=== PATIENT | male | born 1980 | race Caucasian/White ===

== ENCOUNTER 2023-02-22 16:18 | Inpatient (IN) | payer SELFPAY ==
[2023-02-22 16:20] VITALS: BP 166/110; PULSE 95; RESP 14; TEMP 36.2; O2SAT 99; BMI 21.4
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
[2023-02-22] MEDS: LORazepam 2 MG/ML Syringe 0.5 MG IV (16:42)
[2023-02-22 16:47] VITALS: BP 162/102; PULSE 75; RESP 16; O2SAT 100
[2023-02-22 17:29] LABS: Amphetamine Urine VISTA NEGATIVE (<1000 ng/mL); Barbiturate Urine VISTA NEGATIVE (< 200 ng/mL); Benzodiazepine Urine VISTA NEGATIVE (< 200 ng/mL); Cocaine Urine VISTA NEGATIVE (< 300 ng/mL); Ecstacy Urine VISTA NEGATIVE (< 500 ng/mL); Methadone Urine VISTA NEGATIVE (< 300 ng/mL); PCP Urine VISTA NEGATIVE (< 25 ng/mL); THC Urine VISTA NEGATIVE (< 50 ng/mL); Vista UDS pH Range 6
[2023-02-22 17:36] LABS: Absolute Lymphocyte Count 1.18 X10^3/uL (0.83-4.51); Absolute Neutrophil Count 1.1 X10^3/uL (2.0-7.7); Basophil# 0.05 X10^3/uL; Basophil% 1.9 % (0-1); Eosinophil# 0.03 X10^3/uL; Eosinophils% 1.1 % (0-5); Hemoglobin 14.4 g/dL (13.0-16.5); Lymphocyte # 1.18 X10^3/ul (0.83-4.51); Lymphocyte % 44.2 % (19-41); Mean Corp Hgb Conc 33.5 g/dL (32-36); Mean Corpuscular Hgb 29.9 pg (27.0-32.0); Mean Corpuscular Volume 89.4 fL (80-94); Mean Platelet Vol. 9.3 fl (6.2-12.0); Monocyte# 0.29 X10^3/uL; Monocyte% 10.9 % (0-10); NRBC Flagged by Analyzer 0 % (0-5); Neutrophil # 1.12 X10^3/uL (2.7-7.7); Neutrophil % 41.9 % (47-70); Platelet Count 130 K/mm3 (150-450); RBC Distribution Width CV 13.6 % (11.6-14.6); Red Blood Count 4.81 M/mm3 (4.6-6.2); White Blood Count 2.7 K/mm3 (4.4-11.0)
[2023-02-22 17:46] LABS: International Normalized Ratio 0.9; Prothrombin Time (Protime)PT. 12.4 SECONDS (11.7-14.9)
[2023-02-22 17:58] LABS: ALB/GLOB Ratio 1.2 RATIO (0.9-2.4); AST(SGOT) 33 U/L (15-37); Alanine Aminotransfer ALT/SGPT 33 U/L (16-61); Albumin, Serum 3.5 g/dL (3.2-5.0); Alkaline Phosphatase 101 U/L (45-117); Anion Gap 6 (5-15); BUN 7 mg/dL (7-18); Chloride 109 mmol/L (98-107); Creatinine, Serum 0.58 mg/dL (0.70-1.30); EST Glomerular Filtration Rate 162 mL/min (>60); Est Glom Filt Rate - Afr Amer 196 mL/min (>60); Estimated Creatinine Clearance 157.49 ml/min; Glucose 81 mg/dL (74-106); Protein, Total 6.5 g/dL (6.4-8.2); Sodium Level 143 mmol/L (136-145)
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
[2023-02-22 18:19] VITALS: BP 139/74; PULSE 89; RESP 15; O2SAT 98
[2023-02-22] MEDS: Potassium Chloride Oral Tablet 20 MEQ 40 MEQ PO (18:21)
[2023-02-22 19:46] VITALS: BP 139/74; PULSE 89; RESP 15; TEMP 36.6; O2SAT 98
[2023-02-22 20:00] VITALS: BMI 21.5
[2023-02-22 21:09] VITALS: BP 171/104; PULSE 85; RESP 20; TEMP 36.8; O2SAT 99
[2023-02-22] MEDS: Phenobarbital 32.4 MG Tablet 64.7999999999999972 MG PO (21:14)
[2023-02-22] MEDS: Gabapentin 300 MG Capsule PO (21:35)
[2023-02-22] MEDS: Ensure Plus High Protein 120 ML LIQUID PO (21:35)
[2023-02-22] MEDS: QUEtiapine 25 MG Tablet PO (22:24)
[2023-02-22] MEDS: 0.9% Saline Lock 10 ML Syringe IV (22:26)
[2023-02-23 00:30] VITALS: BP 154/81; PULSE 98; RESP 18; TEMP 37.1; O2SAT 98
[2023-02-23 02:14] VITALS: BP 161/96; PULSE 81; RESP 20; TEMP 36.8; O2SAT 98
[2023-02-23] MEDS: Phenobarbital 32.4 MG Tablet 64.7999999999999972 MG PO ×6 (02:16→23:08)
[2023-02-23] MEDS: Ibuprofen 200 MG Tablet PO (03:59)
[2023-02-23 06:41] VITALS: BP 144/110; PULSE 79; RESP 16; TEMP 36.6; O2SAT 98
[2023-02-23 07:47] LABS: Absolute Lymphocyte Count 1.79 X10^3/uL (0.83-4.51); Absolute Neutrophil Count 1.2 X10^3/uL (2.0-7.7); Basophil# 0.07 X10^3/uL; Eosinophils% 2.9 % (0-5); Hemoglobin 13.3 g/dL (13.0-16.5); Lymphocyte # 1.79 X10^3/ul (0.83-4.51); Lymphocyte % 51.3 % (19-41); Mean Corp Hgb Conc 33.3 g/dL (32-36); Mean Corpuscular Hgb 29.6 pg (27.0-32.0); Mean Corpuscular Volume 88.9 fL (80-94); Mean Platelet Vol. 10.5 fl (6.2-12.0); Monocyte# 0.32 X10^3/uL; Monocyte% 9.2 % (0-10); NRBC Flagged by Analyzer 0 % (0-5); Neutrophil % 34.3 % (47-70); Platelet Count 127 K/mm3 (150-450); RBC Distribution Width CV 13.5 % (11.6-14.6); White Blood Count 3.5 K/mm3 (4.4-11.0)
[2023-02-23 08:09] LABS: Prothrombin Time (Protime)PT. 13.6 SECONDS (11.7-14.9)
[2023-02-23 08:45] VITALS: BP 172/98; PULSE 91; RESP 16; TEMP 37.1; O2SAT 100
[2023-02-23] MEDS: Thiamine Hydrochloride 100 MG Tablet PO (08:56)
[2023-02-23] MEDS: Folic Acid 1 MG Tablet PO (08:56)
[2023-02-23 09:09] LABS: ALB/GLOB Ratio 1.1 RATIO (0.9-2.4); AST(SGOT) 32 U/L (15-37); Alanine Aminotransfer ALT/SGPT 29 U/L (16-61); Albumin, Serum 3.2 g/dL (3.2-5.0); Alkaline Phosphatase 99 U/L (45-117); Anion Gap 6 (5-15); BUN 8 mg/dL (7-18); BUN/Creat Ratio 12.5 RATIO (10-20); Bilirubin, Direct 0.43 mg/dL (0.00-0.30); Chloride 108 mmol/L (98-107); Creatinine, Serum 0.64 mg/dL (0.70-1.30); EST Glomerular Filtration Rate 145 mL/min (>60); Est Glom Filt Rate - Afr Amer 175 mL/min (>60); Estimated Creatinine Clearance 143.77 ml/min; Glucose 71 mg/dL (74-106); Magnesium 1.6 mg/dL (1.6-2.6); Phosphorus 3.7 mg/dL (2.5-4.9); Potassium 3.1 mmol/L (3.5-5.1); Protein, Total 6.2 g/dL (6.4-8.2); Sodium Level 143 mmol/L (136-145)
--- NOTE | 2023-02-23 09:16 | PCM.PN.HOSP ---
Subjective Subjective No issues overnight, little bit shaky and a little bit anxious CIWA score of 9 Objective Data Objective Data Vital Signs: Vital Signs Temp Pulse Resp BP Pulse Ox O2 Del Method 98.8 F 91 16 172/98 H 100 Room Air 02/23/23 08:45 02/23/23 08:45 02/23/23 08:45 02/23/23 08:45 02/23/23 08:45 02/23/23 08:45 Oxygen Delivery Method Room Air Weight: 150 lb 9.211 oz Body Mass Index (BMI) 21.5 Intake & Output: Intake and Output for Last 24 Hours 02/22/23 02/23/23 02/24/23 03:59 03:59 03:59 Intake Total 1999 1000 / 1000 Balance 1999 1000 / 1000 Lab / Micro Data 02/23/23 07:04 02/23/23 07:04 Labs: Laboratory Results - last 24 hr 02/22/23 17:00: Urine Opiates Screen NEGATIVE, Urine Methadone Screen NEGATIVE, Ur Barbiturates Screen NEGATIVE, Ur Phencyclidine Scrn NEGATIVE, Ur Amphetamines Screen NEGATIVE, MDMA (Ecstasy) Screen NEGATIVE, U Benzodiazepines Scrn NEGATIVE, Urine Cocaine Screen NEGATIVE, U Cannabinoids Screen NEGATIVE, Ur Drug Screen Comment 02/22/23 17:23: WBC 2.7 L, RBC 4.81, Hgb 14.4, Hct 43.0, MCV 89.4, MCH 29.9, MCHC 33.5, RDW Std Deviation 45.0 H, RDW Coeff of Rubens 13.6, Plt Count 130 L, MPV 9.3, Immature Gran % (Auto) 0.000, Neut % (Auto) 41.9 L, Lymph % (Auto) 44.2 H, Juncos % (Auto) 10.9 H, Eos % (Auto) 1.1, Baso % (Auto) 1.9 H, Absolute Neuts (auto) 1.1 L, Absolute Lymphs (auto) 1.18, Nucleated RBC % 0, PT 12.4, INR 0.9, Sodium 143, Potassium 3.0 L, Chloride 109 H, Carbon Dioxide 28.0, Anion Gap 6, BUN 7, Creatinine 0.58 L, Estim Creat Clear Calc 157.49, Est GFR (MDRD) Af Amer 196, Est GFR (MDRD) Non-Af 162, BUN/Creatinine Ratio 12.0, Glucose 81, Calcium 8.0 L, Total Bilirubin 1.00, AST 33, ALT 33, Alkaline Phosphatase 101, Ammonia 32.0, Total Protein 6.5, Albumin 3.5, Globulin 3.0, Albumin/Globulin Ratio 1.2, Ethyl Alcohol 243.0 02/23/23 07:04: WBC 3.5 L, RBC 4.50 L, Hgb 13.3, Hct 40.0, MCV 88.9, MCH 29.6, MCHC 33.3, RDW Std Deviation 44.0 H, RDW Coeff of Rubens 13.5, Plt Count 127 L, MPV 10.5, Immature Gran % (Auto) 0.300, Neut % (Auto) 34.3 L, Lymph % (Auto) 51.3 H, Juncos % (Auto) 9.2, Eos % (Auto) 2.9, Baso % (Auto) 2.0 H, Absolute Neuts (auto) 1.2 L, Absolute Lymphs (auto) 1.79, Nucleated RBC % 0, PT 13.6, INR 1.0, Sodium 143, Potassium 3.1 L, Chloride 108 H, Carbon Dioxide 29.0, Anion Gap 6, BUN 8, Creatinine 0.64 L, Estim Creat Clear Calc 143.77, Est GFR (MDRD) Af Amer 175, Est GFR (MDRD) Non-Af 145, BUN/Creatinine Ratio 12.5, Glucose 71 L, Calcium 8.0 L, Phosphorus 3.7, Magnesium 1.6, Total Bilirubin 1.90 H, Direct Bilirubin 0.43 H, AST 32, ALT 29, Alkaline Phosphatase 99, Total Protein 6.2 L, Albumin 3.2, Globulin 3.0, Albumin/Globulin Ratio 1.1, TSH 0.70 Physical Exam Narrative General: Alert, Oriented x3, Cooperative, No apparent distress HEENT: Atraumatic, PERRLA, EOMI, Normocephalic Oral: Moist Mucosa Neck: Supple, No JVD Lungs: Clear to auscultation, Normal air movement, No rhonchi, No wheeze, No rales Cardiovascular: Regular rate, Regular Rhythm, Normal S1, Normal S2, No murmurs Abdomen: Soft, Non Tender, Non-Distended, No Hepato-splenomegaly Extremities: No edema, Capillary Refill Less than 3 Seconds Skin: No rashes, No breakdown Musculoskeletal: No Tenderness to Palpation of Joints or Extremities Neurological: Cranial nerves II-XII grossly intact, Motor Exam 5/5 strength throughout, Sensory exam intact to light touch and pain Psych/Mental Status: Flat, anxious Assessment & Plan Assessment/Plan (1) Alcohol abuse: PLAN: Plan 1. Alcohol withdrawal/chronic thrombocytopenia ? Continue with the alcohol withdrawal protocol ? We will have him follow-up with 180 for discharge planning ? Thrombocytopenia and leukopenia likely related to liver disease from his chronic alcohol use we will continue to monitor DVT: Ambulation Charges/Coding Visit Charges Inpatient E&M: 61228 Subs Hosp L2
[2023-02-23] MEDS: Gabapentin 300 MG Capsule PO ×2 (10:33→17:54)
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
[2023-02-23 14:16] VITALS: BP 160/101; PULSE 73; RESP 16; TEMP 37.1; O2SAT 99
[2023-02-23] MEDS: hydrOXYzine PAM 25 MG Capsule 50 MG PO ×2 (14:25→21:07)
[2023-02-23 21:04] VITALS: BP 162/104; PULSE 80; RESP 18; TEMP 37.1; O2SAT 100
[2023-02-23] MEDS: 0.9% Saline Lock 10 ML Syringe IV (21:07)
[2023-02-24 02:40] VITALS: BP 154/110; PULSE 64; RESP 18; TEMP 36.7; O2SAT 98
[2023-02-24] MEDS: Phenobarbital 32.4 MG Tablet 64.7999999999999972 MG PO ×6 (02:41→21:55)
[2023-02-24] MEDS: hydrOXYzine PAM 25 MG Capsule 50 MG PO ×3 (02:48→20:48)
[2023-02-24 06:44] VITALS: BP 144/96; PULSE 73; RESP 16; TEMP 37; O2SAT 99
[2023-02-24] MEDS: Gabapentin 300 MG Capsule PO ×2 (06:48→18:14)
[2023-02-24] MEDS: Thiamine Hydrochloride 100 MG Tablet PO (08:41)
[2023-02-24] MEDS: Folic Acid 1 MG Tablet PO (08:41)
--- NOTE | 2023-02-24 09:38 | PCM.PN.HOSP ---
Subjective Subjective No issues overnight, WA score of 11 Objective Data Objective Data Vital Signs: Vital Signs Temp Pulse Resp BP Pulse Ox O2 Del Method 98.6 F 73 16 144/96 H 99 Room Air 02/24/23 06:44 02/24/23 06:44 02/24/23 06:44 02/24/23 06:44 02/24/23 06:44 02/24/23 06:44 Oxygen Delivery Method Room Air Weight: 149 lb 14.629 oz Body Mass Index (BMI) 21.5 Intake & Output: Intake and Output for Last 24 Hours 02/23/23 02/24/23 02/25/23 03:59 03:59 03:59 Intake Total 1999 / 1999 3000 / 3000 1000 / 1000 Balance 1999 / 1999 3000 / 3000 1000 / 1000 Lab / Micro Data 02/23/23 07:04 02/23/23 07:04 Physical Exam Narrative General: Alert, Oriented x3, Cooperative, No apparent distress HEENT: Atraumatic, PERRLA, EOMI, Normocephalic Oral: Moist Mucosa Neck: Supple, No JVD Lungs: Clear to auscultation, Normal air movement, No rhonchi, No wheeze, No rales Cardiovascular: Regular rate, Regular Rhythm, Normal S1, Normal S2, No murmurs Abdomen: Soft, Non Tender, Non-Distended, No Hepato-splenomegaly Extremities: No edema, Capillary Refill Less than 3 Seconds Skin: No rashes, No breakdown Musculoskeletal: No Tenderness to Palpation of Joints or Extremities Neurological: Cranial nerves II-XII grossly intact, Motor Exam 5/5 strength throughout, Sensory exam intact to light touch and pain Psych/Mental Status: Flat, anxious Assessment & Plan Assessment/Plan (1) Alcohol abuse: PLAN: Plan 1. Alcohol withdrawal/chronic thrombocytopenia ? Continue with the alcohol withdrawal protocol ? We will have him follow-up with 180 for discharge planning ? Thrombocytopenia and leukopenia likely related to liver disease from his chronic alcohol use we will continue to monitor DVT: Ambulation Charges/Coding Visit Charges Inpatient E&M: 71356 Subs Hosp L2
[2023-02-24 10:00] VITALS: BP 155/107; PULSE 80; RESP 16; TEMP 37.5; O2SAT 99
[2023-02-24] MEDS: Ibuprofen 400 MG Tablet PO ×2 (11:10→20:50)
--- NOTE | 2023-02-24 12:34 | CASEMGMT ---
Social Work SW met with pt and provided written resources for transportation, housing, [facility] program, [place] [facility] and PCP list. SW also called the Counseling Center and made an appointment for a diagnostic Assessment for Intake. Appointment on March 01 at 1030 with Tanvi White. Pt made aware and agreeable to appointment. Appointment information entered into the discharge information. Pt denies other needs at this time. NICO Martin
[2023-02-24 18:00] VITALS: BP 157/114; PULSE 84; RESP 16; TEMP 37.2; O2SAT 99
[2023-02-24 20:56] VITALS: BP 158/98; PULSE 88; RESP 16; TEMP 36.8; O2SAT 95
[2023-02-24] MEDS: QUEtiapine 25 MG Tablet PO (21:55)
[2023-02-25 02:14] VITALS: BP 156/98; PULSE 69; RESP 16; TEMP 36.6; O2SAT 100
[2023-02-25] MEDS: Phenobarbital 32.4 MG Tablet 64.7999999999999972 MG PO ×2 (02:18→08:20)
[2023-02-25] MEDS: Gabapentin 300 MG Capsule PO (02:19)
[2023-02-25] MEDS: Folic Acid 1 MG Tablet PO (08:21)
[2023-02-25] MEDS: Potassium Chloride Oral Tablet 20 MEQ PO (08:21)
[2023-02-25] MEDS: Thiamine Hydrochloride 100 MG Tablet PO (08:21)
--- NOTE | 2023-02-25 10:00 | PCM.DC.SUM ---
Providers Date of Admission: 02/22/23 Date of Discharge: 02/25/23 Primary Care Physician: Felicitas Primary Care Phys Reason For Visit: ALCOHOL DETOXIFICATION Diagnosis Discharge Diagnosis (1) Alcohol abuse: Status: Acute Code(s): F10.10 - Alcohol abuse, uncomplicated Medications at Discharge Home Medications gabapentin 300 mg capsule 300 mg PO TID 02/22/23 lorazepam 0.5 mg tablet (Ativan) 0.5 mg PO DAILY PRN anxiety 02/22/23 quetiapine 25 mg tablet (Seroquel) 25 mg PO QHS 02/22/23 amlodipine 10 mg tablet 10 mg PO DAILY #60 tabs 02/25/23 Hospital Course Summary of Care Provided Minutes Spent on Discharge: 35 Hospital Course: Patient is a 43-year-old gentleman with history of chronic alcohol dependence presented with acute alcohol withdrawal 1. Acute alcohol withdrawal -patient admitted to regular nursing floor managed with phenobarb taper in addition to adjuvant medications 2. Thrombocytopenia ? Related to patient chronic alcohol use, monitored with daily CBC with differential 3. Leukopenia ? Again related to patient alcohol use 4. Essential hypertension ? Prescription written for amlodipine on discharge Physical Exam Narrative GENERAL: cooperative HEENT: Atraumatic; normocephalic EYES; Anicteric, Normal Conjunctiva NECK; supple, normal thyroid, RESPIRATORY: Diminished to auscultation CARDIOVASCULAR: Regular S1 S2, GI: soft, normoactive bowel sounds, : No Renal angle tenderness; EXTREMITIES: No edema, no clubbing, MUSCULOSKELETAL: no muscle wasting NEURO: Awake; no lateralizing signs. SKIN: No Rash PSYCH; Flat affect Weight / BMI Weight Weight: 68 kg Body Mass Index (BMI) 21.5 ABG / Lab / Microbiology Data 02/23/23 07:04 02/23/23 07:04 D/C Instructions Discharge Diet: No restrictions Discharge Activity: Return to Normal Activity Call your doctor if you observe: Fever of 101 or Higher, Shortness of breath, Fainting spells and Chest pain Meaningful Use Info Meaningful Use Diagnoses (Choose all that apply): None applicable Discharge Plan Admission Admit Date/Time: 02/22/23 18:24 Attending Provider: Spencer Rose Primary Care Provider: Care Physician,No Primary Consulting Providers: Linda Mendiola; Óscar Terry Instructions Additional Instructions / Restrictions: go directly to 180 as directed by staff Discharge Orders/Prescriptions Prescriptions: New amlodipine 10 mg tablet 10 mg PO DAILY Qty: 60 0RF Continued quetiapine [Seroquel] 25 mg tablet 25 mg PO QHS lorazepam [Ativan] 0.5 mg tablet 0.5 mg PO DAILY PRN (Reason: anxiety) gabapentin 300 mg capsule 300 mg PO TID Referrals / Follow Up: Care Physician,No Primary [Primary Care Provider] - Within 2 Weeks Disposition Disposition (needs filled in before D/C Order can be placed): Home, Self Care Charges/Coding Visit Charges Inpatient E&M: 83693 Disch Hosp >30min
[2023-02-25 10:01] VITALS: BP 151/100; PULSE 86; RESP 18; TEMP 36.7; O2SAT 96
== END 2023-02-25 10:55 | disposition home or self-care (01) | DRG 897 ==
LOC: ED 18:00 → MS3 18:34
PROVIDERS: Admitting Provider Internal Medicine; Emergency Provider Emergency Medicine; Visit Provider Internal Medicine
DX: F10.239 Alcohol dependence with withdrawal, unspecified (principal); D69.6 Thrombocytopenia, unspecified; I10 Essential (primary) hypertension; E87.6 Hypokalemia; Y90.8 Blood alcohol level of 240 mg/100 ml or more
CPT/HCPCS: 36415; 80053; 80307; 80320; 82140; 82248; 83735; 84100; 84443; 85025; 85610; 97802; 99284; A4216; G0480

== ENCOUNTER 2023-03-27 19:38 | Observation (INO) | payer MEDICAID, SELFPAY ==
[2023-03-27 19:39] VITALS: BP 184/97; PULSE 106; RESP 16; TEMP 36.6; O2SAT 98; BMI 20.5
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
--- NOTE | 2023-03-27 20:10 | CT_ITS ---
STUDY: CT BRAIN WITHOUT CONTRAST REASON FOR EXAM: Male, 43 years old. Head injury RADIATION DOSAGE (If Supplied By Facility): CTDIvol = ( 44.99 ) mGy, DLP = ( 829.85 ) mGycm TECHNIQUE: Transaxial CT imaging of the brain was performed without administration of intravenous contrast material. Individualized dose optimization techniques were used for this CT. COMPARISON: No relevant priors. FINDINGS: Normal soft tissue structures. Normal calvarium. Normal size ventricles and extra-axial spaces for the patient''s age. Normal white matter tracts of the cerebral hemispheres. Normal basal ganglia and thalami. Normal brainstem. Normal cerebellum. There is no intracranial hemorrhage. There are no findings of an acute ischemic infarction. Normal visualized paranasal sinuses. CT/Brain/Head without Contrast IMPRESSION: Normal unenhanced CT scan of the brain. Electronically Signed: Jessy Barraza MD at 21:16 EST ,
--- NOTE | 2023-03-27 20:11 | CT_ITS ---
STUDY: CTA CHEST REASON FOR EXAM: Male, 43 years old. Pulmonary embolism RADIATION DOSAGE (If Supplied By Facility): CTDIvol = ( 7.68 ) mGy, DLP = ( 1114.36 ) mGycm TECHNIQUE: The examination was performed with the intravenous administration of IV 100mL Isovue-370. Post-processing of the angiographic images was performed, with multiplanar reformation and 3D reconstruction. Individualized dose optimization techniques were used for this CT. COMPARISON: None. FINDINGS: Normal enhancement of the main pulmonary artery and right and left pulmonary arteries. Normal enhancement of the bilateral peripheral pulmonary arteries. There is no demonstrated pulmonary embolism. Normal thoracic aorta and visualized great vessels. There is no demonstrated aortic dissection. Normal heart and pericardium. Normal mediastinum. Normal hilar regions. Normal visualized trachea and bronchi. The lungs are well expanded. Mild biapical subpleural scarring versus atelectasis. Otherwise normal pulmonary parenchyma. Mild biapical pleural thickening. Normal chest wall structures. Normal osseous structures. Upper abdomen reveals diffuse fatty liver. Remainder of the visualized upper abdominal viscera and structures are unremarkable. CT/CTA Chest W/WO Contrast IMPRESSION: Negative CTA chest examination, without a demonstrated pulmonary embolism or arterial dissection. No acute cardiac pulmonary disease. Electronically Signed: Jessy Barraza MD at 21:37 EST ,
[2023-03-27 20:16] LABS: Bacteria 0 SEEN /hpf (None Seen); Mucous, Urine 0 SEEN /hpf (<or=2+); Red Blood Cells-Urine 0 SEEN /hpf (0-5); Squamous Epithelial Cells - UA 0 SEEN /hpf (0-5); White Blood Cells 0 SEEN /hpf (0-5)
[2023-03-27 20:18] LABS: Color, Urine Yellow (Yellow); Glucose, Dipstick Normal (Normal); Ketone-Dipstick 50 mg/dl (Negative); Leukocyte Esterase-Dipstick Negative /ul (Negative); Nitrite-Dipstick Negative (Negative); Occult Blood-Urine 10 /ul (Negative); Protein-Dipstick 100 mg/dl (Negative); Specific Gravity, Urine 1.015 (1.002-1.030); Urine Bilirubin Dipstick Negative (Negative); Urine Clarity Clear (Clear); Urine Urobilinogen Normal (Normal); Urine pH 6.5 (5.0 - 8.0)
[2023-03-27 20:31] LABS: Absolute Lymphocyte Count 1.16 X10^3/uL (0.83-4.51); Absolute Neutrophil Count 1.2 X10^3/uL (2.0-7.7); Basophil# 0.03 X10^3/uL; Basophil% 1.1 % (0-1); Hematocrit 42.7 % (40-54); Hemoglobin 14.7 g/dL (13.0-16.5); Lymphocyte # 1.16 X10^3/ul (0.83-4.51); Lymphocyte % 44.4 % (19-41); Mean Corp Hgb Conc 34.4 g/dL (32-36); Mean Corpuscular Hgb 29.3 pg (27.0-32.0); Mean Corpuscular Volume 85.2 fL (80-94); Mean Platelet Vol. 8.8 fl (6.2-12.0); Monocyte# 0.22 X10^3/uL; Monocyte% 8.4 % (0-10); NRBC Flagged by Analyzer 0 % (0-5); Neutrophil # 1.19 X10^3/uL (2.7-7.7); Neutrophil % 45.7 % (47-70); POSITIVE COUNT YES; Platelet Count 85 K/mm3 (150-450); RBC Distribution Width CV 12.5 % (11.6-14.6); RBC Distribution Width SD 38.9 fl (35.1-43.9); Red Blood Count 5.01 M/mm3 (4.6-6.2); White Blood Count 2.6 K/mm3 (4.4-11.0)
[2023-03-27 20:32] LABS: Amphetamine Urine VISTA NEGATIVE (<1000 ng/mL); Barbiturate Urine VISTA NEGATIVE (< 200 ng/mL); Benzodiazepine Urine VISTA NEGATIVE (< 200 ng/mL); Cocaine Urine VISTA NEGATIVE (< 300 ng/mL); Ecstacy Urine VISTA NEGATIVE (< 500 ng/mL); Methadone Urine VISTA NEGATIVE (< 300 ng/mL); PCP Urine VISTA NEGATIVE (< 25 ng/mL); THC Urine VISTA NEGATIVE (< 50 ng/mL); Vista UDS pH Range 6
[2023-03-27 20:35] LABS: Differential Indicated SCAN CRITERIA MET
[2023-03-27 20:47] LABS: ALB/GLOB Ratio 1.2 RATIO (0.9-2.4); AST(SGOT) 185 U/L (15-37); Alanine Aminotransfer ALT/SGPT 133 U/L (16-61); Albumin, Serum 3.7 g/dL (3.2-5.0); Alkaline Phosphatase 202 U/L (45-117); Anion Gap 11 (5-15); BUN 10 mg/dL (7-18); BUN/Creat Ratio 12.8 RATIO (10-20); Calcium,Total 8.6 mg/dL (8.5-10.1); Chloride 103 mmol/L (98-107); Creatinine, Serum 0.78 mg/dL (0.70-1.30); EST Glomerular Filtration Rate 116 mL/min (>60); Est Glom Filt Rate - Afr Amer 140 mL/min (>60); Estimated Creatinine Clearance 112.03 ml/min; Globulin 3.2 g/dL (2.2-4.2); Glucose 187 mg/dL (74-106); Lipase 220 U/L (13-75); Protein, Total 6.9 g/dL (6.4-8.2); Sodium Level 139 mmol/L (136-145)
[2023-03-27 20:55] LABS: Differential Comment SCANNED
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
[2023-03-27] MEDS: Potassium Chloride Oral Tablet 20 MEQ 40 MEQ PO (22:21)
[2023-03-27 22:27] VITALS: BP 169/108; PULSE 100; RESP 22; TEMP 36.4; O2SAT 99
[2023-03-27] MEDS: Ketorolac 15 MG/ML Vial IV (23:09)
[2023-03-27 23:32] VITALS: BMI 20.5
[2023-03-27 23:37] VITALS: BP 158/109; PULSE 91; RESP 17; TEMP 36.7; O2SAT 99
[2023-03-27 23:49] LABS: International Normalized Ratio 0.8; Prothrombin Time (Protime)PT. 11.5 SECONDS (11.7-14.9)
[2023-03-27] MEDS: Potassium Chloride Oral Tablet 20 MEQ 60 MEQ PO (23:51)
[2023-03-27] MEDS: Phenobarbital 32.4 MG Tablet 32.3999999999999986 MG PO (23:51)
[2023-03-27] MEDS: hydrOXYzine PAM 25 MG Capsule 50 MG PO (23:51)
[2023-03-27] MEDS: 0.9% Saline Lock 10 ML Syringe IV (23:51)
[2023-03-27] MEDS: Lactated Ringers 1,000 ML 125 ML IV (23:51)
[2023-03-28] MEDS: traZODone 100 MG Tablet PO (02:12)
[2023-03-28] MEDS: Ibuprofen 600 MG Tablet PO ×3 (02:12→19:38)
[2023-03-28] MEDS: hydrOXYzine 50 MG/ML Vial 100 MG IM (02:40)
[2023-03-28 03:37] VITALS: BP 140/82; PULSE 108; RESP 16; TEMP 36.6; O2SAT 94
[2023-03-28] MEDS: Phenobarbital 32.4 MG Tablet 32.3999999999999986 MG PO ×6 (03:46→23:55)
[2023-03-28] MEDS: Gabapentin 300 MG Capsule PO ×3 (05:54→21:58)
[2023-03-28 06:02] LABS: Basophil# 0.01 X10^3/uL; Basophil% 0.4 % (0-1); Eosinophil# 0.03 X10^3/uL; Eosinophils% 1.2 % (0-5); Hematocrit 34.6 % (40-54); Lymphocyte % 45.6 % (19-41); Mean Corp Hgb Conc 34.7 g/dL (32-36); Mean Corpuscular Hgb 29.4 pg (27.0-32.0); Mean Corpuscular Volume 84.8 fL (80-94); Mean Platelet Vol. 9.2 fl (6.2-12.0); Monocyte# 0.26 X10^3/uL; Monocyte% 10.8 % (0-10); NRBC Flagged by Analyzer 0 % (0-5); Neutrophil # 1.01 X10^3/uL (2.7-7.7); POSITIVE COUNT YES; Platelet Count 64 K/mm3 (150-450); RBC Distribution Width CV 12.3 % (11.6-14.6); RBC Distribution Width SD 38.2 fl (35.1-43.9); Red Blood Count 4.08 M/mm3 (4.6-6.2); White Blood Count 2.4 K/mm3 (4.4-11.0)
[2023-03-28 06:53] LABS: ALB/GLOB Ratio 1.2 RATIO (0.9-2.4); AST(SGOT) 139 U/L (15-37); Alanine Aminotransfer ALT/SGPT 106 U/L (16-61); Albumin, Serum 3.1 g/dL (3.2-5.0); Alkaline Phosphatase 169 U/L (45-117); Anion Gap 5 (5-15); BUN 6 mg/dL (7-18); BUN/Creat Ratio 10.7 RATIO (10-20); Calcium,Total 8.2 mg/dL (8.5-10.1); Chloride 103 mmol/L (98-107); Creatinine, Serum 0.56 mg/dL (0.70-1.30); EST Glomerular Filtration Rate 168 mL/min (>60); Est Glom Filt Rate - Afr Amer 204 mL/min (>60); Estimated Creatinine Clearance 155.89 ml/min; Globulin 2.5 g/dL (2.2-4.2); Glucose 92 mg/dL (74-106); Lipase 199 U/L (13-75); Potassium 3.3 mmol/L (3.5-5.1); Protein, Total 5.6 g/dL (6.4-8.2); Sodium Level 137 mmol/L (136-145)
[2023-03-28 07:40] VITALS: BP 142/85; PULSE 72; RESP 16; TEMP 36.9; O2SAT 95
[2023-03-28] MEDS: Folic Acid 1 MG Tablet PO (07:43)
[2023-03-28] MEDS: Thiamine Hydrochloride 100 MG Tablet PO (07:43)
--- NOTE | 2023-03-28 09:53 | PCM.PN.HOSP ---
Reason for Visit Reason for Visit: Diagnoses Thrombocytopenia, unspecified (03/27/23) Decreased white blood cell count, unspecified (03/27/23) Hypokalemia (03/27/23) Alcohol abuse, uncomplicated (03/27/23) Alcohol use, unspecified with intoxication, unspecified (03/27/23) Noninfective gastroenteritis and colitis, unspecified (03/27/23) Bilious vomiting (03/27/23) Subjective Subjective Patient was seen and examined today, he appears calm, he has no visible tremor, he does not appear anxious. Objective Data Objective Data Vital Signs: Vital Signs Temp Pulse Resp BP Pulse Ox O2 Del Method 98.5 F 72 16 142/85 H 95 Room Air 03/28/23 07:40 03/28/23 07:40 03/28/23 07:40 03/28/23 07:40 03/28/23 07:40 03/28/23 07:53 Oxygen Delivery Method Room Air Weight: 64.8 kg Body Mass Index (BMI) 20.5 Intake & Output: Intake and Output for Last 24 Hours 03/26/23 03/27/23 03/28/23 23:59 23:59 23:59 Intake Total 1000 / 1000 Balance 1000 / 1000 Lab / Micro Data 03/28/23 05:09 03/28/23 05:09 Labs: Laboratory Results - last 24 hr 03/27/23 19:52: Urine Color Yellow, Urine Clarity Clear, Urine pH 6.5, Ur Specific [place] 1.015, Urine Protein 100 H, Urine Glucose (UA) Normal, Urine Ketones 50 H, Urine Occult Blood 10 H, Urine Nitrite Negative, Urine Bilirubin Negative, Urine Urobilinogen Normal, Ur Leukocyte Esterase Negative, Urine RBC 0 SEEN, Urine WBC 0 SEEN, Ur Squamous Epith Cells 0 SEEN, Urine Bacteria 0 SEEN, Urine Mucus 0 SEEN, Urine Opiates Screen NEGATIVE, Urine Methadone Screen NEGATIVE, Ur Barbiturates Screen NEGATIVE, Ur Phencyclidine Scrn NEGATIVE, Ur Amphetamines Screen NEGATIVE, MDMA (Ecstasy) Screen NEGATIVE, U Benzodiazepines Scrn NEGATIVE, Urine Cocaine Screen NEGATIVE, U Cannabinoids Screen NEGATIVE, Ur Drug Screen Comment 03/27/23 20:15: WBC 2.6 L, RBC 5.01, Hgb 14.7, Hct 42.7, MCV 85.2, MCH 29.3, MCHC 34.4, RDW Std Deviation 38.9, RDW Coeff of Rubens 12.5, Plt Count 85 L, MPV 8.8, Immature Gran % (Auto) 0.400, Neut % (Auto) 45.7 L, Lymph % (Auto) 44.4 H, Thayer % (Auto) 8.4, Eos % (Auto) 0.0, Baso % (Auto) 1.1 H, Absolute Neuts (auto) 1.2 L, Absolute Lymphs (auto) 1.16, Nucleated RBC % 0, Differential Comment SCANNED, PT 11.5 L, INR 0.8, Sodium 139, Potassium 3.0 L, Chloride 103, Carbon Dioxide 25.0, Anion Gap 11, BUN 10, Creatinine 0.78, Estim Creat Clear Calc 112.03, Est GFR (MDRD) Af Amer 140, Est GFR (MDRD) Non-Af 116, BUN/Creatinine Ratio 12.8, Glucose 187 H, Calcium 8.6, Total Bilirubin 0.50, AST 185 H, ALT 133 H, Alkaline Phosphatase 202 H, Total Protein 6.9, Albumin 3.7, Globulin 3.2, Albumin/Globulin Ratio 1.2, Lipase 220 H, Ethyl Alcohol 415.0 H* 03/28/23 05:09: WBC 2.4 L, RBC 4.08 L, Hgb 12.0 L, Hct 34.6 L, MCV 84.8, MCH 29.4, MCHC 34.7, RDW Std Deviation 38.2, RDW Coeff of Rubens 12.3, Plt Count 64 L, MPV 9.2, Immature Gran % (Auto) 0.000, Neut % (Auto) 42.0 L, Lymph % (Auto) 45.6 H, Thayer % (Auto) 10.8 H, Eos % (Auto) 1.2, Baso % (Auto) 0.4, Absolute Neuts (auto) 1.0 L, Absolute Lymphs (auto) 1.10, Nucleated RBC % 0, Sodium 137, Potassium 3.3 L, Chloride 103, Carbon Dioxide 29.0, Anion Gap 5, BUN 6 L, Creatinine 0.56 L, Estim Creat Clear Calc 155.89, Est GFR (MDRD) Af Amer 204, Est GFR (MDRD) Non-Af 168, BUN/Creatinine Ratio 10.7, Glucose 92, Calcium 8.2 L, Total Bilirubin 0.90, AST 139 H, ALT 106 H, Alkaline Phosphatase 169 H, Total Protein 5.6 L, Albumin 3.1 L, Globulin 2.5, Albumin/Globulin Ratio 1.2, Lipase 199 H 03/28/23 06:12: Ethyl Alcohol 173.0 Radiography Diagnostic Testing: Radiology Impression Brain CT 03/27/23 20:10 IMPRESSION: Normal unenhanced CT scan of the brain. Electronically Signed: Jessy Barraza MD at 21:16 EST , Chest CTA 03/27/23 20:11 IMPRESSION: Negative CTA chest examination, without a demonstrated pulmonary embolism or arterial dissection. No acute cardiac pulmonary disease. Electronically Signed: Jessy Barraza MD at 21:37 EST Reading Location ID and State: [employer] , Service support , Physical Exam Const alert, oriented x3, no apparent distress and average body habitus General Appearance: cooperative, well kempt and well developed Orientation / Consciousness: awake, oriented to person, oriented to place and oriented to time HEENT normocephalic, head/scalp atraumatic and moist oral mucous membranes Eyes PERRL, EOMs intact bilaterally and conjunctivae normal Neck supple, no JVD, thyroid normal and no carotid bruits General: trachea midline Resp normal respiratory effort, no retractions, no use of accessory muscles and clear to auscultation bilaterally Auscultation: Negative for rales, rhonchi or wheezes Cardio regular rate, regular rhythm, S1 normal heart sound, S2 normal heart sound, no murmurs, no rub and no gallops GI normal to inspection, nondistended, normoactive bowel sounds, soft to palpation, non-tender and non-distended Extremity no clubbing, cyanosis or edema Skin no rashes or lesions noted General Skin Exam: no breakdown Neuro oriented x3, CN's II-XII intact bilaterally, moves all extremities, no focal motor deficits and no sensory deficits noted Sensorium / Orientation: awake and alert Speech: speech normal Psych affect normal Assessment & Plan Assessment/Plan (1) Alcohol abuse: PLAN: Plan 1. Acute alcohol withdrawal-patient will remain on his present medications, he will be seen by addiction social problems specialist tomorrow for outpatient planning #2 chronic alcoholism-complicates care, medical course, recovery, and prognosis #3 alcoholic hepatitis-patient's liver enzymes will be monitored #4 elevated lipase-patient has no signs or symptoms of pancreatitis today, his abdomen is soft Total clinical time spent by myself addressing the patient's medical issues, reviewing all of his data, and collaborating with patient's care team: 25-minute Charges/Coding Visit Charges Inpatient E&M: 04268 Subs Hosp L1
[2023-03-28] MEDS: hydrOXYzine PAM 25 MG Capsule 50 MG PO ×3 (10:45→21:58)
[2023-03-28 14:22] VITALS: BP 147/98; PULSE 89; RESP 18; TEMP 36.9; O2SAT 98
[2023-03-28] MEDS: Nicotine Polacrilex 2 MG GUM PO (14:40)
[2023-03-28 20:20] VITALS: BP 161/113; PULSE 111; RESP 16; TEMP 36.4; O2SAT 99
--- NOTE | 2023-03-28 20:44 | NURSING ---
Patient got a shower and nicotine patch fell off. Patch replaced.
[2023-03-28] MEDS: QUEtiapine 25 MG Tablet PO (21:58)
[2023-03-29 02:00] VITALS: BP 168/107; PULSE 72; RESP 18; TEMP 36.6; O2SAT 97
[2023-03-29] MEDS: Phenobarbital 32.4 MG Tablet 32.3999999999999986 MG PO ×6 (03:53→22:57)
[2023-03-29] MEDS: hydrOXYzine PAM 25 MG Capsule 50 MG PO ×3 (03:54→15:42)
[2023-03-29] MEDS: Gabapentin 300 MG Capsule PO ×3 (06:27→22:11)
[2023-03-29] MEDS: Thiamine Hydrochloride 100 MG Tablet PO (07:35)
[2023-03-29] MEDS: Folic Acid 1 MG Tablet PO (07:35)
[2023-03-29 08:00] VITALS: BP 164/106; PULSE 68; RESP 18; TEMP 36.3; O2SAT 99
[2023-03-29 09:28] LABS: Anion Gap 5 (5-15); BUN 4 mg/dL (7-18); BUN/Creat Ratio 6.2 RATIO (10-20); Calcium,Total 9.2 mg/dL (8.5-10.1); Chloride 104 mmol/L (98-107); Creatinine, Serum 0.64 mg/dL (0.70-1.30); EST Glomerular Filtration Rate 145 mL/min (>60); Est Glom Filt Rate - Afr Amer 175 mL/min (>60); Estimated Creatinine Clearance 136.41 ml/min; Glucose 89 mg/dL (74-106); Magnesium 1.7 mg/dL (1.6-2.6); Potassium 3.5 mmol/L (3.5-5.1); Sodium Level 139 mmol/L (136-145)
--- NOTE | 2023-03-29 09:30 | ADDICTION ---
clinician reviewed documentation regarding client. client's primary language is Malawian. clinician will coordinate care for interperation services.
--- NOTE | 2023-03-29 09:44 | ADDICTION ---
clinician met with client to discuss substance use hx and relapse. client reported that he is feeling anxious due to recently moving from [place]; all of his possessions are in a storage unit. clinician briefly assisted client in processing emotions and provided brief mindfulness skills to increase internal focus. client reported a need for further tx upon release from detox. He doesn't know what area he would like to attend (possibly) IOP. clinician discussed local tx options. clinician will continue to collaborate with client for tx options.
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
[2023-03-29 14:00] VITALS: BP 175/117; PULSE 70; RESP 18; TEMP 36.9; O2SAT 98
[2023-03-29] MEDS: amLODIPine 5 MG Tablet PO (14:10)
--- NOTE | 2023-03-29 15:20 | PN.HOSP_ITS ---
Reason for Visit Reason for Visit: Diagnoses Thrombocytopenia, unspecified (03/27/23) Decreased white blood cell count, unspecified (03/27/23) Hypokalemia (03/27/23) Alcohol abuse, uncomplicated (03/27/23) Alcohol use, unspecified with intoxication, unspecified (03/27/23) Noninfective gastroenteritis and colitis, unspecified (03/27/23) Bilious vomiting (03/27/23) Subjective Subjective No acute events overnight. Patient seen at bedside this morning. Sitting up comfortably in bed, no acute distress. Patient appears fatigued and was making appropriate eye contact but did appear somewhat confused when answering my questions. He was able to answer most questions with short appropriate responses. He denied any acute pain or discomfort. He did have a noticeable bilateral arm tremor that he says has been going on intermittently for a while. He otherwise denies any other withdrawal symptoms. No other acute concerns this time. Objective Data Objective Data Vital Signs: Vital Signs Temp Pulse Resp BP Pulse Ox O2 Del Method 98.4 F 70 18 175/117 H 98 Room Air 03/29/23 14:00 03/29/23 14:00 03/29/23 14:00 03/29/23 14:00 03/29/23 14:00 03/29/23 14:00 Oxygen Delivery Method Room Air Weight: 64.8 kg Body Mass Index (BMI) 20.5 Intake & Output: Intake and Output for Last 24 Hours 03/27/23 03/28/23 03/29/23 23:59 23:59 23:59 Intake Total 1280 / 1280 1200 / 1200 Balance 1280 / 1280 1200 / 1200 Lab / Micro Data 03/28/23 05:09 03/29/23 08:17 Labs: Laboratory Results - last 24 hr 03/29/23 08:17: Sodium 139, Potassium 3.5, Chloride 104, Carbon Dioxide 30.0, A nion Gap 5, BUN 4 L, Creatinine 0.64 L, Estim Creat Clear Calc 136.41, Est GFR (MDRD) Af Amer 175, Est GFR (MDRD) Non-Af 145, BUN/Creatinine Ratio 6.2 L, Glucose 89, Calcium 9.2, Magnesium 1.7 Physical Exam Const alert and no apparent distress Constitutional Narrative: Middle-age male, thin appearing, appears older than stated age, fatigued, appears somewhat confused but answering questions with short appropriate responses, otherwise sitting up comfortably in bed, no acute distress. General Appearance: cooperative and comfortable HEENT normocephalic, head/scalp atraumatic, hearing grossly normal bilaterally and nasal mucous membranes and turbinates normal Eyes PERRL, EOMs intact bilaterally and conjunctivae normal Neck full ROM, no lymphadenopathy and supple Lymph Lymphatic: no lymphadenopathy noted Chest inspection of chest normal Resp normal respiratory effort, normal air movement, no use of accessory muscles and clear to auscultation bilaterally Cardio regular rate, regular rhythm, no murmurs and peripheral pulses 2+ throughout GI normal to inspection, nondistended, normoactive bowel sounds, soft to palpation, non-tender and non-distended Back/Spine normal ROM Extremity normal to inspection, full ROM and no pedal edema Skin no rashes or lesions noted Neuro no focal motor deficits and no sensory deficits noted Assessment & Plan Assessment/Plan (1) Alcohol abuse: (2) Leukopenia: QUALIFIERS: Leukopenia type: unspecified Qualified Code(s): D72.819 - Decreased white blood cell count, unspecified (3) Thrombocytopenia: (4) Elevated blood pressure reading: PLAN: Plan Patient is a 43-year-old male who presented to [facility] ED on 01/26/2024 for alcohol detoxification. 1. Chronic alcohol abuse with acute alcohol withdrawal Alcohol level 415 on admit. Was hospitalized at [facility] for same issue at the beginning of February. ? Case management following. Continue phenobarbital taper with as needed medications per alcohol withdrawal order set. Planning for either intensive outpatient therapy versus home with outpatient follow-up on discharge. 2. Suspected alcoholic hepatitis ? Liver enzymes elevated on admit, have remained stable. CTA chest showed diffuse fatty liver disease. No abdominal pain or tenderness noted. Outpatient follow-up recommended. 3. Elevated lipase ? Lipase 220 on admit, repeat lipase 199 on 03/28. No clinical evidence of pancreatitis since admit, abdomen soft and nontender, tolerating p.o. intake without issue. Monitor symptoms. 4. Mood disorder ? Continue home Seroquel at night. Will plan to restart Ativan 0.5 mg daily as needed on discharge. 5. Elevated blood pressure ? BP elevated to 160s to 170s systolic since admission. Has remained elevated despite good control of withdrawal symptoms. Suspect patient may have underlying hypertension. Started amlodipine 5 mg daily on 2/5, as well as IV hydralazine as needed. Monitor BP. 6. Mild pancytopenia ? WBC count 2-3 K, platelet count 60s to 90s, hemoglobin around 12. Suspect low platelet count secondary to alcohol hepatitis as noted above. Suspect mild leukopenia is chronic for the patient. Iron studies, B12 and folate ordered for workup of anemia. Trend daily CBC. DVT prophylaxis: Lovenox CODE STATUS: Full code, unverified Expected disposition: Home, 1 to 2 days Total clinical time spent by myself addressing the patient's medical issues, reviewing all the data, and collaborating with patient's care team: 25 minutes. Charges/Coding Visit Charges Inpatient E&M: 34952 Subs Hosp L1
[2023-03-29] MEDS: Ibuprofen 600 MG Tablet PO (15:42)
[2023-03-29 22:00] VITALS: BP 129/93; PULSE 105; RESP 16; TEMP 37.1; O2SAT 99
[2023-03-29] MEDS: QUEtiapine 25 MG Tablet PO (22:10)
[2023-03-30 03:45] VITALS: BP 119/94; PULSE 89; RESP 16; TEMP 36.6; O2SAT 96
[2023-03-30] MEDS: Phenobarbital 32.4 MG Tablet 32.3999999999999986 MG PO ×4 (03:46→19:09)
[2023-03-30] MEDS: Gabapentin 300 MG Capsule PO ×3 (06:42→22:25)
[2023-03-30] MEDS: Folic Acid 1 MG Tablet PO (08:40)
[2023-03-30] MEDS: Thiamine Hydrochloride 100 MG Tablet PO (08:40)
[2023-03-30 09:00] VITALS: BP 137/101; PULSE 93; RESP 18; TEMP 36.8; O2SAT 100
[2023-03-30 10:00] VITALS: BP 137/101; PULSE 93; RESP 18; TEMP 36.9; O2SAT 100
--- NOTE | 2023-03-30 10:45 | ADDICTION ---
clinician met with client to further discuss tx planning upon detox discharge. client was open and cooperative. 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 client reported a hx of mh and AoD services at [facility] in [place]. client signed daljit for this agency. clinician will coordiante care; client reported an upcoming apointment.
--- NOTE | 2023-03-30 10:51 | ADDICTION ---
clinician contacted [facility]/ [place] location. clinician confirmed patients next psych med management appointment; 04/09/23 at 10:30. During this appointment, he will meet with assigned prescriber and initially meet with individual counselor. He will be provided information regarding intensive case management to assist with housing and transportation.
[2023-03-30] MEDS: Nicotine Polacrilex 2 MG GUM PO ×2 (14:03→22:28)
[2023-03-30] MEDS: hydrOXYzine PAM 25 MG Capsule 50 MG PO (14:07)
--- NOTE | 2023-03-30 15:17 | PCM.PN.HOSP ---
Reason for Visit Reason for Visit: Diagnoses Thrombocytopenia, unspecified (03/27/23) Decreased white blood cell count, unspecified (03/27/23) Hypokalemia (03/27/23) Alcohol abuse, uncomplicated (03/27/23) Alcohol use, unspecified with intoxication, unspecified (03/27/23) Noninfective gastroenteritis and colitis, unspecified (03/27/23) Elevated blood-pressure reading, without diagnosis of hypertension (03/27/23) Bilious vomiting (03/27/23) Subjective Subjective No acute events overnight. Patient seen at bedside this morning. Patient appeared much more awake and alert this morning than yesterday. Was able to have a good 5-minute conversation this morning. Patient states that his withdrawal symptoms are much more controlled today. States that with restarting his home Seroquel, he was able to sleep better last night. Has much improved appetite today. Feels much more like himself in general. Is looking forward to hopeful discharge tomorrow and further outpatient therapy for his alcohol use disorder going forward. No other acute concerns at this time. Objective Data Objective Data Vital Signs: Vital Signs Temp Pulse Resp BP Pulse Ox O2 Del Method 98.4 F 93 18 137/101 H 100 Room Air 03/30/23 10:00 03/30/23 10:00 03/30/23 10:00 03/30/23 10:00 03/30/23 10:00 03/30/23 10:00 Oxygen Delivery Method Room Air Weight: 64.8 kg Body Mass Index (BMI) 20.5 Intake & Output: Intake and Output for Last 24 Hours 03/28/23 03/29/23 03/30/23 23:59 23:59 23:59 Intake Total 1280 / 1280 2700 / 2700 1200 / 1200 Balance 1280 / 1280 2700 / 2700 1200 / 1200 Lab / Micro Data 03/28/23 05:09 03/29/23 08:17 Physical Exam Const alert and no apparent distress Constitutional Narrative: Middle-age male, thin appearing, appears older than stated age, energy much improved today, sitting up comfortably in bed, conversing normally, no acute distress. General Appearance: cooperative and comfortable HEENT normocephalic, head/scalp atraumatic, hearing grossly normal bilaterally and nasal mucous membranes and turbinates normal Eyes PERRL, EOMs intact bilaterally and conjunctivae normal Neck full ROM, no lymphadenopathy and supple Lymph Lymphatic: no lymphadenopathy noted Chest inspection of chest normal Resp normal respiratory effort, normal air movement, no use of accessory muscles and clear to auscultation bilaterally Cardio regular rate, regular rhythm, no murmurs and peripheral pulses 2+ throughout GI normal to inspection, nondistended, normoactive bowel sounds, soft to palpation, non-tender and non-distended Back/Spine normal ROM Extremity normal to inspection, full ROM and no pedal edema Skin no rashes or lesions noted Neuro no focal motor deficits and no sensory deficits noted Speech: speech normal Psych affect normal Assessment & Plan Assessment/Plan (1) Alcohol abuse: (2) Leukopenia: QUALIFIERS: Leukopenia type: unspecified Qualified Code(s): D72.819 - Decreased white blood cell count, unspecified (3) Thrombocytopenia: (4) Elevated blood pressure reading: PLAN: Plan Patient is a 43-year-old male who presented to [facility] ED on 01/26/2024 for alcohol detoxification. 1. Chronic alcohol abuse with acute alcohol withdrawal Alcohol level 415 on admit. Was hospitalized at [facility] for same issue at the beginning of February. ? Case management following. Continue phenobarbital taper with as needed medications per alcohol withdrawal order set. Planning for intensive outpatient therapy on discharge. Likely discharge home tomorrow. 2. Suspected alcoholic hepatitis ? Liver enzymes elevated on admit, have remained stable. CTA chest showed diffuse fatty liver disease. No abdominal pain or tenderness noted. Outpatient follow-up recommended. 3. Elevated lipase ? Lipase 220 on admit, repeat lipase 199 on 03/28. No clinical evidence of pancreatitis since admit, abdomen soft and nontender, tolerating p.o. intake without issue. Monitor symptoms. 4. Mood disorder ? Continue home Seroquel at night. Will plan to restart Ativan 0.5 mg daily as needed on discharge. 5. Suspected essential hypertension ? BPs have been elevated to 160s and 170s systolic for first few days of admission despite fairly good control withdrawal symptoms. Initiated amlodipine 5 mg daily on 03/29. BP much improved. Will plan to discharge on amlodipine. 6. Mild pancytopenia, stable ? WBC count 2-3 K, platelet count 60s to 90s, hemoglobin around 12. Suspect low platelet count secondary to alcohol hepatitis as noted above. Suspect mild leukopenia is chronic for the patient. Labs stable, recommend repeat CBC 1 to 2 weeks after discharge. DVT prophylaxis: Lovenox CODE STATUS: Full code, unverified Expected disposition: Home, 1 to 2 days Total clinical time spent by myself addressing the patient's medical issues, reviewing all the data, and collaborating with patient's care team: 25 minutes. Charges/Coding Visit Charges Inpatient E&M: 01912 Subs Hosp L1
--- NOTE | 2023-03-30 16:00 | CASEMGMT ---
Social Work This mortgage loan underwriter met with patient to update that [facility] [employer] has indicated can help with Medicaid process, but first patient's [place] Medicaid needs to be canceled. Patient reports has canceled the Medicaid twice via the Medicaid ariella through [place]. Patient agrees to make a phone call when able to have access to a phone. Updated patient that physician has agreed to write 14 days worth of patient psychiatric medications and that this mortgage loan underwriter also checked with [facility] pharmacy, inpatient would have eligibility to be helped one time this year with the cost of medications, excluding the Ativan; can have help with Seroquel and gabapentin. Patient verbally expressed would be helpful to have financial assistance with the medications, and would look at other community options to see if there would be help for the Ativan. Patient confirms to have an appointment at the counseling center in the next two weeks. Patient pulled out resources provided by social service manager, when the social determinants of health screening was completed. Received an update from Kelly at [facility] [employer], who reports patient's Medicaid is now showing an active in [place], so Kelly will will update the patient and assist with an [place] Medicaid application. Plan: -patient is on the RAMP program, and discharge plan specific to recovery [facility] -Social work to follow for hospital prescription assistance for gabapentin and Seroquel. -XANDER Grant, COFFEE SAMPLER
[2023-03-30 16:04] VITALS: BP 128/91; PULSE 91; RESP 18; TEMP 36.8; O2SAT 100
[2023-03-30] MEDS: Ibuprofen 600 MG Tablet PO (19:09)
[2023-03-30 22:23] VITALS: BP 134/84; PULSE 94; RESP 16; TEMP 36.6; O2SAT 99
[2023-03-30] MEDS: QUEtiapine 25 MG Tablet PO (22:25)
[2023-03-31 02:23] VITALS: BP 148/98; PULSE 102; RESP 16; TEMP 36.6; O2SAT 99
[2023-03-31] MEDS: Phenobarbital 32.4 MG Tablet 32.3999999999999986 MG PO ×2 (02:24→06:54)
[2023-03-31] MEDS: Nicotine Polacrilex 2 MG GUM PO (02:24)
[2023-03-31] MEDS: hydrOXYzine PAM 25 MG Capsule 50 MG PO ×2 (02:25→09:52)
[2023-03-31] MEDS: Gabapentin 300 MG Capsule PO (06:54)
[2023-03-31] MEDS: Thiamine Hydrochloride 100 MG Tablet PO (09:17)
[2023-03-31] MEDS: Folic Acid 1 MG Tablet PO (09:17)
--- NOTE | 2023-03-31 09:18 | DCINST_ITS ---
Discharge Instructions Diet Discharge Diet: No restrictions Activity Discharge Activity: No Restrictions Weight Bearing Status: Full weight bearing Follow Up Care Test Results: Test results from this visit will be discussed in further detail at your follow- up appointment, if applicable. Discharge Plan Admission Admit Date/Time: 03/27/23 22:40 Primary Reason for Your Visit: alcohol detox Attending Provider: Ankit Quintana Primary Care Provider: Care Physician,No Primary Consulting Providers: Spencer Maldonado; Lencho Sanches Instructions Additional Instructions / Restrictions: Take medications at home as noted below. Follow-up with your psychiatrist on 04/09 as scheduled. Discharge Orders/Prescriptions Prescriptions: Continued lorazepam [Ativan] 0.5 mg tablet 0.5 mg PO DAILY PRN (Reason: anxiety) 14 Days Qty: 14 0RF gabapentin 300 mg capsule 300 mg PO TID 14 Days Qty: 42 0RF Changed quetiapine [Seroquel] 25 mg tablet 25 mg PO QHS 14 Days Qty: 14 0RF Referrals / Follow Up: Care Physician,No Primary [Primary Care Provider] - Disposition Disposition (needs filled in before D/C Order can be placed): Home, Self Care
--- NOTE | 2023-03-31 09:20 | DS.PCM_ITS ---
Providers Date of Admission: 03/27/23 Date of Discharge: 03/31/23 Primary Care Physician: No Primary Care Phys Reason For Visit: ALCOHOL INTOXICATION, HYPOKALEMIA, Diagnosis Discharge Diagnosis (1) Alcohol abuse: Status: Acute Code(s): F10.10 - Alcohol abuse, uncomplicated (2) Leukopenia: Status: Acute Code(s): D72.819 - Decreased white blood cell count, unspecified Qualifiers: Leukopenia type: unspecified Qualified Code(s): D72.819 - Decreased white blood cell count, unspecified (3) Thrombocytopenia: Status: Acute Code(s): D69.6 - Thrombocytopenia, unspecified (4) Elevated blood pressure reading: Status: Acute Code(s): R03.0 - Elevated blood-pressure reading, without diagnosis of hypertension Medications at Discharge Home Medications amlodipine 5 mg tablet 5 mg PO DAILY 30 days #30 tabs 03/31/23 gabapentin 300 mg capsule 300 mg PO TID 30 days #90 caps 03/31/23 lorazepam 0.5 mg tablet (Ativan) 0.5 mg PO DAILY PRN anxiety 30 days #30 tabs 03/31/23 quetiapine 25 mg tablet 25 mg PO QHS 30 days #30 tabs 03/31/23 Hospital Course Operations None Procedures EKG and - (CT brain, CTA chest) Summary of Care Provided Minutes Spent on Discharge: 25 Hospital Course: Patient is a 43-year-old male who presented to [place] ED on 01/26/2024 for alcohol detoxification. Hospital course as noted below. Discharged home in stable condition on 03/31. 1. Chronic alcohol abuse with acute alcohol withdrawal Alcohol level 415 on admit. Was hospitalized at [facility] for same issue at the beginning of February. ? Case management followed. Completed phenobarbital taper on 03/31, had good control of withdrawal symptoms on taper with as needed medications per alcohol withdrawal order set. Discharged home on 03/31 with plan for intensive outpatient therapy after discharge. 2. Suspected alcoholic hepatitis ? Liver enzymes elevated on admit, remained stable during hospitalization. CTA chest showed diffuse fatty liver disease. No abdominal pain or tenderness noted. Outpatient follow-up recommended. 3. Elevated lipase ? Lipase 220 on admit, repeat lipase 199 on 03/28. No clinical evidence of pancreatitis during hospitalization, abdomen soft and nontender, tolerated p.o. intake without issue. 4. Mood disorder ? Continue home Seroquel at night. Restarted home Ativan 0.5 mg daily as needed on discharge. 5. Suspected essential hypertension ? BPs were elevated to the 160s and 170s systolic despite fairly good control withdrawal symptoms. Initiated amlodipine 5 mg daily on 03/29 with good improvement. Amlodipine continued on discharge. 6. Mild pancytopenia, stable ? WBC count 2-3 K, platelet count 60s to 90s, hemoglobin around 12. Suspect low platelet count secondary to alcohol hepatitis as noted above. Suspect mild l eukopenia is chronic for the patient. Labs stable, recommend repeat CBC 1 to 2 weeks after discharge. Total clinical time spent by myself addressing the patient's discharge needs: 25 minutes. Physical Exam Const alert and no apparent distress Constitutional Narrative: Middle-age male, thin appearing, appears older than stated age, sitting up comfortably in bed, conversing normally, no acute distress. General Appearance: cooperative and comfortable HEENT normocephalic, head/scalp atraumatic, hearing grossly normal bilaterally and na ayesha mucous membranes and turbinates normal Eyes PERRL, EOMs intact bilaterally and conjunctivae normal Neck full ROM, no lymphadenopathy and supple Lymph Lymphatic: no lymphadenopathy noted Chest inspection of chest normal Resp normal respiratory effort, normal air movement, no use of accessory muscles and clear to auscultation bilaterally Cardio regular rate, regular rhythm, no murmurs and peripheral pulses 2+ throughout GI normal to inspection, nondistended, normoactive bowel sounds, soft to palpation, non-tender and non-distended Back/Spine normal ROM Extremity normal to inspection, full ROM and no pedal edema Skin no rashes or lesions noted Neuro no focal motor deficits and no sensory deficits noted Speech: speech normal Psych affect normal Weight / BMI Weight Weight: 64.8 kg Body Mass Index (BMI) 20.5 ABG / Lab / Microbiology Data 03/28/23 05:09 03/29/23 08:17 D/C Instructions Discharge Diet: No restrictions Weight Bearing Status: Full weight bearing Meaningful Use Info Meaningful Use Diagnoses (Choose all that apply): None applicable Discharge Plan Admission Admit Date/Time: 03/27/23 22:40 Primary Reason for Your Visit: alcohol detox Attending Provider: Ankit Quintana Primary Care Provider: Care Physician,No Primary Consulting Providers: Spencer Maldonado; Tereletsky,Lencho Instructions Additional Instructions / Restrictions: Take medications at home as noted below. Start taking amlodipine for high blood pressure as noted below. Follow-up with your psychiatrist on 04/09 as scheduled. Discharge Orders/Prescriptions Prescriptions: New quetiapine 25 mg Tablet 25 mg PO QHS 30 Days Qty: 30 0RF amlodipine 5 mg Tablet 5 mg PO DAILY 30 Days Qty: 30 0RF gabapentin 300 mg Capsule 300 mg PO TID 30 Days Qty: 90 0RF lorazepam [Ativan] 0.5 mg tablet 0.5 mg PO DAILY PRN (Reason: anxiety) 30 Days Qty: 30 0RF Discontinued quetiapine [Seroquel] 25 mg tablet 25 - 50 mg PO QHS lorazepam [Ativan] 0.5 mg tablet 0.5 mg PO DAILY PRN (Reason: anxiety) gabapentin 300 mg capsule 300 mg PO TID Referrals / Follow Up: Care Physician,No Primary [Primary Care Provider] - Disposition Disposition (needs filled in before D/C Order can be placed): Home, Self Care Charges/Coding Visit Charges Inpatient E&M: 32183 Disch Hosp
[2023-03-31 10:00] VITALS: BP 129/93; PULSE 51; RESP 18; TEMP 36.7; O2SAT 95
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
--- NOTE | 2023-03-31 11:57 | NURSING ---
pt aware that he needs to speak w/ CM about meds, 1 time dispense/free from [facility] prior to leaving, he is agreeable
--- NOTE | 2023-03-31 12:41 | CASEMGMT ---
Social Work SW met with pt to discuss discharge plan. Pt's mother will provide transportation from hospital and pt plans to go to his sister's home. Pt is aware of his followup appointments with [facility] and SW updated pt that physician did write prescriptions for needed psych meds until that appointment time. Pt does not have finances to pay for these meds. SW completed the prescription assistance form. [facility] will not be able to cover cost of Ativan. Pt made aware and states he will borrow money from his mom for the Ativan. Pt aware that meds can be picked up in the [facility] Retail pharmacy. Phone call to Kelly at [facility] who states she applied for Medicaid for pt on 03/30 and it should be effective soon and will be retroactive to 03/25. Pt does not have to do anything further. SW updated pt on this. No further concerns voiced by pt. NICO Martin
== END 2023-03-31 13:50 | disposition home or self-care (01) ==
LOC: ED 21:55 → MS3 22:52
PROVIDERS: Admitting Provider Internal Medicine; Emergency Provider Emergency Medicine; Visit Provider Hospitalist
DX: F10.129 Alcohol abuse with intoxication, unspecified (principal); D61.818 Other pancytopenia; F10.139 Alcohol abuse with withdrawal, unspecified; F39 Unspecified mood [affective] disorder; R56.9 Unspecified convulsions; K70.10 Alcoholic hepatitis without ascites; G47.33 Obstructive sleep apnea (adult) (pediatric); E87.6 Hypokalemia; F17.210 Nicotine dependence, cigarettes, uncomplicated; K76.0 Fatty (change of) liver, not elsewhere classified; R00.2 Palpitations; R03.0 Elevated blood-pressure reading, without diagnosis of hypertension; R06.02 Shortness of breath; Z86.711 Personal history of pulmonary embolism; Z79.899 Other long term (current) drug therapy; F17.290 Nicotine dependence, other tobacco product, uncomplicated; Y90.8 Blood alcohol level of 240 mg/100 ml or more
CPT/HCPCS: 36415; 70450; 71275; 80048; 80053; 80307; 80320; 81001; 83690; 83735; 85025; 85610; 96361; 96374; 99221; 99283; J7120; Q9967; A4216; G0378; G0480

== ENCOUNTER 2023-04-06 22:14 | Emergency (ER) | payer MEDICAID, SELFPAY ==
[2023-04-06 22:15] VITALS: BP 168/121; PULSE 93; RESP 16; TEMP 36.2; O2SAT 100; BMI 22.2
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
[2023-04-06] MEDS: LORazepam 1 MG Tablet PO (23:57)
[2023-04-06] MEDS: Gabapentin 300 MG Capsule PO (23:57)
[2023-04-07 00:03] VITALS: BP 168/121; PULSE 93; RESP 16; TEMP 36.2; O2SAT 100
== END 2023-04-07 00:04 | disposition home or self-care (01) ==
PROVIDERS: Emergency Provider Emergency Medicine; Visit Provider Emergency Medicine
DX: Z76.0 Encounter for issue of repeat prescription (principal); F17.210 Nicotine dependence, cigarettes, uncomplicated; I10 Essential (primary) hypertension; Z87.442 Personal history of urinary calculi; Z86.711 Personal history of pulmonary embolism
CPT/HCPCS: 99282

== ENCOUNTER 2023-04-10 10:33 | Inpatient (IN) | payer MEDICAID, SELFPAY ==
[2023-04-10 10:33] VITALS: BP 145/102; PULSE 91; RESP 18; TEMP 36.6; O2SAT 100
--- NOTE | 2023-04-10 11:06 | CT_ITS ---
STUDY: CT BRAIN WITHOUT CONTRAST REASON FOR EXAM: Male, 43 years old. Altered mental status RADIATION DOSAGE (If Supplied By Facility): CTDIvol = ( 44.99 ) mGy, DLP = ( 846.73 ) mGycm TECHNIQUE: Transaxial CT imaging of the brain was performed without administration of intravenous contrast material. Individualized dose optimization techniques were used for this CT. COMPARISON: Prior study dated: 03/27/23 FINDINGS: PARENCHYMA: There is no acute bleed or infarct. There are normal white matter tracts. VENTRICLES: There is no hydrocephalus. MASTOID AIR CELLS AND PARANASAL SINUSES: The visualized paranasal sinuses are clear. The mastoid air cells are clear. BONES: There is no skull fracture. SOFT TISSUES: The visualized soft tissues are within normal limits. CT/Brain/Head without Contrast IMPRESSION: No acute intracranial abnormality. Electronically Signed: Lennox Bartholomew MD at 12:33 EST ,
--- NOTE | 2023-04-10 11:06 | EKG12_ITS ---
Test Reason : Blood Pressure : / mmHG Vent. Rate : 087 BPM Atrial Rate : 087 BPM P-R Int : 164 ms QRS Dur : 108 ms QT Int : 366 ms P-R-T Axes : 044 -08 025 degrees QTc Int : 440 ms Normal sinus rhythm Normal ECG Confirmed by KAITLYN LANDA, MAYKEL ([id number]), assistant production editor YOVANI PERALTA ([id number]) on 04/12/2023 10:08:08 AM Referred By: Confirmed By:MAYKEL SAHNI MD
[2023-04-10 11:28] VITALS: TEMP 36.6
--- NOTE | 2023-04-10 11:30 | ED.RN ---
PT WILL NOT SIGN CO NTRACT N OR ANSWER CIWA QUESTIONS
[2023-04-10 11:38] LABS: Absolute Lymphocyte Count 1.54 X10^3/uL (0.83-4.51); Absolute Neutrophil Count 2.2 X10^3/uL (2.0-7.7); Basophil# 0.08 X10^3/uL; Basophil% 1.8 % (0-1); Eosinophil# 0.05 X10^3/uL; Eosinophils% 1.1 % (0-5); Hematocrit 37.1 % (40-54); Hemoglobin 12.3 g/dL (13.0-16.5); Lymphocyte # 1.54 X10^3/ul (0.83-4.51); Lymphocyte % 34.6 % (19-41); Mean Corp Hgb Conc 33.2 g/dL (32-36); Mean Corpuscular Hgb 29.7 pg (27.0-32.0); Mean Corpuscular Volume 89.6 fL (80-94); Mean Platelet Vol. 8.7 fl (6.2-12.0); Monocyte# 0.59 X10^3/uL; Monocyte% 13.3 % (0-10); NRBC Flagged by Analyzer 0 % (0-5); Neutrophil # 2.18 X10^3/uL (2.7-7.7); Platelet Count 253 K/mm3 (150-450); RBC Distribution Width SD 45.4 fl (35.1-43.9); Red Blood Count 4.14 M/mm3 (4.6-6.2); White Blood Count 4.5 K/mm3 (4.4-11.0)
[2023-04-10 12:09] LABS: ALB/GLOB Ratio 1.2 RATIO (0.9-2.4); AST(SGOT) 122 U/L (15-37); Alanine Aminotransfer ALT/SGPT 76 U/L (16-61); Albumin, Serum 3.3 g/dL (3.2-5.0); Alkaline Phosphatase 118 U/L (45-117); Anion Gap 3 (5-15); BUN 7 mg/dL (7-18); BUN/Creat Ratio 9.7 RATIO (10-20); Calcium,Total 7.7 mg/dL (8.5-10.1); Chloride 113 mmol/L (98-107); Creatinine, Serum 0.72 mg/dL (0.70-1.30); EST Glomerular Filtration Rate 126 mL/min (>60); Est Glom Filt Rate - Afr Amer 153 mL/min (>60); Globulin 2.8 g/dL (2.2-4.2); Glucose 93 mg/dL (74-106); Lipase 94 U/L (13-75); Potassium 3.1 mmol/L (3.5-5.1); Protein, Total 6.1 g/dL (6.4-8.2); Sodium Level 147 mmol/L (136-145); Troponin-I HS 7 pg/mL (3.0-78.0)
[2023-04-10 12:16] LABS: Amphetamine Urine VISTA NEGATIVE (<1000 ng/mL); Barbiturate Urine VISTA POSITIVE (< 200 ng/mL); Benzodiazepine Urine VISTA NEGATIVE (< 200 ng/mL); Cocaine Urine VISTA NEGATIVE (< 300 ng/mL); Ecstacy Urine VISTA NEGATIVE (< 500 ng/mL); Methadone Urine VISTA NEGATIVE (< 300 ng/mL); PCP Urine VISTA NEGATIVE (< 25 ng/mL); THC Urine VISTA NEGATIVE (< 50 ng/mL); Vista UDS pH Range 6
[2023-04-10 13:43] VITALS: BP 151/98; PULSE 79; RESP 16; TEMP 36.4; O2SAT 100
[2023-04-10 13:46] VITALS: BMI 21.9
--- NOTE | 2023-04-10 13:52 | NURSING ---
MED SURG [facility] ETOH DETOX
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
--- NOTE | 2023-04-10 14:54 | PCM.HP.STD ---
HPI - General General Date of Admission: 04/10/23 Date of Service: 04/10/23 Chief Complaint: Alcohol detoxification HPI Narrative KAYCE POWELL, is a 43 M who presents for alcohol detoxification. EMS brought him from outside a bar intoxicated. He he denies any trauma but was quite intoxicated. He had an associated empty bottle of Ativan. He has been admitted previously to [facility] with similar presentations and for detoxification. He was recently admitted from March 27 to March 31/2024 for intoxication and hypokalemia. He completed phenobarbital taper and had a good control of withdrawal symptoms at the time of discharge. His liver enzymes are elevated at the time of admission but remained stable during his hospitalization. CTA chest showed diffuse fatty liver disease. His lipase was 220 on prior admission. Today, Has no acute concerns, he was incarcerated for misbehavior at [facility] daily yesterday. Does not take any of the prescribed medications as he was able to collect them only today morning. He is motivated to quit this time. [facility] Medical History Alcohol abuse Alcohol abuse Anxiety Clavicle fracture Hypertension Kidney stone Leukopenia Pulmonary embolism Seizure Sleep apnea Smoker Thrombocytopenia Home Medications amlodipine 5 mg tablet 5 mg PO DAILY 30 days #30 tabs 03/31/23 [Rx Last Taken Unknown] gabapentin 300 mg capsule 300 mg PO TID 30 days #90 caps 03/31/23 [Rx Last Taken Unknown] lorazepam 0.5 mg tablet (Ativan) 0.5 mg PO DAILY PRN anxiety 30 days #30 tabs 03/31/23 [Rx Last Taken Unknown] quetiapine 25 mg tablet 25 mg PO QHS 30 days #30 tabs 03/31/23 [Rx Last Taken Unknown] gabapentin 300 mg capsule 300 mg PO TID 5 days #15 caps 04/06/23 [Rx Last Taken Unknown] lorazepam 0.5 mg tablet (Ativan) 0.5 mg PO TID PRN anxiety 5 days #15 tabs 04/06/23 [Rx Last Taken Unknown] Allergy/AdvReac Type Severity Reaction Status Date / Time No Known Allergies Allergy Verified 04/10/23 10:33 Social History household members: family Smoking Status: Current every day smoker tobacco type: cigarettes and e-cigarettes alcohol intake: current alcohol intake frequency: 3 or more drinks per day Alcohol type: wine Vital Signs Vital Signs Vital Signs: 04/10/23 10:33 04/10/23 11:28 04/10/23 13:43 Temperature 97.9 F 97.9 F 97.6 F L Temperature Source Temporal Temporal Pulse Rate 91 79 Respiratory Rate 18 16 Blood Pressure 145/102 H 151/98 H Blood Pressure Mean 116 115 Pulse Ox 100 100 Oxygen Delivery Method Room Air Weight Weight: 153 lb 3.54 oz Body Mass Index (BMI) 21.9 Physical Exam Const alert and oriented x3 General Appearance: cooperative HEENT normocephalic Eyes PERRL, EOMs intact bilaterally and conjunctivae normal Neck no lymphadenopathy, supple, no JVD and no carotid bruits Resp normal respiratory effort, no retractions, no use of accessory muscles and clear to auscultation bilaterally GI normal to inspection, nondistended, normoactive bowel sounds, soft to palpation, non-tender, non-distended and hepatosplenomegaly Extremity normal to inspection Neuro oriented x3 Results Medical Records Data Attestation: I reviewed the patient's medical records Lab / Micro Data Attestation: I reviewed the patient's lab results. Lab results narrative: Prior seen leukopenia and thrombocytopenia has improved. Ethyl alcohol 341.0, AST ALT both elevated, AST/ALT ratio is less than 2 is to 1 lipase 94 04/10/23 11:25 04/10/23 11:25 Labs: Laboratory Results - last 24 hr 04/10/23 11:25: WBC 4.5, RBC 4.14 L, Hgb 12.3 L, Hct 37.1 L, MCV 89.6, MCH 29.7, MCHC 33.2, RDW Std Deviation 45.4 H, RDW Coeff of Rubens 14.0, Plt Count 253, MPV 8.7, Immature Gran % (Auto) 0.200, Neut % (Auto) 49.0, Lymph % (Auto) 34.6, [place] % (Auto) 13.3 H, Eos % (Auto) 1.1, Baso % (Auto) 1.8 H, Absolute Neuts (auto) 2.2, Absolute Lymphs (auto) 1.54, Nucleated RBC % 0, Sodium 147 H, Potassium 3.1 L, Chloride 113 H, Carbon Dioxide 31.0, Anion Gap 3 L, BUN 7, Creatinine 0.72, Est GFR (MDRD) Af Amer 153, Est GFR (MDRD) Non-Af 126, BUN/Creatinine Ratio 9.7 L, Glucose 93, Calcium 7.7 L, Total Bilirubin 0.30, AST 122 H, ALT 76 H, Alkaline Phosphatase 118 H, Troponin I High Sens 7, Total Protein 6.1 L, Albumin 3.3, Globulin 2.8, Albumin/Globulin Ratio 1.2, Lipase 94 H, Ethyl Alcohol 341.0 H* 04/10/23 11:56: Urine Opiates Screen NEGATIVE, Urine Methadone Screen NEGATIVE, Ur Barbiturates Screen POSITIVE H, Ur Phencyclidine Scrn NEGATIVE, Ur Amphetamines Screen NEGATIVE, MDMA (Ecstasy) Screen NEGATIVE, U Benzodiazepines Scrn NEGATIVE, Urine Cocaine Screen NEGATIVE, U Cannabinoids Screen NEGATIVE, Ur Drug Screen Comment Imaging Radiology Impression Brain CT 04/10/23 11:06 IMPRESSION: No acute intracranial abnormality. Electronically Signed: Lennox Bartholomew MD at 12:33 EST , Assessment & Plan Assessment/Plan (1) Alcohol abuse: PLAN: Plan MR Powell, 43-year-old gentleman presents to the ED following alcohol intoxication. There are no features of withdrawal at this time but he is motivated to quit alcohol. This is a second hospitalization for detoxification in March at [facility]. His liver enzymes are mildly elevated but there are no features of acute liver failure. There is no underlying coagulopathy. 1. Alcohol abuse: Admitted for inpatient detoxification. Last drink was this morning (04/10/2023). -[facility] protocol initiated -Will try lorazepam taper at this time 2. Mood disorder -Continue home Seroquel at bedtime 3. Suspected essential hypertension -Continue amlodipine 5 mg as previously started at the time of discharge 4. Alcohol associated liver disease, alcohol hepatitis -Features of steatosis seen on prior abdominal imaging -Elevated liver enzymes, normal coagulation -Monitor coagulation and LFTs during the hospitalization 5. Mild pancytopenia -Significantly improved than last time -Could be due to alcohol associated bone marrow suppression versus developing cirrhosis and portal hypertension. -Will need close follow-up as an outpatient. 6 .DVT prophylaxis -Lovenox Charges/Coding Visit Charges Inpatient E&M: 67370 Init Hosp L2
[2023-04-10 15:34] VITALS: BP 159/104; PULSE 94; RESP 16; TEMP 36.4; O2SAT 100
[2023-04-10] MEDS: Gabapentin 300 MG Capsule PO ×2 (16:11→21:12)
[2023-04-10] MEDS: LORazepam 1 MG Tablet PO ×2 (16:11→21:12)
[2023-04-10] MEDS: hydrOXYzine PAM 25 MG Capsule 50 MG PO (16:11)
[2023-04-10 16:14] VITALS: BMI 21.9
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
[2023-04-10 20:34] VITALS: BP 119/65; PULSE 108; RESP 16; TEMP 37.5; O2SAT 97
[2023-04-10] MEDS: QUEtiapine 25 MG Tablet PO (21:12)
[2023-04-11 01:04] VITALS: BP 138/89; PULSE 83; RESP 16; TEMP 36.6; O2SAT 98
[2023-04-11 05:23] VITALS: BP 151/110; PULSE 85; RESP 16; TEMP 37.1; O2SAT 97
[2023-04-11] MEDS: LORazepam 1 MG Tablet PO ×5 (05:27→20:49)
[2023-04-11] MEDS: Gabapentin 300 MG Capsule PO ×3 (05:27→21:30)
[2023-04-11 06:20] LABS: Absolute Lymphocyte Count 1.79 X10^3/uL (0.83-4.51); Absolute Neutrophil Count 2.3 X10^3/uL (2.0-7.7); Basophil# 0.13 X10^3/uL; Basophil% 2.7 % (0-1); Eosinophils% 2.1 % (0-5); Hematocrit 37.3 % (40-54); Hemoglobin 12.5 g/dL (13.0-16.5); Lymphocyte # 1.79 X10^3/ul (0.83-4.51); Lymphocyte % 37.8 % (19-41); Mean Corp Hgb Conc 33.5 g/dL (32-36); Mean Corpuscular Volume 89.7 fL (80-94); Mean Platelet Vol. 9.1 fl (6.2-12.0); Monocyte# 0.46 X10^3/uL; Monocyte% 9.7 % (0-10); NRBC Flagged by Analyzer 0 % (0-5); Neutrophil # 2.25 X10^3/uL (2.7-7.7); Neutrophil % 47.5 % (47-70); Platelet Count 250 K/mm3 (150-450); RBC Distribution Width CV 13.5 % (11.6-14.6); RBC Distribution Width SD 44.4 fl (35.1-43.9); Red Blood Count 4.16 M/mm3 (4.6-6.2); White Blood Count 4.7 K/mm3 (4.4-11.0)
[2023-04-11 06:57] LABS: ALB/GLOB Ratio 1.1 RATIO (0.9-2.4); AST(SGOT) 49 U/L (15-37); Alanine Aminotransfer ALT/SGPT 57 U/L (16-61); Alkaline Phosphatase 116 U/L (45-117); Anion Gap 1 (5-15); BUN 8 mg/dL (7-18); BUN/Creat Ratio 12.2 RATIO (10-20); Calcium,Total 8.3 mg/dL (8.5-10.1); Chloride 111 mmol/L (98-107); Creatinine, Serum 0.66 mg/dL (0.70-1.30); EST Glomerular Filtration Rate 140 mL/min (>60); Est Glom Filt Rate - Afr Amer 170 mL/min (>60); Estimated Creatinine Clearance 141.87 ml/min; Globulin 2.8 g/dL (2.2-4.2); Glucose 82 mg/dL (74-106); Magnesium 1.7 mg/dL (1.6-2.6); Phosphorus 2.9 mg/dL (2.5-4.9); Potassium 3.3 mmol/L (3.5-5.1); Protein, Total 5.8 g/dL (6.4-8.2); Sodium Level 144 mmol/L (136-145)
[2023-04-11] MEDS: Folic Acid 1 MG Tablet PO (07:50)
[2023-04-11] MEDS: Thiamine Hydrochloride 100 MG Tablet PO (07:50)
[2023-04-11 07:54] VITALS: BP 172/103; PULSE 85; RESP 16; TEMP 36.7; O2SAT 99
[2023-04-11] MEDS: hydrOXYzine PAM 25 MG Capsule 50 MG PO ×2 (08:00→20:50)
--- NOTE | 2023-04-11 09:11 | PCM.PN.HOSP ---
Subjective Subjective Resting comfortably, CIWA score of 6 this morning Objective Data Objective Data Vital Signs: Vital Signs Temp Pulse Resp BP Pulse Ox O2 Del Method 98.0 F 85 16 172/103 H 99 Room Air 04/11/23 07:54 04/11/23 07:54 04/11/23 07:54 04/11/23 07:54 04/11/23 07:54 04/11/23 07:54 Oxygen Delivery Method Room Air Weight: 153 lb 3.54 oz Body Mass Index (BMI) 21.9 Intake & Output: Intake and Output for Last 24 Hours 04/10/23 04/11/23 04/12/23 03:59 03:59 03:59 Intake Total 500 / 500 100 / 100 Balance 500 / 500 100 / 100 Lab / Micro Data 04/11/23 05:38 04/11/23 05:38 Labs: Laboratory Results - last 24 hr 04/10/23 11:25: WBC 4.5, RBC 4.14 L, Hgb 12.3 L, Hct 37.1 L, MCV 89.6, MCH 29.7, MCHC 33.2, RDW Std Deviation 45.4 H, RDW Coeff of Rubens 14.0, Plt Count 253, MPV 8.7, Immature Gran % (Auto) 0.200, Neut % (Auto) 49.0, Lymph % (Auto) 34.6, [place] % (Auto) 13.3 H, Eos % (Auto) 1.1, Baso % (Auto) 1.8 H, Absolute Neuts (auto) 2.2, Absolute Lymphs (auto) 1.54, Nucleated RBC % 0, Sodium 147 H, Potassium 3.1 L, Chloride 113 H, Carbon Dioxide 31.0, Anion Gap 3 L, BUN 7, Creatinine 0.72, Est GFR (MDRD) Af Amer 153, Est GFR (MDRD) Non-Af 126, BUN/Creatinine Ratio 9.7 L, Glucose 93, Calcium 7.7 L, Total Bilirubin 0.30, AST 122 H, ALT 76 H, Alkaline Phosphatase 118 H, Troponin I High Sens 7, Total Protein 6.1 L, Albumin 3.3, Globulin 2.8, Albumin/Globulin Ratio 1.2, Lipase 94 H, Ethyl Alcohol 341.0 H* 04/10/23 11:56: Urine Opiates Screen NEGATIVE, Urine Methadone Screen NEGATIVE, Ur Barbiturates Screen POSITIVE H, Ur Phencyclidine Scrn NEGATIVE, Ur Amphetamines Screen NEGATIVE, MDMA (Ecstasy) Screen NEGATIVE, U Benzodiazepines Scrn NEGATIVE, Urine Cocaine Screen NEGATIVE, U Cannabinoids Screen NEGATIVE, Ur Drug Screen Comment 04/11/23 05:38: WBC 4.7, RBC 4.16 L, Hgb 12.5 L, Hct 37.3 L, MCV 89.7, MCH 30.0, MCHC 33.5, RDW Std Deviation 44.4 H, RDW Coeff of Rubens 13.5, Plt Count 250, MPV 9.1, Immature Gran % (Auto) 0.200, Neut % (Auto) 47.5, Lymph % (Auto) 37.8, [place] % (Auto) 9.7, Eos % (Auto) 2.1, Baso % (Auto) 2.7 H, Absolute Neuts (auto) 2.3, Absolute Lymphs (auto) 1.79, Nucleated RBC % 0, Sodium 144, Potassium 3.3 L, Chloride 111 H, Carbon Dioxide 32.0, Anion Gap 1 L, BUN 8, Creatinine 0.66 L, Estim Creat Clear Calc 141.87, Est GFR (MDRD) Af Amer 170, Est GFR (MDRD) Non-Af 140, BUN/Creatinine Ratio 12.2, Glucose 82, Calcium 8.3 L, Phosphorus 2.9, Magnesium 1.7, Total Bilirubin 0.60, AST 49 H, ALT 57, Alkaline Phosphatase 116, Total Protein 5.8 L, Albumin 3.0 L, Globulin 2.8, Albumin/Globulin Ratio 1.1, TSH 0.60 Radiography Diagnostic Testing: Radiology Impression Brain CT 04/10/23 11:06 IMPRESSION: No acute intracranial abnormality. Electronically Signed: Lennox Bartholomew MD at 12:33 EST , Physical Exam Narrative General: Alert, Oriented x3, Cooperative, No apparent distress HEENT: Atraumatic, PERRLA, EOMI, Normocephalic Oral: Moist Mucosa Neck: Supple, No JVD Lungs: Clear to auscultation, Normal air movement, No rhonchi, No wheeze, No rales Cardiovascular: Regular rate, Regular Rhythm, Normal S1, Normal S2, No murmurs Abdomen: Soft, Non Tender, Non-Distended, No Hepato-splenomegaly Extremities: No edema, Capillary Refill Less than 3 Seconds Skin: No rashes, No breakdown Musculoskeletal: No Tenderness to Palpation of Joints or Extremities Neurological: No focal neurological deficits, Motor Exam 5/5 strength throughout, Sensory exam intact to light touch and pain Psych/Mental Status: Flat Assessment & Plan Assessment/Plan (1) Alcohol abuse: PLAN: Plan 1. Alcohol withdrawal requesting detox/anxiety/depression/alcoholic hepatitis ? Continue with the alcohol withdrawal protocol ? Will have him follow-up with 182 establish outpatient management ? Continue with his home medications for his mood disorder ? LFTs have improved 2. Essential hypertension ? Continue with Norvasc ? Blood pressures appear stable ? We will monitor make adjustments as necessary DVT: Ambulation Charges/Coding Visit Charges Inpatient E&M: 53485 Subs Hosp L2
[2023-04-11 13:55] VITALS: BP 158/96; PULSE 90; RESP 16; TEMP 36.9; O2SAT 98
[2023-04-11 20:46] VITALS: BP 167/107; PULSE 78; RESP 16; TEMP 37.3; O2SAT 96
[2023-04-11] MEDS: QUEtiapine 25 MG Tablet PO (21:30)
[2023-04-12 02:42] VITALS: BP 136/98; PULSE 69; RESP 16; TEMP 36.6; O2SAT 99
[2023-04-12] MEDS: LORazepam 1 MG Tablet PO (05:09)
[2023-04-12] MEDS: Gabapentin 300 MG Capsule PO (05:09)
--- NOTE | 2023-04-12 10:31 | CASEMGMT ---
Social Work - SDOH Unable to see patient face to face for SDOH screening, as patient left hospital AMA earlier this morning. Patient was seen in February and earlier this month in March for SDOH screening. Patient has been given community resources each time, and has been working with [employer] for Medicaid approval. -ZEE Grant
--- NOTE | 2023-04-12 10:48 | PCM.PN.HOSP ---
Subjective Subjective Still wants to leave AMA, EFRAINSD score of 3 Objective Data Objective Data Vital Signs: Vital Signs Temp Pulse Resp BP Pulse Ox O2 Del Method 97.8 F 69 16 136/98 H 99 Room Air 04/12/23 02:42 04/12/23 02:42 04/12/23 02:42 04/12/23 02:42 04/12/23 02:42 04/12/23 02:42 Oxygen Delivery Method Room Air Weight: 153 lb 3.54 oz Body Mass Index (BMI) 21.9 Intake & Output: Intake and Output for Last 24 Hours 04/11/23 04/12/23 04/13/23 03:59 03:59 03:59 Intake Total 500 / 500 400 / 400 350 / 350 Balance 500 / 500 400 / 400 350 / 350 Lab / Micro Data 04/11/23 05:38 04/11/23 05:38 Physical Exam Narrative General: Alert, Oriented x3, Cooperative, No apparent distress HEENT: Atraumatic, PERRLA, EOMI, Normocephalic Oral: Moist Mucosa Neck: Supple, No JVD Lungs: Clear to auscultation, Normal air movement, No rhonchi, No wheeze, No rales Cardiovascular: Regular rate, Regular Rhythm, Normal S1, Normal S2, No murmurs Abdomen: Soft, Non Tender, Non-Distended, No Hepato-splenomegaly Extremities: No edema, Capillary Refill Less than 3 Seconds Skin: No rashes, No breakdown Musculoskeletal: No Tenderness to Palpation of Joints or Extremities Neurological: No focal neurological deficits, Motor Exam 5/5 strength throughout, Sensory exam intact to light touch and pain Psych/Mental Status: Flat Assessment & Plan Assessment/Plan (1) Alcohol abuse: PLAN: Plan 1. Alcohol withdrawal requesting detox/anxiety/depression/alcoholic hepatitis ? Continue with the alcohol withdrawal protocol ? Will have him follow-up with 180 to establish outpatient management ? Continue with his home medications for his mood disorder ? LFTs have improved 2. Essential hypertension ? Continue with Norvasc ? Blood pressures appear stable ? We will monitor make adjustments as necessary DVT: Ambulation Leaving AMA Charges/Coding Visit Charges Inpatient E&M: 09918 Subs Hosp L2
== END 2023-04-12 08:28 | disposition left against medical advice (07) | DRG 770 ==
LOC: ED 11:49 → MS3 16:34
PROVIDERS: Admitting Provider Internal Medicine; Emergency Provider Student in an Organized Health Care Education/Training Program; Visit Provider Family Medicine
DX: F10.239 Alcohol dependence with withdrawal, unspecified (principal); F17.210 Nicotine dependence, cigarettes, uncomplicated; K70.10 Alcoholic hepatitis without ascites; F39 Unspecified mood [affective] disorder; I10 Essential (primary) hypertension; F32.A Depression, unspecified; F41.9 Anxiety disorder, unspecified; Z86.711 Personal history of pulmonary embolism; Y90.8 Blood alcohol level of 240 mg/100 ml or more
CPT/HCPCS: 36415; 70450; 80048; 80053; 80307; 80320; 83690; 83735; 84100; 84443; 84484; 85025; 93005; 97802; 99283; A4216; G0480

== ENCOUNTER 2025-01-11 13:42 | Inpatient (IN) | payer MEDICAID, SELFPAY ==
[2025-01-11] VITALS (18 sets, daily range): BP systolic 95–151; BP diastolic 58–100; PULSE 14–115; RESP 10–40; TEMP 36.3–36.8; O2SAT 95–100; BMI 21.6; BMI 21.8
--- NOTE | 2025-01-11 14:10 | CT_ITS ---
PROCEDURE: CTA CHEST W/WO CONTRAST 01/11/2025 REASON FOR EXAM: SHORTNESS OF BREATH HISTORY OF PE TECHNIQUE: Procedure Code: [id number] Modality: CT Procedure: CTA CHEST W/WO CONTRAST Multiplanar Sagittal and Coronal images were obtained. CONTRAST: Isovue 370 VOLUME: 9 3 mL One or more dose reduction techniques were used (e.g., Automated exposure control, adjustment of the mA and/or kV according to patient size, use of iterative reconstruction technique). RADIATION DOSE SUMMARY: CTDlvol: 5.7 mGy DLP: 229.87 mGycm COMPARISON: CTA chest March 27, 2023. # of known CTs in the past 12 months: None. # of known Cardiac Nuclear Medicine Studies in the past 12 months: None. FINDINGS: Thoracic Aorta: No aneurysm. Heart: No cardiomegaly. No significant atherosclerotic calcifications of the coronary arteries. Right heart strain. Pulmonary Vessels: Extensive bilateral pulmonary artery emboli extending to the lobar and segmental arteries. Hardware: None. Lymph nodes: No lymphadenopathy. Lungs and Airways: Ground-glass densities in the right upper lobe may represent pneumonitis or pneumonia. Pleura: No pleural effusion or pneumothorax. Upper Abdomen: No acute findings. Bones: No acute bony abnormalities. CT/CTA Chest W/WO Contrast IMPRESSION: Ground-glass densities in the right upper lobe may represent pneumonitis or pne umonia. Extensive bilateral pulmonary embolism with right heart strain. This finding w as discussed with Dr. Ray Gómez on 01/11/2025 3:10 p.m.. Reading Location: [id number]
[2025-01-11 14:17] LABS: Hematocrit 42.9 % (40-54); Hemoglobin 13.9 g/dL (13.0-16.5); Immature Granulocytes Count 0.040 X10^3/uL (0.0-0.0); Mean Corp Hgb Conc 32.4 g/dL (32-36); Mean Corpuscular Volume 87.0 fL (80-94); Mean Platelet Vol. 9.2 fl (6.2-12.0); NRBC Flagged by Analyzer 0 % (0-5); Platelet Count 193 K/mm3 (150-450); RBC Distribution Width CV 12.4 % (11.6-14.6); RBC Distribution Width SD 39.7 fl (35.1-43.9); Red Blood Count 4.93 M/mm3 (4.6-6.2); White Blood Count 11.4 K/mm3 (4.4-11.0)
--- NOTE | 2025-01-11 14:36 | EDS_ITS ---
HPI History of Present Illness Chief Complaint: Shortness of Breath Narrative Narrative: 45-year-old male past medical history of anxiety presents with increasing shortness of breath and syncopal episodes which he calls danni out instead of blacking out. He states that yesterday he began not feeling well. This morning he woke up and attempted to go to work. He was carrying a jug of water and became very short of breath. He denies any fevers or chills. No cough. He may have been slightly nauseated. He states he attempted to walk here and had 2 syncopal episodes where he collapsed only for a few seconds. He states everything turns white when it happens instead of turning black. Additionally, he relates history that years ago he was treated for blood clots and was on medication for a short period of time but cannot remember which. He states he is very short of breath to the point where he is hyperventilating. [facility] Medical History Anxiety Seizure Smoker Alcohol abuse Sleep apnea Hypertension Thrombocytopenia Leukopenia Alcohol abuse Kidney stone Pulmonary embolism Clavicle fracture Home Medications ?Medication ?Instructions ?Recorded ?Last Taken ?Type amlodipine 5 mg tablet 5 mg PO DAILY 30 days #30 ta bs 03/31/23 Unknown Rx gabapentin 300 mg capsule 300 mg PO TID 30 days #90 ca ps 03/31/23 Unknown Rx lorazepam 0.5 mg tablet (Ativan) 0.5 mg PO DAILY PRN a nxiety 30 03/31/23 Unknown Rx days #30 tabs quetiapine 25 mg tablet 25 mg PO QHS 30 days #30 tab s 03/31/23 Unknown Rx gabapentin 300 mg capsule 300 mg PO TID 5 days #15 cap s 04/06/23 Unknown Rx lorazepam 0.5 mg tablet (Ativan) 0.5 mg PO TID PRN anx iety 5 days 04/06/23 Unknown Rx #15 tabs Allergy/AdvReac Type Severity Reaction Status Date / Time No Known Allergies Allergy Verified 01/11/25 13:45 Social History household members: family Smoking Status: Current every day smoker tobacco type: cigarettes and e- cigarettes alcohol intake: current alcohol intake frequency: 3 or more drinks per day Alcohol type: wine ROS ROS ED ROS Narrative Review of systems positive for shortness of breath. Positive syncopal episodes very brief, 2 while walking here. No fevers or chills, no cough. No exacerbating or alleviating factors. EXAM Physical Exam Narrative Exam Narrative: Afebrile. Vital signs noted. Nontoxic-appearing. Cardiovascular examination reveals a regular tachycardia as high as 120 bpm. Lungs are clear to auscultat ion bilaterally. Abdomen is soft and nontender with normoactive bowel sounds. Neurological examination is nonfocal, nonlateralizing. No appreciable pedal edema/pitting edema bilaterally. Const Vital Signs: 01/11/25 13:42 01/11/25 13:46 01/11/25 13:51 Temperature 97.4 F L Temperature Source Oral Pulse Rate 115 H Respiratory Rate 40 H 18 Respiratory Effort Short of Breath Respiratory Depth Normal Respiratory Pattern Tachypnea Blood Pressure 95/58 L Blood Pressure Mean 70 Pulse Ox 98 99 Oxygen Delivery Method Room Air Room Air MDM MDM MDM Narrative Medical decision making narrative: The differential diagnosis includes but not limited to ACS versus pulmonary embolism versus pneumonia versus pneumothorax versus anxiety attack. EKG was obtained and interpreted by myself independently as sinus tachycardia at 121 bpm without ectopy or acute ST changes. No STEMI. I reviewed his laboratory work and he has slight leukocytosis of 11.4, hemoglobin 13.9, hematocrit 42.9, platelet count 193. I was informed by the storage battery charger that his troponin is elevated at 220. CTA was obtained with results pending to help rule out pulmonary embolism. However, given his elevated troponin, he will be started on heparin which would cover any pulmonary embolism. I discussed the patient with Dr. Lang with cardiology, and we reviewed the CTA together. It does appear that he has a saddle embolus and bilateral pulmonary emboli. He does have what appears to be right heart strain as well. We also discussed the patient with Dr. Norris with vascular surgery who entered the room. Patient will be started on heparin, and admitted to the ICU. They requested a stat echo, limited, as well as BNP. I did receive a phone call from the radiologist as well regarding the saddle embolus with right heart strain. I did review the BNP which is normal at 119. I then discussed patient with Dr. Quintana with hospitalist medicine to admit the patient to the ICU. Critical care time 31 minutes. Disposition is admitted in guarded condition. History & Record Review Discussion w/independent historian: Patient Lab Data Attestation: I reviewed the patient's lab results. Labs: Laboratory Results - last 24 hr 01/11/25 14:03 WBC 11.4 H RBC 4.93 Hgb 13.9 Hct 42.9 MCV 87.0 MCH 28.2 MCHC 32.4 RDW Std Deviation 39.7 RDW Coeff of Rubens 12.4 Plt Count 193 MPV 9.2 Immature Gran % (Auto) 0.400 Neut % (Auto) 74.9 H Lymph % (Auto) 13.8 L [place] % (Auto) 9.0 Eos % (Auto) 1.4 Baso % (Auto) 0.5 Absolute Neuts (auto) 8.5 H Absolute Lymphs (auto) 1.58 Nucleated RBC % 0 PT 14.7 INR 1.1 APTT 32.1 Sodium 138 Potassium 3.8 Chloride 102 Carbon Dioxide 23.8 Anion Gap 12 BUN 14 Creatinine 1.05 Estim Creat Clear Calc 85.83 Est GFR (MDRD) Non-Af 89 BUN/Creatinine Ratio 13.7 Glucose 147 H Calcium 8.1 Total Bilirubin 0.16 Direct Bilirubin 0.09 AST 21 ALT 8 Alkaline Phosphatase 137 H Troponin T High Sens 220 H* NT pro BNP II 119 Total Protein 6.3 Albumin 3.8 Globulin 2.5 Radiography Diagnostic Testing: Clinical Impression(s) from Imaging Studies Chest CTA 01/11/25 14:10 IMPRESSION: Ground-glass densities in the right upper lobe may represent pneumonitis or pneumonia. Extensive bilateral pulmonary embolism with right heart strain. This finding was discussed with Dr. Ray Gómez on 01/11/2025 3:10 p.m.. Reading Location: [facility] Management Discussion w/another healthcare provider: Hospitalist (Dr. Ray Quintana), Radiological Defense Officer (Dr. Lang, Cardiology and Dr. Norris, Vascular Surgery) and Radiologist Critical Care Time Critical Care Time: Yes Critical care time (excluding procedures): 30-74 minutes (31), Including time spent:, Discussing w/Patient &/or Family/Radio Intelligence Operator, Discussing w/Consultants, Arranging Admission or Transfer and Performing Direct Patient Care at Bedside Discharge Plan Dx/Rx/DC Orders Clinical Impression: Acute saddle pulmonary embolus, Shortness of breath, Elevated troponin Disposition Disposition: Acute Care Hospital [facility]
[2025-01-11 14:39] LABS: Troponin T High Sensitivity 220 ng/L (<=22)
[2025-01-11 14:40] LABS: Anion Gap 12 (5-15); BUN 14 mg/dL (4-19); BUN/Creat Ratio 13.7 RATIO (10-20); Calcium,Total 8.1 mg/dL (7.6-11.0); Carbon Dioxide 23.8 mmol/L (21.0-32.0); Chloride 102 mmol/L (98-108); Estimated Creatinine Clearance 85.83 ml/min (50-250); Glucose 147 mg/dL (70-99); Potassium 3.8 mmol/L (3.3-5.1)
[2025-01-11] MEDS: Heparin Injection (Vial) 5,000 UNIT/ML VIAL 4000 UNIT IV (15:05)
[2025-01-11] MEDS: HEPARIN/D5w 25,000 UNITS 25,000 UNITS/250 ML IV.SOLN. 8.2 UNITS CONT INF (15:05)
--- NOTE | 2025-01-11 15:05 | HP.PCM.HOS_ITS ---
HPI - General General Date of Admission: 01/11/25 Date of Service: 01/11/25 Chief Complaint: Shortness of breath and syncopal episodes HPI Narrative KAYCE CHILDRESS, is a 45 M who presented to [facility] ED on 01/11/2025 with worsening shortness of breath and syncopal episodes. Medical history significant for DVT/PE, anxiety and alcohol abuse. Per patient, DVT/PE was about 3 years ago and he was on anticoagulation for about 3 to 6 months but was then taken off. He does not remember if it was said to be a provoked or unprovoked clot. Does not think he had any further workup for this clot. Has history of alcohol abuse but has now been sober for 2 years. However, he uses kratom on a daily basis and typically takes several doses daily. He was previously on 0.5 mg of Ativan daily as needed but this had not been filled since early 2023; was recently filled for 10 days at the end of November. Patient lives at home with his daughter, states he has had his normal level activity over the past month or so. However, over the past 2 days he has had worsening shortness of breath and syncopal episodes at home. Denies any fevers or chills or cough. States he tried to walk her today but had another syncopal episode. On arrival to the ED he was in sinus tachycardia to the 110s and mildly hypotensive to the 90s over 50s, was satting in the mid to high 90s on room air at rest. CTA chest showed an extensive bilateral pulmonary embolism with right heart strain. Bedside echo showed EF 60%, severely dilated RV, moderately severe global RV systolic dysfunction. Dr. Norris and Dr. Lang (Cardiology) saw the patient in the ED and plan is for admission to the ICU and thrombectomy this afternoon. He was started on a heparin drip in the ED and hospitalist was contacted for admission. I saw the patient at bedside in the ED. He was anxious appearing but was otherwise sitting back in bed and answering questions appropriately. Notes that his last dose of kratom was this morning, and he will have withdrawal symptoms if he does not use kratom multiple times daily. Does report some pain in the right lower extremity especially behind the knee. No other acute concerns currently. Will be admitted for further management. [facility] Medical History Anxiety Seizure Smoker Alcohol abuse Sleep apnea Hypertension Thrombocytopenia Leukopenia Alcohol abuse Kidney stone Pulmonary embolism Clavicle fracture Home Medications ?Medication ?Instructions ?Recorded ?Last Taken ?Type amlodipine 5 mg tablet 5 mg PO DAILY 30 days #30 ta bs 03/31/23 Unknown Rx gabapentin 300 mg capsule 300 mg PO TID 30 days #90 ca ps 03/31/23 Unknown Rx lorazepam 0.5 mg tablet (Ativan) 0.5 mg PO DAILY PRN a nxiety 30 03/31/23 Unknown Rx days #30 tabs quetiapine 25 mg tablet 25 mg PO QHS 30 days #30 tab s 03/31/23 Unknown Rx gabapentin 300 mg capsule 300 mg PO TID 5 days #15 cap s 04/06/23 Unknown Rx lorazepam 0.5 mg tablet (Ativan) 0.5 mg PO TID PRN anx iety 5 days 04/06/23 Unknown Rx #15 tabs Allergy/AdvReac Type Severity Reaction Status Date / Time No Known Allergies Allergy Verified 01/11/25 13:45 Social History household members: family Smoking Status: Current every day smoker tobacco type: cigarettes and e- cigarettes alcohol intake: current alcohol intake frequency: 3 or more drinks per day Alcohol type: wine ROS Constitutional Constitutional: Denies chills, fatigue, fever(s) or weakness Eyes Eyes: Denies change in vision Cardiovascular Cardiovascular: Reports dyspnea on exertion; Denies chest pain, edema, lightheadedness, orthopnea or palpitations Respiratory/Chest Respiratory/Chest: Reports shortness of breath at rest; Denies cough, productive cough or wheezing Gastrointestinal Gastrointestinal: Denies abdominal pain Musculoskeletal Musculoskeletal: Denies arthralgias or myalgias Neurologic Neurologic: Denies dizziness, focal weakness, headache(s), numbness or tingling Psychiatric Psychiatric: Reports anxiety Vital Signs Vital Signs Vital Signs: 01/11/25 13:42 01/11/25 13:46 01/11/25 13:51 Temperature 97.4 F L Temperature Source Oral Pulse Rate 115 H Respiratory Rate 40 H 18 Respiratory Effort Short of Breath Respiratory Depth Normal Respiratory Pattern Tachypnea Blood Pressure 95/58 L Blood Pressure Mean 70 Pulse Ox 98 99 Oxygen Delivery Method Room Air Room Air Weight Weight: 68.3 kg Body Mass Index (BMI) 21.6 Physical Exam Const alert and oriented x3 Constitutional Narrative: Middle-age male, anxious appearing, otherwise sitting back in bed and answering questions appropriately. General Appearance: cooperative HEENT normocephalic, head/scalp atraumatic, hearing grossly normal bilaterally, nasal mucous membranes and turbinates normal and moist oral mucous membranes Eyes PERRL, EOMs intact bilaterally and conjunctivae normal Neck full ROM Chest inspection of chest normal Resp normal respiratory effort and no use of accessory muscles Resp Narrative: Mild tachypnea noted on room air at rest. Mildly diminished breath sounds in mid lung zones bilaterally, otherwise good air movement throughout with no wheezing noted. Cardio no murmurs and peripheral pulses 2+ throughout Cardio Narrative: Tachycardic, regular rhythm. GI normal to inspection, nondistended, normoactive bowel sounds, soft to palpation, non-tender and non-distended Back/Spine normal ROM Extremity Extremity Narrative: Mild tenderness to palpation in the right lower extremity behind the knee and in the thigh. No significant lower extremity swelling or erythema noted. Skin no rashes or lesions noted Psych mental status grossly normal Mood & Affect: anxious Results Lab / Micro Data 01/11/25 14:03 01/11/25 14:03 Labs: Laboratory Results - last 24 hr 01/11/25 14:03: WBC 11.4 H, RBC 4.93, Hgb 13.9, Hct 42.9, MCV 87.0, MCH 28.2, MCHC 32.4, RDW Std Deviation 39.7, RDW Coeff of Rubens 12.4, Plt Count 193, MPV 9.2, Immature Gran % (Auto) 0.400, Neut % (Auto) 74.9 H, Lymph % (Auto) 13.8 L, [place] % (Auto) 9.0, Eos % (Auto) 1.4, Baso % (Auto) 0.5, Absolute Neuts (auto) 8.5 H, Absolute Lymphs (auto) 1.58, Nucleated RBC % 0, Sodium 138, Potassium 3.8, Chloride 102, Carbon Dioxide 23.8, Anion Gap 12, BUN 14, Creatinine 1.05, Estim Creat Clear Calc 85.83, Est GFR (MDRD) Non-Af 89, BUN/Creatinine Ratio 13.7, Glucose 147 H, Calcium 8.1, Troponin T High Sens 220 H* Assessment & Plan Assessment/Plan (1) Acute cor pulmonale due to saddle embolus of pulmonary artery: PLAN: Plan Patient is a 45-year-old male who presented to [facility] ED on 01/11/2025 with worsening shortness of breath and syncopal episodes. 1. Saddle PE with right heart strain and hypotension, prior history of DVT/PE ? Admit under inpatient status to ICU. Vascular surgery and cardiology consulted. CTA chest showed an extensive bilateral pulmonary embolism with right heart strain. Bedside echo in ED showed EF 60%, severely dilated RV, moderately severe global RV systolic dysfunction. Troponin trend 220 > 382. Sinus tachycardia to the 110s and mild hypotension to the 90s over 50s in the ED, however was satting in the mid to high 90s on room air at rest. Per surgery and cardiology, planning for thrombectomy this afternoon. Continue maintenance IV fluids initiated in the ED. Continue heparin drip. Bilateral lower extremity duplex ultrasound ordered. No clear provoking factors. Will need outpatient hematology follow-up with hypercoagulability workup. 2. Anxiety ? History of generalized anxiety disorder. Very anxious on admit due to need for thrombectomy procedure as well as likely mild withdrawal from kratom as below. Give 1 dose of IV Ativan 0.5 mg in ED and will order Ativan 0.5 mg daily as needed during hospitalization. Per [facility] report, was previously on Ativan 0.5 mg daily as needed but it has not been filled regularly since early 2023. Recently filled gabapentin 300 mg 3 times daily and had been on gabapentin in the past, will continue home gabapentin here. Will need close outpatient follow-up as well. 3. Kratom abuse ? Patient reports using kratom on a daily basis and uses multiple times per day. Will have withdrawal symptoms that he does not use. Last use was on the morning of admission. Will order Subutex taper at reduced dosing and other as needed medications per opiate withdrawal order set and monitor symptoms. 4. History of alcohol abuse ? Last hospitalized here in March 2023 for alcohol use. Patient notes that he has been sober from alcohol since that time. Recommended continued cessation. 5. Mild creatinine elevation ? Creatinine 1.05 on admit, baseline around 0.7. Presumed prerenal etiology due to PE above. Started on IV maintenance fluids as above, monitor daily BMP and urine output. 6. Hypertension ? Will hold home amlodipine for now, restart as able. DVT prophylaxis: Not indicated, on heparin drip CODE STATUS: Full code, verified Expected disposition: Home, TBD Total clinical time spent by myself addressing the patient's medical issues, reviewing all the data, and collaborating with patient's care team: 79 minutes. Charges/Coding Visit Charges Inpatient E&M: 56028 Init Hosp L3
[2025-01-11 15:14] LABS: Prothrombin Time (Protime)PT. 14.7 SECONDS (11.7-14.9)
[2025-01-11 15:15] LABS: Partial Thromboplast Time 32.1 Seconds (24.1-36.2)
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
[2025-01-11 15:33] LABS: AST(SGOT) 21 U/L (<=37); Alanine Aminotransfer ALT/SGPT 8 U/L (<=46); Albumin, Serum 3.8 g/dL (3.5-5.0); Alkaline Phosphatase 137 U/L (40-129); Bilirubin, Direct 0.09 mg/dL (0.00-0.30); Globulin 2.5 g/dL (2.2-4.2); Pro- Brain NATRIURETIC PEPTIDE 119 pg/mL (<=450)
[2025-01-11] MEDS: 0.9% Normal Saline (1000mL) 1,000 ML 150 ML IV ×2 (15:46→23:28)
--- NOTE | 2025-01-11 15:55 | EX.PCM.CON.S ---
Assessment & Plan Assessment/Plan (1) Acute cor pulmonale due to saddle embolus of pulmonary artery: PLAN: -acute PE with RV strain -elevated trop, tachycardic/tachypneic -thrombecctomy HPI Consult Data Date of Consult: 01/11/25 HPI Narrative HPI Narrative: KAYCE CHILDRESS, is a 45 M who presents with a few days of feeling fatigued/unwell. Today he was unable to go to work due to shortness of breath and decided to seek care; while walking to hospital he nearly passed out/fell to ground twice. CTA revealed saddle PE with RV strain. Trop elevated, tachycardic/tachypneic. Had prior PE 6 years ago, did not complete full course of anticoagulation. [facility] Medical History Anxiety Seizure Smoker Alcohol abuse Sleep apnea Hypertension Thrombocytopenia Leukopenia Alcohol abuse Kidney stone Pulmonary embolism Clavicle fracture Home Medications ?Medication ?Instructions ?Recorded ?Last Taken ?Type amlodipine 5 mg tablet 5 mg PO DAILY 30 days #30 tabs 03/31/23 Unknown Rx gabapentin 300 mg capsule 300 mg PO TID 30 days #90 caps 03/31/23 Unknown Rx lorazepam 0.5 mg tablet (Ativan) 0.5 mg PO DAILY PRN anxiety 30 03/31/23 Unknown Rx days #30 tabs quetiapine 25 mg tablet 25 mg PO QHS 30 days #30 tabs 03/31/23 Unknown Rx gabapentin 300 mg capsule 300 mg PO TID 5 days #15 caps 04/06/23 Unknown Rx lorazepam 0.5 mg tablet (Ativan) 0.5 mg PO TID PRN anxiety 5 days 04/06/23 Unknown Rx #15 tabs Allergy/AdvReac Type Severity Reaction Status Date / Time No Known Allergies Allergy Verified 01/11/25 13:45 Social History household members: family Smoking Status: Current every day smoker tobacco type: cigarettes and e-cigarettes alcohol intake: current alcohol intake frequency: 3 or more drinks per day Alcohol type: wine ROS Constitutional Constitutional: Reports weakness; Denies chills, fever(s), frequent falls or lethargy Eyes Eyes: Denies blind spots, change in vision or loss of vision ENT HEENT: Denies bleeding gums, hoarseness or sore throat Cardiovascular Cardiovascular: Reports dyspnea at rest, dyspnea on exertion and leg edema; Denies abdominal pain, bluish discoloration of hand/feet, chest pain with activity, claudication, cold extremities, cyanosis, erythema on extremities, irregular heart rhythm, leg ulcers, numbness in extremities or weakness in extremities Respiratory/Chest Respiratory/Chest: Reports shortness of breath at rest and shortness of breath with exertion; Denies cough, excessive phlegm production or wheezing Gastrointestinal Gastrointestinal: Denies anorexia, change in stool character, constipation, diarrhea, melena or rectal bleeding Genitourinary Genitourinary: Denies dysuria or hematuria Musculoskeletal Musculoskeletal: Denies abnormal gait Integumentary Integumentary: Denies erythema, non-healing lesions or wounds Neurologic Neurologic: Denies abnormal speech, focal weakness, headache(s), loss of vision, numbness, paresthesias or sensory deficit Hematologic/Lymphatic Hematologic/Lymphatic: Denies easy bleeding, easy bruising or lymphadenopathy Physical Exam Const alert, oriented x3 and healthy appearing Constitutional Narrative: mild distress General Appearance: cooperative; Negative for combative or lethargic Orientation / Consciousness: awake Exam Limitations: no limitations HEENT Head and Scalp: normocephalic and atraumatic Eyes EOMs intact bilaterally General Eye: normal appearance of both eyes Neck full ROM General: trachea midline Resp normal respiratory effort and no use of accessory muscles Effort and Inspection: tachypneic and labored; Negative for stridor or audible wheezes Cardio regular rate and regular rhythm Peripheral Pulses: brachial pulses present and radial pulses present Back/Spine Cervical Spine: cervical ROM normal Extremity full ROM, normal capillary refill and no clubbing, cyanosis or edema Skin no rashes or lesions noted and no wounds Neuro oriented x3, CN's II-XII intact bilaterally, no focal motor deficits and no sensory deficits noted Psych thought process normal, cooperative, affect normal, speech normal and activity/motor behavior normal Lab / Micro Data 01/11/25 14:03 01/11/25 14:03 Labs: Laboratory Results - last 24 hr 01/11/25 14:03: WBC 11.4 H, RBC 4.93, Hgb 13.9, Hct 42.9, MCV 87.0, MCH 28.2, MCHC 32.4, RDW Std Deviation 39.7, RDW Coeff of Rubens 12.4, Plt Count 193, MPV 9.2, Immature Gran % (Auto) 0.400, Neut % (Auto) 74.9 H, Lymph % (Auto) 13.8 L, [place] % (Auto) 9.0, Eos % (Auto) 1.4, Baso % (Auto) 0.5, Absolute Neuts (auto) 8.5 H, Absolute Lymphs (auto) 1.58, Nucleated RBC % 0, PT 14.7, INR 1.1, APTT 32.1, Sodium 138, Potassium 3.8, Chloride 102, Carbon Dioxide 23.8, Anion Gap 12, BUN 14, Creatinine 1.05, Estim Creat Clear Calc 85.83, Est GFR (MDRD) Non-Af 89, BUN/Creatinine Ratio 13.7, Glucose 147 H, Calcium 8.1, Total Bilirubin 0.16, Direct Bilirubin 0.09, AST 21, ALT 8, Alkaline Phosphatase 137 H, Troponin T High Sens 220 H*, NT pro BNP II 119, Total Protein 6.3, Albumin 3.8, Globulin 2.5 Imaging Radiology Impression Chest CTA 01/11/25 14:10 IMPRESSION: Ground-glass densities in the right upper lobe may represent pneumonitis or pneumonia. Extensive bilateral pulmonary embolism with right heart strain. This finding was discussed with Dr. Ray Gómez on 01/11/2025 3:10 p.m.. Reading Location: [facility] Charges/Coding Visit Charges Inpatient E&M: 68733 Init Hosp L3
[2025-01-11 16:35] LABS: Troponin T High Sens 2 HR 382 ng/L (<=22)
[2025-01-11 16:59] LABS: SITE Not entered; VBG BASE EXCESS -1 mmol/L (-1.0-3.5); VBG PO2 21 mmHg (25-40); VBG SO2 34 % (50-70); VBG TCO2 26 mmol/L (23-33)
[2025-01-11 17:59] LABS: ACT Activated Clotting Time 271 sec (74-137)
[2025-01-11 17:59] LABS: ACT Activated Clotting Time 230 sec (74-137)
--- NOTE | 2025-01-11 18:17 | PCM.OPRPT ---
Operative Report (Standard) Operative Information Date of Procedure: 01/11/25 Pre-Operative Diagnosis: Submassive pulmonary embolism with acute cor pulmonale Post-Operative Diagnosis: Same Surgery/Procedure Performed: Bilateral selective pulmonary angiogram Bilateral pulmonary thrombectomy, percutaneous mechanical Ultrasound-guided percutaneous access with closure device greater than 12 [place] tax advisor: No Type of Anesthesia: Local and Sedation,Conscious Procedure Start Time: 16:30 Procedure Stop Time: 17:50 Select all DRAINS/GRAFTS/IMPLANTS that apply: None Estimated Blood Loss: 100 Specimen collected: No Description of surgery: Call physician: Dr. Precious Rodriguez HPI: Patient is a 45-year-old male with history of prior pulmonary embolism who presented with abrupt onset over the last several days of increasing fatigue and shortness of breath with exertion. He presented to the hospital after 2 syncopal episodes and was found to have submassive pulmonary embolism with right ventricular strain and acute cor pulmonale. He also had significant tachycardia and transient hypotension so given his presenting symptoms and hemodynamics he was felt to be appropriate for immediate thrombectomy. He was taken emergently from the operating room to the [facility] for percutaneous mechanical pulmonary thrombectomy. Two physicians performed the procedure given the complexity and the patient's physiologic status. Description of procedure: Upon obtaining informed consent and verification correct patient procedure site the patient was taken to the [facility] where he was positioned prepped and draped in usual sterile fashion. Timeouts performed consultation ministered Versed and fentanyl. Skin overlying the right common femoral vein was anesthetized 1% lidocaine the vessel accessed under ultrasound guidance with a micropuncture needle wire. This then exchanged for micropuncture sheath which hand-injection ilio caval venogram was performed revealing satisfactory positioning with no extravasation or dissection and no evidence of iliac or vena cava thrombus. Through the micropuncture sheath a J-wire was advanced the micropuncture sheath exchanged for a short 8 [place] sheath. A single Pro-glide suture mediated closure of ice was then deployed in preclose technique and the 8 [place] sheath readvanced. Through the 8 [place] sheath a [place] catheter was advanced traversing the vena cava into the right atrium and right ventricle ultimately into the right distal pulmonary artery. From this position pulmonary artery sampling was obtained as were pulmonary waveform and pressures. The [place] balloon was then deflated and exchanged for a pigtail catheter and a Jovita wire which are navigated into the distal right pulmonary artery. The pigtail catheter was then exchanged for a MPA catheter and navigated into the subsegmental branches of the inferior lobe. The wire was exchanged for an Amplatz wire and the catheter withdrawn. The short 8 [place] sheath and exchanged for the Inari 24 [place] sheath. Through this the T24 aspiration catheter was advanced into the distal right pulmonary artery. From this position multiple aspirations were performed with significant thrombus return. Further aspirations were performed as the catheter was withdrawn into the main pulmonary artery. Right pulmonary selective angiography was then performed which revealed only minimal clot burden and some the subsegmental branches of the inferior lobe with no other significant proximal thrombus visualized. The catheter and wire were then navigated into the left pulmonary artery and selective pulmonary angiogram performed via the catheter. This revealed that some of the main left pulmonary artery thrombus had been aspirated with the right sided aspirations but there was still significant thrombus in segmental and subsegmental branches. The T20 curve was then advanced through the T24 and positioned in the lobar branch. Multiple aspirations were performed with significant thrombus burden withdrawn. Once no further thrombus was obtained completion selective angiography was performed revealed no residual thrombus and into the branch of the left pulmonary vasculature. The catheter was then withdrawn and the sheath withdrawn into the distal external iliac vein and hand-injection iliac venogram performed to confirm no vessel injury given significant discomfort for the patient during the entirety of the procedure. This revealed the vessel to be intact with no evidence of extravasation. The sheath was then withdrawn and the suture of the Pro-glide secured with satisfactory stasis observed. The patient maintained hemodynamic stability during this time and there is no bleeding from the tract so the wire was then withdrawn and manual pressure held for 5 minutes until complete hemostasis was observed. Dry sterile dressing were then applied and the patient was taken to the intensive care unit for hemodynamic and vascular monitoring and continuation of his anticoagulation therapy. Surgical Findings: See above Complications Complications: No
--- NOTE | 2025-01-11 18:23 | VDLE_ITS ---
Reason For Study Reason For Study: Pulmonary embolism RIGHT LEFT GSV is normal. GSV is normal. CFV not visualized due to bandage. CFV is compressible, spontaneous, phasic, competent, FV prox is compressible with normal venous flow. and demonstrates normal augmentation. Acute deep vein thrombosis is noted in the right FV FV is compressible, spontaneous, phasic, competent mid-distal, PopV, T/P Trunk, PTV, PeroV and SoleusV. and demonstrates normal augmentation. It is dilated and NONCOMPRESSIBLE. POP V is compressible, spontaneous, phasic, competent Thrombus at FV mid is very mobile. and demonstrates normal augmentation. Procedure T/P Trunk is compressible. This is a venous duplex using B-mode, color flow and PTV is compressible. spectral Doppler. LT PerV is compressible. Exam performed portable in ICU/CCU. A preliminary report was called and/or faxed to Dr. Norris and ICU. VL/Venous Duplex US - David Extrem Interpretation Summary Acute deep vein thrombosis noted in the right femoral vein, popliteal vein, tib ioperoneal trunk vein, posterior tibial vein, peroneal vein, soleus vein. Deep veins of the left lower extremity are patent and compressible segmentally. There is no evidence of left lower extremity deep vein thrombosis. The bilateral great saphenous veins appear montes nt and compressible segmentally. Ordering Physician: Ankit Quintana Referring Physician: Mayte Rodriguez Performed By: Liegha Garcia RVT
[2025-01-11 19:03] LABS: Hematocrit 35.9 % (40-54); Hemoglobin 11.8 g/dL (13.0-16.5); Mean Corp Hgb Conc 32.9 g/dL (32-36); Mean Corpuscular Volume 85.1 fL (80-94); Mean Platelet Vol. 9.6 fl (6.2-12.0); Platelet Count 173 K/mm3 (150-450); RBC Distribution Width CV 12.4 % (11.6-14.6); RBC Distribution Width SD 38.4 fl (35.1-43.9); Red Blood Count 4.22 M/mm3 (4.6-6.2); White Blood Count 9.4 K/mm3 (4.4-11.0)
--- OUTSIDE RECORDS SUMMARY | 2025-01-11 19:11 | XMS RPT_ITS | CCD ---
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 #### L 100.0100, L501.2300, L501.5200, L500.2500, L500.4050, L501.9520 #### [facility] [address] [place], [address] Creatinine [Mass/Vol] 0.66 mg/dL Low 0.70-1.30 [facility] Comment on above: Result Comment: The validity of the calculated GFR GFRAA in patients over 70 years has not been determined. Clinical correlation is essential. Performed By: #### L 100.0100, L501.2300, L501.5200, L500.2500, L500.4050, L501.9520 #### [facility] [address] [place], [address] ECRCL 141.87 ml/min Normal [facility] Comment on above: Performed By: #### L 100.0100, L501.2300, L501.5200, L500.2500, L500.4050, L501.9520 #### [facility] [address] [place], [address] EST GFR - AA 170 mL/min Normal >60 [facility] Comment on above: Result Comment: Afri can Tun[place]ian GFR Calc Performed By: #### L 100.0100, L501.2300, L501.5200, L500.2500, L500.4050, L501.9520 #### [facility] [address] [place], [address] GAP 1 Low 5-15 [facility] Comment on above: Performed By: #### L 100.0100, L501.2300, L501.5200, L500.2500, L500.4050, L501.9520 #### [facility] [address] [place], [address] GFR/1.73 sq M.predicted among non-blacks MDRD (S/P/Bld) [Vol rate/Area] 140 mL/min/{1.73_m2} Normal >60 [facility] Comment on above: Result Comment: Non- GFR Calc Performed By: #### L 100.0100, L501.2300, L501.5200, L500.2500, L500.4050, L501.9520 #### [facility] [address] [place], [address] Glucose [Mass/Vol] 82 mg/dL Normal 74-106 [facility] Comment on above: Performed By: #### L 100.0100, L501.2300, L501.5200, L500.2500, L500.4050, L501.9520 #### [facility] [address] [place], [address] Potassium [Moles/Vol] 3.3 mmol/L Low 3.5-5.1 [facility] Comment on above: Performed By: #### L 100.0100, L501.2300, L501.5200, L500.2500, L500.4050, L501.9520 #### [facility] [address] [place], [address] Sodium [Moles/Vol] 144 mmol/L Normal 136-145 [facility] Comment on above: Performed By: #### L 100.0100, L501.2300, L501.5200, L500.2500, L500.4050, L501.9520 #### [facility] [address] [place], [address] Urea nitrogen [Mass/Vol] 8 mg/dL Normal 7-18 [facility] Comment on above: Performed By: #### L 100.0100, L501.2300, L501.5200, L500.2500, L500.4050, L501.9520 #### [facility] [address] [place], [address] Basophil percentageOrdered B y: Linda Mendiola on 04-11-2023 Basophil percentage 2.9 mg/dL 2.5-4.9 [facility] Basophils/100 WBC (Bld) 2.7 % 0-1 [facility] Bilirubin [Mass/Vol] 0.60 mg/dL 0.20-1.00 [facility] Comment on above: For patients on eltr ombopag therapy, use of Dimension Prosperity TBIL is not recommended. Chloride [Moles/Vol] 111 mmol/L 98-107 [facility] Eosinophils/100 WBC (Bld) 2.1 % 0-5 [facility] Glucose [Mass/Vol] 82 mg/dL 74-106 [facility] Hemoglobin (Bld) [Mass/Vol] 12.5 g/dL 13.0-16.5 [facility] Monocytes/100 WBC (Bld) 9.7 % 0-10 [facility] Neutrophils (Bld) [#/Vol] 2.3 10*3/uL 2.0-7.7 [facility] Neutrophils/100 WBC (Bld) 47.5 % 47-70 [facility] Potassium [Moles/Vol] 3.3 mmol/L 3.5-5.1 [facility] Protein [Mass/Vol] 5.8 g/dL 6.4-8.2 [facility] Sodium [Moles/Vol] 144 mmol/L 136-145 [facility] WBC (Bld) [#/Vol] 4.7 10*3/uL 4.4-11.0 [facility] CBC W/Diff, Automatedon 03-25 Absolute Lymph 1.79 X10 3/uL Normal 0.83-4.51 [facility] Comment on above: Performed By: #### L 100.0100, L501.2300, L501.5200, L500.2500, L500.4050, L501.9520 #### [facility] [address] [place], [address] Absolute Neut 2.3 X10 3/uL Normal 2.0-7.7 [facility] Comment on above: Performed By: #### L 100.0100, L501.2300, L501.5200, L500.2500, L500.4050, L501.9520 #### [facility] [address] [place], [address] Basophils/100 WBC (Bld) 2.7 % High 0-1 [facility] Comment on above: Performed By: #### L 100.0100, L501.2300, L501.5200, L500.2500, L500.4050, L501.9520 #### [facility] [address] [place], [address] Eosinophils/100 WBC (Bld) 2.1 % Normal 0-5 [facility] Comment on above: Performed By: #### L 100.0100, L501.2300, L501.5200, L500.2500, L500.4050, L501.9520 #### [facility] [address] [place], [address] Erythrocyte distribution width (RBC) [Ratio] 13.5 % Normal 11.6-14.6 [facility] Comment on above: Performed By: #### L 100.0100, L501.2300, L501.5200, L500.2500, L500.4050, L501.9520 #### [facility] [address] [place], [address] Hematocrit (Bld) [Volume fraction] 37.3 % Low 40-54 [facility] Comment on above: Performed By: #### L 100.0100, L501.2300, L501.5200, L500.2500, L500.4050, L501.9520 #### [facility] [address] [place], [address] Hemoglobin (Bld) [Mass/Vol] 12.5 g/dL Low 13.0-16.5 [facility] Comment on above: Performed By: #### L 100.0100, L501.2300, L501.5200, L500.2500, L500.4050, L501.9520 #### [facility] [address] [place], [address] IG% 0.200 Normal 0.0-0.9 [facility] Comment on above: Result Comment: IG% - Immature Granulocytes (promyelocytes, myelocytes and metamyelocytes) > 1% indicates that a LEFT SHIFT is Present. Performed By: #### L 100.0100, L501.2300, L501.5200, L500.2500, L500.4050, L501.9520 #### [facility] [address] [place], [address] Lymphocytes/100 WBC (Bld) 37.8 % Normal 19-41 [facility] Comment on above: Performed By: #### L 100.0100, L501.2300, L501.5200, L500.2500, L500.4050, L501.9520 #### [facility] [address] [place], [address] MCH (RBC) [Entitic mass] 30.0 pg Normal 27.0-32.0 [facility] Comment on above: Performed By: #### L 100.0100, L501.2300, L501.5200, L500.2500, L500.4050, L501.9520 #### [facility] [address] [place], [address] MCHC (RBC) [Mass/Vol] 33.5 g/dL Normal 32-36 [facility] Comment on above: Performed By: #### L 100.0100, L501.2300, L501.5200, L500.2500, L500.4050, L501.9520 #### [facility] [address] [place], [address] MCV (RBC) [Entitic vol] 89.7 fL Normal 80-94 [facility] Comment on above: Performed By: #### L 100.0100, L501.2300, L501.5200, L500.2500, L500.4050, L501.9520 #### [facility] [address] [place], [address] Monocytes/100 WBC (Bld) 9.7 % Normal 0-10 [facility] Comment on above: Performed By: #### L 100.0100, L501.2300, L501.5200, L500.2500, L500.4050, L501.9520 #### [facility] [address] [place], [address] Neutrophils/100 WBC (Bld) 47.5 % Normal 47-70 [facility] Comment on above: Performed By: #### L 100.0100, L501.2300, L501.5200, L500.2500, L500.4050, L501.9520 #### [facility] [address] [place], [address] Nucleated RBC (Bld) [#/Vol] 0 10*3/uL Normal 0-5 [facility] Comment on above: Performed By: #### L 100.0100, L501.2300, L501.5200, L500.2500, L500.4050, L501.9520 #### [facility] [address] [place], [address] Platelet mean volume (Bld) [Entitic vol] 9.1 fL Normal 6.2-12.0 [facility] Comment on above: Performed By: #### L 100.0100, L501.2300, L501.5200, L500.2500, L500.4050, L501.9520 #### [facility] [address] [place], [address] Platelets (Bld) [#/Vol] 250 10*3/uL Normal 150-450 [facility] Comment on above: Performed By: #### L 100.0100, L501.2300, L501.5200, L500.2500, L500.4050, L501.9520 #### [facility] [address] [place], [address] RBC (Bld) [#/Vol] 4.16 10*6/uL Low 4.6-6.2 [facility] Comment on above: Performed By: #### L 100.0100, L501.2300, L501.5200, L500.2500, L500.4050, L501.9520 #### [facility] [address] [place], [address] RDW SD 44.4 fl High 35.1-43.9 [facility] Comment on above: Performed By: #### L 100.0100, L501.2300, L501.5200, L500.2500, L500.4050, L501.9520 #### [facility] [address] [place], [address] WBC (Bld) [#/Vol] 4.7 10*3/uL Normal 4.4-11.0 [facility] Comment on above: Performed By: #### L 100.0100, L501.2300, L501.5200, L500.2500, L500.4050, L501.9520 #### [facility] [address] [place], [address] Comprehensive Metabolic Prof ilon 04-11-2023 Albumin [Mass/Vol] 3.0 g/dL Low 3.2-5.0 [facility] Comment on above: Performed By: #### L 100.0100, L501.2300, L501.5200, L500.2500, L500.4050, L501.9520 #### [facility] [address] [place], [address] Albumin/Globulin [Mass ratio] 1.1 {ratio} Normal 0.9-2.4 [facility] Comment on above: Performed By: #### L 100.0100, L501.2300, L501.5200, L500.2500, L500.4050, L501.9520 #### [facility] [address] [place], [address] ALK P 116 U/L Normal 45-117 [facility] Comment on above: Performed By: #### L 100.0100, L501.2300, L501.5200, L500.2500, L500.4050, L501.9520 #### [facility] [address] [place], [address] ALT [Catalytic activity/Vol] 57 U/L Normal 16-61 [facility] Comment on above: Performed By: #### L 100.0100, L501.2300, L501.5200, L500.2500, L500.4050, L501.9520 #### [facility] [address] [place], [address] AST [Catalytic activity/Vol] 49 U/L High 15-37 [facility] Comment on above: Performed By: #### L 100.0100, L501.2300, L501.5200, L500.2500, L500.4050, L501.9520 #### [facility] [address] [place], [address] Bilirubin [Mass/Vol] 0.60 mg/dL Normal 0.20-1.00 [facility] Comment on above: Result Comment: For patients on eltrombopag therapy, use of Dimension Prosperity TBIL is not recommended. Performed By: #### L 100.0100, L501.2300, L501.5200, L500.2500, L500.4050, L501.9520 #### [facility] [address] [place], [address] Globulin (S) [Mass/Vol] 2.8 g/dL Normal 2.2-4.2 [facility] Comment on above: Performed By: #### L 100.0100, L501.2300, L501.5200, L500.2500, L500.4050, L501.9520 #### [facility] [address] [place], [address] T PROT 5.8 g/dL Low 6.4-8.2 [facility] Comment on above: Performed By: #### L 100.0100, L501.2300, L501.5200, L500.2500, L500.4050, L501.9520 #### [facility] [address] [place], [address] Determination of erythrocyte mean corpuscular volume (MCV)Ordered By: Linda Mendiola on 04-11-2023 MCV (RBC) [Entitic vol] 89.7 fL 80-94 [facility] Erythrocyte distribution wid th ratioOrdered By: Linda Mendiola on 04-11-2023 Erythrocyte distribution width (RBC) [Ratio] 13.5 % 11.6-14.6 [facility] Erythrocyte distribution wid th standard deviationOrdered By: Linda Mendiola on 04-11-2023 Erythrocyte distribution width (RBC) [Entitic vol] 44.4 fL 35.1-43.9 [facility] Hematocrit Auto (Bld) [Volum e fraction]Ordered By: Linda Mendiola on 04-11-2023 Hematocrit (Bld) [Volume fraction] 37.3 % 40-54 [facility] Immature granulocytes/100 WB C Auto (Bld)Ordered By: Linda Mendiola on 04-11-2023 Immature granulocytes/100 WBC (Bld) 0.200 % 0.0-0.9 [facility] Comment on above: IG% - Immature Granu locytes (promyelocytes, myelocytes and metamyelocytes) > 1% indicates that a LEFT SHIFT is Present. Laboratory - Chemistry and C hemistry - challengeOrdered By: Linda Mendiola on 04-11-2023 Albumin/Globulin [Mass ratio] 1.1 {ratio} 0.9-2.4 [facility] ALP [Catalytic activity/Vol] 116 U/L 45-117 [facility] ALT [Catalytic activity/Vol] 57 U/L 16-61 [facility] CO2 [Moles/Vol] 32.0 mmol/L 21.0-32.0 [facility] Globulin (S) [Mass/Vol] 2.8 g/dL 2.2-4.2 [facility] Magnesium [Mass/Vol] 1.7 mg/dL 1.6-2.6 [facility] Urea nitrogen/Creatinine [Mass ratio] 12.2 mg/mg 10-20 [facility] - Hematology and Cell countsOrdered By: Linda Mendiola on 04-11-2023 MCH (RBC) [Entitic mass] 30.0 pg 27.0-32.0 [facility] MCHC (RBC) [Mass/Vol] 33.5 g/dL 32-36 [facility] Nucleated RBC/100 WBC (Bld) [Ratio] 0 % 0-5 [facility] Platelet mean volume (Bld) [Entitic vol] 9.1 fL 6.2-12.0 [facility] Platelets (Bld) [#/Vol] 250 10*3/uL 150-450 [facility] Magnesiumon 04-11-2023 Magnesium [Mass/Vol] 1.7 mg/dL Normal 1.6-2.6 [facility] Comment on above: Performed By: #### L 100.0100, L501.2300, L501.5200, L500.2500, L500.4050, L501.9520 #### [facility] [address] [place], [place], [address] No Panel InformationOrdered By: Linda Mendiola on 04-11-2023 Estimated Creatinine Clearance Calc 141.87 ml/min [facility] Estimated GFR (MDRD) Amer 170 mL/min >60 [facility] Comment on above: GFR Calc Estimated GFR (MDRD) Non-Af Amer 140 mL/min >60 [facility] Comment on above: Non- GFR Calc Phosphoruson 04-11-2023 Phosphate [Mass/Vol] 2.9 mg/dL Normal 2.5-4.9 [facility] Comment on above: Performed By: #### L 100.0100, L501.2300, L501.5200, L500.2500, L500.4050, L501.9520 #### [facility] [address] [place], [address] RBC Auto (Bld) [#/Vol]Ordere d By: Linda Mendiola on 04-11-2023 RBC (Bld) [#/Vol] 4.16 10*6/uL 4.6-6.2 [facility] Serum or plasma calcium [place] urement (mass/volume)Ordered By: Linad Mendiola on 04-11-2023 Calcium [Mass/Vol] 8.3 mg/dL 8.5-10.1 [facility] Serum or plasma creatinine m easurement (mass/volume)Ordered By: Linda Mendiola on 04-11-2023 Creatinine [Mass/Vol] 0.66 mg/dL 0.70-1.30 [facility] Comment on above: The validity of the calculated GFR & GFRAA in patients over 70 years has not been determined. Clinical correlation is essential. Serum or plasma thyroid stim ulating hormone (TSH) measurement (units/volume)Ordered By: Linda Mendiola on 04-11-2023 TSH Qn 0.60 uIU/mL 0.358-3.74 [facility] Serum or plasma urea nitroge n measurement (mass/volume)Ordered By: Linda Mendiola on 04-11-2023 Urea nitrogen [Mass/Vol] 8 mg/dL 7-18 [facility] Thin prep Papanicolaou smear with manual screeningOrdered By: Linda Mendiola on 04-11-2023 Thin prep Papanicolaou smear with manual screening 3.0 g/dL 3.2-5.0 [facility] Thin prep Papanicolaou smear with manual screening 49 U/L 15-37 [facility] Thin prep Papanicolaou smear with manual screening 1 5-15 [facility] Thyroid Stim Hormone (TSH)on 04-11-2023 TSH 0.60 uIU/mL Normal 0.358-3.74 [facility] Comment on above: Performed By: #### L 505.5000, L501.9100, L500.4050 #### [facility] [address] [place], [address] 12 Lead EKGon 04-10-2023 12 Lead EKG [facility] [address] [place] [address] 12 Lead EKG 04/10/23 1126 MR#: [id number] Acct: [id number] Name: VIVIAN POWELL Rep #: [id number] : 1980 43 From: Acosta Shah MD Attending Dr: Dr. Óscar Terry MD Status : DIS IN Ordering Dr: Alberto Knowles DO Date: 04/10/23 Location: MS3 Sex: M C Admitted: 04/10/23 Test Reason : Blood Pressure : / mmHG Vent. Rate : 087 BPM Atrial Rate : 087 BPM P-R Int : 164 ms QRS Dur : 108 ms QT Int : 366 ms P-R-T Axes : 044 -08 025 degrees QTc Int : 440 ms Normal sinus rhythm Normal ECG Confirmed by KAITLYN LANDA, ACOSTA ([id number]), digital editor YOVANI PERALTA ([id number]) on 04/12/2023 10:08:08 AM Referred By: Confirmed By:ACOSTA SHAH MD 04/12/23 1008 Date Acosta Shah MD CC: Dr. Alberto Knowles DO; Dr. Óscar Terry MD; No Primary Care Physician Signed Normal [facility] Alcohol, Blood (Medical)-Ser umon 04-10-2023 SERUM ETOH 341.0 mg/dL Invalid Interpretation Code [facility] Comment on above: Result Comment: Crit ical Result(s) Called at: 12:11:57 04/10/2023 by: Donaldo Lux.Jaret Katz RN (ER). Results read back by same. The serum:whole blood ethanol ratio is approximately 1.14 and varies slightly with hematocrit. Medical Alcohol reference interval and critical value in non-tolerant individuals; 50 - 100 Impairment 100 Intoxication 100 - 250 Severe Poisoning 250 - 400 Deep/possible fatal coma Performed By: #### L 505.5000, L501.9100, L500.4050 #### [facility] [address] [facility] [place], [place], [address] Brain/Head without Contrasto n 04-10-2023 Brain/Head without Contrast [facility] [address] [place] [address] Brain/Head without Contrast MR#: [id number] Acct: [id number] Name: VIVIAN POWELL Rep #: [id number] : 1980 M 43 From: Lennox Bartholomew MD PCP: Care Physician,No Primary Status: REG ER Study: Brain/Head without Contrast Date of Exam: 03/25 09/14 Exam# [id number] Ordering Dr: Alberto Knowles DO [id number] STUDY: CT BRAIN WITHOUT CONTRAST REASON FOR EXAM: Male, 43 years old. Altered mental status RADIATION DOSAGE (If Supplied By Facility): CTDIvol = ( 44.99 ) mGy, DLP = ( 846.73 ) mGycm TECHNIQUE: Transaxial CT imaging of the brain was performed without administration of intravenous contrast material. Individualized dose optimization techniques were used for this CT. COMPARISON: Prior study dated: 03/27/23 FINDINGS: PARENCHYMA: There is no acute bleed or infarct. There are normal white matter tracts. VENTRICLES: There is no hydrocephalus. MASTOID AIR CELLS AND PARANASAL SINUSES: The visualized paranasal sinuses are clear. The mastoid air cells are clear. BONES: There is no skull fracture. SOFT TISSUES: The visualized soft tissues are within normal limits. CT/Brain/Head without Contrast IMPRESSION: No acute intracranial abnormality. Electronically Signed: Lennox Bartholomew MD at 12:33 EST , CC: Dr. Alberto Knowles DO; No Primary Care Physician Surgical Services Assistant: Signed Normal [facility] CBC W/Diff, Automatedon 03-25 Absolute Lymph 1.54 X10 3/uL Normal 0.83-4.51 [facility] Comment on above: Performed By: #### L 505.5000, L501.9100, L500.4050 #### [facility] [address] [place], [address] Absolute Neut 2.2 X10 3/uL Normal 2.0-7.7 [facility] Comment on above: Performed By: #### L 505.5000, L501.9100, L500.4050 #### [facility] [address] [place], [address] Basophils/100 WBC (Bld) 1.8 % High 0-1 [facility] Comment on above: Performed By: #### L 505.5000, L501.9100, L500.4050 #### [facility] [address] [place], [address] Eosinophils/100 WBC (Bld) 1.1 % Normal 0-5 [facility] Comment on above: Performed By: #### L 505.5000, L501.9100, L500.4050 #### [facility] [address] [place], [address] Erythrocyte distribution width (RBC) [Ratio] 14.0 % Normal 11.6-14.6 [facility] Comment on above: Performed By: #### L 505.5000, L501.9100, L500.4050 #### [facility] [address] [place], [address] Hematocrit (Bld) [Volume fraction] 37.1 % Low 40-54 [facility] Comment on above: Performed By: #### L 505.5000, L501.9100, L500.4050 #### [facility] [address] [place], [address] Hemoglobin (Bld) [Mass/Vol] 12.3 g/dL Low 13.0-16.5 [facility] Comment on above: Performed By: #### L 505.5000, L501.9100, L500.4050 #### [facility] [address] [place], [address] IG% 0.200 Normal 0.0-0.9 [facility] Comment on above: Result Comment: IG% - Immature Granulocytes (promyelocytes, myelocytes and metamyelocytes) > 1% indicates that a LEFT SHIFT is Present. Performed By: #### L 505.5000, L501.9100, L500.4050 #### [facility] [address] [place], [address] Lymphocytes/100 WBC (Bld) 34.6 % Normal 19-41 [facility] Comment on above: Performed By: #### L 505.5000, L501.9100, L500.4050 #### [facility] [address] [place], [address] MCH (RBC) [Entitic mass] 29.7 pg Normal 27.0-32.0 [facility] Comment on above: Performed By: #### L 505.5000, L501.9100, L500.4050 #### [facility] [address] [place], [address] MCHC (RBC) [Mass/Vol] 33.2 g/dL Normal 32-36 [facility] Comment on above: Performed By: #### L 505.5000, L501.9100, L500.4050 #### [facility] [address] [place], [address] MCV (RBC) [Entitic vol] 89.6 fL Normal 80-94 [facility] Comment on above: Performed By: #### L 505.5000, L501.9100, L500.4050 #### [facility] [address] [place], [address] Monocytes/100 WBC (Bld) 13.3 % High 0-10 [facility] Comment on above: Performed By: #### L 505.5000, L501.9100, L500.4050 #### [facility] [address] [place], [address] Neutrophils/100 WBC (Bld) 49.0 % Normal 47-70 [facility] Comment on above: Performed By: #### L 505.5000, L501.9100, L500.4050 #### [facility] [address] [place], [address] Nucleated RBC (Bld) [#/Vol] 0 10*3/uL Normal 0-5 [facility] Comment on above: Performed By: #### L 505.5000, L501.9100, L500.4050 #### [facility] [address] [place], [address] Platelet mean volume (Bld) [Entitic vol] 8.7 fL Normal 6.2-12.0 [facility] Comment on above: Performed By: #### L 505.5000, L501.9100, L500.4050 #### [facility] [address] [place], [address] Platelets (Bld) [#/Vol] 253 10*3/uL Normal 150-450 [facility] Comment on above: Performed By: #### L 505.5000, L501.9100, L500.4050 #### [facility] [address] [place], [address] RBC (Bld) [#/Vol] 4.14 10*6/uL Low 4.6-6.2 [facility] Comment on above: Performed By: #### L 505.5000, L501.9100, L500.4050 #### [facility] [address] [place], [address] RDW SD 45.4 fl High 35.1-43.9 [facility] Comment on above: Performed By: #### L 505.5000, L501.9100, L500.4050 #### [facility] [address] [place], [address] WBC (Bld) [#/Vol] 4.5 10*3/uL Normal 4.4-11.0 [facility] Comment on above: Performed By: #### L 505.5000, L501.9100, L500.4050 #### [facility] [address] [place], [address] Comprehensive Metabolic Prof ilon 04-10-2023 Albumin [Mass/Vol] 3.3 g/dL Normal 3.2-5.0 [facility] Comment on above: Order Comment: 'TROP ' Serial specimen #1, #2 or #3: 1 Performed By: #### L 505.5000, L501.9100, L500.4050 #### [facility] [address] [place], [address] Albumin/Globulin [Mass ratio] 1.2 {ratio} Normal 0.9-2.4 [facility] Comment on above: Order Comment: 'TROP ' Serial specimen #1, #2 or #3: 1 Performed By: #### L 505.5000, L501.9100, L500.4050 #### [facility] [address] [place], [address] ALK P 118 U/L High 45-117 [facility] Comment on above: Order Comment: 'TROP ' Serial specimen #1, #2 or #3: 1 Performed By: #### L 505.5000, L501.9100, L500.4050 #### [facility] [address] [place], [address] ALT [Catalytic activity/Vol] 76 U/L High 16-61 [facility] Comment on above: Order Comment: 'TROP ' Serial specimen #1, #2 or #3: 1 Performed By: #### L 505.5000, L501.9100, L500.4050 #### [facility] [address] [place], [address] AST [Catalytic activity/Vol] 122 U/L High 15-37 [facility] Comment on above: Order Comment: 'TROP ' Serial specimen #1, #2 or #3: 1 Performed By: #### L 505.5000, L501.9100, L500.4050 #### [facility] [address] [place], [address] Bilirubin [Mass/Vol] 0.30 mg/dL Normal 0.20-1.00 [facility] Comment on above: Order Comment: 'TROP ' Serial specimen #1, #2 or #3: 1 Result Comment: For patients on eltrombopag therapy, use of Dimension Prosperity TBIL is not recommended. Performed By: #### L 505.5000, L501.9100, L500.4050 #### [facility] [address] [place], [address] BUN/CRE 9.7 RATIO Low 10-20 [facility] Comment on above: Order Comment: 'TROP ' Serial specimen #1, #2 or #3: 1 Performed By: #### L 505.5000, L501.9100, L500.4050 #### [facility] [address] [place], [address] CA,Total 7.7 mg/dL Low 8.5-10.1 [facility] Comment on above: Order Comment: 'TROP ' Serial specimen #1, #2 or #3: 1 Performed By: #### L 505.5000, L501.9100, L500.4050 #### [facility] [address] [place], [address] Chloride [Moles/Vol] 113 mmol/L High 98-107 [facility] Comment on above: Order Comment: 'TROP ' Serial specimen #1, #2 or #3: 1 Performed By: #### L 505.5000, L501.9100, L500.4050 #### [facility] [address] [place], [address] CO2 [Moles/Vol] 31.0 mmol/L Normal 21.0-32.0 [facility] Comment on above: Order Comment: 'TROP ' Serial specimen #1, #2 or #3: 1 Performed By: #### L 505.5000, L501.9100, L500.4050 #### [facility] [address] [place], [address] Creatinine [Mass/Vol] 0.72 mg/dL Normal 0.70-1.30 [facility] Comment on above: Order Comment: 'TROP ' Serial specimen #1, #2 or #3: 1 Result Comment: The validity of the calculated GFR GFRAA in patients over 70 years has not been determined. Clinical correlation is essential. Performed By: #### L 505.5000, L501.9100, L500.4050 #### [facility] [address] [place], [address] EST GFR - AA 153 mL/min Normal >60 [facility] Comment on above: Order Comment: 'TROP ' Serial specimen #1, #2 or #3: 1 Result Comment: Afri can [place]ian GFR Calc Performed By: #### L 505.5000, L501.9100, L500.4050 #### [facility] [address] [place], [address] GAP 3 Low 5-15 [facility] Comment on above: Order Comment: 'TROP ' Serial specimen #1, #2 or #3: 1 Performed By: #### L 505.5000, L501.9100, L500.4050 #### [facility] [address] [place], [address] GFR/1.73 sq M.predicted among non-blacks MDRD (S/P/Bld) [Vol rate/Area] 126 mL/min/{1.73_m2} Normal >60 [facility] Comment on above: Order Comment: 'TROP ' Serial specimen #1, #2 or #3: 1 Result Comment: Non- GFR Calc Performed By: #### L 505.5000, L501.9100, L500.4050 #### [facility] [address] [place], [address] Globulin (S) [Mass/Vol] 2.8 g/dL Normal 2.2-4.2 [facility] Comment on above: Order Comment: 'TROP ' Serial specimen #1, #2 or #3: 1 Performed By: #### L 505.5000, L501.9100, L500.4050 #### [facility] [address] [place], [address] Glucose [Mass/Vol] 93 mg/dL Normal 74-106 [facility] Comment on above: Order Comment: 'TROP ' Serial specimen #1, #2 or #3: 1 Performed By: #### L 505.5000, L501.9100, L500.4050 #### [facility] [address] [place], [address] Potassium [Moles/Vol] 3.1 mmol/L Low 3.5-5.1 [facility] Comment on above: Order Comment: 'TROP ' Serial specimen #1, #2 or #3: 1 Performed By: #### L 505.5000, L501.9100, L500.4050 #### [facility] [address] [place], [address] Sodium [Moles/Vol] 147 mmol/L High 136-145 [facility] Comment on above: Order Comment: 'TROP ' Serial specimen #1, #2 or #3: 1 Performed By: #### L 505.5000, L501.9100, L500.4050 #### [facility] [address] [place], [address] T PROT 6.1 g/dL Low 6.4-8.2 [facility] Comment on above: Order Comment: 'TROP ' Serial specimen #1, #2 or #3: 1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 calcium [place] urement (mass/volume)Ordered By: Ankit Quintana on 03-29-2023 Calcium [Mass/Vol] 9.2 mg/dL 8.5-10.1 [facility] Serum or plasma creatinine m easurement (mass/volume)Ordered By: Ankit Quintana on 03-29-2023 Creatinine [Mass/Vol] 0.64 mg/dL 0.70-1.30 [facility] Comment on above: The validity of the calculated GFR & GFRAA in patients over 70 years has not been determined. Clinical correlation is essential. Serum or plasma urea nitroge n measurement (mass/volume)Ordered By: Ankit Quintana on 03-29-2023 Urea nitrogen [Mass/Vol] 4 mg/dL 7-18 [facility] Thin prep Papanicolaou smear with manual screeningOrdered By: Ankit Quintana on 03-29-2023 Thin prep Papanicolaou smear with manual screening 5 5-15 [facility] Absolute lymphocyte countOrd ered By: Spencer Jones on 03-28-2023 Lymphocytes Auto (Unsp spec) [#/Vol] 1.10 10*3/uL 0.83-4.51 [facility] Alcohol, Blood (Medical)-Ser umon 03-28-2023 SERUM ETOH 173.0 mg/dL Normal [facility] Comment on above: Result Comment: The serum:whole blood ethanol ratio is approximately 1.14 and varies slightly with hematocrit. Medical Alcohol reference interval and critical value in non-tolerant individuals; 50 - 100 Impairment 100 Intoxication 100 - 250 Severe Poisoning 250 - 400 Deep/possible fatal coma Performed By: #### L 505.5000, L501.9100, L500.4050 #### [facility] [address] [facility] [place], [place], [id number] Automated lymphocyte count a s percentage of total leukocytesOrdered By: Spencer Jones on 03-28-2023 Lymphocytes/100 WBC Auto (Unsp spec) 45.6 % 19-41 [facility] Basophil percentageOrdered B y: Spencer Jones on 03-28-2023 Basophils/100 WBC (Bld) 0.4 % 0-1 [facility] Bilirubin [Mass/Vol] 0.90 mg/dL 0.20-1.00 [facility] Comment on above: For patients on eltr ombopag therapy, use of Dimension Prosperity TBIL is not recommended. Eosinophils/100 WBC (Bld) 1.2 % 0-5 [facility] Hemoglobin (Bld) [Mass/Vol] 12.0 g/dL 13.0-16.5 [facility] Monocytes/100 WBC (Bld) 10.8 % 0-10 [facility] Neutrophils (Bld) [#/Vol] 1.0 10*3/uL 2.0-7.7 [facility] Neutrophils/100 WBC (Bld) 42.0 % 47-70 [facility] Protein [Mass/Vol] 5.6 g/dL 6.4-8.2 [facility] WBC (Bld) [#/Vol] 2.4 10*3/uL 4.4-11.0 [facility] CBC W/Diff, Automatedon 02-0 4-2023 Absolute Lymph 1.10 X10 3/uL Normal 0.83-4.51 [facility] Comment on above: Performed By: #### L 505.5000, L501.9100, L500.4050 #### [facility] [address] [place], [address] Absolute Neut 1.0 X10 3/uL Low 2.0-7.7 [facility] Comment on above: Performed By: #### L 505.5000, L501.9100, L500.4050 #### [facility] [address] [place], [address] Basophils/100 WBC (Bld) 0.4 % Normal 0-1 [facility] Comment on above: Performed By: #### L 505.5000, L501.9100, L500.4050 #### [facility] [address] [place], [address] Eosinophils/100 WBC (Bld) 1.2 % Normal 0-5 [facility] Comment on above: Performed By: #### L 505.5000, L501.9100, L500.4050 #### [facility] [address] [place], [address] Erythrocyte distribution width (RBC) [Ratio] 12.3 % Normal 11.6-14.6 [facility] Comment on above: Performed By: #### L 505.5000, L501.9100, L500.4050 #### [facility] [address] [place], [address] Hematocrit (Bld) [Volume fraction] 34.6 % Low 40-54 [facility] Comment on above: Performed By: #### L 505.5000, L501.9100, L500.4050 #### [facility] [address] [place], [address] Hemoglobin (Bld) [Mass/Vol] 12.0 g/dL Low 13.0-16.5 [facility] Comment on above: Performed By: #### L 505.5000, L501.9100, L500.4050 #### [facility] [address] [place], [address] IG% 0.000 Normal 0.0-0.9 [facility] Comment on above: Result Comment: IG% - Immature Granulocytes (promyelocytes, myelocytes and metamyelocytes) > 1% indicates that a LEFT SHIFT is Present. Performed By: #### L 505.5000, L501.9100, L500.4050 #### [facility] [address] [place], [address] Lymphocytes/100 WBC (Bld) 45.6 % High 19-41 [facility] Comment on above: Performed By: #### L 505.5000, L501.9100, L500.4050 #### [facility] [address] [place], [address] MCH (RBC) [Entitic mass] 29.4 pg Normal 27.0-32.0 [facility] Comment on above: Performed By: #### L 505.5000, L501.9100, L500.4050 #### [facility] [address] [place], [address] MCHC (RBC) [Mass/Vol] 34.7 g/dL Normal 32-36 [facility] Comment on above: Performed By: #### L 505.5000, L501.9100, L500.4050 #### [facility] [address] [place], [address] MCV (RBC) [Entitic vol] 84.8 fL Normal 80-94 [facility] Comment on above: Performed By: #### L 505.5000, L501.9100, L500.4050 #### [facility] [address] [place], [address] Monocytes/100 WBC (Bld) 10.8 % High 0-10 [facility] Comment on above: Performed By: #### L 505.5000, L501.9100, L500.4050 #### [facility] [address] [place], [address] Neutrophils/100 WBC (Bld) 42.0 % Low 47-70 [facility] Comment on above: Performed By: #### L 505.5000, L501.9100, L500.4050 #### [facility] [address] [place], [address] Nucleated RBC (Bld) [#/Vol] 0 10*3/uL Normal 0-5 [facility] Comment on above: Performed By: #### L 505.5000, L501.9100, L500.4050 #### [facility] [address] [place], [address] Platelet mean volume (Bld) [Entitic vol] 9.2 fL Normal 6.2-12.0 [facility] Comment on above: Performed By: #### L 505.5000, L501.9100, L500.4050 #### [facility] [address] [place], [address] Platelets (Bld) [#/Vol] 64 10*3/uL Low 150-450 [facility] Comment on above: Performed By: #### L 505.5000, L501.9100, L500.4050 #### [facility] [address] [place], [address] RBC (Bld) [#/Vol] 4.08 10*6/uL Low 4.6-6.2 [facility] Comment on above: Performed By: #### L 505.5000, L501.9100, L500.4050 #### [facility] [address] [place], [address] RDW SD 38.2 fl Normal 35.1-43.9 [facility] Comment on above: Performed By: #### L 505.5000, L501.9100, L500.4050 #### [facility] [address] [place], [address] WBC (Bld) [#/Vol] 2.4 10*3/uL Low 4.4-11.0 [facility] Comment on above: Performed By: #### L 505.5000, L501.9100, L500.4050 #### [facility] [address] [place], [address] Comprehensive Metabolic Prof ilon 03-28-2023 Albumin [Mass/Vol] 3.1 g/dL Low 3.2-5.0 [facility] Comment on above: Performed By: #### L 505.5000, L501.9100, L500.4050 #### [facility] [address] [place], [address] Albumin/Globulin [Mass ratio] 1.2 {ratio} Normal 0.9-2.4 [facility] Comment on above: Performed By: #### L 505.5000, L501.9100, L500.4050 #### [facility] [address] [place], [address] ALK P 169 U/L High 45-117 [facility] Comment on above: Performed By: #### L 505.5000, L501.9100, L500.4050 #### [facility] [address] [place], [address] ALT [Catalytic activity/Vol] 106 U/L High 16-61 [facility] Comment on above: Performed By: #### L 505.5000, L501.9100, L500.4050 #### [facility] [address] [place], [address] AST [Catalytic activity/Vol] 139 U/L High 15-37 [facility] Comment on above: Performed By: #### L 505.5000, L501.9100, L500.4050 #### [facility] [address] [place], [address] Bilirubin [Mass/Vol] 0.90 mg/dL Normal 0.20-1.00 [facility] Comment on above: Result Comment: For patients on eltrombopag therapy, use of Dimension Prosperity TBIL is not recommended. Performed By: #### L 505.5000, L501.9100, L500.4050 #### [facility] [address] [place], [address] BUN/CRE 10.7 RATIO Normal 10-20 [facility] Comment on above: Performed By: #### L 505.5000, L501.9100, L500.4050 #### [facility] [address] [place], [address] CA,Total 8.2 mg/dL Low 8.5-10.1 [facility] Comment on above: Performed By: #### L 505.5000, L501.9100, L500.4050 #### [facility] [address] [place], [address] Chloride [Moles/Vol] 103 mmol/L Normal 98-107 [facility] Comment on above: Performed By: #### L 505.5000, L501.9100, L500.4050 #### [facility] [address] [place], [address] CO2 [Moles/Vol] 29.0 mmol/L Normal 21.0-32.0 [facility] Comment on above: Performed By: #### L 505.5000, L501.9100, L500.4050 #### [facility] [address] [place], [address] Creatinine [Mass/Vol] 0.56 mg/dL Low 0.70-1.30 [facility] Comment on above: Result Comment: The validity of the calculated GFR GFRAA in patients over 70 years has not been determined. Clinical correlation is essential. Performed By: #### L 505.5000, L501.9100, L500.4050 #### [facility] [address] [place], [address] ECRCL 155.89 ml/min Normal [facility] Comment on above: Performed By: #### L 505.5000, L501.9100, L500.4050 #### [facility] [address] [place], [address] EST GFR - AA 204 mL/min Normal >60 [facility] Comment on above: Result Comment: Afri can Tunisian GFR Calc Performed By: #### L 505.5000, L501.9100, L500.4050 #### [facility] [address] [place], [address] GAP 5 Normal 5-15 [facility] Comment on above: Performed By: #### L 505.5000, L501.9100, L500.4050 #### [facility] [address] [place], [address] GFR/1.73 sq M.predicted among non-blacks MDRD (S/P/Bld) [Vol rate/Area] 168 mL/min/{1.73_m2} Normal >60 [facility] Comment on above: Result Comment: Non- GFR Calc Performed By: #### L 505.5000, L501.9100, L500.4050 #### [facility] [address] [place], [address] Globulin (S) [Mass/Vol] 2.5 g/dL Normal 2.2-4.2 [facility] Comment on above: Performed By: #### L 505.5000, L501.9100, L500.4050 #### [facility] [address] [place], [address] Glucose [Mass/Vol] 92 mg/dL Normal 74-106 [facility] Comment on above: Performed By: #### L 505.5000, L501.9100, L500.4050 #### [facility] [address] [place], [address] Potassium [Moles/Vol] 3.3 mmol/L Low 3.5-5.1 [facility] Comment on above: Performed By: #### L 505.5000, L501.9100, L500.4050 #### [facility] [address] [place], [address] Sodium [Moles/Vol] 137 mmol/L Normal 136-145 [facility] Comment on above: Performed By: #### L 505.5000, L501.9100, L500.4050 #### [facility] [address] [place], [address] T PROT 5.6 g/dL Low 6.4-8.2 [facility] Comment on above: Performed By: #### L 505.5000, L501.9100, L500.4050 #### [facility] [address] [place], [address] Urea nitrogen [Mass/Vol] 6 mg/dL Low 7-18 [facility] Comment on above: Performed By: #### L 505.5000, L501.9101, L500.4050 #### [facility] [address] [place], [address] Determination of erythrocyte mean corpuscular volume (MCV)Ordered By: Spencer Jones on 03-28-2023 MCV (RBC) [Entitic vol] 84.8 fL 80-94 [facility] Erythrocyte distribution wid th ratioOrdered By: Spencer Jones on 03-28-2023 Erythrocyte distribution width (RBC) [Ratio] 12.3 % 11.6-14.6 [facility] Erythrocyte distribution wid th standard deviationOrdered By: Spencer Jones on 03-28-2023 Erythrocyte distribution width (RBC) [Entitic vol] 38.2 fL 35.1-43.9 [facility] Hematocrit Auto (Bld) [Volum e fraction]Ordered By: Spencer Jones on 03-28-2023 Hematocrit (Bld) [Volume fraction] 34.6 % 40-54 [facility] Immature granulocytes/100 WB C Auto (Bld)Ordered By: Spencer Jones on 03-28-2023 Immature granulocytes/100 WBC (Bld) 0.000 % 0.0-0.9 [facility] Comment on above: IG% - Immature Granu locytes (promyelocytes, myelocytes and metamyelocytes) > 1% indicates that a LEFT SHIFT is Present. Laboratory - Chemistry and C hemistry - challengeOrdered By: Spencer Jones on 03-28-2023 Albumin/Globulin [Mass ratio] 1.2 {ratio} 0.9-2.4 [facility] ALP [Catalytic activity/Vol] 169 U/L 45-117 [facility] ALT [Catalytic activity/Vol] 106 U/L 16-61 [facility] Globulin (S) [Mass/Vol] 2.5 g/dL 2.2-4.2 [facility] Lipase [Catalytic activity/Vol] 199 U/L 13-75 [facility] Comment on above: Please note:LIPASE r evised reference range effective 22. New Lipase methodology. Expected to produce lower values than the previous assay method. NEW Reference Range: 13 - 75 U/L Laboratory - Hematology and Cell countsOrdered By: Spencer Jones on 03-28-2023 MCH (RBC) [Entitic mass] 29.4 pg 27.0-32.0 [facility] MCHC (RBC) [Mass/Vol] 34.7 g/dL 32-36 [facility] Nucleated RBC/100 WBC (Bld) [Ratio] 0 % 0-5 [facility] Platelets (Bld) [#/Vol] 64 10*3/uL 150-450 [facility] Lipaseon 03-28-2023 Lipase [Catalytic activity/Vol] 199 U/L High 13-75 [facility] Comment on above: Result Comment: Selwyn hodgson note: LIPASE revised reference range effective 22. New Lipase methodology. Expected to produce lower values than the previous assay method. NEW Reference Range: 13 - 75 U/L Performed By: #### L 505.5000, L501.9100, L500.4050 #### [facility] [address] [place], [address] No Panel InformationOrdered By: Spencer Jones on 03-28-2023 Ethyl Alcohol Level 173.0 mg/dL [facility] Comment on above: The serum:whole bloo d ethanol ratio is approximately 1.14and varies slightly with hematocrit. Medical Alcohol reference interval and critical value innon-tolerant individuals; 50 - 100 Impairment 100 Intoxication 100 - 250 Severe Poisoning 250 - 400 Deep/possible fatal coma Platelet mean volume Jacob-Ec ker (Bld) [Entitic vol]Ordered By: Spencer Jones on 03-28-2023 Platelet mean volume (Bld) [Entitic vol] 9.2 fL 6.2-12.0 [facility] Prothrombin Time w/INRon INR Coag (PPP) [Relative time] 0.8 {INR} Normal [facility] Comment on above: Performed By: #### L 501.5200, L500.2500 #### [facility] [address] [place], [place], [id number] PT Coag (PPP) [Time] 11.5 s Low 11.7-14.9 [facility] Comment on above: Performed By: #### L 501.5200, L500.2500 #### [facility] [address] [place], [address] RBC Auto (Bld) [#/Vol]Ordere d By: Spencer Jones on 03-28-2023 RBC (Bld) [#/Vol] 4.08 10*6/uL 4.6-6.2 [facility] Thin prep Papanicolaou smear with manual screeningOrdered By: Spencer Jones on 03-28-2023 Thin prep Papanicolaou smear with manual screening 3.1 g/dL 3.2-5.0 [facility] Thin prep Papanicolaou smear with manual screening 139 U/L 15-37 [facility] Absolute lymphocyte countOrd ered By: Jimenez Irving on 03-27-2023 Lymphocytes Auto (Unsp spec) [#/Vol] 1.16 10*3/uL 0.83-4.51 [facility] Alcohol, Blood (Medical)-Ser umon 03-27-2023 SERUM ETOH 415.0 mg/dL Invalid Interpretation Code [facility] Comment on above: Result Comment: Crit ical Result(s) Called at: 21:05:31 03/27/2023 by: NATHAN FORTUNE to Gisel Earl. Results read back by same. The serum:whole blood ethanol ratio is approximately 1.14 and varies slightly with hematocrit. Medical Alcohol reference interval and critical value in non-tolerant individuals; 50 - 100 Impairment 100 Intoxication 100 - 250 Severe Poisoning 250 - 400 Deep/possible fatal coma Performed By: #### L 505.5000, L501.9100, L500.4050 #### [facility] [address] [place], [address] Automated lymphocyte count a s percentage of total leukocytesOrdered By: Jimenez Irving on 03-27-2023 Lymphocytes/100 WBC Auto (Unsp spec) 44.4 % 19-41 [facility] Basophil percentageOrdered B y: Jimenez Irving on 03-27-2023 Basophils/100 WBC (Bld) 1.1 % 0-1 [facility] Bilirubin [Mass/Vol] 0.50 mg/dL 0.20-1.00 [facility] Comment on above: For patients on eltr ombopag therapy, use of Dimension Prosperity TBIL is not recommended. Chloride [Moles/Vol] 103 mmol/L 98-107 [facility] Eosinophils/100 WBC (Bld) 0.0 % 0-5 [facility] Glucose [Mass/Vol] 187 mg/dL 74-106 [facility] Comment on above: Fasting Glucose resu lt greater than or equal to 126 mg/dL suggests DIABETES MELLITUS per A.D.A. criteria. Hemoglobin (Bld) [Mass/Vol] 14.7 g/dL 13.0-16.5 [facility] Monocytes/100 WBC (Bld) 8.4 % 0-10 [facility] Neutrophils (Bld) [#/Vol] 1.2 10*3/uL 2.0-7.7 [facility] Neutrophils/100 WBC (Bld) 45.7 % 47-70 [facility] Potassium [Moles/Vol] 3.0 mmol/L 3.5-5.1 [facility] Protein [Mass/Vol] 6.9 g/dL 6.4-8.2 [facility] Sodium [Moles/Vol] 139 mmol/L 136-145 [facility] WBC (Bld) [#/Vol] 2.6 10*3/uL 4.4-11.0 [facility] Basophil percentage 0 SEEN /hpf 0-5 [facility] Bilirubin Test strip Ql (U)O rdered By: Jimenez Irving on 03-27-2023 Bilirubin Ql (U) Negative Negative [facility] Blood manual differential co mment interpretation (narrative result)Ordered By: Jimenez Irving on 03-27-2023 Manual differential comment Damion (Bld) [Interp] SCANNED [facility] Comment on above: THROMBOCYTOPENIA NOT ED Brain/Head without Contrasto n 03-27-2023 Brain/Head without Contrast [facility] Imaging Services [address] [place] [address] Brain/Head without Contrast MR#: [id number] Acct: [id number] Name: VIVIAN POWELL Rep #: [id number] : 1980 M 43 From: Jessy Barraza MD PCP: Care Physician,No Primary Status: REG ER Study: Brain/Head without Contrast Date of Exam: 05/15 Exam# [id number] Ordering Dr: Jimenez Irving DO [id number] STUDY: CT BRAIN WITHOUT CONTRAST REASON FOR EXAM: Male, 43 years old. Head injury RADIATION DOSAGE (If Supplied By Facility): CTDIvol = ( 44.99 ) mGy, DLP = ( 829.85 ) mGycm TECHNIQUE: Transaxial CT imaging of the brain was performed without administration of intravenous contrast material. Individualized dose optimization techniques were used for this CT. COMPARISON: No relevant priors. FINDINGS: Normal soft tissue structures. Normal calvarium. Normal size ventricles and extra-axial spaces for the patient''s age. Normal white matter tracts of the cerebral hemispheres. Normal basal ganglia and thalami. Normal brainstem. Normal cerebellum. There is no intracranial hemorrhage. There are no findings of an acute ischemic infarction. Normal visualized paranasal sinuses. CT/Brain/Head without Contrast IMPRESSION: Normal unenhanced CT scan of the brain. Electronically Signed: Jessy Barraza MD at 21:16 EST , CC: Dr. Jimenez Irving DO; No Primary Care Physician Surgical Services Assistant: Signed Normal [facility] CBC W/Diff, Automatedon SMEAR COMMENT SCANNED Normal [facility] Comment on above: Result Comment: THRO MBOCYTOPENIA NOTED Performed By: #### L 505.5000, L501.9100, L500.4050 #### [facility] [address] [place], [address] CTA Chest W/WO Contraston CTA Chest W/WO Contrast [facility] Imaging Services [address] [place] [address] CTA Chest W/WO Contrast MR#: [id number] Acct: [id number] Name: VIVIAN POWELL Rep #: [id number] : 1980 M 43 From: Jessy Barraza MD PCP: Care Physician,No Primary Status: REG ER Study: CTA Chest W/WO Contrast Date of Exam: 03/27/23 Exam# [id number] Ordering Dr: Jimenez Irving DO [id number] STUDY: CTA CHEST REASON FOR EXAM: Male, 43 years old. Pulmonary embolism RADIATION DOSAGE (If Supplied By Facility): CTDIvol = ( 7.68 ) mGy, DLP = ( 1114.36 ) mGycm TECHNIQUE: The examination was performed with the intravenous administration of IV 100mL Isovue-370. Post-processing of the angiographic images was performed, with multiplanar reformation and 3D reconstruction. Individualized dose optimization techniques were used for this CT. COMPARISON: None. FINDINGS: Normal enhancement of the main pulmonary artery and right and left pulmonary arteries. Normal enhancement of the bilateral peripheral pulmonary arteries. There is no demonstrated pulmonary embolism. Normal thoracic aorta and visualized great vessels. There is no demonstrated aortic dissection. Normal heart and pericardium. Normal mediastinum. Normal hilar regions. Normal visualized trachea and bronchi. The lungs are well expanded. Mild biapical subpleural scarring versus atelectasis. Otherwise normal pulmonary parenchyma. Mild biapical pleural thickening. Normal chest wall structures. Normal osseous structures. Upper abdomen reveals diffuse fatty liver. Remainder of the visualized upper abdominal viscera and structures are unremarkable. CT/CTA Chest W/WO Contrast IMPRESSION: Negative CTA chest examination, without a demonstrated pulmonary embolism or arterial dissection. No acute cardiac pulmonary disease. Electronically Signed: Jessy Barraza MD at 21:37 EST , CC: Dr. Jimenez Irving, DO; No Primary Care Physician Surgical Services Assistant: Signed Normal [facility] Comprehensive Metabolic Prof ilon 03-27-2023 Albumin [Mass/Vol] 3.7 g/dL Normal 3.2-5.0 [facility] Comment on above: Performed By: #### L 505.5000, L501.9100, L500.4050 #### [facility] [address] [place], [address] Albumin/Globulin [Mass ratio] 1.2 {ratio} Normal 0.9-2.4 [facility] Comment on above: Performed By: #### L 505.5000, L501.9100, L500.4050 #### [facility] [address] [place], [address] ALK P 202 U/L High 45-117 [facility] Comment on above: Performed By: #### L 505.5000, L501.9100, L500.4050 #### [facility] [address] [place], [address] ALT [Catalytic activity/Vol] 133 U/L High 16-61 [facility] Comment on above: Performed By: #### L 505.5000, L501.9100, L500.4050 #### [facility] [address] [place], [address] AST [Catalytic activity/Vol] 185 U/L High 15-37 [facility] Comment on above: Performed By: #### L 505.5000, L501.9100, L500.4050 #### [facility] [address] [place], [address] Bilirubin [Mass/Vol] 0.50 mg/dL Normal 0.20-1.00 [facility] Comment on above: Result Comment: For patients on eltrombopag therapy, use of Dimension Prosperity TBIL is not recommended. Performed By: #### L 505.5000, L501.9100, L500.4050 #### [facility] [address] [place], [address] BUN/CRE 12.8 RATIO Normal 10-20 [facility] Comment on above: Performed By: #### L 505.5000, L501.9100, L500.4050 #### [facility] [address] [place], [address] CA,Total 8.6 mg/dL Normal 8.5-10.1 [facility] Comment on above: Performed By: #### L 505.5000, L501.9100, L500.4050 #### [facility] [address] [place], [address] Chloride [Moles/Vol] 103 mmol/L Normal 98-107 [facility] Comment on above: Performed By: #### L 505.5000, L501.9100, L500.4050 #### [facility] [address] [place], [address] CO2 [Moles/Vol] 25.0 mmol/L Normal 21.0-32.0 [facility] Comment on above: Performed By: #### L 505.5000, L501.9100, L500.4050 #### [facility] [address] [place], [address] Creatinine [Mass/Vol] 0.78 mg/dL Normal 0.70-1.30 [facility] Comment on above: Result Comment: The validity of the calculated GFR GFRAA in patients over 70 years has not been determined. Clinical correlation is essential. Performed By: #### L 505.5000, L501.9100, L500.4050 #### [facility] [address] [place], [address] ECRCL 112.03 ml/min Normal [facility] Comment on above: Performed By: #### L 505.5000, L501.9100, L500.4050 #### [facility] [address] [place], [address] EST GFR - AA 140 mL/min Normal >60 [facility] Comment on above: Result Comment: Afri can Tunisian GFR Calc Performed By: #### L 505.5000, L501.9100, L500.4050 #### [facility] [address] [place], [address] GAP 11 Normal 5-15 [facility] Comment on above: Performed By: #### L 505.5000, L501.9100, L500.4050 #### [facility] [address] [place], [address] GFR/1.73 sq M.predicted among non-blacks MDRD (S/P/Bld) [Vol rate/Area] 116 mL/min/{1.73_m2} Normal >60 [facility] Comment on above: Result Comment: Non- GFR Calc Performed By: #### L 505.5000, L501.9100, L500.4050 #### [facility] [address] [place], [address] Globulin (S) [Mass/Vol] 3.2 g/dL Normal 2.2-4.2 [facility] Comment on above: Performed By: #### L 505.5000, L501.9100, L500.4050 #### [facility] [address] [place], [address] Glucose [Mass/Vol] 187 mg/dL High 74-106 [facility] Comment on above: Result Comment: Fast ing Glucose result greater than or equal to 126 mg/dL suggests DIABETES MELLITUS per A.D.A. criteria. Performed By: #### L 505.5000, L501.9100, L500.4050 #### [facility] [address] [place], [address] Potassium [Moles/Vol] 3.0 mmol/L Low 3.5-5.1 [facility] Comment on above: Performed By: #### L 505.5000, L501.9100, L500.4050 #### [facility] [address] [place], [address] Sodium [Moles/Vol] 139 mmol/L Normal 136-145 [facility] Comment on above: Performed By: #### L 505.5000, L501.9100, L500.4050 #### [facility] [address] [place], [address] T PROT 6.9 g/dL Normal 6.4-8.2 [facility] Comment on above: Performed By: #### L 505.5000, L501.9100, L500.4050 #### [facility] [address] [place], [address] Urea nitrogen [Mass/Vol] 10 mg/dL Normal 7-18 [facility] Comment on above: Performed By: #### L 505.5000, L501.9100, L500.4050 #### [facility] [address] [place], [address] Determination of erythrocyte mean corpuscular volume (MCV)Ordered By: Jimenez Irving on 03-27-2023 MCV (RBC) [Entitic vol] 85.2 fL 80-94 [facility] Emergency Department Summary on 03-27-2023 Emergency Department Summary [facility] Medical Records Department [address] [place] [address] Emergency Department Summary 03/27/23 MR#: [id number] Acct: [id number] Name: VIVIAN POWELL Rep #: [id number] : 1980 43 From: Jimenez Irving DO PCP: Care Physician,No Primary Status:ADM IN Location: [place] [id number] HPI History of Present Illness Chief Complaint: Substance Abuse Informant: patient Onset/Context/Timing Onset: Today Context: Gradual Onset Timing: Continuous Quality: Shaky Location: Generalized Worsened by: Nothing Relieved by: Nothing Associated Symptoms Associated Symptoms: Positive for vomiting*, diarrhea*, seizure, tremor and palpatations; Negative for fever*, rash*, trauma, suicidal ideation or homicidal ideation Narrative Narrative: Patient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 [History Last Taken Unknown] Allergy/AdvReac Type Severity Reaction Status Date / Time No Known Allergies Allergy Verified 02/22/23 16:20 Social History (Updated 02/22/23 @ 16:50 by Stephy Albert) household members: family Smoking Status: Never smoker ROS Review of Systems ROS Unobtainable: Denies due to encephalopathy, due to endotracheal tube, due to mental condition, due to mental status or other Constitutional Constitutional: Reports malaise; Denies anorexia, change in weight, chills, fatigue, fever(s), night sweats, weakness or other Eyes Eyes: Denies blurry vision, change in eye color, change in vision, discharge from eye(s), double vision, erythema, eye pain, loss of vision or other ENT HEENT: Denies abnormal hearing, dysphagia, ear pain, epistaxis, headache(s), hearing loss, nasal congestion, nasal discharge, post nasal drip, sinus pressure, sore throat or other Cardiovascular Cardiovascular: Denies chest pain, claudication, dyspnea on exertion, edema, lightheadedness, orthopnea, palpitations, paroxysmal nocturnal dyspnea, rapid heart rate, syncope or other Respiratory/Chest Respiratory/Chest: Denies cough, dyspnea, excessive phlegm production, hemoptysis, productive cough, shortness of breath at rest, shortness of breath with exertion, wheezing or other Gastrointestinal Gastrointestinal: Denies abdominal pain, coffee ground emesis, constipation, diarrhea, dyspepsia, hematemesis, hematochezia, loose stools, melena, nausea, vomiting or other Genitourinary Genitourinary: Denies burning urination, difficulty urinating, dysuria, hematuria, nocturia, urinary frequency, urinary hesitancy, urinary incontinence, urinary urgency or other Musculoskeletal Musculoskeletal: Reports joint pain Psychiatric Psychiatric: Reports anxiety Vital Signs Vital Signs Vital Signs: 02/22/23 16:20 02/22/23 16:47 Temperature 97.2 F L Temperature Source Temporal Pulse Rate 95 75 Respiratory Rate 14 16 Blood Pressure 166/110 H 162/102 H Blood Pressure Mean 128 122 Blood Pressure Source Monitor Blood Pressure Position Sitting Blood Pressure Location Right Arm Pulse Ox 99 100 Oxygen Delivery Method Room Air Room Air Weight Weight: 149 lb 7.574 oz Body Mass Index (BMI) 21.4 Physical Exam Const alert and oriented x3 General Appearance: cooperative HEENT normocephalic Eyes PERRL Resp normal respiratory effort Cardio regular rate Extremity normal to inspection Neuro oriented x3, CN's II-XII intact bilaterally and moves all extremities Psych Mood Affect: anxious Results Medical Records Data Attestation: I reviewed the patient's medical records Lab / Micro Data Attestation: I reviewed the patient's lab results. 02/22/23 17:23 02/22/23 17:23 Labs: Laboratory Results - last 24 hr 02/22/23 17:00: Urine Opiates Screen NEGATIVE, Urine Methadone Screen NEGATIVE, Ur Barbiturates Screen NEGATIVE, Ur Phen (more content not included)... Normal [facility] Hematocrit Auto (Bld) [Volum e fraction]Ordered By: Gisel Boyce on 02-22-2023 Hematocrit (Bld) [Volume fraction] 43.0 % 40-54 [facility] INR in Blood by Coagulation assayOrdered By: Gisel Boyce on 02-22-2023 INR Coag (Bld) [Relative time] 0.9 {INR} [facility] - Chemistry and C hemistry - challengeOrdered By: Gisel Boyce on 02-22-2023 ALP [Catalytic activity/Vol] 101 U/L 45-117 [facility] ALT [Catalytic activity/Vol] 33 U/L 16-61 [facility] CO2 [Moles/Vol] 28.0 mmol/L 21.0-32.0 [facility] Globulin (S) [Mass/Vol] 3.0 g/dL 2.2-4.2 [facility] Urea nitrogen/Creatinine [Mass ratio] 12.0 mg/mg 10-20 [facility] - CoagulationOrde red By: Gisel Boyce on 02-22-2023 PT Coag (PPP) [Time] 12.4 s 11.7-14.9 [facility] - Drug toxicology Ordered By: Gisel Boyce on 02-22-2023 Amphetamines Ql (U) Negative <1000 ng/mL [facility] Benzodiazepines Ql (U) Negative < 200 ng/mL [facility] Cannabinoids Screen Ql (U) Negative < 50 ng/mL [facility] Cocaine Ql (U) Negative < 300 ng/mL [facility] Opiates Ql (U) Negative < 300 ng/mL [facility] - Hematology and Cell countsOrdered By: Gisel Boyce on 02-22-2023 Erythrocyte distribution width (RBC) [Entitic vol] 45.0 fL 35.1-43.9 [facility] Erythrocyte distribution width (RBC) [Ratio] 13.6 % 11.6-14.6 [facility] Immature granulocytes/100 WBC (Bld) 0.000 % 0.0-0.9 [facility] Comment on above: IG% - Immature Granu locytes (promyelocytes, myelocytes and metamyelocytes) > 1% indicates that a LEFT SHIFT is Present. MCH (RBC) [Entitic mass] 29.9 pg 27.0-32.0 [facility] Nucleated RBC/100 WBC (Bld) [Ratio] 0 % 0-5 [facility] MCHC Auto (RBC) [Mass/Vol]Or dered By: Gisel Boyce on 02-22-2023 MCHC (RBC) [Mass/Vol] 33.5 g/dL 32-36 [facility] No Panel InformationOrdered By: Gisel Boyce on 02-22-2023 Estimated Creatinine Clearance Calc 157.49 ml/min [facility] Estimated GFR (MDRD) Amer 196 mL/min >60 [facility] Comment on above: GFR Calc Estimated GFR (MDRD) Non-Af Amer 162 mL/min >60 [facility] Comment on above: Non- GFR Calc Ethyl Alcohol Level 243.0 mg/dL [facility] Comment on above: The serum:whole bloo d ethanol ratio is approximately 1.14and varies slightly with hematocrit. Medical Alcohol reference interval and critical value innon-tolerant individuals; 50 - 100 Impairment 100 Intoxication 100 - 250 Severe Poisoning 250 - 400 Deep/possible fatal coma MDMA (Ecstasy) Screen Negative < 500 ng/mL [facility] Urine Barbiturates Screen Negative < 200 ng/mL [facility] Urine Drug Screen Comment [facility] Comment on above: CONFIRMATORY TESTING FOR ALL POSITIVE URINE DRUG SCREENRESULTS WILL ONLY BE SENT OUT UPON PHYSICIAN ORDER. VISTA Urine Drug Screen methods provide only preliminaryanalytical test results. A more specific alternate chemicalmethod must be used in order to obtain a confirmedanalytical result. Gas chromatography/mass spectrometery(GC/MS) is the preferred confirmatory method. Clinicalconsideration and professional judgement should be appliedto any drug of abuse test result, particularly whenpreliminary positive results are used. URINE TCA TESTING MUST BE ORDERED SEPARATELY. USE TESTMNEMONIC: [facility] Urine Methadone Screen Negative < 300 ng/mL [facility] Platelets bldOrdered By: Crista Boyce on 02-22-2023 Platelets (Bld) [#/Vol] 130 10*3/uL 150-450 [facility] Prothrombin Time w/INRon INR Normal [facility] Comment on above: Result Comment: CANC ELLED BY ORDERS, DUE TO BEING DUPLICATE. Performed By: #### L 505.5000, L501.9100, L500.4050 #### [facility] [address] [place], [address] PROTIME Normal 11.7-14.9 [facility] Comment on above: Result Comment: CANC ELLED BY DR.SINGH BURDICK, DUE TO BEING DUPLICATE. Performed By: #### L 505.5000, L501.9100, L500.4050 #### [facility] [address] [place], [address] INR Coag (PPP) [Relative time] 0.9 {INR} Normal [facility] Comment on above: Performed By: #### L 501.5200, L500.2500 #### [facility] [address] [place], [place], [id number] PT Coag (PPP) [Time] 12.4 s Normal 11.7-14.9 [facility] Comment on above: Performed By: #### L 501.5200, L500.2500 #### [facility] [address] [place], [place], [address] Serum or plasma albumin carolina urement (mass/volume)Ordered By: Gisel Boyce on 02-22-2023 Albumin [Mass/Vol] 3.5 g/dL 3.2-5.0 [facility] Serum or plasma albumin/glob ulin mass ratioOrdered By: Gisel Boyce on 02-22-2023 Albumin/Globulin [Mass ratio] 1.2 {ratio} 0.9-2.4 [facility] Serum or plasma calcium carolina urement (mass/volume)Ordered By: Gisel Boyce on 02-22-2023 Calcium [Mass/Vol] 8.0 mg/dL 8.5-10.1 [facility] Serum or plasma creatinine m easurement (mass/volume)Ordered By: Gisel Boyce on 02-22-2023 Creatinine [Mass/Vol] 0.58 mg/dL 0.70-1.30 [facility] Comment on above: The validity of the calculated GFR & GFRAA in patients over 70 years has not been determined. Clinical correlation is essential. Serum or plasma urea nitroge n measurement (mass/volume)Ordered By: Gisel Boyce on 02-22-2023 Urea nitrogen [Mass/Vol] 7 mg/dL 7-18 [facility] Thin prep Papanicolaou smear with manual screeningOrdered By: Gisel Boyce on 02-22-2023 Thin prep Papanicolaou smear with manual screening 33 U/L 15-37 [facility] Thin prep Papanicolaou smear with manual screening 6 5-15 [facility] Urine Drug Screen (VISTA)on 02-22-2023 AMPHETAMINES Negative Normal <1000 ng/mL [facility] Comment on above: Performed By: #### L 505.5000, L501.9100, L500.4050 #### [facility] [address] [place], [address] BARBITIURATES Negative Normal < 200 ng/mL [facility] Comment on above: Performed By: #### L 505.5000, L501.9100, L500.4050 #### [facility] [address] [place], [address] BENZODIAZIPINE Negative Normal < 200 ng/mL [facility] Comment on above: Performed By: #### L 505.5000, L501.9100, L500.4050 #### [facility] [address] [place], [address] COCAINE Negative Normal < 300 ng/mL [facility] Comment on above: Performed By: #### L 505.5000, L501.9100, L500.4050 #### [facility] [address] [place], [address] ECSTACY Negative Normal < 500 ng/mL [facility] Comment on above: Performed By: #### L 505.5000, L501.9100, [id number] #### [facility] [address] [place], [address] METHADONE Negative Normal < 300 ng/mL [facility] Comment on above: Performed By: #### L 505.5000, L501.9100, [id number] #### [facility] [address] [place], [address] OPIATES Negative Normal < 300 ng/mL [facility] Comment on above: Performed By: #### L 505.5000, L501.9100, [id number] #### [facility] [address] [place], [address] PCP Negative Normal < 25 ng/mL [facility] Comment on above: Performed By: #### L 505.5000, L501.9100, [id number] #### [facility] [address] [place], [address] THC Negative Normal < 50 ng/mL [facility] Comment on above: Performed By: #### L 505.5000, L501.9100, [id number] #### [facility] [address] [place], [address] VISTA UDS PH 6 Normal [facility] Comment on above: Performed By: #### L 505.5000, L501.9100, [id number] #### [facility] [address] [place], [address] Urine phencyclidine (PCP) de tectionOrdered By: Gisel Boyce on 02-22-2023 Phencyclidine Ql (U) Negative < 25 ng/mL [facility] Vital Signs Date Time Vital Sign Value Performing Clinician Faci lity 11-06-2024 19:28-0400 Body mass index (BMI) [Ratio] 22.1 kg/m2 Kj Cervantes GAMBRELER HELPER.REPORT CLERK Work Phone: [facility] 11-06-2024 19:28-0400 Body temperature 98.2 [degF] Kj Cervantes GAMBRELER HELPER.REPORT CLERK Work Phone: [facility] 11-06-2024 19:28-0400 Body weight 69.85 kg Kj Cervantes GAMBRELER HELPER.REPORT CLERK Work Phone: [facility] 11-06-2024 19:28-0400 Diastolic blood pressure 84 mm[Hg] Kj Cervantes GAMBRELER HELPER.REPORT CLERK Work Phone: [facility] 11-06-2024 19:28-0400 Heart rate 94 /min Kj Cervantes GAMBRELER HELPER.REPORT CLERK Work Phone: [facility] 11-06-2024 19:28-0400 Respiratory rate 16 /min Kj Cervantes GAMBRELER HELPER.REPORT CLERK Work Phone: [facility] 11-06-2024 19:28-0400 SaO2% (BldA) [Mass fraction] 99 % Kj Cervantes GAMBRELER HELPER.REPORT CLERK Work Phone: [facility] 11-06-2024 19:28-0400 Systolic blood pressure 148 mm[Hg] Kjjeanette Cervantes GAMBRELER HELPER.REPORT CLERK Work Phone: [facility] 08-16-2024 17:46-0400 Body mass index (BMI) [Ratio] 22.17 kg/m2 Idalia Gutierrez GAMBRELER HELPER.REPORT CLERK Work Phone: [facility] 08-16-2024 17:46-0400 Body temperature 98.6 [degF] Idalia Gutierrez GAMBRELER HELPER.REPORT CLERK Work Phone: [facility] 08-16-2024 17:46-0400 Body weight 70.1 kg Idalia Gutierrez GAMBRELER HELPER.REPORT CLERK Work Phone: [facility] 08-16-2024 17:46-0400 Diastolic blood pressure 90 mm[Hg] Idalia Gutierrez GAMBRELER HELPER.REPORT CLERK Work Phone: [facility] 08-16-2024 17:46-0400 Heart rate 94 /min Idalia Gutierrez GAMBRELER HELPER.REPORT CLERK Work Phone: [facility] 08-16-2024 17:46-0400 Respiratory rate 18 /min Idalia Gutierrez GAMBRELER HELPER.REPORT CLERK Work Phone: [facility] 08-16-2024 17:46-0400 SaO2% (BldA) [Mass fraction] 97 % Idalia Gutierrez GAMBRELER HELPER.REPORT CLERK Work Phone: [facility] 08-16-2024 17:46-0400 Systolic blood pressure 162 mm[Hg] Idalia Gutierrez GAMBRELER HELPER.REPORT CLERK Work Phone: [facility] 04-12-2023 02:42-0500 Body temperature 97.8 [degF] Dr. Gisel Boyce Work Phone: [facility] 04-12-2023 02:42-0500 Diastolic blood pressure 98 mm[Hg] Dr. Gisel Boyce Work Phone: [facility] 04-12-2023 02:42-0500 Heart rate 69 /min Dr. Gisel Boyce Work Phone: 3(583)918-217534 [address] 04-12-2023 02:42-0500 Respiratory rate 16 /min Dr. Gisel Boyce Work Phone: 5(149)949-795634 [address] 04-12-2023 02:42-0500 SaO2% (BldA) [Mass fraction] 99 % Dr. Gisel Boyce Work Phone: 8(502)691-134134 [address] 04-12-2023 02:42-0500 Systolic blood pressure 136 mm[Hg] Dr. Gisel Boyce Work Phone: 2(736)725-478834 [address] 04-11-2023 13:02-0500 Body height 177.[address] Gisel Boyce Work Phone: 4(911)795-001348 [place] [address] 04-11-2023 13:02-0500 Body weight 69.[address] Gisel Boyce Work Phone: 3(379)762-833934 [address] 04-10-2023 16:14-0500 Body mass index (BMI) [Ratio] 21.9 kg/m2 Dr. Gisel Boyce Work Phone: 7(624)219-064734 [address] 04-07-2023 00:03-0500 Body temperature 97.2 [degF] Dr. Gisel Boyce Work Phone: 4(402)005-142916 [place] [address] 04-07-2023 00:03-0500 Diastolic blood pressure 121 mm[Hg] Dr. Gisel Boyce Work Phone: 4(678)554-637516 [place] [address] 04-07-2023 00:03-0500 Heart rate 93 /min Dr. Gisel Boyce Work Phone: 0(418)922-161116 [place] [address] 04-07-2023 00:03-0500 Respiratory rate 16 /min Dr. Gisel Boyce Work Phone: [facility] 04-07-2023 00:03-0500 SaO2% (BldA) [Mass fraction] 100 % Dr. Gisel Boyce Work Phone: 9(439)273-642816 [place] [address] 04-07-2023 00:03-0500 Systolic blood pressure 168 mm[Hg] Dr. Gisel Boyce Work Phone: 7(536)419-963248 [place] [address] 04-06-2023 22:15-0500 Body height 177.[address] Gisel Boyce Work Phone: 5(814)042-239248 [place] [address] 04-06-2023 22:15-0500 Body mass index (BMI) [Ratio] 22.2 kg/m2 Dr. Gisel Boyce Work Phone: 6(620)593-567448 [place] [address] 04-06-2023 22:15-0500 Body weight 70.[address] Gisel Boyce Work Phone: 6(577)522-215748 [place] [address] 03-31-2023 10:00-0500 Body temperature 98 [degF] Dr. Gisel Boyce Work Phone: 2(888)636-821648 [place] [address] 03-31-2023 10:00-0500 Diastolic blood pressure 93 mm[Hg] Dr. Gisel Boyce Work Phone: 7(780)838-040248 [place] [address] 03-31-2023 10:00-0500 Heart rate 51 /min Dr. Gisel Boyce Work Phone: 8(357)668-268048 [place] [address] 03-31-2023 10:00-0500 Respiratory rate 18 /min Dr. Gisel Boyce Work Phone: 1(096)577-141448 [place] [address] 03-31-2023 10:00-0500 SaO2% (BldA) [Mass fraction] 95 % Dr. Gisel Boyce Work Phone: 9(922)659-459748 [place] [address] 03-31-2023 10:00-0500 Systolic blood pressure 129 mm[Hg] Dr. Gisel Boyce Work Phone: 3(129)843-359716 [place] [address] 03-27-2023 23:32-0500 Body height 177.[address] Gisel Boyce Work Phone: 6(047)474-988034 [address] 03-27-2023 23:32-0500 Body mass index (BMI) [Ratio] 20.5 kg/m2 Dr. Gisel Boyce Work Phone: 5(771)984-763116 [place] [address] 03-27-2023 23:32-0500 Body weight 64.[address] Gisel Boyce Work Phone: 0(972)629-117148 [place] [address] 03-27-2023 22:27-0500 Body temperature 97.6 [degF] Dr. Gisel Boyce Work Phone: 9(536)738-805934 [address] 03-27-2023 22:27-0500 Diastolic blood pressure 108 mm[Hg] Dr. Gisel Boyce Work Phone: 6(001)817-540648 [place] [address] 03-27-2023 22:27-0500 Heart rate 100 /min Dr. Gisel Boyce Work Phone: 1(715)635-302448 [place] [address] 03-27-2023 22:27-0500 Respiratory rate 22 /min Dr. Gisel Boyce Work Phone: 6(647)932-638148 [place] [address] 03-27-2023 22:27-0500 SaO2% (BldA) [Mass fraction] 99 % Dr. Gisel Boyce Work Phone: 2(781)585-823816 [place] [address] 03-27-2023 22:27-0500 Systolic blood pressure 169 mm[Hg] Dr. Gisel Boyce Work Phone: 6(801)035-866116 [place] [address] 03-27-2023 19:39-0500 Body height 177.[address] Gisel Boyce Work Phone: 6(729)530-929016 [place] [address] 03-27-2023 19:39-0500 Body mass index (BMI) [Ratio] 20.5 kg/m2 Dr. Gisel Boyce Work Phone: 8(625)810-171216 [place] [address] 03-27-2023 19:39-0500 Body weight 64.[address] Gisel Boyce Work Phone: 1(391)255-335416 [place] [address] 02-25-2023 10:01-0500 Body temperature 98.1 [degF] Dr. Gisel Boyce Work Phone: [facility] 02-25-2023 10:01-0500 Diastolic blood pressure 100 mm[Hg] Dr. Gisel Boyce Work Phone: [facility] 02-25-2023 10:01-0500 Heart rate 86 /min Dr. Gisel Boyce Work Phone: [facility] 02-25-2023 10:01-0500 Respiratory rate 18 /min Dr. Gisel Boyce Work Phone: [facility] 02-25-2023 10:01-0500 SaO2% (BldA) [Mass fraction] 96 % Dr. Gisel Boyce Work Phone: 0(590)187-367116 [place] [address] 02-25-2023 10:01-0500 Systolic blood pressure 151 mm[Hg] Dr. Gisel Boyce Work Phone: 3(822)487-620916 [place] [address] 02-25-2023 02:14-0500 Body temperature 97.8 [degF] Dr. Gisel Boyce Work Phone: 3(148)175-080916 [place] [address] 02-25-2023 02:14-0500 Diastolic blood pressure 98 mm[Hg] Dr. Gisel Boyce Work Phone: [facility] 02-25-2023 02:14-0500 Heart rate 69 /min Dr. Gisel Boyce Work Phone: [facility] 02-25-2023 02:14-0500 Respiratory rate 16 /min Dr. Gisel Boyce Work Phone: [facility] 02-25-2023 02:14-0500 SaO2% (BldA) [Mass fraction] 100 % Dr. Gisel Boyce Work Phone: [facility] 02-25-2023 02:14-0500 Systolic blood pressure 156 mm[Hg] Dr. Gisel Boyce Work Phone: [facility] 02-23-2023 10:50-0500 Body height 177.[address] Gisel Boyce Work Phone: [facility] 02-23-2023 10:50-0500 Body weight [address] Gisel Boyce Work Phone: [facility] 02-22-2023 20:00-0500 Body mass index (BMI) [Ratio] 21.5 kg/m2 Dr. Gisel Boyce Work Phone: [facility] 02-22-2023 19:46-0500 Body temperature 97.8 [degF] [facility] 02-22-2023 19:46-0500 Diastolic blood pressure 74 mm[Hg] [facility] 02-22-2023 19:46-0500 Heart rate 89 /min [facility] 02-22-2023 19:46-0500 Respiratory rate 15 /min [facility] 02-22-2023 19:46-0500 SaO2% (BldA) [Mass fraction] 98 % [facility] 02-22-2023 19:46-0500 Systolic blood pressure 139 mm[Hg] [facility] 02-22-2023 16:20-0500 Body height 177.8 cm [facility] 02-22-2023 16:20-0500 Body mass index (BMI) [Ratio] 21.4 kg/m2 [facility] 02-22-2023 16:20-0500 Body weight 67.8 kg [facility] Encounters Encounter Date Encounter Type Care Provider Facility Start: 11-06-2024 End: 11-06-2024 Office outpatient visit 25 minutes Kj Cervantes APRN.CNP Work Phone: [facility] [place] Comment on above: Medication refill (P rimary Dx) Start: 11-06-2024 End: 11-06-2024 ambulatory KJ CERVANTES Facility:[facility] Start: 08-16-2024 End: 08-16-2024 Patient encounter procedure Idalia Gutierrez APRN.REPORT CLERK Work Phone: [place] [facility] Comment on above: Mood disorder (Prima ry Dx); Sleeping difficulty Start: 08-16-2024 End: 08-16-2024 ambulatory IDALIA GUTIERREZ Facility:[facility] Start: 06-01-2023 End: 08-31-2023 ambulatory [facility] Comment on above: Alcohol dependence, uncomplicated (HCC) (Primary Dx); Hyperammonemia (HCC) Start: 04-11-2023 Non-patient / Non-visit Dr. Kevin Boyce Work Phone: [facility] Work Phone: Start: 04-10-2023 End: 04-12-2023 Evaluation and management of inpatient Achintya Mendiola Facility:[facility] Start: 04-10-2023 ambulatory Achintya Mendiola Facility :[facility] Start: 04-10-2023 Non-patient / Non-visit Dr. Kevin Boyce Work Phone: [facility] Work Phone: Start: 04-10-2023 End: 04-12-2023 Evaluation and management of inpatient Dr. Gisel Boyce Work Phone: [facility] 3 Work Phone: Start: 04-07-2023 End: 04-07-2023 Emergency department patient visit No Primary Care Physician Facility:[facility] Start: 04-06-2023 End: 04-07-2023 Emergency department patient visit Dr. Gisel Boyce Work Phone: [facility] Work Phone: Start: 03-31-2023 Non-patient / Non-visit Dr. Kevin Boyce Work Phone: [facility] Work Phone: Start: 03-30-2023 Non-patient / Non-visit Dr. Kevin Boyce Work Phone: [facility] Work Phone: Start: 03-29-2023 Non-patient / Non-visit Dr. Kevin Boyce Work Phone: [facility] Work Phone: Start: 03-28-2023 Non-patient / Non-visit Dr. Kevin Boyce Work Phone: [facility] Work Phone: Start: 03-28-2023 End: 03-31-2023 ambulatory No Primary Care Physician Facility:[facility] Start: 03-27-2023 End: 03-31-2023 Evaluation and management of inpatient [facility]isel [facility] Work [facility]: Start: 02-25-2023 Non-patient / Non-visit Dr. Kevin Boyce Work Phone: [facility] Work Phone: Start: 02-24-2023 Non-patient / Non-visit Dr. Kevin Boyce Work Phone: [facility] Work Phone: Start: 02-23-2023 Non-patient / Non-visit Dr. Kevin Boyce Work Phone: [facility] Work Phone: Start: 02-22-2023 ambulatory No Primary Car e Physician Facility:[facility] Start: 02-22-2023 End: 02-25-2023 Evaluation and management of inpatient Achintya Mendiola Facility:[facility] Start: 02-22-2023 End: 02-25-2023 [facility] Work Phone: Procedures Date Procedure Procedure Detail Performing Clinician Start: 04-10-2023 CT of head without contrast Dr. Gisel Boyce Work Phone: Start: 03-27-2023 CT angiography of ch est with contrast Dr. Gisel Boyce Work Phone: Start: 03-27-2023 CT of head without contrast Dr. Gisel Boyce Work Phone: Plan of Treatment Date Care Activity Detail Author Start: 2040 RSV Immunization age d 60 or older (1 - 1-dose 60+ series) RSV Immunization aged 60 or older (1 - 1-dose 60+ series) [facility] Start: 01-04-2030 Zoster Vaccines (1 of 2) Zoste r Vaccines (1 of 2) [facility] Start: 11-14-2024 End: 11-14-2024 Patient encounter procedure 11/14/2024 4:00 PM EDT Office Visit Family Medicine [address] [place] [id number] Catina Fournier, GAMBRELER HELPER.REPORT CLERK [address] [facility] [place] [id number] New Patient/Establish care [facility] Comment on above: New Patient/Establis care Start: 10-24-2024 End: 10-24-2024 Patient encounter procedure 10/24/2024 2:00 PM EDT Office Visit [facility] [place] [address] [place], [place] [id number] Jeanette Mosley, GAMBRELER HELPER.REPORT CLERK [address] [place], [place] [address] est care [facility] [place] Comment on above: est care Start: 10-23-2024 Influenza vaccination [facility] Start: 10-24-2023 Covid-19 Vaccine ( season) Covid-19 Vaccine ( season) [facility] Start: 10-24-2023 Influenza vaccination Influenza Vacc ine (#1) [facility] Start: 04-12-2023 Patient discharge [facility] Start: 04-10-2023 Following clinical p athway protocol [facility] Start: 04-10-2023 Assessment of risk o f venous thromboembolism [facility] Start: 04-10-2023 Insertion of cathete r into peripheral vein [facility] Start: 04-10-2023 Providing care accor ding to standard [facility] Start: 04-10-2023 [facility] Start: 04-10-2023 Admission procedure [facility] Start: 04-10-2023 Hospital admission, emergency, from emergency room, [facility] Start: 04-10-2023 Consultation [facility] Start: 04-10-2023 Patient referral to dietitian [facility] Start: 04-06-2023 [facility] Start: 03-31-2023 Patient discharge [facility] Start: 03-29-2023 Referral to service [facility] Start: 03-27-2023 Application of intermittent pneumatic compression device [facility] Start: 03-27-2023 Following clinical p athway protocol [facility] Start: 03-27-2023 Assessment of risk o f venous thromboembolism [facility] Start: 03-27-2023 Notification of physician [facility] Start: 03-27-2023 Vital signs measurements [facility] Start: 03-27-2023 [facility] Start: 03-27-2023 Admission procedure [facility] Start: 03-27-2023 Hospital admission, emergency, from emergency room, [facility] Start: 03-27-2023 Consultation [facility] Start: 02-25-2023 Patient discharge [facility] Start: 02-23-2023 Blood chemistry [facility] Start: 02-23-2023 Prothrombin time [facility] Start: 02-23-2023 Thyroid stimulating hormone measurement [facility] Start: 02-23-2023 [facility] Start: 02-22-2023 Following clinical p athway protocol [facility] Start: 02-22-2023 End: 02-22-2023 [facility] Start: 02-22-2023 Assessment of risk o f venous thromboembolism [facility] Start: 02-22-2023 Insertion of cathete r into peripheral vein [facility] Start: 02-22-2023 Providing care accor ding to standard [facility] Start: 02-22-2023 Verification routine [facility] Start: 02-22-2023 Admission procedure [facility] Start: 02-22-2023 Hospital admission, emergency, from emergency room, [facility] Start: 02-22-2023 Consultation [facility] Start: 02-22-2023 Patient referral to dietitian [facility] Start: 10-23-2022 COVID-19 Vaccine ( season) COVID-19 Vaccine ( season) [facility] Start: 01-04-2015 Lipid panel Lipid Screening [facility] Start: 01-04-2007 HPV Vaccine (1 - 3-d ose SCDM series) HPV Vaccine (1 - 3-dose SCDM series) [facility] Start: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 worked up for underlying liver cirrhosis 1. Alcohol use disorder: Longstanding alcohol use, drinks about 1/5 of vodka daily. His urine alcohol levels are very high. 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 Thrombocytopenia, leukopenia: There is a possibility of portal hypertension with or without underlying cirrhosis. He says he might have had an episode of acute liver failure by admitted in [place]. -- Daily monitoring of LFTs, CBC -- Follow-up with GI clinic after discharge -- GI consult if there are any concerns regarding bleeding in the future -- No further evaluation of ammonia level is required 3. Hypertension: Likely related to the his withdrawal symptoms, continue to monitor for now, would not start any antihypertensives at this time Charges/Coding Visit Charges Inpatient E&M: 61340 Init Hosp L1 02/22/23 5207 <Electronically signed by Linda Mendiola MD> Cosigner Signature (if applicable): CC: Dr. Linda Mendiola MD; No Primary Care Physician~ Signed [facility] Work Phone: Hospital Discharge instructions Additional Instructions Follow-up with your consultants as soon as possible.[facility] Work Phone: Chief Complaint and Reason for Visit Chief Complaint ALCOHOL DETOXIFICATI ON Reason for Visit Alcohol abuse Desire for detoxification Hypokalemia Leukopenia Thrombocytopenia Chief Complaint ALCOHOL DETOXIFICATI ON ALCOHOL DETOXIFICATION ALCOHOL DETOXIFICATION Reason for Visit Alcohol abuse Desire for detoxification Hypokalemia Leukopenia Thrombocytopenia Chief Complaint ALCOHOL DETOXIFICATI ON ALCOHOL DETOXIFICATION ALCOHOL DETOXIFICATION ALCOHOL DETOXIFICATION ALCOHOL INTOXICATION, HYPOKALEMIA, Reason for Visit Alcohol abuse Leukopenia Thrombocytopenia Desire for detoxification Hypokalemia Acute alcoholic pancreatitis Alcohol abuse Leukopenia Thrombocytopenia Chief Complaint ALCOHOL DETOXIFICATI ON ALCOHOL DETOXIFICATION ALCOHOL DETOXIFICATION ALCOHOL DETOXIFICATION ALCOHOL INTOXICATION, HYPOKALEMIA, ALCOHOL INTOXICATION, HYPOKALEMIA, ALCOHOL INTOXICATION, HYPOKALEMIA, ALCOHOL INTOXICATION, HYPOKALEMIA, Reason for Visit Alcohol abuse Leukopenia Thrombocytopenia Desire for detoxification Hypokalemia Acute alcoholic pancreatitis Alcohol abuse Alcohol intoxication Diarrhea due to alcohol intake Elevated blood pressure reading Hypokalemia Leukopenia Nausea & vomiting Thrombocytopenia Chief Complaint ALCOHOL DETOXIFICATI ON ALCOHOL DETOXIFICATION ALCOHOL DETOXIFICATION ALCOHOL DETOXIFICATION ALCOHOL INTOXICATION, HYPOKALEMIA, ALCOHOL INTOXICATION, HYPOKALEMIA, ALCOHOL INTOXICATION, HYPOKALEMIA, ALCOHOL INTOXICATION, HYPOKALEMIA, ALCOHOL INTOXICATION, HYPOKALEMIA, med refill Reason for Visit Alcohol abuse Leukopenia Thrombocytopenia Desire for detoxification Hypokalemia Acute alcoholic pancreatitis Alcohol abuse Alcohol intoxication Diarrhea due to alcohol intake Elevated blood pressure reading Hypokalemia Leukopenia Nausea & vomiting Thrombocytopenia Chief Complaint ALCOHOL DETOXIFICATI ON ALCOHOL DETOXIFICATION ALCOHOL DETOXIFICATION ALCOHOL DETOXIFICATION ALCOHOL INTOXICATION, HYPOKALEMIA, ALCOHOL INTOXICATION, HYPOKALEMIA, ALCOHOL INTOXICATION, HYPOKALEMIA, ALCOHOL INTOXICATION, HYPOKALEMIA, ALCOHOL INTOXICATION, HYPOKALEMIA, med refill ALCOHOL DETOXIFICATION ETOH DETOX ALCOHOL DETOXIFICATION Reason for Visit Alcohol abuse Desire for detoxification Hypokalemia Alcohol abuse Elevated blood pressure reading Alcohol intoxication Diarrhea due to alcohol intake Hypokalemia Nausea & vomiting Alcohol abuse Advance Directives No Advanced Directives Records Found Advance Directive Response Recorded Date/ Time Living Will No February 22 4:53pm Power of Core Inserter No February 22 4:53pm Advance Directive Response Recorded Date/ Time Living Will No February 22 8:03pm Power of Core Inserter No February 22 8:03pm Advance Directive Response Recorded Date/ Time Living Will No March 27 8:41pm Power of Core Inserter No March 27, 2023 8:41pm Advance Directive Response Recorded Date/ Time Living Will No March 27 11:33pm Power of Core Inserter No March 27, 2023 11:33pm Advance Directive Response Recorded Date/ Time Living Will No April 06 10:28pm Power of Core Inserter No April 06, 2023 10:28pm Advance Directive Response Recorded Date/ Time Living Will No April 10 4:14pm Power of Core Inserter No April 10, 2023 4:14pm Summary Purpose Family History No Family History Records FoundNo Family History Records FoundNo Family History Records Found Additional Source Comments Care Teams (unrecognized sec tion and content) Team Status: Active Member Role Status Dates Anselmo Loaiza MD Family Provider Active No Primary Care Physician Primary Care Provider Active Team Status: Active Member Role Status Dates Dr. Gisel Boyce MD Emergency Provider Active No Primary Care Physician Primary Care Provider Active Dr. Linda Mendiola MD Admit Provider, Attending Prov ider Active Team Status: Active Member Role Status Dates Dr. Gisel Boyce MD Emergency Provider Active No Primary Care Physician Primary Care Provider Active Dr. Linda Mendiola MD Admit Provider, Other Provider Active Dr. Óscar Terry MD Attending Provider, Other Provider Active Team Status: Inactive Member Role Status Dates Dr. Gisel Boyce MD Emergency Provider Active No Primary Care Physician Primary Care Provider Active Dr. Linda Mendiola MD Admit Provider, Other Provider Active Dr. Spencer Rose MD Attending Provider Active Dr. Óscar Terry MD Other Provider Active Team Status: Active Member Role Status Dates Dr. Gisel Boyce MD Emergency Provider Active No Primary Care Physician Primary Care Provider Active Dr. Linda Mendiola MD Admit Provider, Other Provider Active Dr. Spencer Rose MD Attending Provider, Other Provid er Active Dr. Óscar Terry MD Other Provider Active Team Status: Active Member Role Status Dates No Primary Care Physician Primary Care Provider Active Dr. Jimenez Irving DO Emergency Provider Active Dr. Spencer Maldonado DO Admit Provider, Attending Pr ovider Active Team Status: Active Member Role Status Dates No Primary Care Physician Primary Care Provider Active Dr. Jimenez Irving DO Emergency Provider Active Dr. Spencer de Robert , DO Admit Provider, Other Provid er Active Dr. Lencho Sanches , DO Attending Provider, Other Pro vider Active Team Status: Active Member Role Status Dates No Primary Care Physician Primary Care Provider Active Dr. Jimenez Irving , DO Emergency Provider Active Dr. Spencer Maldonado , DO Admit Provider, Other Provid er Active Dr. Ankit Quintana , DO Attending Provider, Other Provider Active Dr. Lencho Sanches , DO Other Provider Active Team Status: Inactive Member Role Status Dates No Primary Care Physician Primary Care Provider Active Dr. Jimenez Irving , DO Emergency Provider Active Dr. Spencer Maldonado , DO Admit Provider, Other Provid er Active Dr. Ankit Quintana , DO Attending Provider Active Dr. Lencho Sanches , DO Other Provider Active Team Status: Inactive Member Role Status Dates No Primary Care Physician Primary Care Provider Active Dr. Jimenez Irving , DO Emergency Provider Active Dr. Spencer Maldonado , DO Admit Provider, Other Provid er Active Dr. Lencho Sanches , DO Other Provider Active Dr. Ankit Quintana , DO Attending Provider Active Team Status: Inactive Member Role Status Dates No Primary Care Physician Primary Care Provider Active Dr. Jose L Sanchez MD Emergency Provider Active Team Status: Active Member Role Status Dates No Primary Care Physician Primary Care Provider Active Dr. Alberto Knowles , DO Emergency Provider Active Dr. Linda Mendiola MD Admit Provider, Attending Provider, Other Provider Active Team Status: Active Member Role Status Dates No Primary Care Physician Primary Care Provider Active Dr. Alberto Knowles , Emergency Provider Active Dr. Linda Mendiola MD Admit Provider, Other Provider Active Dr. Óscar Terry MD Attending Provider, Other Provider Active Team Status: Inactive Member Role Status Dates No Primary Care Physician Primary Care Provider Active Dr. Alberto Knowles , Emergency Provider Active Dr. Linda Mendiola MD Admit Provider, Other Provider Active Dr. Óscar Terry MD Attending Provider Active Goals (unrecognized section and content) Goals may be documented in a n alternate section (unrecognized sect ion and content) No Status Records FoundNo Status Records FoundNo Status Records Found INFORMATION SOURCE (unrecogn ized section and content) DATE CREATED AUTHOR 06/06/2023 [facility] DATE CREATED AUTHOR AUTHOR'S ORGANIZ ATION 07/01/2023 [facility] DATE CREATED AUTHOR AUTHOR'S ORGANIZ ATION 11/07/2024 [facility] Source Comments (unrecognize d section and content) In the event this informatio n is protected by the Federal Confidentiality of Alcohol and Drug Abuse Patient Records regulations: The Federal rules restrict any use of the information to criminally investigate or prosecute any alcohol or drug abuse patient.[facility] the event this information is protected by the Federal Confidentiality of Alcohol and Drug Abuse Patient Records regulations: The Federal rules restrict any use of the information to criminally investigate or prosecute any alcohol or drug abuse patient.[facility] Reason for Visit (unrecogniz ed section and content) Reason Comments Medication Request Needs medication ref ill Reason Comments Rx Refills Needs refill on sero quil FOR RECORDS PERTAINING TO PATIENTS WHO ARE OR HAVE BEEN ENROLLED IN A CHEMICAL DEPENDENCY/SUBSTANCEABUSE PROGRAM, SOME INFORMATION MAY BE OMITTED. This clinical summary was aggregated from multiple sources. Caution should be exercised in using it in the provision of clinical care. This summary normalizes information from multiple sources, and as a consequence, information in this document may materially change the coding, format and clinical context of patient data. In addition, data may be omitted in some cases. CLINICAL DECISIONS SHOULD BE BASED ON THE PRIMARY CLINICAL RECORDS. [id number] [facility]. provides no warranty or guarantee of the accuracy or completeness of information in this document.
--- OUTSIDE RECORDS SUMMARY | 2025-01-11 19:21 | XMS RPT_ITS | CCD ---
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 L501.9100, L500.4050 #### [facility] [address] [place], [address] CA,Total 8.2 mg/dL Low 8.5-10.1 [facility] Comment on above: Performed By: #### L 505.5000, L501.9100, L500.4050 #### [facility] [address] [place], [address] Chloride [Moles/Vol] 103 mmol/L Normal 98-107 [facility] Comment on above: Performed By: #### L 505.5000, L501.9100, L500.4050 #### [facility] [address] [place], [address] CO2 [Moles/Vol] 29.0 mmol/L Normal 21.0-32.0 [facility] Comment on above: Performed By: #### L 505.5000, L501.9100, L500.4050 #### [facility] [address] [place], [address] Creatinine [Mass/Vol] 0.56 mg/dL Low 0.70-1.30 [facility] Comment on above: Result Comment: The validity of the calculated GFR GFRAA in patients over 70 years has not been determined. Clinical correlation is essential. Performed By: #### L 505.5000, L501.9100, L500.4050 #### [facility] [address] [place], [address] ECRCL 155.89 ml/min Normal [facility] Comment on above: Performed By: #### L 505.5000, L501.9100, L500.4050 #### [facility] [address] [place], [address] EST GFR - AA 204 mL/min Normal >60 [facility] Comment on above: Result Comment: Afri can Malagasy GFR Calc Performed By: #### L 505.5000, L501.9100, L500.4050 #### [facility] [address] [place], [address] GAP 5 Normal 5-15 [facility] Comment on above: Performed By: #### L 505.5000, L501.9100, L500.4050 #### [facility] [address] [place], [address] GFR/1.73 sq M.predicted among non-blacks MDRD (S/P/Bld) [Vol rate/Area] 168 mL/min/{1.73_m2} Normal >60 [facility] Comment on above: Result Comment: Non- GFR Calc Performed By: #### L 505.5000, L501.9100, L500.4050 #### [facility] [address] [place], [address] Globulin (S) [Mass/Vol] 2.5 g/dL Normal 2.2-4.2 [facility] Comment on above: Performed By: #### L 505.5000, L501.9100, L500.4050 #### [facility] [address] [place], [address] Glucose [Mass/Vol] 92 mg/dL Normal 74-106 [facility] Comment on above: Performed By: #### L 505.5000, L501.9100, L500.4050 #### [facility] [address] [place], [address] Potassium [Moles/Vol] 3.3 mmol/L Low 3.5-5.1 [facility] Comment on above: Performed By: #### L 505.5000, L501.9100, L500.4050 #### [facility] [address] [place], [address] Sodium [Moles/Vol] 137 mmol/L Normal 136-145 [facility] Comment on above: Performed By: #### L 505.5000, L501.9100, L500.4050 #### [facility] [address] [place], [address] T PROT 5.6 g/dL Low 6.4-8.2 [facility] Comment on above: Performed By: #### L 505.5000, L501.9100, L500.4050 #### [facility] [address] [place], [address] Urea nitrogen [Mass/Vol] 6 mg/dL Low 7-18 [facility] Comment on above: Performed By: #### L 505.5000, L501.9124, L500.4050 #### [facility] [address] [place], [address] Determination of erythrocyte mean corpuscular volume (MCV)Ordered By: Spencer Jones on 03-28-2023 MCV (RBC) [Entitic vol] 84.8 fL 80-94 [facility] Erythrocyte distribution wid th ratioOrdered By: Spencer Jones on 03-28-2023 Erythrocyte distribution width (RBC) [Ratio] 12.3 % 11.6-14.6 [facility] Erythrocyte distribution wid th standard deviationOrdered By: Spencer Jones on 03-28-2023 Erythrocyte distribution width (RBC) [Entitic vol] 38.2 fL 35.1-43.9 [facility] Hematocrit Auto (Bld) [Volum e fraction]Ordered By: Spencer Jones on 03-28-2023 Hematocrit (Bld) [Volume fraction] 34.6 % 40-54 [facility] Immature granulocytes/100 WB C Auto (Bld)Ordered By: Spencer Jones on 03-28-2023 Immature granulocytes/100 WBC (Bld) 0.000 % 0.0-0.9 [facility] Comment on above: IG% - Immature Granu locytes (promyelocytes, myelocytes and metamyelocytes) > 1% indicates that a LEFT SHIFT is Present. Laboratory - Chemistry and C hemistry - challengeOrdered By: Spencer Jones on 03-28-2023 Albumin/Globulin [Mass ratio] 1.2 {ratio} 0.9-2.4 [facility] ALP [Catalytic activity/Vol] 169 U/L 45-117 [facility] ALT [Catalytic activity/Vol] 106 U/L 16-61 [facility] Globulin (S) [Mass/Vol] 2.5 g/dL 2.2-4.2 [facility] Lipase [Catalytic activity/Vol] 199 U/L 13-75 [facility] Comment on above: Please note:LIPASE r evised reference range effective 22. New Lipase methodology. Expected to produce lower values than the previous assay method. NEW Reference Range: 13 - 75 U/L Laboratory - Hematology and Cell countsOrdered By: Spencer Jones on 03-28-2023 MCH (RBC) [Entitic mass] 29.4 pg 27.0-32.0 [facility] MCHC (RBC) [Mass/Vol] 34.7 g/dL 32-36 [facility] Nucleated RBC/100 WBC (Bld) [Ratio] 0 % 0-5 [facility] Platelets (Bld) [#/Vol] 64 10*3/uL 150-450 [facility] Lipaseon 03-28-2023 Lipase [Catalytic activity/Vol] 199 U/L High 13-75 [facility] Comment on above: Result Comment: Selwyn hodgson note: LIPASE revised reference range effective 22. New Lipase methodology. Expected to produce lower values than the previous assay method. NEW Reference Range: 13 - 75 U/L Performed By: #### L 505.5000, L501.9100, L500.4050 #### [facility] [address] [place], [address] No Panel InformationOrdered By: Spencer Jones on 03-28-2023 Ethyl Alcohol Level 173.0 mg/dL [facility] Comment on above: The serum:whole bloo d [...] volume (Bld) [Entitic vol] 9.2 fL 6.2-12.0 [facility] Prothrombin Time w/INRon INR Coag (PPP) [Relative time] 0.8 {INR} Normal [facility] Comment on above: Performed By: #### L 501.5200, L500.2500 #### [facility] [address] [place], [place], [address] PT Coag (PPP) [Time] 11.5 s Low 11.7-14.9 [facility] Comment on above: Performed By: #### L 501.5200, L500.2500 #### [facility] [address] [place], [address] RBC Auto (Bld) [#/Vol]Ordere d By: Spencer Jones on 03-28-2023 RBC (Bld) [#/Vol] 4.08 10*6/uL 4.6-6.2 [facility] Thin prep Papanicolaou smear with manual screeningOrdered By: Spencer Jones on 03-28-2023 Thin prep Papanicolaou smear with manual screening 3.1 g/dL 3.2-5.0 [facility] Thin prep Papanicolaou smear with manual screening 139 U/L 15-37 [facility] Absolute lymphocyte countOrd ered By: Jimenez Irving on 03-27-2023 Lymphocytes Auto (Unsp spec) [#/Vol] 1.16 10*3/uL 0.83-4.51 [facility] Alcohol, Blood (Medical)-Ser umon 03-27-2023 SERUM ETOH 415.0 mg/dL Invalid Interpretation Code [facility] Comment on above: Result Comment: Crit [...] By: #### L 505.5000, L501.9100, L500.4050 #### [facility] [address] [place], [address] Automated lymphocyte count a s percentage of total leukocytesOrdered By: Jimenez Irving on 03-27-2023 Lymphocytes/100 WBC Auto (Unsp spec) 44.4 % 19-41 [facility] Basophil percentageOrdered B y: Jimenez Irving on 03-27-2023 Basophils/100 WBC (Bld) 1.1 % 0-1 [facility] Bilirubin [Mass/Vol] 0.50 mg/dL 0.20-1.00 [facility] Comment on above: For patients on eltr ombopag therapy, use of Dimension Pinson TBIL is not recommended. Chloride [Moles/Vol] 103 mmol/L 98-107 [facility] Eosinophils/100 WBC (Bld) 0.0 % 0-5 [facility] Glucose [Mass/Vol] 187 mg/dL 74-106 [facility] Comment on above: Fasting Glucose resu lt greater than or equal to 126 mg/dL suggests DIABETES MELLITUS per A.D.A. criteria. Hemoglobin (Bld) [Mass/Vol] 14.7 g/dL 13.0-16.5 [facility] Monocytes/100 WBC (Bld) 8.4 % 0-10 [facility] Neutrophils (Bld) [#/Vol] 1.2 10*3/uL 2.0-7.7 [facility] Neutrophils/100 WBC (Bld) 45.7 % 47-70 [facility] Potassium [Moles/Vol] 3.0 mmol/L 3.5-5.1 [facility] Protein [Mass/Vol] 6.9 g/dL 6.4-8.2 [facility] Sodium [Moles/Vol] 139 mmol/L 136-145 [facility] WBC (Bld) [#/Vol] 2.6 10*3/uL 4.4-11.0 [facility] Basophil percentage 0 SEEN /hpf 0-5 [facility] Bilirubin Test strip Ql (U)O rdered By: Jimenez Irving on 03-27-2023 Bilirubin Ql (U) Negative Negative [facility] Blood manual differential co mment interpretation (narrative result)Ordered By: Jimenez Irving on 03-27-2023 Manual differential comment Damion (Bld) [Interp] SCANNED [facility] Comment on above: THROMBOCYTOPENIA NOT ED Brain/Head without Contrasto n 03-27-2023 Brain/Head without Contrast [facility] Services [address] [place] [address] Brain/Head without Contrast MR#: [id number] Acct: [id number] Name: VIVIAN POWELL Rep #: [id number] : 1980 M 43 From: Jessy Barraza MD PCP: Care Physician,No Primary Status: REG ER Study: Brain/Head without Contrast Date of Exam: 05/15 Exam# [id number] Ordering Dr: Jimenez Irving DO [id number] STUDY: CT BRAIN WITHOUT CONTRAST REASON FOR [...] Jimenez Irving DO; No Primary Care Physician Alterations Tailor: Signed Normal [facility] CBC W/Diff, Automatedon SMEAR COMMENT SCANNED Normal [facility] Comment on above: Result Comment: THRO MBOCYTOPENIA NOTED Performed By: #### L 505.5000, L501.9100, L500.4050 #### [facility] [address] [place], [address] CTA Chest W/WO Contraston CTA Chest W/WO Contrast [facility] Services [address] [place] [address] CTA Chest W/WO Contrast MR#: [id number] Acct: [id number] Name: VIVIAN POWELL Rep #: [id number] : 1980 M 43 From: Jessy Barraza MD PCP: Care Physician,No Primary Status: REG ER Study: CTA Chest W/WO Contrast Date of Exam: 03/27/23 Exam# [id number] Ordering Dr: Jimenez Irving DO [id number] STUDY: CTA CHEST REASON FOR EXAM: Male, [...] Jimenez Irving, DO; No Primary Care Physician Alterations Tailor: Signed Normal [facility] Comprehensive Metabolic Prof ilon 03-27-2023 Albumin [Mass/Vol] 3.7 g/dL Normal 3.2-5.0 [facility] Comment on above: Performed By: #### L 505.5000, L501.9100, L500.4050 #### [facility] [address] [place], [address] Albumin/Globulin [Mass ratio] 1.2 {ratio} Normal 0.9-2.4 [facility] Comment on above: Performed By: #### L 505.5000, L501.9100, L500.4050 #### [facility] [address] [place], [address] ALK P 202 U/L High 45-117 [facility] Comment on above: Performed By: #### L 505.5000, L501.9100, L500.4050 #### [facility] [address] [place], [address] ALT [Catalytic activity/Vol] 133 U/L High 16-61 [facility] Comment on above: Performed By: #### L 505.5000, L501.9100, L500.4050 #### [facility] [address] [place], [address] AST [Catalytic activity/Vol] 185 U/L High 15-37 [facility] Comment on above: Performed By: #### L 505.5000, L501.9100, L500.4050 #### [facility] [address] [place], [address] Bilirubin [Mass/Vol] 0.50 mg/dL Normal 0.20-1.00 [facility] Comment on above: Result Comment: For patients on eltrombopag therapy, use of Dimension Pinson TBIL is not recommended. Performed By: #### L 505.5000, L501.9100, L500.4050 #### [facility] [address] [place], [address] BUN/CRE 12.8 RATIO Normal 10-20 [facility] Comment on above: Performed By: #### L 505.5000, L501.9100, L500.4050 #### [facility] [address] [place], [address] CA,Total 8.6 mg/dL Normal 8.5-10.1 [facility] Comment on above: Performed By: #### L 505.5000, L501.9100, L500.4050 #### [facility] [address] [place], [address] Chloride [Moles/Vol] 103 mmol/L Normal 98-107 [facility] Comment on above: Performed By: #### L 505.5000, L501.9100, L500.4050 #### [facility] [address] [place], [address] CO2 [Moles/Vol] 25.0 mmol/L Normal 21.0-32.0 [facility] Comment on above: Performed By: #### L 505.5000, L501.9100, L500.4050 #### [facility] [address] [place], [address] Creatinine [Mass/Vol] 0.78 mg/dL Normal 0.70-1.30 [facility] Comment on above: Result Comment: The validity of the calculated GFR GFRAA in patients over 70 years has not been determined. Clinical correlation is essential. Performed By: #### L 505.5000, L501.9100, L500.4050 #### [facility] [address] [place], [address] ECRCL 112.03 ml/min Normal [facility] Comment on above: Performed By: #### L 505.5000, L501.9100, L500.4050 #### [facility] [address] [place], [address] EST GFR - AA 140 mL/min Normal >60 [facility] Comment on above: Result Comment: Afri can Malagasy GFR Calc Performed By: #### L 505.5000, L501.9100, L500.4050 #### [facility] [address] [place], [address] GAP 11 Normal 5-15 [facility] Comment on above: Performed By: #### L 505.5000, L501.9100, L500.4050 #### [facility] [address] [place], [address] GFR/1.73 sq M.predicted among non-blacks MDRD (S/P/Bld) [Vol rate/Area] 116 mL/min/{1.73_m2} Normal >60 [facility] Comment on above: Result Comment: Non- GFR Calc Performed By: #### L 505.5000, L501.9100, L500.4050 #### [facility] [address] [place], [address] Globulin (S) [Mass/Vol] 3.2 g/dL Normal 2.2-4.2 [facility] Comment on above: Performed By: #### L 505.5000, L501.9100, L500.4050 #### [facility] [address] [place], [address] Glucose [Mass/Vol] 187 mg/dL High 74-106 [facility] Comment on above: Result Comment: Fast ing Glucose result greater than or equal to 126 mg/dL suggests DIABETES MELLITUS per A.D.A. criteria. Performed By: #### L 505.5000, L501.9100, L500.4050 #### [facility] [address] [place], [address] Potassium [Moles/Vol] 3.0 mmol/L Low 3.5-5.1 [facility] Comment on above: Performed By: #### L 505.5000, L501.9100, L500.4050 #### [facility] [address] [place], [address] Sodium [Moles/Vol] 139 mmol/L Normal 136-145 [facility] Comment on above: Performed By: #### L 505.5000, L501.9100, L500.4050 #### [facility] [address] [place], [address] T PROT 6.9 g/dL Normal 6.4-8.2 [facility] Comment on above: Performed By: #### L 505.5000, L501.9100, L500.4050 #### [facility] [address] [place], [address] Urea nitrogen [Mass/Vol] 10 mg/dL Normal 7-18 [facility] Comment on above: Performed By: #### L 505.5000, L501.9100, L500.4050 #### [facility] [address] [place], [address] Determination of erythrocyte mean corpuscular volume (MCV)Ordered By: Jimenez Irving on 03-27-2023 MCV (RBC) [Entitic vol] 85.2 fL 80-94 [facility] Emergency Department Summary on 03-27-2023 Emergency Department Summary [facility] Medical Records Department [address] [place] [address] Emergency Department Summary 03/27/23 MR#: [id number] Acct: [id number] Name: VIVIAN POWELL Rep #: [id number] : 1980 43 From: Jimenez Irving DO PCP: Care Physician,No Primary Status:ADM IN Location: [place] [id number] HPI History of Present Illness Chief Complaint: [...] for pancreatitis (more content not included)... Normal [facility] Erythrocyte distribution wid th ratioOrdered By: Jimenez Irving on 03-27-2023 Erythrocyte distribution width (RBC) [Ratio] 12.5 % 11.6-14.6 [facility] Erythrocyte distribution wid th standard deviationOrdered By: Jimenez Irving on 03-27-2023 Erythrocyte distribution width (RBC) [Entitic vol] 38.9 fL 35.1-43.9 [facility] H AND P Exam - Hospitaliston 03-27-2023 H&P Exam - Hospitalist [facility] Medical Records Department [address] [place] [address] H P Exam - Hospitalist 03/27/232154 MR#: [id number] Acct: [id number] Name: VIVIAN POWELL Rep #: [id number] : 1980 43 From: Spencer Maldonado DO PCP: Care Physician,No Primary Status:ADM [place] [facility] [id number] HPI - General General Date of Admission: [...] p with EtOH detox who presents to [facility] ER once again complaining of wanting [...] expected [facility] be less than [address] [facility] Alcohol abuse Clavicle fracture [...] Resp normal (more content not included)... Normal [facility] Hematocrit Auto (Bld) [Volum e fraction]Ordered By: Jimenez Irving on 03-27-2023 Hematocrit (Bld) [Volume fraction] 42.7 % 40-54 [facility] Immature granulocytes/100 WB C Auto (Bld)Ordered By: Jimenez Irving on 03-27-2023 Immature granulocytes/100 WBC (Bld) 0.400 % 0.0-0.9 [facility] Comment on above: IG% - Immature Granu locytes (promyelocytes, myelocytes and metamyelocytes) > 1% indicates that a LEFT SHIFT is Present. Ketones Test strip Ql (U)Ord ered By: Jimenez Irving on 03-27-2023 Ketones Ql (U) 50 mg/dl Negative [facility] - Chemistry and C hemistry - challengeOrdered By: Jimenez Irving on 03-27-2023 Albumin/Globulin [Mass ratio] 1.2 {ratio} 0.9-2.4 [facility] ALP [Catalytic activity/Vol] 202 U/L 45-117 [facility] ALT [Catalytic activity/Vol] 133 U/L 16-61 [facility] CO2 [Moles/Vol] 25.0 mmol/L 21.0-32.0 [facility] Globulin (S) [Mass/Vol] 3.2 g/dL 2.2-4.2 [facility] Lipase [Catalytic activity/Vol] 220 U/L 13-75 [facility] Comment on above: Please note:LIPASE r evised reference range effective 22. New Lipase methodology. Expected to produce lower values than the previous assay method. NEW Reference Range: 13 - 75 U/L Urea nitrogen/Creatinine [Mass ratio] 12.8 mg/mg 10-20 [facility] - CoagulationOrde red By: Spencer Jones on 03-27-2023 PT Coag (PPP) [Time] 11.5 s 11.7-14.9 [facility] - Drug toxicology Ordered By: Jimenez Irving on 03-27-2023 Amphetamines Ql (U) Negative <1000 ng/mL [facility] Benzodiazepines Ql (U) Negative < 200 ng/mL [facility] Cannabinoids Screen Ql (U) Negative < 50 ng/mL [facility] Cocaine Ql (U) Negative < 300 ng/mL [facility] Opiates Ql (U) Negative < 300 ng/mL [facility] - Hematology and Cell countsOrdered By: Jimenez Irving on 03-27-2023 MCH (RBC) [Entitic mass] 29.3 pg 27.0-32.0 [facility] MCHC (RBC) [Mass/Vol] 34.4 g/dL 32-36 [facility] Nucleated RBC/100 WBC (Bld) [Ratio] 0 % 0-5 [facility] Platelets (Bld) [#/Vol] 85 10*3/uL 150-450 [facility] Lipaseon 03-27-2023 Lipase [Catalytic activity/Vol] 220 U/L High 13-75 [facility] Comment on above: Result Comment: Selwyn hodgson note: LIPASE revised reference range effective 22. New Lipase methodology. Expected to produce lower values than the previous assay method. NEW Reference Range: 13 - 75 U/L Performed By: #### L 505.5000, L501.9100, L500.4050 #### [facility] [address] [place] [address], [id number] Mucus LM Ql (Urine sed)Order ed By: Jimenez Irving on 03-27-2023 Mucus Ql (Urine sed) 0 SEEN /hpf [facility] Nitrite Test strip Ql (U)Ord ered By: Jimenez Irving on 03-27-2023 Nitrite Ql (U) Negative Negative [facility] No Panel InformationOrdered By: Jimenez Irving on 03-27-2023 Estimated Creatinine Clearance Calc 112.03 ml/min [facility] Estimated GFR (MDRD) Amer 140 mL/min >60 [facility] Comment on above: GFR Calc Estimated GFR (MDRD) Non-Af Amer 116 mL/min >60 [facility] Comment on above: Non- GFR Calc Ethyl Alcohol Level 415.0 mg/dL [facility] Comment on above: Critical Result(s) C alled [...] MDMA (Ecstasy) Screen Negative < 500 ng/mL [facility] Urine Barbiturates Screen Negative < 200 ng/mL [facility] Urine Drug Screen Comment [facility] Comment on above: CONFIRMATORY TESTING FOR [...] Methadone Screen Negative < 300 ng/mL [facility] Urine RBC 0 SEEN /hpf 0-5 [facility] Platelet mean volume Jacob-Ec ker (Bld) [Entitic vol]Ordered By: Jimenez Irving on 03-27-2023 Platelet mean volume (Bld) [Entitic vol] 8.8 fL 6.2-12.0 [facility] Platelet poor plasma interna tional normalized ratio (INR)Ordered By: Spencer Jones on 03-27-2023 INR Coag (PPP) [Relative time] 0.8 {INR} [facility] Protein Test strip Ql (U)Ord ered By: Jimenez Irving on 03-27-2023 Protein Ql (U) 100 mg/dl Negative [facility] RBC Auto (Bld) [#/Vol]Ordere d By: Jimenez Irving on 03-27-2023 RBC (Bld) [#/Vol] 5.01 10*6/uL 4.6-6.2 [facility] Serum or plasma calcium [place] urement (mass/volume)Ordered By: Jimenez Irving on 03-27-2023 Calcium [Mass/Vol] 8.6 mg/dL 8.5-10.1 [facility] Serum or plasma creatinine m easurement (mass/volume)Ordered By: Jimenez Irving on 03-27-2023 Creatinine [Mass/Vol] 0.78 mg/dL 0.70-1.30 [facility] Comment on above: The validity of the calculated GFR & GFRAA in patients over 70 years has not been determined. Clinical correlation is essential. Serum or plasma urea nitroge n measurement (mass/volume)Ordered By: Jimenez Irving on 03-27-2023 Urea nitrogen [Mass/Vol] 10 mg/dL 7-18 [facility] Squamous epithelial cells de tection in urine sediment by light microscopyOrdered By: Jimenez Irving on 03-27-2023 Epithelial cells.squamous LM Ql (Urine sed) 0 SEEN /hpf 0-5 [facility] Thin prep Papanicolaou smear with manual screeningOrdered By: Jimenez Irving on 03-27-2023 Thin prep Papanicolaou smear with manual screening 3.7 g/dL 3.2-5.0 [facility] Thin prep Papanicolaou smear with manual screening 185 U/L 15-37 [facility] Thin prep Papanicolaou smear with manual screening 11 5-15 [facility] Urinalysis, Completeon 03-27 BACTERIA 0 SEEN Normal None Seen [facility] Comment on above: Order Comment: CLEAN CATCH Performed By: #### L 505.5000, L501.9100, L500.4050 #### [facility] [address] [place], [address] EPI,SQUAMOUS 0 SEEN Normal 0-5 [facility] Comment on above: Order Comment: CLEAN CATCH Performed By: #### L 505.5000, L501.9100, L500.4050 #### [facility] [address] [place], [address] Mucus Ql (Urine sed) 0 SEEN Normal [facility] Comment on above: Order Comment: CLEAN CATCH Performed By: #### L 505.5000, L501.9100, [id number] #### [facility] [address] [place], [address] RBC 0 SEEN Normal 0-5 [facility] Comment on above: Order Comment: CLEAN CATCH Performed By: #### L 505.5000, L501.9100, [id number] #### [facility] [address] [place], [address] WBC 0 SEEN Normal 0-5 [facility] Comment on above: Order Comment: CLEAN CATCH Performed By: #### L 505.5000, L501.9100, [id number] #### [facility] [address] [place], [address] Urine Drug Screen (VISTA)on 03-27-2023 AMPHETAMINES Negative Normal <1000 ng/mL [facility] Comment on above: Performed By: #### L 505.5000, L501.9100, L500.4050 #### [facility] [address] [place], [address] BARBITIURATES Negative Normal < 200 ng/mL [facility] Comment on above: Performed By: #### L 505.5000, L501.9100, L500.4050 #### [facility] [address] [place], [address] BENZODIAZIPINE Negative Normal < 200 ng/mL [facility] Comment on above: Performed By: #### L 505.5000, L501.9100, [id number] #### [facility] [address] [place], [address] COCAINE Negative Normal < 300 ng/mL [facility] Comment on above: Performed By: #### L 505.5000, L501.9100, [id number] #### [facility] [address] [place], [address] ECSTACY Negative Normal < 500 ng/mL [facility] Comment on above: Performed By: #### L 505.5000, L501.9100, [id number] #### [facility] [address] [place], [address] METHADONE Negative Normal < 300 ng/mL [facility] Comment on above: Performed By: #### L 505.5000, L501.9100, [id number] #### [facility] [address] [place], [address] OPIATES Negative Normal < 300 ng/mL [facility] Comment on above: Performed By: #### L 505.5000, L501.9100, [id number] #### [facility] [address] [place], [address] PCP Negative Normal < 25 ng/mL [facility] Comment on above: Performed By: #### L 505.5000, L501.9100, [id number] #### [facility] [address] [place], [address] THC Negative Normal < 50 ng/mL [facility] Comment on above: Performed By: #### L 505.5000, L501.9100, [id number] #### [facility] [address] [place], [address] VISTA UDS PH 6 Normal [facility] Comment on above: Performed By: #### L 505.5000, L501.9100, [id number] #### [facility] [address] [place], [address] Urine blood detectionOrdered By: Jimenez Irving on 03-27-2023 RBC Ql (U) 10 /ul Negative [facility] Urine clarityOrdered By: Ani Irving on 03-27-2023 Clarity (U) Clear Clear [facility] Urine color determinationOrd ered By: Jimenez Irving on 03-27-2023 Color (U) Yellow Yellow [facility] Urine glucose detectionOrder ed By: Jimenez Irving on 03-27-2023 Glucose Ql (U) Normal mg/dl Normal [facility] Urine leukocyte esterase det ection by dipstickOrdered By: Jimenez Irving on 03-27-2023 Leukocyte esterase Test strip Ql (U) Negative Negative [facility] Urine pHOrdered By: Jimenez delaney on 03-27-2023 pH (U) 6.5 [pH] 5.0 - 8.0 [facility] Urine phencyclidine (PCP) de tectionOrdered By: Jimenez Irving on 03-27-2023 Phencyclidine Ql (U) Negative < 25 ng/mL [facility] Urine sediment bacteria coun t by microscopy (number/high power field)Ordered By: Jimenez Irving on 03-27-2023 Bacteria LM.HPF (Urine sed) [#/Area] 0 /[HPF] None Seen [facility] Urine specific gravity measu rementOrdered By: Jimenez Irving on 03-27-2023 Specific gravity (U) [Rel density] 1.015 1.002-1.030 [facility] Urine urobilinogen measureme ntOrdered By: Jimenez Irving on 03-27-2023 Urobilinogen Ql (U) Normal mg/dl Normal [facility] Absolute lymphocyte countOrd ered By: Linda Mendiola on 02-23-2023 Lymphocytes Auto (Unsp spec) [#/Vol] 1.79 10*3/uL 0.83-4.51 [facility] Basophil percentageOrdered B y: Linda Mendiola on 02-23-2023 Basophil percentage 3.7 mg/dL 2.5-4.9 [facility] Basophils/100 WBC (Bld) 2.0 % 0-1 [facility] Bilirubin [Mass/Vol] 1.90 mg/dL 0.20-1.00 [facility] Comment on above: For patients on eltr ombopag therapy, use of Dimension Pinson TBIL is not recommended. Chloride [Moles/Vol] 108 mmol/L 98-107 [facility] Eosinophils/100 WBC (Bld) 2.9 % 0-5 [facility] Glucose [Mass/Vol] 71 mg/dL 74-106 [facility] Neutrophils (Bld) [#/Vol] 1.2 10*3/uL 2.0-7.7 [facility] Neutrophils/100 WBC (Bld) 34.3 % 47-70 [facility] Potassium [Moles/Vol] 3.1 mmol/L 3.5-5.1 [facility] Protein [Mass/Vol] 6.2 g/dL 6.4-8.2 [facility] Sodium [Moles/Vol] 143 mmol/L 136-145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 recovering from a clavicular fracture. His last drink was about 10 hours ago, drinks about 1/5 of vodka daily. 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 He previously was living in [place], has good social support there but now moved back to [place] family reasons. Occasionally uses marijuana, no smoking, [...] toxins except Ethyl alcohol which was 243.0. [facility] Medical History (Updated 02/22/23 @ 18:00 by [...] Ur Phen (more content not included)... Normal [facility] Hematocrit Auto (Bld) [Volum e fraction]Ordered By: Gisel Boyce on 02-22-2023 Hematocrit (Bld) [Volume fraction] 43.0 % 40-54 [facility] INR in Blood by Coagulation assayOrdered By: Gisel Boyce on 02-22-2023 INR Coag (Bld) [Relative time] 0.9 {INR} [facility] - Chemistry and C hemistry - challengeOrdered By: Gisel Boyce on 02-22-2023 ALP [Catalytic activity/Vol] 101 U/L 45-117 [facility] ALT [Catalytic activity/Vol] 33 U/L 16-61 [facility] CO2 [Moles/Vol] 28.0 mmol/L 21.0-32.0 [facility] Globulin (S) [Mass/Vol] 3.0 g/dL 2.2-4.2 [facility] Urea nitrogen/Creatinine [Mass ratio] 12.0 mg/mg 10-20 [facility] - CoagulationOrde red By: Gisel Boyce on 02-22-2023 PT Coag (PPP) [Time] 12.4 s 11.7-14.9 [facility] - Drug toxicology Ordered By: Gisel Boyce on 02-22-2023 Amphetamines Ql (U) Negative <1000 ng/mL [facility] Benzodiazepines Ql (U) Negative < 200 ng/mL [facility] Cannabinoids Screen Ql (U) Negative < 50 ng/mL [facility] Cocaine Ql (U) Negative < 300 ng/mL [facility] Opiates Ql (U) Negative < 300 ng/mL [facility] - Hematology and Cell countsOrdered By: Gisel Boyce on 02-22-2023 Erythrocyte distribution width (RBC) [Entitic vol] 45.0 fL 35.1-43.9 [facility] Erythrocyte distribution width (RBC) [Ratio] 13.6 % 11.6-14.6 [facility] Immature granulocytes/100 WBC (Bld) 0.000 % 0.0-0.9 [facility] Comment on above: IG% - Immature Granu locytes (promyelocytes, myelocytes and metamyelocytes) > 1% indicates that a LEFT SHIFT is Present. MCH (RBC) [Entitic mass] 29.9 pg 27.0-32.0 [facility] Nucleated RBC/100 WBC (Bld) [Ratio] 0 % 0-5 [facility] MCHC Auto (RBC) [Mass/Vol]Or dered By: Gisel Boyce on 02-22-2023 MCHC (RBC) [Mass/Vol] 33.5 g/dL 32-36 [facility] No Panel InformationOrdered By: Gisel Boyce on 02-22-2023 Estimated Creatinine Clearance Calc 157.49 ml/min [facility] Estimated GFR (MDRD) Amer 196 mL/min >60 [facility] Comment on above: GFR Calc Estimated GFR (MDRD) Non-Af Amer 162 mL/min >60 [facility] Comment on above: Non- GFR Calc Ethyl Alcohol Level 243.0 mg/dL [facility] Comment on above: The serum:whole bloo d ethanol ratio is approximately 1.14and varies slightly with hematocrit. Medical Alcohol reference interval and critical value innon-tolerant individuals; 50 - 100 Impairment 100 Intoxication 100 - 250 Severe Poisoning 250 - 400 Deep/possible fatal coma MDMA (Ecstasy) Screen Negative < 500 ng/mL [facility] Urine Barbiturates Screen Negative < 200 ng/mL [facility] Urine Drug Screen Comment [facility] Comment on above: CONFIRMATORY TESTING FOR [...] Methadone Screen Negative < 300 ng/mL [facility] Platelets bldOrdered By: Crista Boyce on 02-22-2023 Platelets (Bld) [#/Vol] 130 10*3/uL 150-450 [facility] Prothrombin Time w/INRon INR Normal [facility] Comment on above: Result Comment: CANC ELLED BY ORDERS, DUE TO BEING DUPLICATE. Performed By: #### L 505.5000, L501.9100, L500.4050 #### [facility] [address] [place], [address] PROTIME Normal 11.7-14.9 [facility] Comment on above: Result Comment: CANC ELLED BY DR.SINGH BURDICK, DUE TO BEING DUPLICATE. Performed By: #### L 505.5000, L501.9100, L500.4050 #### [facility] [address] [place], [address] INR Coag (PPP) [Relative time] 0.9 {INR} Normal [facility] Comment on above: Performed By: #### L 501.5200, L500.2500 #### [facility] [address] [place], [place], [address] PT Coag (PPP) [Time] 12.4 s Normal 11.7-14.9 [facility] Comment on above: Performed By: #### L 501.5200, L500.2500 #### [facility] [address] [place], [place], [address] Serum or plasma albumin [place] urement (mass/volume)Ordered By: Gisel Boyce on 02-22-2023 Albumin [Mass/Vol] 3.5 g/dL 3.2-5.0 [facility] Serum or plasma albumin/glob ulin mass ratioOrdered By: Gisel Boyce on 02-22-2023 Albumin/Globulin [Mass ratio] 1.2 {ratio} 0.9-2.4 [facility] Serum or plasma calcium carolina urement (mass/volume)Ordered By: Gisel Boyce on 02-22-2023 Calcium [Mass/Vol] 8.0 mg/dL 8.5-10.1 [facility] Serum or plasma creatinine m easurement (mass/volume)Ordered By: Gisel Boyce on 02-22-2023 Creatinine [Mass/Vol] 0.58 mg/dL 0.70-1.30 [facility] Comment on above: The validity of the calculated GFR & GFRAA in patients over 70 years has not been determined. Clinical correlation is essential. Serum or plasma urea nitroge n measurement (mass/volume)Ordered By: Gisel Boyce on 02-22-2023 Urea nitrogen [Mass/Vol] 7 mg/dL 7-18 [facility] Thin prep Papanicolaou smear with manual screeningOrdered By: Gisel Boyce on 02-22-2023 Thin prep Papanicolaou smear with manual screening 33 U/L 15-37 [facility] Thin prep Papanicolaou smear with manual screening 6 5-15 [facility] Urine Drug Screen (VISTA)on 02-22-2023 AMPHETAMINES Negative Normal <1000 ng/mL [facility] Comment on above: Performed By: #### L 505.5000, L501.9100, L500.4050 #### [facility] [address] [place], [address] BARBITIURATES Negative Normal < 200 ng/mL [facility] Comment on above: Performed By: #### L 505.5000, L501.9100, L500.4050 #### [facility] [address] [place], [address] BENZODIAZIPINE Negative Normal < 200 ng/mL [facility] Comment on above: Performed By: #### L 505.5000, L501.9100, L500.4050 #### [facility] [address] [place], [address] COCAINE Negative Normal < 300 ng/mL [facility] Comment on above: Performed By: #### L 505.5000, L501.9100, L500.4050 #### [facility] [address] [place], [address] ECSTACY Negative Normal < 500 ng/mL [facility] Comment on above: Performed By: #### L 505.5000, L501.9100, L500.4050 #### [facility] [address] [place], [address] METHADONE Negative Normal < 300 ng/mL [facility] Comment on above: Performed By: #### L 505.5000, L501.9100, L500.4050 #### [facility] [address] [place], [address] OPIATES Negative Normal < 300 ng/mL [facility] Comment on above: Performed By: #### L 505.5000, L501.9100, L500.4050 #### [facility] [address] [place], [address] PCP Negative Normal < 25 ng/mL [facility] Comment on above: Performed By: #### L 505.5000, L501.9100, L500.4050 #### [facility] [address] [place], [address] THC Negative Normal < 50 ng/mL [facility] Comment on above: Performed By: #### L 505.5000, L501.9100, L500.4050 #### [facility] [address] [place], [address] VISTA UDS PH 6 Normal [facility] Comment on above: Performed By: #### L 505.5000, L501.9100, L500.4050 #### [facility] [address] [place], [address] Urine phencyclidine (PCP) de tectionOrdered By: Gisel Boyce on 02-22-2023 Phencyclidine Ql (U) Negative < 25 ng/mL [facility] Vital Signs Date Time Vital Sign Value Performing Clinician Faci lity 11-06-2024 19:28-0400 Body mass index (BMI) [Ratio] 22.1 kg/m2 Kj Cervantes [employer] CONTROLS OPERATOR.QA SOFTWARE TESTER Work Phone: [facility] 11-06-2024 19:28-0400 Body temperature 98.2 [degF] Kj Cervantes [employer] CONTROLS OPERATOR.QA SOFTWARE TESTER Work Phone: [facility] 11-06-2024 19:28-0400 Body weight 69.85 kg Kj Cervanets [employer] CONTROLS OPERATOR.QA SOFTWARE TESTER Work Phone: [facility] 11-06-2024 19:28-0400 Diastolic blood pressure 84 mm[Hg] Kj Cervantes [employer] CONTROLS OPERATOR.QA SOFTWARE TESTER Work Phone: [facility] 11-06-2024 19:28-0400 Heart rate 94 /min Kj Cervantes [employer] CONTROLS OPERATOR.QA SOFTWARE TESTER Work Phone: [facility] 11-06-2024 19:28-0400 Respiratory rate 16 /min Kj Cervantes [employer] CONTROLS OPERATOR.QA SOFTWARE TESTER Work Phone: [facility] 11-06-2024 19:28-0400 SaO2% (BldA) [Mass fraction] 99 % Kj Cervantes [employer] CONTROLS OPERATOR.QA SOFTWARE TESTER Work Phone: [facility] 11-06-2024 19:28-0400 Systolic blood pressure 148 mm[Hg] Kjjeanette Cervantes [employer] CONTROLS OPERATOR.QA SOFTWARE TESTER Work Phone: [facility] 08-16-2024 17:46-0400 Body mass index (BMI) [Ratio] 22.17 kg/m2 Idalia Gutierrez [employer] CONTROLS OPERATOR.QA SOFTWARE TESTER Work Phone: [facility] 08-16-2024 17:46-0400 Body temperature 98.6 [degF] Idalia Gutierrez [employer] CONTROLS OPERATOR.QA SOFTWARE TESTER Work Phone: [facility] 08-16-2024 17:46-0400 Body weight 70.1 kg Idalia Gutierrez [employer] CONTROLS OPERATOR.QA SOFTWARE TESTER Work Phone: [facility] 08-16-2024 17:46-0400 Diastolic blood pressure 90 mm[Hg] Idalia Gutierrez [employer] CONTROLS OPERATOR.QA SOFTWARE TESTER Work Phone: [facility] 08-16-2024 17:46-0400 Heart rate 94 /min Idalia Gutierrez [employer] CONTROLS OPERATOR.QA SOFTWARE TESTER Work Phone: [facility] [facility] 08-16-2024 17:46-0400 Respiratory rate 18 /min Idalia Gutierrez MOLDED GOODS CONTROLS OPERATOR.QA SOFTWARE TESTER Work Phone: [facility] 08-16-2024 17:46-0400 SaO2% (BldA) [Mass fraction] 97 % Idalia Gutierrez MOLDED GOODS CONTROLS OPERATOR.QA SOFTWARE TESTER Work Phone: [facility] 08-16-2024 17:46-0400 Systolic blood pressure 162 mm[Hg] Idalia Gutierrez MOLDED GOODS CONTROLS OPERATOR.QA SOFTWARE TESTER Work Phone: [facility] 04-12-2023 02:42-0500 Body temperature 97.8 [degF] Dr. Gisel Boyce Work Phone: [facility] 04-12-2023 02:42-0500 Diastolic blood pressure 98 mm[Hg] Dr. Gisel Boyce Work Phone: [facility] 04-12-2023 02:42-0500 Heart rate 69 /min Dr. Gisel Boyce Work Phone: 4(415)279-460192 [address] 04-12-2023 02:42-0500 Respiratory rate 16 /min Dr. Gisel Boyce Work Phone: 7(553)128-049092 [address] 04-12-2023 02:42-0500 SaO2% (BldA) [Mass fraction] 99 % Dr. Gisel Boyce Work Phone: 3(544)495-139992 [address] 04-12-2023 02:42-0500 Systolic blood pressure 136 mm[Hg] Dr. Gisel Boyce Work Phone: 1(888)888-213592 [address] 04-11-2023 13:02-0500 Body height 177.[address] Gisel Boyce Work Phone: 2(836)044-416034 [place] [address] 04-11-2023 13:02-0500 Body weight 69.[address] Gisel Boyce Work Phone: 0(487)572-542692 [address] 04-10-2023 16:14-0500 Body mass index (BMI) [Ratio] 21.9 kg/m2 Dr. Gisel Boyce Work Phone: 2(600)339-275192 [address] 04-07-2023 00:03-0500 Body temperature 97.2 [degF] Dr. Gisel Boyce Work Phone: 6(656)469-707266 [place] [address] 04-07-2023 00:03-0500 Diastolic blood pressure 121 mm[Hg] Dr. Gisel Boyce Work Phone: 8(441)308-124766 [place] [address] 04-07-2023 00:03-0500 Heart rate 93 /min Dr. Gisel Boyce Work Phone: 9(481)800-070766 [place] [address] 04-07-2023 00:03-0500 Respiratory rate 16 /min Dr. Gisel Boyce Work Phone: [facility] 04-07-2023 00:03-0500 SaO2% (BldA) [Mass fraction] 100 % Dr. Gisel Boyce Work Phone: 8(244)011-768466 [place] [address] 04-07-2023 00:03-0500 Systolic blood pressure 168 mm[Hg] Dr. Gisel Boyce Work Phone: 9(150)218-379234 [place] [address] 04-06-2023 22:15-0500 Body height 177.[address] Gisel Boyce Work Phone: 6(065)526-792934 [place] [address] 04-06-2023 22:15-0500 Body mass index (BMI) [Ratio] 22.2 kg/m2 Dr. Gisel Boyce Work Phone: 3(488)939-689134 [place] [address] 04-06-2023 22:15-0500 Body weight 70.[address] Gisel Boyce Work Phone: 4(828)778-323334 [place] [address] 03-31-2023 10:00-0500 Body temperature 98 [degF] Dr. Gisel Boyce Work Phone: 5(051)895-214034 [place] [address] 03-31-2023 10:00-0500 Diastolic blood pressure 93 mm[Hg] Dr. Gisel Boyce Work Phone: 5(422)238-304534 [place] [address] 03-31-2023 10:00-0500 Heart rate 51 /min Dr. Gisel Boyce Work Phone: 5(371)372-256634 [place] [address] 03-31-2023 10:00-0500 Respiratory rate 18 /min Dr. Gisel Boyce Work Phone: 5(869)895-339634 [place] [address] 03-31-2023 10:00-0500 SaO2% (BldA) [Mass fraction] 95 % Dr. Gisel Boyce Work Phone: 0(484)691-334034 [place] [address] 03-31-2023 10:00-0500 Systolic blood pressure 129 mm[Hg] Dr. Gisel Boyce Work Phone: 8(126)167-576366 [place] [address] 03-27-2023 23:32-0500 Body height 177.[address] Gisel Boyce Work Phone: 0(210)745-302192 [address] 03-27-2023 23:32-0500 Body mass index (BMI) [Ratio] 20.5 kg/m2 Dr. Gisel Boyce Work Phone: 9(799)451-649066 [place] [address] 03-27-2023 23:32-0500 Body weight 64.[address] Gisel Boyce Work Phone: 6(786)152-469834 [place] [address] 03-27-2023 22:27-0500 Body temperature 97.6 [degF] Dr. Gisel Boyce Work Phone: 4(209)183-620692 [address] 03-27-2023 22:27-0500 Diastolic blood pressure 108 mm[Hg] Dr. Gisel Boyce Work Phone: 1(139)783-119534 [place] [address] 03-27-2023 22:27-0500 Heart rate 100 /min Dr. Gisel Boyce Work Phone: 4(714)446-675134 [place] [address] 03-27-2023 22:27-0500 Respiratory rate 22 /min Dr. Gisel Boyce Work Phone: 7(354)050-303534 [place] [address] 03-27-2023 22:27-0500 SaO2% (BldA) [Mass fraction] 99 % Dr. Gisel Boyce Work Phone: 6(334)066-309366 [place] [address] 03-27-2023 22:27-0500 Systolic blood pressure 169 mm[Hg] Dr. Gisel Boyce Work Phone: 1(850)082-556866 [place] [address] 03-27-2023 19:39-0500 Body height 177.[address] Gisel Boyce Work Phone: 1(414)449-837266 [place] [address] 03-27-2023 19:39-0500 Body mass index (BMI) [Ratio] 20.5 kg/m2 Dr. Gisel Boyce Work Phone: 2(473)164-176966 [place] [address] 03-27-2023 19:39-0500 Body weight 64.[address] Gisel Boyce Work Phone: 3(931)345-872866 [place] [address] 02-25-2023 10:01-0500 Body temperature 98.1 [degF] Dr. Gisel Boyce Work Phone: [facility] 02-25-2023 10:01-0500 Diastolic blood pressure 100 mm[Hg] Dr. Gisel Boyce Work Phone: [facility] 02-25-2023 10:01-0500 Heart rate 86 /min Dr. Gisel Boyce Work Phone: [facility] 02-25-2023 10:01-0500 Respiratory rate 18 /min Dr. Gisel Boyce Work Phone: [facility] 02-25-2023 10:01-0500 SaO2% (BldA) [Mass fraction] 96 % Dr. Gisel Boyce Work Phone: 2(611)211-554566 [place] [address] 02-25-2023 10:01-0500 Systolic blood pressure 151 mm[Hg] Dr. Gisel Boyce Work Phone: 5(407)465-013566 [place] [address] 02-25-2023 02:14-0500 Body temperature 97.8 [degF] Dr. Gisel Boyce Work Phone: 6(990)150-641166 [place] [address] 02-25-2023 02:14-0500 Diastolic blood pressure 98 mm[Hg] Dr. Gisel Boyce Work Phone: [facility] 02-25-2023 02:14-0500 Heart rate 69 /min Dr. Gisel Boyce Work Phone: [facility] 02-25-2023 02:14-0500 Respiratory rate 16 /min Dr. Gisel Boyce Work Phone: [facility] 02-25-2023 02:14-0500 SaO2% (BldA) [Mass fraction] 100 % Dr. Gisel Boyce Work Phone: [facility] 02-25-2023 02:14-0500 Systolic blood pressure 156 mm[Hg] Dr. Gisel Boyce Work Phone: [facility] 02-23-2023 10:50-0500 Body height 177.[address] Gisel Boyce Work Phone: [facility] 02-23-2023 10:50-0500 Body weight [address] Gisel Boyce Work Phone: [facility] 02-22-2023 20:00-0500 Body mass index (BMI) [Ratio] 21.5 kg/m2 Dr. Gisel Boyce Work Phone: [facility] 02-22-2023 19:46-0500 Body temperature 97.8 [degF] [facility] 02-22-2023 19:46-0500 Diastolic blood pressure 74 mm[Hg] [facility] 02-22-2023 19:46-0500 Heart rate 89 /min [facility] 02-22-2023 19:46-0500 Respiratory rate 15 /min [facility] 02-22-2023 19:46-0500 SaO2% (BldA) [Mass fraction] 98 % [facility] 02-22-2023 19:46-0500 Systolic blood pressure 139 mm[Hg] [facility] 02-22-2023 16:20-0500 Body height 177.8 cm [facility] 02-22-2023 16:20-0500 Body mass index (BMI) [Ratio] 21.4 kg/m2 [facility] 02-22-2023 16:20-0500 Body weight 67.8 kg [facility] Encounters Encounter Date Encounter Type Care Provider Facility Start: 11-06-2024 End: 11-06-2024 Office outpatient visit 25 minutes Kj Cervantes APRN.CNP Work Phone: [facility] [place] Comment on above: Medication refill (P rimary Dx) Start: 11-06-2024 End: 11-06-2024 ambulatory KJ CERVANTES Facility:[facility] Start: 08-16-2024 End: 08-16-2024 Patient encounter procedure Idalia Gutierrez APRN.QA SOFTWARE TESTER Work Phone: [facility] Comment on above: Mood disorder (Prima ry Dx); Sleeping difficulty Start: 08-16-2024 End: 08-16-2024 ambulatory IDALIA GUTIERREZ Facility:[facility] Start: 06-01-2023 End: 08-31-2023 ambulatory [facility] Comment on above: Alcohol dependence, uncomplicated (HCC) (Primary Dx); Hyperammonemia (HCC) Start: 04-11-2023 Non-patient / Non-visit Dr. Kevin Boyce Work Phone: [facility] Work Phone: Start: 04-10-2023 End: 04-12-2023 Evaluation and management of inpatient Achintya Mendiola Facility:[facility] Start: 04-10-2023 ambulatory Achintya Mendiola Facility :[facility] Start: 04-10-2023 Non-patient / Non-visit Dr. Kevin Boyce Work Phone: [facility] Work Phone: Start: 04-10-2023 End: 04-12-2023 Evaluation and management of inpatient Dr. Gisel Boyce Work Phone: [facility] Work Phone: Start: 04-07-2023 End: 04-07-2023 Emergency department patient visit No Primary Care Physician Facility:[facility] Start: 04-06-2023 End: 04-07-2023 Emergency department patient visit Dr. Gisel Boyce Work Phone: [facility] Work Phone: Start: 03-31-2023 Non-patient / Non-visit Dr. Kevin Boyce Work Phone: [facility] Work Phone: Start: 03-30-2023 Non-patient / Non-visit Dr. Kevin Boyce Work Phone: [facility] Work Phone: Start: 03-29-2023 Non-patient / Non-visit Dr. Kevin Boyce Work Phone: [facility] Work Phone: Start: 03-28-2023 Non-patient / Non-visit Dr. Kevin Boyce Work Phone: [facility] Work Phone: Start: 03-28-2023 End: 03-31-2023 ambulatory No Primary Care Physician Facility:[facility] Start: 03-27-2023 End: 03-31-2023 Evaluation and management of inpatient [facility]isel [facility]: Start: 02-25-2023 Non-patient / Non-visit Dr. Kevin Boyce Work Phone: [facility] Work Phone: Start: 02-24-2023 Non-patient / Non-visit Dr. Kevin Boyce Work Phone: [facility] Work Phone: Start: 02-23-2023 Non-patient / Non-visit Dr. Kevin Boyce Work Phone: [facility] Work Phone: Start: 02-22-2023 ambulatory No Primary Car e Physician Facility:[facility] Start: 02-22-2023 End: 02-25-2023 Evaluation and management of inpatient Achintya Mendiola Facility:[facility] Start: 02-22-2023 End: 02-25-2023 [facility] Work Phone: Procedures Date [...] or older (1 - 1-dose 60+ series) [facility] Start: 01-04-2030 Zoster Vaccines (1 of 2) Zoste r Vaccines (1 of 2) [facility] Start: 11-14-2024 End: 11-14-2024 Patient encounter procedure 11/14/2024 4:00 PM EDT Office Visit Family Medicine [address] [place] [id number] Catina Fournier, MOLDED GOODS CONTROLS OPERATOR.QA SOFTWARE TESTER [address] [facility] [place] [id number] New Patient/Establish care [facility] Comment on above: New Patient/Establis care Start: 10-24-2024 End: 10-24-2024 Patient encounter procedure 10/24/2024 2:00 PM EDT Office Visit [facility] [place] [address], [place] [address] Jeanette Mosley, MOLDED GOODS CONTROLS OPERATOR.QA SOFTWARE TESTER [address] [place], [place] [address] est care [facility] [place] Comment on above: est care Start: 10-23-2024 Influenza vaccination [facility] Start: 10-24-2023 Covid-19 Vaccine ( season) Covid-19 Vaccine ( season) [facility] Start: 10-24-2023 Influenza vaccination Influenza Vacc ine (#1) [facility] Start: 04-12-2023 Patient discharge [facility] Start: 04-10-2023 Following clinical p athway protocol [facility] Start: 04-10-2023 Assessment of risk o f venous thromboembolism [facility] Start: 04-10-2023 Insertion of cathete r into peripheral vein [facility] Start: 04-10-2023 Providing care accor ding to standard [facility] Start: 04-10-2023 [facility] Start: 04-10-2023 Admission procedure [facility] Start: 04-10-2023 Hospital admission, emergency, from emergency room, [facility] Start: 04-10-2023 Consultation [facility] Start: 04-10-2023 Patient referral to dietitian [facility] Start: 04-06-2023 [facility] Start: 03-31-2023 Patient discharge [facility] Start: 03-29-2023 Referral to service [facility] Start: 03-27-2023 Application of intermittent pneumatic compression device [facility] Start: 03-27-2023 Following clinical p athway protocol [facility] Start: 03-27-2023 Assessment of risk o f venous thromboembolism [facility] Start: 03-27-2023 Notification of physician [facility] Start: 03-27-2023 Vital signs measurements [facility] Start: 03-27-2023 [facility] Start: 03-27-2023 Admission procedure [facility] Start: 03-27-2023 Hospital admission, emergency, from emergency room, [facility] Start: 03-27-2023 Consultation [facility] Start: 02-25-2023 Patient discharge [facility] Start: 02-23-2023 Blood chemistry [facility] Start: 02-23-2023 Prothrombin time [facility] Start: 02-23-2023 Thyroid stimulating hormone measurement [facility] Start: 02-23-2023 [facility] Start: 02-22-2023 Following clinical p athway protocol [facility] Start: 02-22-2023 End: 02-22-2023 [facility] Start: 02-22-2023 Assessment of risk o f venous thromboembolism [facility] Start: 02-22-2023 Insertion of cathete r into peripheral vein [facility] Start: 02-22-2023 Providing care accor ding to standard [facility] Start: 02-22-[address] [facility] Start: 02-22-2023 Admission procedure [facility] Start: 02-22-2023 Hospital admission, emergency, from emergency room, [facility] Start: 02-22-2023 Consultation [facility] Start: 02-22-2023 Patient referral to dietitian [facility] Start: 10-23-2022 COVID-19 Vaccine ( season) COVID-19 Vaccine ( season) [facility] Start: 01-04-2015 Lipid panel Lipid Screening [facility] Start: 01-04-2007 HPV Vaccine (1 - 3-d ose SCDM series) HPV Vaccine (1 - 3-dose SCDM series) [facility] Start: 01-04-1999 DTaP/Tdap/Td Vaccine s (1 - Tdap) DTaP/Tdap/Td Vaccines (1 - Tdap) [facility] Start: 01-04-1999 Hepatitis B Vaccine (1 of 3 - 19+ 3-dose series) Hepatitis B Vaccine (1 of 3 - 19+ 3-dose series) [facility] Start: 01-04-1999 Hepatitis B Vaccines (1 of 3 - 19+ 3-dose series) Hepatitis B Vaccines (1 of 3 - 19+ 3-dose series) [facility] Start: 01-04-1999 Urine microalbumin profile DTa P,Tdap,Td Vaccine (1 - Tdap) [facility] Start: 01-04-1998 Anxiety Screening Anxiety Screening [facility] Start: 01-04-1998 Depression Screening Depression Scre ing [facility] Start: 01-04-1998 Hepatitis C screening Hepatitis C Sc reening [facility] Start: 01-04-1998 HIV screening HIV Screening [facility] Start: 1992 Depression Screening Depression Scre ing [facility] Start: 01-04-1981 MMR Vaccines (1 of 1 - Standard series) MMR Vaccines (1 of 1 - Standard series) [facility] Start: 1980 HIV screening HIV Screening [facility] Start: 1980 Lipid panel Lipid Panel [facility] Alanine aminotransfe rase [Enzymatic activity/volume] in Serum or Plasma [facility] Albumin [Mass/volume ] in Serum or Plasma [facility] Alkaline phosphatase [Enzymatic activity/volume] in Serum or Plasma [facility] Anion gap measurement [facility] Aspartate aminotrans ferase [Enzymatic activity/volume] in Serum or Plasma [facility] Bilirubin, total measurement [facility] Bilirubin.direct [Mass/volume] in Serum or Plasma [facility] BUN/Creatinine ratio [facility] Calcium [Mass/volume ] in Serum or Plasma [facility] Carbon dioxide, tota l [Moles/volume] in Serum or Plasma [facility] Chloride [Moles/volu me] in Serum or Plasma [facility] Creatinine [Moles/vo lume] in Serum or Plasma [facility] Glucose [Mass/volume ] in Serum or Plasma [facility] Hematocrit [Volume Fraction] of Blood [facility] Hemoglobin [Mass/vol ume] in Blood [facility] INR in Blood by Coagulation assay [facility] Leukocytes [#/volume ] in Blood [facility] Magnesium [Mass/volu me] in Serum or Plasma [facility] Mean corpuscular hemoglobin concentration determination [facility] Mean corpuscular hemoglobin determination [facility] Measurement of renal function [facility] Neutrophil count [facility] Neutrophil percent differential count [facility] OUTSIDE PROCEDURE SCAN OUTSIDE P ROCEDURE SCAN Procedures Ordered: 06/01/2023 [facility] Comment on above: Ordered: 06/01/2023 Patient Education Med Refill [facility] Work Phone: Patient referral [facility] Work Phone: Platelets [#/volume] in Blood [facility] Potassium [Moles/vol ume] in Serum or Plasma [facility] Red blood cell count [facility] Red cell distributio n width determination [facility] Sodium [Moles/volume ] in Serum or Plasma [facility] Total protein measurement [facility] Urea nitrogen [Mass/volume] in Serum or Plasma [facility] Payers Date Payer Category Payer Medicaid [id number] 2023 Unknown [id number] 2023 Self-pay Medicaid MEDICAID [id number] Unknown [id number] 2.16.8 [id number] Unknown [id number] 2.16.8 [id number] Unknown [id number] 2.16.8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
--- OUTSIDE RECORDS SUMMARY | 2025-01-11 19:21 | XMS RPT_ITS | CCD ---
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 therapy, use of Dimension [place] TBIL is not recommended. Performed By: #### L 505.5000, L501.9100, L500.4050 #### [facility] [address] [place], [address] BUN/CRE 10.7 RATIO Normal 10-20 [facility] Comment on above: Performed By: #### L 505.5000, L501.9100, L500.4050 #### [facility] [address] [place], [address] CA,Total 8.2 mg/dL Low 8.5-10.1 [facility] Comment on above: Performed By: #### L 505.5000, L501.9100, L500.4050 #### [facility] [address] [place], [address] Chloride [Moles/Vol] 103 mmol/L Normal 98-107 [facility] Comment on above: Performed By: #### L 505.5000, L501.9100, L500.4050 #### [facility] [address] [place], [address] CO2 [Moles/Vol] 29.0 mmol/L Normal 21.0-32.0 [facility] Comment on above: Performed By: #### L 505.5000, L501.9100, L500.4050 #### [facility] [address] [place], [address] Creatinine [Mass/Vol] 0.56 mg/dL Low 0.70-1.[address] [facility] Comment on above: Result Comment: The validity of the calculated GFR GFRAA in patients over 70 years has not been determined. Clinical correlation is essential. Performed By: #### L 505.5000, L501.9100, L500.4050 #### [facility] [address] [place], [address] ECRCL 155.89 ml/min Normal [facility] Comment on above: Performed By: #### L 505.5000, L501.9100, L500.4050 #### [facility] [address] [place], [address] EST GFR - AA 204 mL/min Normal >60 [facility] Comment on above: Result Comment: Afri can Cambodian GFR Calc Performed By: #### L 505.5000, L501.9100, L500.4050 #### [facility] [address] [place], [address] GAP 5 Normal 5-15 [facility] Comment on above: Performed By: #### L 505.5000, L501.9100, L500.4050 #### [facility] [address] [place], [address] GFR/1.73 sq M.predicted among non-blacks MDRD (S/P/Bld) [Vol rate/Area] 168 mL/min/{1.73_m2} Normal >60 [facility] Comment on above: Result Comment: Non- GFR Calc Performed By: #### L 505.5000, L501.9100, L500.4050 #### [facility] [address] [place], [address] Globulin (S) [Mass/Vol] 2.5 g/dL Normal 2.2-4.2 [facility] Comment on above: Performed By: #### L 505.5000, L501.9100, L500.4050 #### [facility] [address] [place], [address] Glucose [Mass/Vol] 92 mg/dL Normal 74-106 [facility] Comment on above: Performed By: #### L 505.5000, L501.9100, L500.4050 #### [facility] [address] [place], [address] Potassium [Moles/Vol] 3.3 mmol/L Low 3.5-5.[address] [facility] Comment on above: Performed By: #### L 505.5000, L501.9100, L500.4050 #### [facility] [address] [place], [address] Sodium [Moles/Vol] 137 mmol/L Normal 136-145 [facility] Comment on above: Performed By: #### L 505.5000, L501.9100, L500.4050 #### [facility] [address] [place], [address] T PROT 5.6 g/dL Low 6.4-8.2 [facility] Comment on above: Performed By: #### L 505.5000, L501.9100, L500.4050 #### [facility] [address] [place], [address] Urea nitrogen [Mass/Vol] 6 mg/dL Low 7-18 [facility] Comment on above: Performed By: #### L 505.5000, L501.9161, L500.4050 #### [facility] [address] [place], [address] Determination of erythrocyte mean corpuscular volume (MCV)Ordered By: Spencer Jones on 03-28-2023 MCV (RBC) [Entitic vol] 84.8 fL 80-94 [facility] Erythrocyte distribution wid th ratioOrdered By: Spencer Jones on 03-28-2023 Erythrocyte distribution width (RBC) [Ratio] 12.3 % 11.6-14.6 [facility] Erythrocyte distribution wid th standard deviationOrdered By: Spencer Jones on 03-28-2023 Erythrocyte distribution width (RBC) [Entitic vol] 38.2 fL 35.1-43.9 [facility] Hematocrit Auto (Bld) [Volum e fraction]Ordered By: Spencer Jones on 03-28-2023 Hematocrit (Bld) [Volume fraction] 34.6 % 40-54 [facility] Immature granulocytes/100 WB C Auto (Bld)Ordered By: Spencer Jones on 03-28-2023 Immature granulocytes/100 WBC (Bld) 0.000 % 0.0-0.9 [facility] Comment on above: IG% - Immature Granu locytes (promyelocytes, myelocytes and metamyelocytes) > 1% indicates that a LEFT SHIFT is Present. Laboratory - Chemistry and C hemistry - challengeOrdered By: Spencer Jones on 03-28-2023 Albumin/Globulin [Mass ratio] 1.2 {ratio} 0.9-2.4 [facility] ALP [Catalytic activity/Vol] 169 U/L 45-117 [facility] ALT [Catalytic activity/Vol] 106 U/L 16-61 [facility] Globulin (S) [Mass/Vol] 2.5 g/dL 2.2-4.2 [facility] Lipase [Catalytic activity/Vol] 199 U/L 13-75 [facility] Comment on above: Please note:LIPASE r evised reference range effective 22. New Lipase methodology. Expected to produce lower values than the previous assay method. NEW Reference Range: 13 - 75 U/L Laboratory - Hematology and Cell countsOrdered By: Spencer Jones on 03-28-2023 MCH (RBC) [Entitic mass] 29.4 pg 27.0-32.0 [facility] MCHC (RBC) [Mass/Vol] 34.7 g/dL 32-[address] [facility] Nucleated RBC/100 WBC (Bld) [Ratio] 0 % 0-5 [facility] Platelets (Bld) [#/Vol] 64 10*3/uL 150-450 [facility] Lipaseon 03-28-2023 Lipase [Catalytic activity/Vol] 199 U/L High 13-75 [facility] Comment on above: Result Comment: Selwyn hodgson note: LIPASE revised reference range effective 22. New Lipase methodology. Expected to produce lower values than the previous assay method. NEW Reference Range: 13 - 75 U/L Performed By: #### L 505.5000, L501.9100, L500.4050 #### [facility] [address] [place], [address] No Panel InformationOrdered By: Spencer Jones on 03-28-2023 Ethyl Alcohol Level 173.0 mg/dL [facility] Comment on above: The serum:whole bloo [...] volume (Bld) [Entitic vol] 9.2 fL 6.2-12.0 [facility] Prothrombin Time w/INRon INR Coag (PPP) [Relative time] 0.8 {INR} Normal [facility] Comment on above: Performed By: #### L 501.5200, L500.2500 #### [facility] [address] [place], [place], [id number] PT Coag (PPP) [Time] 11.5 s Low 11.7-14.9 [facility] Comment on above: Performed By: #### L 501.5200, L500.2500 #### [facility] [address] [place], [address] RBC Auto (Bld) [#/Vol]Ordere d By: Spencer Jones on 03-28-2023 RBC (Bld) [#/Vol] 4.08 10*6/uL 4.6-6.2 [facility] Thin prep Papanicolaou smear with manual screeningOrdered By: Spencer Jones on 03-28-2023 Thin prep Papanicolaou smear with manual screening 3.1 g/dL 3.2-5.0 [facility] Thin prep Papanicolaou smear with manual screening 139 U/L 15-37 [facility] Absolute lymphocyte countOrd ered By: Jimenez Irving on 03-27-2023 Lymphocytes Auto (Unsp spec) [#/Vol] 1.16 10*3/uL 0.83-4.51 [facility] Alcohol, Blood (Medical)-Ser umon 03-27-2023 SERUM ETOH 415.0 mg/dL Invalid Interpretation Code [facility] Comment on above: Result Comment: [...] By: #### L 505.5000, L501.9100, L500.4050 #### [facility] [address] [place], [address] Automated lymphocyte count a s percentage of total leukocytesOrdered By: Jimenez Irving on 03-27-2023 Lymphocytes/100 WBC Auto (Unsp spec) 44.4 % 19-41 [facility] Basophil percentageOrdered B y: Jimenez Irving on 03-27-2023 Basophils/100 WBC (Bld) 1.1 % 0-1 [facility] Bilirubin [Mass/Vol] 0.50 mg/dL 0.20-1.00 [facility] Comment on above: For patients on eltr ombopag therapy, use of Dimension [place] TBIL is not recommended. Chloride [Moles/Vol] 103 mmol/L 98-107 [facility] Eosinophils/100 WBC (Bld) 0.0 % 0-5 [facility] Glucose [Mass/Vol] 187 mg/dL 74-106 [facility] Comment on above: Fasting Glucose resu lt greater than or equal to 126 mg/dL suggests DIABETES MELLITUS per A.D.A. criteria. Hemoglobin (Bld) [Mass/Vol] 14.7 g/dL 13.0-16.5 [facility] Monocytes/100 WBC (Bld) 8.4 % 0-10 [facility] Neutrophils (Bld) [#/Vol] 1.2 10*3/uL 2.0-7.7 [facility] Neutrophils/100 WBC (Bld) 45.7 % 47-70 [facility] Potassium [Moles/Vol] 3.0 mmol/L 3.5-5.[address] [facility] Protein [Mass/Vol] 6.9 g/dL 6.4-8.2 [facility] Sodium [Moles/Vol] 139 mmol/L 136-145 [facility] WBC (Bld) [#/Vol] 2.6 10*3/uL 4.4-11.0 [facility] Basophil percentage 0 SEEN /hpf 0-5 [facility] Bilirubin Test strip Ql (U)O rdered By: Jimenez Irving on 03-27-2023 Bilirubin Ql (U) Negative Negative [facility] Blood manual differential co mment interpretation (narrative result)Ordered By: Jimenez Irving on 03-27-2023 Manual differential comment Damion (Bld) [Interp] SCANNED [facility] Comment on above: THROMBOCYTOPENIA NOT ED Brain/Head without Contrasto n 03-27-2023 Brain/Head without Contrast [facility] [address] [place] [address] Brain/Head without Contrast MR#: [id number] Acct: [id number] Name: VIVIAN POWELL Rep #: [id number] : 1980 M 43 From: Jessy Barraza MD PCP: Care Physician,No Primary Status: REG ER Study: Brain/Head without Contrast Date of Exam: 05/15 Exam# [id number] Ordering Dr: Jimenez Irving DO [id number] STUDY: CT BRAIN WITHOUT CONTRAST REASON FOR [...] Jimenez Irving DO; No Primary Care Physician Partition Assembler: Signed Normal [facility] CBC W/Diff, Automatedon SMEAR COMMENT SCANNED Normal [facility] Comment on above: Result Comment: THRO MBOCYTOPENIA NOTED Performed By: #### L 505.5000, L501.9100, L500.4050 #### [facility] [address] [place], [address] CTA Chest W/WO Contraston CTA Chest W/WO Contrast [facility] Imaging Services [address] [place] [address] CTA Chest W/WO Contrast MR#: [id number] Acct: [id number] Name: VIVIAN POWELL Rep #: [id number] : 1980 M 43 From: Jessy Barraza MD PCP: Care Physician,No Primary Status: REG ER Study: CTA Chest W/WO Contrast Date of Exam: 03/27/23 Exam# [id number] Ordering Dr: Jimenez Irving DO [id number] STUDY: CTA CHEST REASON FOR EXAM: Male, [...] Jimenez Irving, DO; No Primary Care Physician Partition Assembler: Signed Normal [facility] Comprehensive Metabolic Prof ilon 03-27-2023 Albumin [Mass/Vol] 3.7 g/dL Normal 3.2-5.0 [facility] Comment on above: Performed By: #### L 505.5000, L501.9100, L500.4050 #### [facility] [address] [place], [address] Albumin/Globulin [Mass ratio] 1.2 {ratio} Normal 0.9-2.4 [facility] Comment on above: Performed By: #### L 505.5000, L501.9100, L500.4050 #### [facility] [address] [place], [address] ALK P 202 U/L High 45-117 [facility] Comment on above: Performed By: #### L 505.5000, L501.9100, L500.4050 #### [facility] [address] [place], [address] ALT [Catalytic activity/Vol] 133 U/L High 16-61 [facility] Comment on above: Performed By: #### L 505.5000, L501.9100, L500.4050 #### [facility] [address] [place], [address] AST [Catalytic activity/Vol] 185 U/L High 15-37 [facility] Comment on above: Performed By: #### L 505.5000, L501.9100, L500.4050 #### [facility] [address] [place], [address] Bilirubin [Mass/Vol] 0.50 mg/dL Normal 0.20-1.00 [facility] Comment on above: Result Comment: For patients on eltrombopag therapy, use of Dimension [place] TBIL is not recommended. Performed By: #### L 505.5000, L501.9100, L500.4050 #### [facility] [address] [place], [address] BUN/CRE 12.8 RATIO Normal 10-20 [facility] Comment on above: Performed By: #### L 505.5000, L501.9100, L500.4050 #### [facility] [address] [place], [address] CA,Total 8.6 mg/dL Normal 8.5-10.1 [facility] Comment on above: Performed By: #### L 505.5000, L501.9100, L500.4050 #### [facility] [address] [place], [address] Chloride [Moles/Vol] 103 mmol/L Normal 98-107 [facility] Comment on above: Performed By: #### L 505.5000, L501.9100, L500.4050 #### [facility] [address] [place], [address] CO2 [Moles/Vol] 25.0 mmol/L Normal 21.0-32.0 [facility] Comment on above: Performed By: #### L 505.5000, L501.9100, L500.4050 #### [facility] [address] [place], [address] Creatinine [Mass/Vol] 0.78 mg/dL Normal 0.70-1.[address] [facility] Comment on above: Result Comment: The validity of the calculated GFR GFRAA in patients over 70 years has not been determined. Clinical correlation is essential. Performed By: #### L 505.5000, L501.9100, L500.4050 #### [facility] [address] [place], [address] ECRCL 112.03 ml/min Normal [facility] Comment on above: Performed By: #### L 505.5000, L501.9100, L500.4050 #### [facility] [address] [place], [address] EST GFR - AA 140 mL/min Normal >60 [facility] Comment on above: Result Comment: Afri can Cambodian GFR Calc Performed By: #### L 505.5000, L501.9100, L500.4050 #### [facility] [address] [place], [address] GAP 11 Normal 5-15 [facility] Comment on above: Performed By: #### L 505.5000, L501.9100, L500.4050 #### [facility] [address] [place], [address] GFR/1.73 sq M.predicted among non-blacks MDRD (S/P/Bld) [Vol rate/Area] 116 mL/min/{1.73_m2} Normal >60 [facility] Comment on above: Result Comment: Non- GFR Calc Performed By: #### L 505.5000, L501.9100, L500.4050 #### [facility] [address] [place], [address] Globulin (S) [Mass/Vol] 3.2 g/dL Normal 2.2-4.2 [facility] Comment on above: Performed By: #### L 505.5000, L501.9100, L500.4050 #### [facility] [address] [place], [address] Glucose [Mass/Vol] 187 mg/dL High 74-106 [facility] Comment on above: Result Comment: Fast ing Glucose result greater than or equal to 126 mg/dL suggests DIABETES MELLITUS per A.D.A. criteria. Performed By: #### L 505.5000, L501.9100, L500.4050 #### [facility] [address] [place], [address] Potassium [Moles/Vol] 3.0 mmol/L Low 3.5-5.[address] [facility] Comment on above: Performed By: #### L 505.5000, L501.9100, L500.4050 #### [facility] [address] [place], [address] Sodium [Moles/Vol] 139 mmol/L Normal 136-145 [facility] Comment on above: Performed By: #### L 505.5000, L501.9100, L500.4050 #### [facility] [address] [place], [address] T PROT 6.9 g/dL Normal 6.4-8.2 [facility] Comment on above: Performed By: #### L 505.5000, L501.9100, L500.4050 #### [facility] [address] [place], [address] Urea nitrogen [Mass/Vol] 10 mg/dL Normal 7-18 [facility] Comment on above: Performed By: #### L 505.5000, L501.9100, L500.4050 #### [facility] [address] [place], [address] Determination of erythrocyte mean corpuscular volume (MCV)Ordered By: Jimenez Irving on 03-27-2023 MCV (RBC) [Entitic vol] 85.2 fL 80-94 [facility] Emergency Department Summary on 03-27-2023 Emergency Department Summary [facility] Medical Records Department [address] [place] [address] Emergency Department Summary 03/27/23 MR#: [id number] Acct: [id number] Name: VIVIAN POWELL Rep #: [id number] : 1980 43 From: Jimenez Irving DO PCP: Care Physician,No Primary Status:ADM IN Location: [place] [id number] HPI History of Present Illness Chief Complaint: [...] for pancreatitis (more content not included)... Normal [facility] Erythrocyte distribution wid th ratioOrdered By: Jimenez Irving on 03-27-2023 Erythrocyte distribution width (RBC) [Ratio] 12.5 % 11.6-14.6 [facility] Erythrocyte distribution wid th standard deviationOrdered By: Jimenez Irving on 03-27-2023 Erythrocyte distribution width (RBC) [Entitic vol] 38.9 fL 35.1-43.9 [facility] H AND P Exam - Hospitaliston 03-27-2023 H&P Exam - Hospitalist [facility] Medical Records Department [address] [place] [address] H P Exam - Hospitalist 03/27/232154 MR#: [id number] Acct: [id number] Name: VIVIAN POWELL Rep #: [id number] : 1980 43 From: Spencer Maldonado DO PCP: Care Physician,No Primary Status:ADM IN Location: [facility] [id number] HPI - General General Date of Admission: [...] 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 [facility] Alcohol abuse Clavicle fracture [...] Resp normal (more content not included)... Normal [facility] Hematocrit Auto (Bld) [Volum e fraction]Ordered By: Jimenez Irving on 03-27-2023 Hematocrit (Bld) [Volume fraction] 42.7 % 40-54 [facility] Immature granulocytes/100 WB C Auto (Bld)Ordered By: Jimenez Irving on 03-27-2023 Immature granulocytes/100 WBC (Bld) 0.400 % 0.0-0.9 [facility] Comment on above: IG% - Immature Granu locytes (promyelocytes, myelocytes and metamyelocytes) > 1% indicates that a LEFT SHIFT is Present. Ketones Test strip Ql (U)Ord ered By: Jimenez Irving on 03-27-2023 Ketones Ql (U) 50 mg/dl Negative [facility] - Chemistry and C hemistry - challengeOrdered By: Jimenez Irving on 03-27-2023 Albumin/Globulin [Mass ratio] 1.2 {ratio} 0.9-2.4 [facility] ALP [Catalytic activity/Vol] 202 U/L 45-117 [facility] ALT [Catalytic activity/Vol] 133 U/L 16-61 [facility] CO2 [Moles/Vol] 25.0 mmol/L 21.0-32.0 [facility] Globulin (S) [Mass/Vol] 3.2 g/dL 2.2-4.2 [facility] Lipase [Catalytic activity/Vol] 220 U/L 13-75 [facility] Comment on above: Please note:LIPASE r evised reference range effective 22. New Lipase methodology. Expected to produce lower values than the previous assay method. NEW Reference Range: 13 - 75 U/L Urea nitrogen/Creatinine [Mass ratio] 12.8 mg/mg 10-20 [facility] - CoagulationOrde red By: Spencer Jones on 03-27-2023 PT Coag (PPP) [Time] 11.5 s 11.7-14.9 [facility] - Drug toxicology Ordered By: Jimenez Irving on 03-27-2023 Amphetamines Ql (U) Negative <1000 ng/mL [facility] Benzodiazepines Ql (U) Negative < 200 ng/mL [facility] Cannabinoids Screen Ql (U) Negative < 50 ng/mL [facility] Cocaine Ql (U) Negative < 300 ng/mL [facility] Opiates Ql (U) Negative < 300 ng/mL [facility] - Hematology and Cell countsOrdered By: Jimenez Irving on 03-27-2023 MCH (RBC) [Entitic mass] 29.3 pg 27.0-32.0 [facility] MCHC (RBC) [Mass/Vol] 34.4 g/dL 32-[address] [facility] Nucleated RBC/100 WBC (Bld) [Ratio] 0 % 0-5 [facility] Platelets (Bld) [#/Vol] 85 10*3/uL 150-450 [facility] Lipaseon 03-27-2023 Lipase [Catalytic activity/Vol] 220 U/L High 13-75 [facility] Comment on above: Result Comment: Selwyn hodgson note: LIPASE revised reference range effective 22. New Lipase methodology. Expected to produce lower values than the previous assay method. NEW Reference Range: 13 - 75 U/L Performed By: #### L 505.5000, L501.9100, L500.4050 #### [facility] [address] [place] [address], [id number] Mucus LM Ql (Urine sed)Order ed By: Jimenez Irving on 03-27-2023 Mucus Ql (Urine sed) 0 SEEN /hpf [facility] Nitrite Test strip Ql (U)Ord ered By: Jimenez Irving on 03-27-2023 Nitrite Ql (U) Negative Negative [facility] No Panel InformationOrdered By: Jimenez Irving on 03-27-2023 Estimated Creatinine Clearance Calc 112.03 ml/min [facility] Estimated GFR (MDRD) Amer 140 mL/min >60 [facility] Comment on above: GFR Calc Estimated GFR (MDRD) Non-Af Amer 116 mL/min >60 [facility] Comment on above: Non- GFR Calc Ethyl Alcohol Level 415.0 mg/dL [facility] Comment on above: Critical Result(s) C [...] MDMA (Ecstasy) Screen Negative < 500 ng/mL [facility] Urine Barbiturates Screen Negative < 200 ng/mL [facility] Urine Drug Screen Comment [facility] Comment on above: CONFIRMATORY TESTING [...] Methadone Screen Negative < 300 ng/mL [facility] Urine RBC 0 SEEN /hpf 0-5 [facility] Platelet mean volume Jacob-Ec ker (Bld) [Entitic vol]Ordered By: Jimenez Irving on 03-27-2023 Platelet mean volume (Bld) [Entitic vol] 8.8 fL 6.2-12.0 [facility] Platelet poor plasma interna tional normalized ratio (INR)Ordered By: Spencer Jones on 03-27-2023 INR Coag (PPP) [Relative time] 0.8 {INR} [facility] Protein Test strip Ql (U)Ord ered By: Jimenez Irving on 03-27-2023 Protein Ql (U) 100 mg/dl Negative [facility] RBC Auto (Bld) [#/Vol]Ordere d By: Jimenez Irving on 03-27-2023 RBC (Bld) [#/Vol] 5.01 10*6/uL 4.6-6.2 [facility] Serum or plasma calcium [place] urement (mass/volume)Ordered By: Jimenez Irving on 03-27-2023 Calcium [Mass/Vol] 8.6 mg/dL 8.5-10.1 [facility] Serum or plasma creatinine m easurement (mass/volume)Ordered By: Jimenez Irving on 03-27-2023 Creatinine [Mass/Vol] 0.78 mg/dL 0.70-1.[address] [facility] Comment on above: The validity of the calculated GFR & GFRAA in patients over 70 years has not been determined. Clinical correlation is essential. Serum or plasma urea nitroge n measurement (mass/volume)Ordered By: Jimenez Irving on 03-27-2023 Urea nitrogen [Mass/Vol] 10 mg/dL 7-18 [facility] Squamous epithelial cells de tection in urine sediment by light microscopyOrdered By: Jimenez Irving on 03-27-2023 Epithelial cells.squamous LM Ql (Urine sed) 0 SEEN /hpf 0-5 [facility] Thin prep Papanicolaou smear with manual screeningOrdered By: Jimenez Irving on 03-27-2023 Thin prep Papanicolaou smear with manual screening 3.7 g/dL 3.2-5.0 [facility] Thin prep Papanicolaou smear with manual screening 185 U/L 15-37 [facility] Thin prep Papanicolaou smear with manual screening 11 5-15 [facility] Urinalysis, Completeon 03-27 BACTERIA 0 SEEN Normal None Seen [facility] Comment on above: Order Comment: CLEAN CATCH Performed By: #### L 505.5000, L501.9100, L500.4050 #### [facility] [address] [place], [address] EPI,SQUAMOUS 0 SEEN Normal 0-5 [facility] Comment on above: Order Comment: CLEAN CATCH Performed By: #### L 505.5000, L501.9100, L500.4050 #### [facility] [address] [place], [address] Mucus Ql (Urine sed) 0 SEEN Normal [facility] Comment on above: Order Comment: CLEAN CATCH Performed By: #### L 505.5000, L501.9100, L500.4050 #### [facility] [address] [place], [address] RBC 0 SEEN Normal 0-5 [facility] Comment on above: Order Comment: CLEAN CATCH Performed By: #### L 505.5000, L501.9100, L500.4050 #### [facility] [address] [place], [address] WBC 0 SEEN Normal 0-5 [facility] Comment on above: Order Comment: CLEAN CATCH Performed By: #### L 505.5000, L501.9100, L500.4050 #### [facility] [address] [place], [address] Urine Drug Screen (VISTA)on 03-27-2023 AMPHETAMINES Negative Normal <1000 ng/mL [facility] Comment on above: Performed By: #### L 505.5000, L501.9100, L500.4050 #### [facility] [address] [place], [address] BARBITIURATES Negative Normal < 200 ng/mL [facility] Comment on above: Performed By: #### L 505.5000, L501.9100, L500.4050 #### [facility] [address] [place], [address] BENZODIAZIPINE Negative Normal < 200 ng/mL [facility] Comment on above: Performed By: #### L 505.5000, L501.9100, L500.4050 #### [facility] [address] [place], [address] COCAINE Negative Normal < 300 ng/mL [facility] Comment on above: Performed By: #### L 505.5000, L501.9100, L500.4050 #### [facility] [address] [place], [address] ECSTACY Negative Normal < 500 ng/mL [facility] Comment on above: Performed By: #### L 505.5000, L501.9100, L500.4050 #### [facility] [address] [place], [address] METHADONE Negative Normal < 300 ng/mL [facility] Comment on above: Performed By: #### L 505.5000, L501.9100, L500.4050 #### [facility] [address] [place], [address] OPIATES Negative Normal < 300 ng/mL [facility] Comment on above: Performed By: #### L 505.5000, L501.9100, L500.4050 #### [facility] [address] [place], [address] PCP Negative Normal < 25 ng/mL [facility] Comment on above: Performed By: #### L 505.5000, L501.9100, L500.4050 #### [facility] [address] [place], [address] THC Negative Normal < 50 ng/mL [facility] Comment on above: Performed By: #### L 505.5000, L501.9100, L500.4050 #### [facility] [address] [place], [address] VISTA UDS PH 6 Normal [facility] Comment on above: Performed By: #### L 505.5000, L501.9100, L500.4050 #### [facility] [address] [place], [address] Urine blood detectionOrdered By: Jimenez Irving on 03-27-2023 RBC Ql (U) 10 /ul Negative [facility] Urine clarityOrdered By: Ani Irving on 03-27-2023 Clarity (U) Clear Clear [facility] Urine color determinationOrd ered By: Jimenez Irving on 03-27-2023 Color (U) Yellow Yellow [facility] Urine glucose detectionOrder ed By: Jimenez Irving on 03-27-2023 Glucose Ql (U) Normal mg/dl Normal [facility] Urine leukocyte esterase det ection by dipstickOrdered By: Jimenez rIving on 03-27-2023 Leukocyte esterase Test strip Ql (U) Negative Negative [facility] Urine pHOrdered By: Jimenez delaney on 03-27-2023 pH (U) 6.5 [pH] 5.0 - 8.0 [facility] Urine phencyclidine (PCP) de tectionOrdered By: Jimenez Irving on 03-27-2023 Phencyclidine Ql (U) Negative < 25 ng/mL [facility] Urine sediment bacteria coun t by microscopy (number/high power field)Ordered By: Jimenez Irving on 03-27-2023 Bacteria LM.HPF (Urine sed) [#/Area] 0 /[HPF] None Seen [facility] Urine specific gravity measu rementOrdered By: Jimenez Irving on 03-27-2023 Specific gravity (U) [Rel density] 1.015 1.002-1.030 [facility] Urine urobilinogen measureme ntOrdered By: Jimenez Irving on 03-27-2023 Urobilinogen Ql (U) Normal mg/dl Normal [facility] Absolute lymphocyte countOrd ered By: Linda Mendiola on 02-23-2023 Lymphocytes Auto (Unsp spec) [#/Vol] 1.79 10*3/uL 0.83-4.51 [facility] Basophil percentageOrdered B y: Linda Mendiola on 02-23-2023 Basophil percentage 3.7 mg/dL 2.5-4.9 [facility] Basophils/100 WBC (Bld) 2.0 % 0-1 [facility] Bilirubin [Mass/Vol] 1.90 mg/dL 0.20-1.00 [facility] Comment on above: For patients on eltr ombopag therapy, use of Dimension [place] TBIL is not recommended. Chloride [Moles/Vol] 108 mmol/L 98-107 [facility] Eosinophils/100 WBC (Bld) 2.9 % 0-5 [facility] Glucose [Mass/Vol] 71 mg/dL 74-106 [facility] Neutrophils (Bld) [#/Vol] 1.2 10*3/uL 2.0-7.7 [facility] Neutrophils/100 WBC (Bld) 34.3 % 47-70 [facility] Potassium [Moles/Vol] 3.1 mmol/L 3.5-5.[address] [facility] Protein [Mass/Vol] 6.2 g/dL 6.4-8.2 [facility] Sodium [Moles/Vol] 143 mmol/L 136-145 [facility] WBC (Bld) [#/Vol] 3.5 10*3/uL 4.4-11.0 [facility] Bilirubin, Directon 02-23-19 24 Bilirubin.direct [Mass/Vol] 0.43 mg/dL High 0.00-0.30 [facility] Comment on above: Performed By: #### L 501.5200, L500.2500 #### [facility] [address] [place] [address], [address] Blood erythrocytes count (nu mber/volume)Ordered By: Linda Mendiola on 02-23-2023 RBC (Bld) [#/Vol] 4.50 10*6/uL 4.6-6.2 [facility] Blood hemoglobin measurement (mass/volume)Ordered By: Linda Mendiola on 02-23-2023 Hemoglobin (Bld) [Mass/Vol] 13.3 g/dL 13.0-16.5 [facility] Blood lymphocytes/100 leukoc ytesOrdered By: Linda Mendiola on 02-23-2023 Lymphocytes/100 WBC (Bld) 51.3 % 19-41 [facility] Blood monocytes/100 leukocyt esOrdered By: Linda Mendiola on 02-23-2023 Monocytes/100 WBC (Bld) 9.2 % 0-10 [facility] Blood platelet mean volumeOr dered By: Linda Mendiola on 02-23-2023 Platelet mean volume (Bld) [Entitic vol] 10.5 fL 6.2-12.0 [facility] CBC W/Diff, Automatedon Absolute Lymph 1.79 X10 3/uL Normal 0.83-4.51 [facility] Comment on above: Performed By: #### L 505.5000, L501.9100, L500.4050 #### [facility] [address] [place], [address] Absolute Neut 1.2 X10 3/uL Low 2.0-7.7 [facility] Comment on above: Performed By: #### L 505.5000, L501.9100, L500.4050 #### [facility] [address] [place], [address] Basophils/100 WBC (Bld) 2.0 % High 0-1 [facility] Comment on above: Performed By: #### L 505.5000, L501.9100, L500.4050 #### [facility] [address] [place], [address] Eosinophils/100 WBC (Bld) 2.9 % Normal 0-5 [facility] Comment on above: Performed By: #### L 505.5000, L501.9100, L500.4050 #### [facility] [address] [place], [address] Erythrocyte distribution width (RBC) [Ratio] 13.5 % Normal 11.6-14.6 [facility] Comment on above: Performed By: #### L 505.5000, L501.9100, L500.4050 #### [facility] [address] [place], [address] Hematocrit (Bld) [Volume fraction] 40.0 % Normal 40-54 [facility] Comment on above: Performed By: #### L 505.5000, L501.9100, L500.4050 #### [facility] [address] [place], [address] Hemoglobin (Bld) [Mass/Vol] 13.3 g/dL Normal 13.0-16.5 [facility] Comment on above: Performed By: #### L 505.5000, L501.9100, L500.4050 #### [facility] [address] [place], [address] IG% 0.300 Normal 0.0-0.9 [facility] Comment on above: Result Comment: IG% - Immature Granulocytes (promyelocytes, myelocytes and metamyelocytes) > 1% indicates that a LEFT SHIFT is Present. Performed By: #### L 505.5000, L501.9100, L500.4050 #### [facility] [address] [place], [address] Lymphocytes/100 WBC (Bld) 51.3 % High 19-41 [facility] Comment on above: Performed By: #### L 505.5000, L501.9100, L500.4050 #### [facility] [address] [place], [address] MCH (RBC) [Entitic mass] 29.6 pg Normal 27.0-32.0 [facility] Comment on above: Performed By: #### L 505.5000, L501.9100, L500.4050 #### [facility] [address] [place], [address] MCHC (RBC) [Mass/Vol] 33.3 g/dL Normal 32-[address] [facility] Comment on above: Performed By: #### L 505.5000, L501.9100, L500.4050 #### [facility] [address] [place], [address] MCV (RBC) [Entitic vol] 88.9 fL Normal 80-94 [facility] Comment on above: Performed By: #### L 505.5000, L501.9100, L500.4050 #### [facility] [address] [place], [address] Monocytes/100 WBC (Bld) 9.2 % Normal 0-10 [facility] Comment on above: Performed By: #### L 505.5000, L501.9100, L500.4050 #### [facility] [address] [place], [address] Neutrophils/100 WBC (Bld) 34.3 % Low 47-70 [facility] Comment on above: Performed By: #### L 505.5000, L501.9100, L500.4050 #### [facility] [address] [place], [address] Nucleated RBC (Bld) [#/Vol] 0 10*3/uL Normal 0-5 [facility] Comment on above: Performed By: #### L 505.5000, L501.9100, L500.4050 #### [facility] [address] [place], [address] Platelet mean volume (Bld) [Entitic vol] 10.5 fL Normal 6.2-12.0 [facility] Comment on above: Performed By: #### L 505.5000, L501.9100, L500.4050 #### [facility] [address] [place], [address] Platelets (Bld) [#/Vol] 127 10*3/uL Low 150-450 [facility] Comment on above: Performed By: #### L 505.5000, L501.9100, L500.4050 #### [facility] [address] [place], [address] RBC (Bld) [#/Vol] 4.50 10*6/uL Low 4.6-6.2 [facility] Comment on above: Performed By: #### L 505.5000, L501.9100, L500.4050 #### [facility] [address] [place], [address] RDW SD 44.0 fl High 35.1-43.9 [facility] Comment on above: Performed By: #### L 505.5000, L501.9100, L500.4050 #### [facility] [address] [place], [address] WBC (Bld) [#/Vol] 3.5 10*3/uL Low 4.4-11.0 [facility] Comment on above: Performed By: #### L 505.5000, L501.9100, L500.4050 #### [facility] [address] [place], [address] Comprehensive Metabolic Prof [facility] 02-23-2023 Albumin [Mass/Vol] 3.2 g/dL Normal 3.2-5.0 [facility] Comment on above: Performed By: #### L 505.5000, L501.9100, L500.4050 #### [facility] [address] [place], [address] Albumin/Globulin [Mass ratio] 1.1 {ratio} Normal 0.9-2.4 [facility] Comment on above: Performed By: #### L 505.5000, L501.9100, L500.4050 #### [facility] [address] [place], [address] ALK P 99 U/L Normal 45-117 [facility] Comment on above: Performed By: #### L 505.5000, L501.9100, L500.4050 #### [facility] [address] [place], [address] ALT [Catalytic activity/Vol] 29 U/L Normal 16-61 [facility] Comment on above: Performed By: #### L 505.5000, L501.9100, L500.4050 #### [facility] [address] [place], [address] AST [Catalytic activity/Vol] 32 U/L Normal 15-37 [facility] Comment on above: Performed By: #### L 505.5000, L501.9100, L500.4050 #### [facility] [address] [place], [address] Bilirubin [Mass/Vol] 1.90 mg/dL High 0.20-1.00 [facility] Comment on above: Result Comment: For patients on eltrombopag therapy, use of Dimension [place] TBIL is not recommended. Performed By: #### L 505.5000, L501.9100, L500.4050 #### [facility] [address] [place], [address] BUN/CRE 12.5 RATIO Normal 10-20 [facility] Comment on above: Performed By: #### L 505.5000, L501.9100, L500.4050 #### [facility] [address] [place], [address] CA,Total 8.0 mg/dL Low 8.5-10.1 [facility] Comment on above: Performed By: #### L 505.5000, L501.9100, L500.4050 #### [facility] [address] [place], [address] Chloride [Moles/Vol] 108 mmol/L High 98-107 [facility] Comment on above: Performed By: #### L 505.5000, L501.9100, L500.4050 #### [facility] [address] [place], [address] CO2 [Moles/Vol] 29.0 mmol/L Normal 21.0-32.0 [facility] Comment on above: Performed By: #### L 505.5000, L501.9100, L500.4050 #### [facility] [address] [place], [address] Creatinine [Mass/Vol] 0.64 mg/dL Low 0.70-1.[address] [facility] Comment on above: Result Comment: The validity of the calculated GFR GFRAA in patients over 70 years has not been determined. Clinical correlation is essential. Performed By: #### L 505.5000, L501.9100, L500.4050 #### [facility] [address] [place], [address] ECRCL 143.77 ml/min Normal [facility] Comment on above: Performed By: #### L 505.5000, L501.9100, L500.4050 #### [facility] [address] [place], [address] EST GFR - AA 175 mL/min Normal >60 [facility] Comment on above: Result Comment: Afri can Camb[place]ian GFR Calc Performed By: #### L 505.5000, L501.9100, L500.4050 #### [facility] [address] [place], [address] GAP 6 Normal 5-15 [facility] Comment on above: Performed By: #### L 505.5000, L501.9100, L500.4050 #### [facility] [address] [place], [address] GFR/1.73 sq M.predicted among non-blacks MDRD (S/P/Bld) [Vol rate/Area] 145 mL/min/{1.73_m2} Normal >60 [facility] Comment on above: Result Comment: Non- GFR Calc Performed By: #### L 505.5000, L501.9100, L500.4050 #### [facility] [address] [place], [address] Globulin (S) [Mass/Vol] 3.0 g/dL Normal 2.2-4.2 [facility] Comment on above: Performed By: #### L 505.5000, L501.9100, L500.4050 #### [facility] [address] [place], [address] Glucose [Mass/Vol] 71 mg/dL Low 74-106 [facility] Comment on above: Performed By: #### L 505.5000, L501.9100, L500.4050 #### [facility] [address] [place], [address] Potassium [Moles/Vol] 3.1 mmol/L Low 3.5-5.[address] [facility] Comment on above: Performed By: #### L 505.5000, L501.9100, L500.4050 #### [facility] [address] [place], [address] Sodium [Moles/Vol] 143 mmol/L Normal 136-145 [facility] Comment on above: Performed By: #### L 505.5000, L501.9100, L500.4050 #### [facility] [address] [place], [address] T PROT 6.2 g/dL Low 6.4-8.2 [facility] Comment on above: Performed By: #### L 505.5000, L501.9100, L500.4050 #### [facility] [address] [place], [address] Urea nitrogen [Mass/Vol] 8 mg/dL Normal 7-18 [facility] Comment on above: Performed By: #### L 505.5000, L501.9100, L500.4050 #### [facility] [address] [place], [address] Determination of erythrocyte mean corpuscular volume (MCV)Ordered By: Linda Mendiola on 02-23-2023 MCV (RBC) [Entitic vol] 88.9 fL 80-94 [facility] Direct bilirubinOrdered By: Linda Mendiola on 02-23-2023 Bilirubin.direct [Mass/Vol] 0.43 mg/dL 0.00-0.30 [facility] Hematocrit Auto (Bld) [Volum e fraction]Ordered By: Linda Mendiola on 02-23-2023 Hematocrit (Bld) [Volume fraction] 40.0 % 40-54 [facility] INR in Blood by Coagulation assayOrdered By: Linda Mendiola on 02-23-2023 INR Coag (Bld) [Relative time] 1.0 {INR} [facility] - Chemistry and C hemistry - challengeOrdered By: Linda Mendiola on 02-23-2023 ALP [Catalytic activity/Vol] 99 U/L 45-117 [facility] ALT [Catalytic activity/Vol] 29 U/L 16-61 [facility] CO2 [Moles/Vol] 29.0 mmol/L 21.0-32.0 [facility] Globulin (S) [Mass/Vol] 3.0 g/dL 2.2-4.2 [facility] Magnesium [Mass/Vol] 1.6 mg/dL 1.6-2.6 [facility] Urea nitrogen/Creatinine [Mass ratio] 12.5 mg/mg 10-20 [facility] - CoagulationOrde red By: Linda Mendiola on 02-23-2023 PT Coag (PPP) [Time] 13.6 s 11.7-14.9 [facility] - Hematology and Cell countsOrdered By: Linda Mendiola on 02-23-2023 Erythrocyte distribution width (RBC) [Entitic vol] 44.0 fL 35.1-43.9 [facility] Erythrocyte distribution width (RBC) [Ratio] 13.5 % 11.6-14.6 [facility] Immature granulocytes/100 WBC (Bld) 0.300 % 0.0-0.9 [facility] Comment on above: IG% - Immature Granu locytes (promyelocytes, myelocytes and metamyelocytes) > 1% indicates that a LEFT SHIFT is Present. MCH (RBC) [Entitic mass] 29.6 pg 27.0-32.0 [facility] Nucleated RBC/100 WBC (Bld) [Ratio] 0 % 0-5 [facility] MCHC Auto (RBC) [Mass/Vol]Or dered By: Linda Mendiola on 02-23-2023 MCHC (RBC) [Mass/Vol] 33.3 g/dL 32-[address] [facility] Magnesiumon 02-23-2023 Magnesium [Mass/Vol] 1.6 mg/dL Normal 1.6-2.6 [facility] Comment on above: Performed By: #### L 501.5200, L500.2500 #### [facility] [address] [place], [address] No Panel InformationOrdered By: Linda Mendiola on 02-23-2023 Estimated Creatinine Clearance Calc 143.77 ml/min [facility] Estimated GFR (MDRD) Amer 175 mL/min >60 [facility] Comment on above: GFR Calc Estimated GFR (MDRD) Non-Af Amer 145 mL/min >60 [facility] Comment on above: Non- GFR Calc Thyroid Stimulating Hormone (TSH) 0.70 uIU/mL 0.358-3.74 [facility] Phosphoruson 02-23-2023 Phosphate [Mass/Vol] 3.7 mg/dL Normal 2.5-4.9 [facility] Comment on above: Performed By: #### L 501.5200, L500.2500 #### [facility] [address] [place], [address] Platelets bldOrdered By: Roxann Mendiola on 02-23-2023 Platelets (Bld) [#/Vol] 127 10*3/uL 150-450 [facility] Prothrombin Time w/INRon INR Coag (PPP) [Relative time] 1.0 {INR} Normal [facility] Comment on above: Performed By: #### L 501.5200, L500.2500 #### [facility] [address] [place], [address] PT Coag (PPP) [Time] 13.6 s Normal 11.7-14.9 [facility] Comment on above: Performed By: #### L 501.5200, L500.2500 #### [facility] [address] [place], [address] Serum or plasma albumin carol[place] urement (mass/volume)Ordered By: Linda Mendiola on 02-23-2023 Albumin [Mass/Vol] 3.2 g/dL 3.2-5.0 [facility] Serum or plasma albumin/glob ulin mass ratioOrdered By: Linda Mendiola on 02-23-2023 Albumin/Globulin [Mass ratio] 1.1 {ratio} 0.9-2.4 [facility] Serum or plasma calcium carolina urement (mass/volume)Ordered By: Linda Mendiola on 02-23-2023 Calcium [Mass/Vol] 8.0 mg/dL 8.5-10.1 [facility] Serum or plasma creatinine m easurement (mass/volume)Ordered By: Linda Mendiola on 02-23-2023 Creatinine [Mass/Vol] 0.64 mg/dL 0.70-1.[address] [facility] Comment on above: The validity of the calculated GFR & GFRAA in patients over 70 years has not been determined. Clinical correlation is essential. Serum or plasma urea nitroge n measurement (mass/volume)Ordered By: Linda Mendiola on 02-23-2023 Urea nitrogen [Mass/Vol] 8 mg/dL 7-18 [facility] Thin prep Papanicolaou smear with manual screeningOrdered By: Linda Mendiola on 02-23-2023 Thin prep Papanicolaou smear with manual screening 32 U/L 15-37 [facility] Thin prep Papanicolaou smear with manual screening 6 5-15 [facility] Thyroid Stim Hormone (TSH)on 02-23-2023 TSH 0.70 uIU/mL Normal 0.358-3.74 [facility] Comment on above: Performed By: #### L 501.5200, L500.2500 #### [facility] [address] [place], [address] Absolute lymphocyte countOrd ered By: Gisel Boyce on 02-22-2023 Lymphocytes Auto (Unsp spec) [#/Vol] 1.18 10*3/uL 0.83-4.51 [facility] Alcohol, Blood (Medical)-Ser umon 02-22-2023 SERUM ETOH 243.0 mg/dL Normal [facility] Comment on above: Result Comment: The serum:whole blood ethanol ratio is approximately 1.14 and varies slightly with hematocrit. Medical Alcohol reference interval and critical value in non-tolerant individuals; 50 - 100 Impairment 100 Intoxication 100 - 250 Severe Poisoning 250 - 400 Deep/possible fatal coma Performed By: #### L 505.5000, L501.9100, L500.4050 #### [facility] [address] [place], [address] Ammoniaon 02-22-2023 Ammonia (P) [Moles/Vol] 32.0 umol/L Normal [facility] Comment on above: Performed By: #### L 501.5200, L500.2500 #### [facility] [address] [place], [address] Basophil percentageOrdered B y: Gisel Boyce on 02-22-2023 Ammonia (P) [Moles/Vol] 32.0 umol/L -[address] [place] [address] Basophils/100 WBC (Bld) 1.9 % 0-1 [facility] Bilirubin [Mass/Vol] 1.00 mg/dL 0.20-1.00 [facility] Comment on above: For patients on eltr ombopag therapy, use of Dimension [place] TBIL is not recommended. Chloride [Moles/Vol] 109 mmol/L 98-107 [facility] Eosinophils/100 WBC (Bld) 1.1 % 0-5 [facility] Glucose [Mass/Vol] 81 mg/dL 74-106 [facility] Neutrophils (Bld) [#/Vol] 1.1 10*3/uL 2.0-7.7 [facility] Neutrophils/100 WBC (Bld) 41.9 % 47-70 [facility] Potassium [Moles/Vol] 3.0 mmol/L 3.5-5.[address] [facility] Protein [Mass/Vol] 6.5 g/dL 6.4-8.2 [facility] Sodium [Moles/Vol] 143 mmol/L 136-145 [facility] WBC (Bld) [#/Vol] 2.7 10*3/uL 4.4-11.0 [facility] Blood erythrocytes count (nu mber/volume)Ordered By: Gisel Boyce on 02-22-2023 RBC (Bld) [#/Vol] 4.81 10*6/uL 4.6-6.2 [facility] Blood hemoglobin measurement (mass/volume)Ordered By: Gisel Boyce on 02-22-2023 Hemoglobin (Bld) [Mass/Vol] 14.4 g/dL 13.0-16.5 [facility] Blood lymphocytes/100 leukoc ytesOrdered By: Gisel Boyce on 02-22-2023 Lymphocytes/100 WBC (Bld) 44.2 % 19-41 [facility] Blood monocytes/100 leukocyt esOrdered By: Gisel Boyce on 02-22-2023 Monocytes/100 WBC (Bld) 10.9 % 0-10 [facility] Blood platelet mean volumeOr dered By: Gisel Boyce on 02-22-2023 Platelet mean volume (Bld) [Entitic vol] 9.3 fL 6.2-12.0 [facility] CBC W/Diff, Automatedon Absolute Lymph 1.18 X10 3/uL Normal 0.83-4.51 [facility] Comment on above: Performed By: #### L 501.5200, L500.2500 #### [facility] [address] [place], [address] Absolute Neut 1.1 X10 3/uL Low 2.0-7.7 [facility] Comment on above: Performed By: #### L 501.5200, L500.2500 #### [facility] [address] [place], [address] Basophils/100 WBC (Bld) 1.9 % High 0-1 [facility] Comment on above: Performed By: #### L 501.5200, L500.2500 #### [facility] [address] [place], [address] Eosinophils/100 WBC (Bld) 1.1 % Normal 0-5 [facility] Comment on above: Performed By: #### L 501.5200, L500.2500 #### [facility] [address] [place], [address] Erythrocyte distribution width (RBC) [Ratio] 13.6 % Normal 11.6-14.6 [facility] Comment on above: Performed By: #### L 501.5200, L500.2500 #### [facility] [address] [place], [address] Hematocrit (Bld) [Volume fraction] 43.0 % Normal 40-54 [facility] Comment on above: Performed By: #### L 501.5200, L500.2500 #### [facility] [address] [place], [address] Hemoglobin (Bld) [Mass/Vol] 14.4 g/dL Normal 13.0-16.5 [facility] Comment on above: Performed By: #### L 501.5200, L500.2500 #### [facility] [address] [place], [address] IG% 0.000 Normal 0.0-0.9 [facility] Comment on above: Result Comment: IG% - Immature Granulocytes (promyelocytes, myelocytes and metamyelocytes) > 1% indicates that a LEFT SHIFT is Present. Performed By: #### L 501.5200, L500.2500 #### [facility] [address] [place], [address] Lymphocytes/100 WBC (Bld) 44.2 % High 19-41 [facility] Comment on above: Performed By: #### L 501.5200, L500.2500 #### [facility] [address] [place], [address] MCH (RBC) [Entitic mass] 29.9 pg Normal 27.0-32.0 [facility] Comment on above: Performed By: #### L 501.5200, L500.2500 #### [facility] [address] [place], [address] MCHC (RBC) [Mass/Vol] 33.5 g/dL Normal 32-[address] [facility] Comment on above: Performed By: #### L 501.5200, L500.2500 #### [facility] [address] [place], [address] MCV (RBC) [Entitic vol] 89.4 fL Normal 80-94 [facility] Comment on above: Performed By: #### L 501.5200, L500.2500 #### [facility] [address] [place], [address] Monocytes/100 WBC (Bld) 10.9 % High 0-10 [facility] Comment on above: Performed By: #### L 501.5200, L500.2500 #### [facility] [address] [place], [address] Neutrophils/100 WBC (Bld) 41.9 % Low 47-70 [facility] Comment on above: Performed By: #### L 501.5200, L500.2500 #### [facility] [address] [place], [address] Nucleated RBC (Bld) [#/Vol] 0 10*3/uL Normal 0-5 [facility] Comment on above: Performed By: #### L 501.5200, L500.2500 #### [facility] [address] [place], [address] Platelet mean volume (Bld) [Entitic vol] 9.3 fL Normal 6.2-12.0 [facility] Comment on above: Performed By: #### L 501.5200, L500.2500 #### [facility] [address] [place], [address] Platelets (Bld) [#/Vol] 130 10*3/uL Low 150-450 [facility] Comment on above: Performed By: #### L 501.5200, L500.2500 #### [facility] [address] [place], [address] RBC (Bld) [#/Vol] 4.81 10*6/uL Normal 4.6-6.2 [facility] Comment on above: Performed By: #### L 501.5200, L500.2500 #### [facility] [address] [place], [address] RDW SD 45.0 fl High 35.1-43.9 [facility] Comment on above: Performed By: #### L 501.5200, L500.2500 #### [facility] [address] [place], [address] WBC (Bld) [#/Vol] 2.7 10*3/uL Low 4.4-11.0 [facility] Comment on above: Performed By: #### L 501.5200, L500.2500 #### [facility] [address] [place], [address] Comprehensive Metabolic Prof [facility] 02-22-2023 Albumin [Mass/Vol] 3.5 g/dL Normal 3.2-5.0 [facility] Comment on above: Performed By: #### L 505.5000, L501.9100, L500.4050 #### [facility] [address] [place], [address] Albumin/Globulin [Mass ratio] 1.2 {ratio} Normal 0.9-2.4 [facility] Comment on above: Performed By: #### L 505.5000, L501.9100, L500.4050 #### [facility] [address] [place], [address] ALK P 101 U/L Normal 45-117 [facility] Comment on above: Performed By: #### L 505.5000, L501.9100, L500.4050 #### [facility] [address] [place], [address] ALT [Catalytic activity/Vol] 33 U/L Normal 16-61 [facility] Comment on above: Performed By: #### L 505.5000, L501.9100, L500.4050 #### [facility] [address] [place], [address] AST [Catalytic activity/Vol] 33 U/L Normal 15-37 [facility] Comment on above: Performed By: #### L 505.5000, L501.9100, L500.4050 #### [facility] [address] [place], [address] Bilirubin [Mass/Vol] 1.00 mg/dL Normal 0.20-1.00 [facility] Comment on above: Result Comment: For patients on eltrombopag therapy, use of Dimension [place] TBIL is not recommended. Performed By: #### L 505.5000, L501.9100, L500.4050 #### [facility] [address] [place], [address] BUN/CRE 12.0 RATIO Normal 10-20 [facility] Comment on above: Performed By: #### L 505.5000, L501.9100, L500.4050 #### [facility] [address] [place], [address] CA,Total 8.0 mg/dL Low 8.5-10.1 [facility] Comment on above: Performed By: #### L 505.5000, L501.9100, L500.4050 #### [facility] [address] [place], [address] Chloride [Moles/Vol] 109 mmol/L High 98-107 [facility] Comment on above: Performed By: #### L 505.5000, L501.9100, L500.4050 #### [facility] [address] [place], [address] CO2 [Moles/Vol] 28.0 mmol/L Normal 21.0-32.0 [facility] Comment on above: Performed By: #### L 505.5000, L501.9100, L500.4050 #### [facility] [address] [place], [address] Creatinine [Mass/Vol] 0.58 mg/dL Low 0.70-1.[address] [facility] Comment on above: Result Comment: The validity of the calculated GFR GFRAA in patients over 70 years has not been determined. Clinical correlation is essential. Performed By: #### L 505.5000, L501.9100, L500.4050 #### [facility] [address] [place], [address] ECRCL 157.49 ml/min Normal [facility] Comment on above: Performed By: #### L 505.5000, L501.9100, L500.4050 #### [facility] [address] [place], [address] EST GFR - AA 196 mL/min Normal >60 [facility] Comment on above: Result Comment: Afri can Camb[place]ian GFR Calc Performed By: #### L 505.5000, L501.9100, L500.4050 #### [facility] [address] [place], [address] GAP 6 Normal 5-15 [facility] Comment on above: Performed By: #### L 505.5000, L501.9100, L500.4050 #### [facility] [address] [place], [address] GFR/1.73 sq M.predicted among non-blacks MDRD (S/P/Bld) [Vol rate/Area] 162 mL/min/{1.73_m2} Normal >60 [facility] Comment on above: Result Comment: Non- GFR Calc Performed By: #### L 505.5000, L501.9100, L500.4050 #### [facility] [address] [place], [address] Globulin (S) [Mass/Vol] 3.0 g/dL Normal 2.2-4.2 [facility] Comment on above: Performed By: #### L 505.5000, L501.9100, L500.4050 #### [facility] [address] [place], [address] Glucose [Mass/Vol] 81 mg/dL Normal 74-106 [facility] Comment on above: Performed By: #### L 505.5000, L501.9100, L500.4050 #### [facility] [address] [place], [address] Potassium [Moles/Vol] 3.0 mmol/L Low 3.5-5.[address] [facility] Comment on above: Performed By: #### L 505.5000, L501.9100, L500.4050 #### [facility] [address] [place], [address] Sodium [Moles/Vol] 143 mmol/L Normal 136-145 [facility] Comment on above: Performed By: #### L 505.5000, L501.9100, L500.4050 #### [facility] [address] [place], [address] T PROT 6.5 g/dL Normal 6.4-8.2 [facility] Comment on above: Performed By: #### L 505.5000, L501.9100, L500.4050 #### [facility] [address] [place], [address] Urea nitrogen [Mass/Vol] 7 mg/dL Normal 7-18 [facility] Comment on above: Performed By: #### L 505.5000, L501.9100, L500.4050 #### [facility] [address] [place], [address] Determination of erythrocyte mean corpuscular volume (MCV)Ordered By: Gisel Boyce on 02-22-2023 MCV (RBC) [Entitic vol] 89.4 fL 80-94 [facility] Emergency Department Summary on 02-22-2023 Emergency Department Summary [facility] Medical Records Department [address] [place] [address] Emergency Department Summary 02/22/23 MR#: [id number] Acct: [id number] Name: VIVIAN POWELL Rep #: [id number] : 1980 43 From: Gisel Boyce MD PCP: Care Physician,No Primary Status:ADM IN Location: [place] [address] HPI History of Present Illness Chief Complaint: ETOH Intox Detail of Chief Complaint: Requesting EtOH detox Informant: patient Narrative Narrative: Patient presents requesting help with alcohol detox. He states that he had done a rehab and detox program from February through May of last year in [place]. He states he stayed clean until December [...] up with shaking hands in the morning. [facility] Medical History (Updated 02/22/23 @ [...] 41.9 L Lymph % (Auto) 44.2 H Dickson % (Auto) 10.9 H Eos % (Auto) [...] NEGATIVE Urine (more content not included)... Normal [facility] H AND P Exam - [facility] 02-22-2023 H&P Exam - Hospitalist [facility] Medical Records Department [address] [place] [address] H P Exam - Hospitalist 02/22/23 1806 MR#: [id number] Acct: [id number] Name: VIVIAN POWELL Rep #: [id number] : 1980 43 From: Linda Mendiola MD PCP: Care Physician,No Primary Status:REG ER Location: ED HPI - General General Date of Admission: 02/22/23 Date of Service: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
--- OUTSIDE RECORDS SUMMARY | 2025-01-11 19:27 | XMS RPT_ITS | CCD ---
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 505.5000, L501.9100, L500.4050 #### [facility] [address] [place], [address] CA,Total 8.2 mg/dL Low 8.5-10.1 [facility] Comment on above: Performed By: #### L 505.5000, L501.9100, L500.4050 #### [facility] [address] [place], [address] Chloride [Moles/Vol] 103 mmol/L Normal 98-107 [facility] Comment on above: Performed By: #### L 505.5000, L501.9100, L500.4050 #### [facility] [address] [place], [address] CO2 [Moles/Vol] 29.0 mmol/L Normal 21.0-32.0 [facility] Comment on above: Performed By: #### L 505.5000, L501.9100, L500.4050 #### [facility] [address] [place], [address] Creatinine [Mass/Vol] 0.56 mg/dL Low 0.70-1.30 [facility] Comment on above: Result Comment: The validity of the calculated GFR GFRAA in patients over 70 years has not been determined. Clinical correlation is essential. Performed By: #### L 505.5000, L501.9100, L500.4050 #### [facility] [address] [place], [address] ECRCL 155.89 ml/min Normal [facility] Comment on above: Performed By: #### L 505.5000, L501.9100, L500.4050 #### [facility] [address] [place], [address] EST GFR - AA 204 mL/min Normal >60 [facility] Comment on above: Result Comment: Afri can Thai GFR Calc Performed By: #### L 505.5000, L501.9100, L500.4050 #### [facility] [address] [place], [address] GAP 5 Normal 5-15 [facility] Comment on above: Performed By: #### L 505.5000, L501.9100, L500.4050 #### [facility] [address] [place], [address] GFR/1.73 sq M.predicted among non-blacks MDRD (S/P/Bld) [Vol rate/Area] 168 mL/min/{1.73_m2} Normal >60 [facility] Comment on above: Result Comment: Non- GFR Calc Performed By: #### L 505.5000, L501.9100, L500.4050 #### [facility] [address] [place], [address] Globulin (S) [Mass/Vol] 2.5 g/dL Normal 2.2-4.2 [facility] Comment on above: Performed By: #### L 505.5000, L501.9100, L500.4050 #### [facility] [address] [place], [address] Glucose [Mass/Vol] 92 mg/dL Normal 74-106 [facility] Comment on above: Performed By: #### L 505.5000, L501.9100, L500.4050 #### [facility] [address] [place], [address] Potassium [Moles/Vol] 3.3 mmol/L Low 3.5-5.1 [facility] Comment on above: Performed By: #### L 505.5000, L501.9100, L500.4050 #### [facility] [address] [place], [address] Sodium [Moles/Vol] 137 mmol/L Normal 136-145 [facility] Comment on above: Performed By: #### L 505.5000, L501.9100, L500.4050 #### [facility] [address] [place], [address] T PROT 5.6 g/dL Low 6.4-8.2 [facility] Comment on above: Performed By: #### L 505.5000, L501.9100, L500.4050 #### [facility] [address] [place], [address] Urea nitrogen [Mass/Vol] 6 mg/dL Low 7-18 [facility] Comment on above: Performed By: #### L 505.5000, L501.9176, L500.4050 #### [facility] [address] [place], [address] Determination of erythrocyte mean corpuscular volume (MCV)Ordered By: Spencer Jones on 03-28-2023 MCV (RBC) [Entitic vol] 84.8 fL 80-94 [facility] Erythrocyte distribution wid th ratioOrdered By: Spencer Jones on 03-28-2023 Erythrocyte distribution width (RBC) [Ratio] 12.3 % 11.6-14.6 [facility] Erythrocyte distribution wid th standard deviationOrdered By: Spencer Jones on 03-28-2023 Erythrocyte distribution width (RBC) [Entitic vol] 38.2 fL 35.1-43.9 [facility] Hematocrit Auto (Bld) [Volum e fraction]Ordered By: Spencer Jones on 03-28-2023 Hematocrit (Bld) [Volume fraction] 34.6 % 40-54 [facility] Immature granulocytes/100 WB C Auto (Bld)Ordered By: Spencer Jones on 03-28-2023 Immature granulocytes/100 WBC (Bld) 0.000 % 0.0-0.9 [facility] Comment on above: IG% - Immature Granu locytes (promyelocytes, myelocytes and metamyelocytes) > 1% indicates that a LEFT SHIFT is Present. Laboratory - Chemistry and C hemistry - challengeOrdered By: Spencer Jones on 03-28-2023 Albumin/Globulin [Mass ratio] 1.2 {ratio} 0.9-2.4 [facility] ALP [Catalytic activity/Vol] 169 U/L 45-117 [facility] ALT [Catalytic activity/Vol] 106 U/L 16-61 [facility] Globulin (S) [Mass/Vol] 2.5 g/dL 2.2-4.2 [facility] Lipase [Catalytic activity/Vol] 199 U/L 13-75 [facility] Comment on above: Please note:LIPASE r evised reference range effective 22. New Lipase methodology. Expected to produce lower values than the previous assay method. NEW Reference Range: 13 - 75 U/L Laboratory - Hematology and Cell countsOrdered By: Spencer Jones on 03-28-2023 MCH (RBC) [Entitic mass] 29.4 pg 27.0-32.0 [facility] MCHC (RBC) [Mass/Vol] 34.7 g/dL 32-36 [facility] Nucleated RBC/100 WBC (Bld) [Ratio] 0 % 0-5 [facility] Platelets (Bld) [#/Vol] 64 10*3/uL 150-450 [facility] Lipaseon 03-28-2023 Lipase [Catalytic activity/Vol] 199 U/L High 13-75 [facility] Comment on above: Result Comment: Selwyn hodgson note: LIPASE revised reference range effective 22. New Lipase methodology. Expected to produce lower values than the previous assay method. NEW Reference Range: 13 - 75 U/L Performed By: #### L 505.5000, L501.9100, L500.4050 #### [facility] [address] [place], [address] No Panel InformationOrdered By: Spencer Jones on 03-28-2023 Ethyl Alcohol Level 173.0 mg/dL [facility] Comment on above: The serum:whole bloo [...] volume (Bld) [Entitic vol] 9.2 fL 6.2-12.0 [facility] Prothrombin Time w/INRon INR Coag (PPP) [Relative time] 0.8 {INR} Normal [facility] Comment on above: Performed By: #### L 501.5200, L500.2500 #### [facility] [address] [place], [place], [address] PT Coag (PPP) [Time] 11.5 s Low 11.7-14.9 [facility] Comment on above: Performed By: #### L 501.5200, L500.2500 #### [facility] [address] [place], [address] RBC Auto (Bld) [#/Vol]Ordere d By: Spencer Jones on 03-28-2023 RBC (Bld) [#/Vol] 4.08 10*6/uL 4.6-6.2 [facility] Thin prep Papanicolaou smear with manual screeningOrdered By: Spencer Jones on 03-28-2023 Thin prep Papanicolaou smear with manual screening 3.1 g/dL 3.2-5.0 [facility] Thin prep Papanicolaou smear with manual screening 139 U/L 15-37 [facility] Absolute lymphocyte countOrd ered By: Jimenez Irving on 03-27-2023 Lymphocytes Auto (Unsp spec) [#/Vol] 1.16 10*3/uL 0.83-4.51 [facility] Alcohol, Blood (Medical)-Ser umon 03-27-2023 SERUM ETOH 415.0 mg/dL Invalid Interpretation Code [facility] Comment on above: Result Comment: [...] By: #### L 505.5000, L501.9100, L500.4050 #### [facility] [address] [place], [address] Automated lymphocyte count a s percentage of total leukocytesOrdered By: Jimenez Irving on 03-27-2023 Lymphocytes/100 WBC Auto (Unsp spec) 44.4 % 19-41 [facility] Basophil percentageOrdered B y: Jimenez Irving on 03-27-2023 Basophils/100 WBC (Bld) 1.1 % 0-1 [facility] Bilirubin [Mass/Vol] 0.50 mg/dL 0.20-1.00 [facility] Comment on above: For patients on eltr ombopag therapy, use of Dimension [place] TBIL is not recommended. Chloride [Moles/Vol] 103 mmol/L 98-107 [facility] Eosinophils/100 WBC (Bld) 0.0 % 0-5 [facility] Glucose [Mass/Vol] 187 mg/dL 74-106 [facility] Comment on above: Fasting Glucose resu lt greater than or equal to 126 mg/dL suggests DIABETES MELLITUS per A.D.A. criteria. Hemoglobin (Bld) [Mass/Vol] 14.7 g/dL 13.0-16.5 [facility] Monocytes/100 WBC (Bld) 8.4 % 0-10 [facility] Neutrophils (Bld) [#/Vol] 1.2 10*3/uL 2.0-7.7 [facility] Neutrophils/100 WBC (Bld) 45.7 % 47-70 [facility] Potassium [Moles/Vol] 3.0 mmol/L 3.5-5.1 [facility] Protein [Mass/Vol] 6.9 g/dL 6.4-8.2 [facility] Sodium [Moles/Vol] 139 mmol/L 136-145 [facility] WBC (Bld) [#/Vol] 2.6 10*3/uL 4.4-11.0 [facility] Basophil percentage 0 SEEN /hpf 0-5 [facility] Bilirubin Test strip Ql (U)O rdered By: Jimenez Irving on 03-27-2023 Bilirubin Ql (U) Negative Negative [facility] Blood manual differential co mment interpretation (narrative result)Ordered By: Jimenez Irving on 03-27-2023 Manual differential comment Damion (Bld) [Interp] SCANNED [facility] Comment on above: THROMBOCYTOPENIA NOT ED Brain/Head without Contrasto n 03-27-2023 Brain/Head without Contrast [facility] Imaging Services [address] [place] [address] Brain/Head without Contrast MR#: [id number] Acct: [id number] Name: VIVIAN POWELL Rep #: [id number] : 1980 M 43 From: Jessy Barraza MD PCP: Care Physician,No Primary Status: REG ER Study: Brain/Head without Contrast Date of Exam: 05/15 Exam# [id number] Ordering Dr: Jimenez Irving DO [id number] STUDY: CT BRAIN WITHOUT CONTRAST REASON FOR [...] Jimenez Irving DO; No Primary Care Physician Soft Sugar Supervisor: Signed Normal [facility] CBC W/Diff, Automatedon SMEAR COMMENT SCANNED Normal [facility] Comment on above: Result Comment: THRO MBOCYTOPENIA NOTED Performed By: #### L 505.5000, L501.9100, L500.4050 #### [facility] [address] [place], [address] CTA Chest W/WO Contraston CTA Chest W/WO Contrast [facility] Imaging Services [address] [place] [address] CTA Chest W/WO Contrast MR#: [id number] Acct: [id number] Name: VIVIAN POWELL Rep #: [id number] : 1980 M 43 From: Jessy Barraza MD PCP: Care Physician,No Primary Status: REG ER Study: CTA Chest W/WO Contrast Date of Exam: 03/27/23 Exam# [id number] Ordering Dr: Jimenez Irving DO [id number] STUDY: CTA CHEST REASON FOR EXAM: Male, [...] Jimenez Irving, DO; No Primary Care Physician Soft Sugar Supervisor: Signed Normal [facility] Comprehensive Metabolic Prof ilon 03-27-2023 Albumin [Mass/Vol] 3.7 g/dL Normal 3.2-5.0 [facility] Comment on above: Performed By: #### L 505.5000, L501.9100, L500.4050 #### [facility] [address] [place], [address] Albumin/Globulin [Mass ratio] 1.2 {ratio} Normal 0.9-2.4 [facility] Comment on above: Performed By: #### L 505.5000, L501.9100, L500.4050 #### [facility] [address] [place], [address] ALK P 202 U/L High 45-117 [facility] Comment on above: Performed By: #### L 505.5000, L501.9100, L500.4050 #### [facility] [address] [place], [address] ALT [Catalytic activity/Vol] 133 U/L High 16-61 [facility] Comment on above: Performed By: #### L 505.5000, L501.9100, L500.4050 #### [facility] [address] [place], [address] AST [Catalytic activity/Vol] 185 U/L High 15-37 [facility] Comment on above: Performed By: #### L 505.5000, L501.9100, L500.4050 #### [facility] [address] [place], [address] Bilirubin [Mass/Vol] 0.50 mg/dL Normal 0.20-1.00 [facility] Comment on above: Result Comment: For patients on eltrombopag therapy, use of Dimension [place] TBIL is not recommended. Performed By: #### L 505.5000, L501.9100, L500.4050 #### [facility] [address] [place], [address] BUN/CRE 12.8 RATIO Normal 10-20 [facility] Comment on above: Performed By: #### L 505.5000, L501.9100, L500.4050 #### [facility] [address] [place], [address] CA,Total 8.6 mg/dL Normal 8.5-10.1 [facility] Comment on above: Performed By: #### L 505.5000, L501.9100, L500.4050 #### [facility] [address] [place], [address] Chloride [Moles/Vol] 103 mmol/L Normal 98-107 [facility] Comment on above: Performed By: #### L 505.5000, L501.9100, L500.4050 #### [facility] [address] [place], [address] CO2 [Moles/Vol] 25.0 mmol/L Normal 21.0-32.0 [facility] Comment on above: Performed By: #### L 505.5000, L501.9100, L500.4050 #### [facility] [address] [place], [address] Creatinine [Mass/Vol] 0.78 mg/dL Normal 0.70-1.30 [facility] Comment on above: Result Comment: The validity of the calculated GFR GFRAA in patients over 70 years has not been determined. Clinical correlation is essential. Performed By: #### L 505.5000, L501.9100, L500.4050 #### [facility] [address] [place], [address] ECRCL 112.03 ml/min Normal [facility] Comment on above: Performed By: #### L 505.5000, L501.9100, L500.4050 #### [facility] [address] [place], [address] EST GFR - AA 140 mL/min Normal >60 [facility] Comment on above: Result Comment: Afri can Thai GFR Calc Performed By: #### L 505.5000, L501.9100, L500.4050 #### [facility] [address] [place], [address] GAP 11 Normal 5-15 [facility] Comment on above: Performed By: #### L 505.5000, L501.9100, L500.4050 #### [facility] [address] [place], [address] GFR/1.73 sq M.predicted among non-blacks MDRD (S/P/Bld) [Vol rate/Area] 116 mL/min/{1.73_m2} Normal >60 [facility] Comment on above: Result Comment: Non- GFR Calc Performed By: #### L 505.5000, L501.9100, L500.4050 #### [facility] [address] [place], [address] Globulin (S) [Mass/Vol] 3.2 g/dL Normal 2.2-4.2 [facility] Comment on above: Performed By: #### L 505.5000, L501.9100, L500.4050 #### [facility] [address] [place], [address] Glucose [Mass/Vol] 187 mg/dL High 74-106 [facility] Comment on above: Result Comment: Fast ing Glucose result greater than or equal to 126 mg/dL suggests DIABETES MELLITUS per A.D.A. criteria. Performed By: #### L 505.5000, L501.9100, L500.4050 #### [facility] [address] [place], [address] Potassium [Moles/Vol] 3.0 mmol/L Low 3.5-5.1 [facility] Comment on above: Performed By: #### L 505.5000, L501.9100, L500.4050 #### [facility] [address] [place], [address] Sodium [Moles/Vol] 139 mmol/L Normal 136-145 [facility] Comment on above: Performed By: #### L 505.5000, L501.9100, L500.4050 #### [facility] [address] [place], [address] T PROT 6.9 g/dL Normal 6.4-8.2 [facility] Comment on above: Performed By: #### L 505.5000, L501.9100, L500.4050 #### [facility] [address] [place], [address] Urea nitrogen [Mass/Vol] 10 mg/dL Normal 7-18 [facility] Comment on above: Performed By: #### L 505.5000, L501.9100, L500.4050 #### [facility] [address] [place], [address] Determination of erythrocyte mean corpuscular volume (MCV)Ordered By: Jimenez Irving on 03-27-2023 MCV (RBC) [Entitic vol] 85.2 fL 80-94 [facility] Emergency Department Summary on 03-27-2023 Emergency Department Summary [facility] Medical Records Department [address] [place] [address] Emergency Department Summary 03/27/23 MR#: [id number] Acct: [id number] Name: VIVIAN POWELL Rep #: [id number] : 1980 43 From: Jimenez Irving DO PCP: Care Physician,No Primary Status:ADM IN Location: [place] [id number] HPI History of Present Illness Chief Complaint: [...] for pancreatitis (more content not included)... Normal [facility] Erythrocyte distribution wid th ratioOrdered By: Jimenez Irving on 03-27-2023 Erythrocyte distribution width (RBC) [Ratio] 12.5 % 11.6-14.6 [facility] Erythrocyte distribution wid th standard deviationOrdered By: Jimenez Irving on 03-27-2023 Erythrocyte distribution width (RBC) [Entitic vol] 38.9 fL 35.1-43.9 [facility] H AND P Exam - Hospitaliston 03-27-2023 H&P Exam - Hospitalist [facility] Medical Records Department [address] [place] [address] H P Exam - Hospitalist 03/27/232154 MR#: [id number] Acct: [id number] Name: VIVIAN POWELL Rep #: [id number] : 1980 43 From: Spencer Maldonado DO PCP: Care Physician,No Primary Status:ADM IN Location: [facility] BR820-6 HPI - General General Date of Admission: [...] 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 [facility] History Alcohol abuse Clavicle fracture Hypertension [...] Resp normal (more content not included)... Normal [facility] Hematocrit Auto (Bld) [Volum e fraction]Ordered By: Jimenez Irving on 03-27-2023 Hematocrit (Bld) [Volume fraction] 42.7 % 40-54 [facility] Immature granulocytes/100 WB C Auto (Bld)Ordered By: Jimenez Irving on 03-27-2023 Immature granulocytes/100 WBC (Bld) 0.400 % 0.0-0.9 [facility] Comment on above: IG% - Immature Granu locytes (promyelocytes, myelocytes and metamyelocytes) > 1% indicates that a LEFT SHIFT is Present. Ketones Test strip Ql (U)Ord ered By: Jimenez Irving on 03-27-2023 Ketones Ql (U) 50 mg/dl Negative [facility] - Chemistry and C hemistry - challengeOrdered By: Jimenez Irving on 03-27-2023 Albumin/Globulin [Mass ratio] 1.2 {ratio} 0.9-2.4 [facility] ALP [Catalytic activity/Vol] 202 U/L 45-117 [facility] ALT [Catalytic activity/Vol] 133 U/L 16-61 [facility] CO2 [Moles/Vol] 25.0 mmol/L 21.0-32.0 [facility] Globulin (S) [Mass/Vol] 3.2 g/dL 2.2-4.2 [facility] Lipase [Catalytic activity/Vol] 220 U/L 13-75 [facility] Comment on above: Please note:LIPASE r evised reference range effective 22. New Lipase methodology. Expected to produce lower values than the previous assay method. NEW Reference Range: 13 - 75 U/L Urea nitrogen/Creatinine [Mass ratio] 12.8 mg/mg 10-20 [facility] - CoagulationOrde red By: Spencer Jones on 03-27-2023 PT Coag (PPP) [Time] 11.5 s 11.7-14.9 [facility] - Drug toxicology Ordered By: Jimenez Irving on 03-27-2023 Amphetamines Ql (U) Negative <1000 ng/mL [facility] Benzodiazepines Ql (U) Negative < 200 ng/mL [facility] Cannabinoids Screen Ql (U) Negative < 50 ng/mL [facility] Cocaine Ql (U) Negative < 300 ng/mL [facility] Opiates Ql (U) Negative < 300 ng/mL [facility] - Hematology and Cell countsOrdered By: Jimenez Irving on 03-27-2023 MCH (RBC) [Entitic mass] 29.3 pg 27.0-32.0 [facility] MCHC (RBC) [Mass/Vol] 34.4 g/dL 32-36 [facility] Nucleated RBC/100 WBC (Bld) [Ratio] 0 % 0-5 [facility] Platelets (Bld) [#/Vol] 85 10*3/uL 150-450 [facility] Lipaseon 03-27-2023 Lipase [Catalytic activity/Vol] 220 U/L High 13-75 [facility] Comment on above: Result Comment: Selwyn hodgson note: LIPASE revised reference range effective 22. New Lipase methodology. Expected to produce lower values than the previous assay method. NEW Reference Range: 13 - 75 U/L Performed By: #### L 505.5000, L501.9100, L500.4050 #### [facility] [address] [place] [address], [id number] Mucus LM Ql (Urine sed)Order ed By: Jimenez Irving on 03-27-2023 Mucus Ql (Urine sed) 0 SEEN /hpf [facility] Nitrite Test strip Ql (U)Ord ered By: Jimenez Irving on 03-27-2023 Nitrite Ql (U) Negative Negative [facility] No Panel InformationOrdered By: Jimenez Irving on 03-27-2023 Estimated Creatinine Clearance Calc 112.03 ml/min [facility] Estimated GFR (MDRD) Amer 140 mL/min >60 [facility] Comment on above: GFR Calc Estimated GFR (MDRD) Non-Af Amer 116 mL/min >60 [facility] Comment on above: Non- GFR Calc Ethyl Alcohol Level 415.0 mg/dL [facility] Comment on above: Critical Result(s) C [...] MDMA (Ecstasy) Screen Negative < 500 ng/mL [facility] Urine Barbiturates Screen Negative < 200 ng/mL [facility] Urine Drug Screen Comment [facility] Comment on above: CONFIRMATORY TESTING [...] Methadone Screen Negative < 300 ng/mL [facility] Urine RBC 0 SEEN /hpf 0-5 [facility] Platelet mean volume Jacob-Ec ker (Bld) [Entitic vol]Ordered By: Jimenez Irving on 03-27-2023 Platelet mean volume (Bld) [Entitic vol] 8.8 fL 6.2-12.0 [facility] Platelet poor plasma interna tional normalized ratio (INR)Ordered By: Spencer Jones on 03-27-2023 INR Coag (PPP) [Relative time] 0.8 {INR} [facility] Protein Test strip Ql (U)Ord ered By: Jimenez Irving on 03-27-2023 Protein Ql (U) 100 mg/dl Negative [facility] RBC Auto (Bld) [#/Vol]Ordere d By: Jimenez Irving on 03-27-2023 RBC (Bld) [#/Vol] 5.01 10*6/uL 4.6-6.2 [facility] Serum or plasma calcium [place] urement (mass/volume)Ordered By: Jimenez Irving on 03-27-2023 Calcium [Mass/Vol] 8.6 mg/dL 8.5-10.1 [facility] Serum or plasma creatinine m easurement (mass/volume)Ordered By: Jimenez Irving on 03-27-2023 Creatinine [Mass/Vol] 0.78 mg/dL 0.70-1.30 [facility] Comment on above: The validity of the calculated GFR & GFRAA in patients over 70 years has not been determined. Clinical correlation is essential. Serum or plasma urea nitroge n measurement (mass/volume)Ordered By: Jimenez Irving on 03-27-2023 Urea nitrogen [Mass/Vol] 10 mg/dL 7-18 [facility] Squamous epithelial cells de tection in urine sediment by light microscopyOrdered By: Jimenez Irving on 03-27-2023 Epithelial cells.squamous LM Ql (Urine sed) 0 SEEN /hpf 0-5 [facility] Thin prep Papanicolaou smear with manual screeningOrdered By: Jimenez Irving on 03-27-2023 Thin prep Papanicolaou smear with manual screening 3.7 g/dL 3.2-5.0 [facility] Thin prep Papanicolaou smear with manual screening 185 U/L 15-37 [facility] Thin prep Papanicolaou smear with manual screening 11 5-15 [facility] Urinalysis, Completeon 03-27 BACTERIA 0 SEEN Normal None Seen [facility] Comment on above: Order Comment: CLEAN CATCH Performed By: #### L 505.5000, L501.9100, L500.4050 #### [facility] [address] [place], [address] EPI,SQUAMOUS 0 SEEN Normal 0-5 [facility] Comment on above: Order Comment: CLEAN CATCH Performed By: #### L 505.5000, L501.9100, L500.4050 #### [facility] [address] [place], [address] Mucus Ql (Urine sed) 0 SEEN Normal [facility] Comment on above: Order Comment: CLEAN CATCH Performed By: #### L 505.5000, L501.9100, L500.4050 #### [facility] [address] [place], [address] RBC 0 SEEN Normal 0-5 [facility] Comment on above: Order Comment: CLEAN CATCH Performed By: #### L 505.5000, L501.9100, L500.4050 #### [facility] [address] [place], [address] WBC 0 SEEN Normal 0-5 [facility] Comment on above: Order Comment: CLEAN CATCH Performed By: #### L 505.5000, L501.9100, L500.4050 #### [facility] [address] [place], [address] Urine Drug Screen (VISTA)on 03-27-2023 AMPHETAMINES Negative Normal <1000 ng/mL [facility] Comment on above: Performed By: #### L 505.5000, L501.9100, L500.4050 #### [facility] [address] [place], [address] BARBITIURATES Negative Normal < 200 ng/mL [facility] Comment on above: Performed By: #### L 505.5000, L501.9100, L500.4050 #### [facility] [address] [place], [address] BENZODIAZIPINE Negative Normal < 200 ng/mL [facility] Comment on above: Performed By: #### L 505.5000, L501.9100, L500.4050 #### [facility] [address] [place], [address] COCAINE Negative Normal < 300 ng/mL [facility] Comment on above: Performed By: #### L 505.5000, L501.9100, L500.4050 #### [facility] [address] [place], [address] ECSTACY Negative Normal < 500 ng/mL [facility] Comment on above: Performed By: #### L 505.5000, L501.9100, L500.4050 #### [facility] [address] [place], [address] METHADONE Negative Normal < 300 ng/mL [facility] Comment on above: Performed By: #### L 505.5000, L501.9100, L500.4050 #### [facility] [address] [place], [address] OPIATES Negative Normal < 300 ng/mL [facility] Comment on above: Performed By: #### L 505.5000, L501.9100, L500.4050 #### [facility] [address] [place], [address] PCP Negative Normal < 25 ng/mL [facility] Comment on above: Performed By: #### L 505.5000, L501.9100, L500.4050 #### [facility] [address] [place], [address] THC Negative Normal < 50 ng/mL [facility] Comment on above: Performed By: #### L 505.5000, L501.9100, L500.4050 #### [facility] [address] [place], [address] VISTA UDS PH 6 Normal [facility] Comment on above: Performed By: #### L 505.5000, L501.9100, L500.4050 #### [facility] [address] [place], [address] Urine blood detectionOrdered By: Jimeenz Irving on 03-27-2023 RBC Ql (U) 10 /ul Negative [facility] Urine clarityOrdered By: Ani Irving on 03-27-2023 Clarity (U) Clear Clear [facility] Urine color determinationOrd ered By: Jimenez Irving on 03-27-2023 Color (U) Yellow Yellow [facility] Urine glucose detectionOrder ed By: Jimenez Irving on 03-27-2023 Glucose Ql (U) Normal mg/dl Normal [facility] Urine leukocyte esterase det ection by dipstickOrdered By: Jimenez Irving on 03-27-2023 Leukocyte esterase Test strip Ql (U) Negative Negative [facility] Urine pHOrdered By: Jimenez delaney on 03-27-2023 pH (U) 6.5 [pH] 5.0 - 8.0 [facility] Urine phencyclidine (PCP) de tectionOrdered By: Jimenez Irving on 03-27-2023 Phencyclidine Ql (U) Negative < 25 ng/mL [facility] Urine sediment bacteria coun t by microscopy (number/high power field)Ordered By: Jimenez Irving on 03-27-2023 Bacteria LM.HPF (Urine sed) [#/Area] 0 /[HPF] None Seen [facility] Urine specific gravity measu rementOrdered By: Jimenez Irving on 03-27-2023 Specific gravity (U) [Rel density] 1.015 1.002-1.030 [facility] Urine urobilinogen measureme ntOrdered By: Jimenez Irving on 03-27-2023 Urobilinogen Ql (U) Normal mg/dl Normal [facility] Absolute lymphocyte countOrd ered By: Linda Mendiola on 02-23-2023 Lymphocytes Auto (Unsp spec) [#/Vol] 1.79 10*3/uL 0.83-4.51 [facility] Basophil percentageOrdered B y: Linda Mendiola on 02-23-2023 Basophil percentage 3.7 mg/dL 2.5-4.9 [facility] Basophils/100 WBC (Bld) 2.0 % 0-1 [facility] Bilirubin [Mass/Vol] 1.90 mg/dL 0.20-1.00 [facility] Comment on above: For patients on eltr ombopag therapy, use of Dimension [place] TBIL is not recommended. Chloride [Moles/Vol] 108 mmol/L 98-107 [facility] Eosinophils/100 WBC (Bld) 2.9 % 0-5 [facility] Glucose [Mass/Vol] 71 mg/dL 74-106 [facility] Neutrophils (Bld) [#/Vol] 1.2 10*3/uL 2.0-7.7 [facility] Neutrophils/100 WBC (Bld) 34.3 % 47-70 [facility] Potassium [Moles/Vol] 3.1 mmol/L 3.5-5.1 [facility] Protein [Mass/Vol] 6.2 g/dL 6.4-8.2 [facility] Sodium [Moles/Vol] 143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 recovering from a clavicular fracture. His last drink was about 10 hours ago, drinks about 1/5 of vodka daily. 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 He previously was living in [place], has good social support there but now moved back to [place] family reasons. Occasionally uses marijuana, no smoking, [...] Ethyl alcohol which was 243.0. [facility] Medical History (Updated 02/22/23 @ [...] Ur Phen (more content not included)... Normal [facility] Hematocrit Auto (Bld) [Volum e fraction]Ordered By: Gisel Boyce on 02-22-2023 Hematocrit (Bld) [Volume fraction] 43.0 % 40-54 [facility] INR in Blood by Coagulation assayOrdered By: Gisel Boyce on 02-22-2023 INR Coag (Bld) [Relative time] 0.9 {INR} [facility] - Chemistry and C hemistry - challengeOrdered By: Gisel Boyce on 02-22-2023 ALP [Catalytic activity/Vol] 101 U/L 45-117 [facility] ALT [Catalytic activity/Vol] 33 U/L 16-61 [facility] CO2 [Moles/Vol] 28.0 mmol/L 21.0-32.0 [facility] Globulin (S) [Mass/Vol] 3.0 g/dL 2.2-4.2 [facility] Urea nitrogen/Creatinine [Mass ratio] 12.0 mg/mg 10-20 [facility] - CoagulationOrde red By: Gisel Boyce on 02-22-2023 PT Coag (PPP) [Time] 12.4 s 11.7-14.9 [facility] - Drug toxicology Ordered By: Gisel Boyce on 02-22-2023 Amphetamines Ql (U) Negative <1000 ng/mL [facility] Benzodiazepines Ql (U) Negative < 200 ng/mL [facility] Cannabinoids Screen Ql (U) Negative < 50 ng/mL [facility] Cocaine Ql (U) Negative < 300 ng/mL [facility] Opiates Ql (U) Negative < 300 ng/mL [facility] - Hematology and Cell countsOrdered By: Gisel Boyce on 02-22-2023 Erythrocyte distribution width (RBC) [Entitic vol] 45.0 fL 35.1-43.9 [facility] Erythrocyte distribution width (RBC) [Ratio] 13.6 % 11.6-14.6 [facility] Immature granulocytes/100 WBC (Bld) 0.000 % 0.0-0.9 [facility] Comment on above: IG% - Immature Granu locytes (promyelocytes, myelocytes and metamyelocytes) > 1% indicates that a LEFT SHIFT is Present. MCH (RBC) [Entitic mass] 29.9 pg 27.0-32.0 [facility] Nucleated RBC/100 WBC (Bld) [Ratio] 0 % 0-5 [facility] MCHC Auto (RBC) [Mass/Vol]Or dered By: Gisel Boyce on 02-22-2023 MCHC (RBC) [Mass/Vol] 33.5 g/dL 32-36 [facility] No Panel InformationOrdered By: Gisel Boyce on 02-22-2023 Estimated Creatinine Clearance Calc 157.49 ml/min [facility] Estimated GFR (MDRD) Amer 196 mL/min >60 [facility] Comment on above: GFR Calc Estimated GFR (MDRD) Non-Af Amer 162 mL/min >60 [facility] Comment on above: Non- GFR Calc Ethyl Alcohol Level 243.0 mg/dL [facility] Comment on above: The serum:whole bloo d ethanol ratio is approximately 1.14and varies slightly with hematocrit. Medical Alcohol reference interval and critical value innon-tolerant individuals; 50 - 100 Impairment 100 Intoxication 100 - 250 Severe Poisoning 250 - 400 Deep/possible fatal coma MDMA (Ecstasy) Screen Negative < 500 ng/mL [facility] Urine Barbiturates Screen Negative < 200 ng/mL [facility] Urine Drug Screen Comment [facility] Comment on above: CONFIRMATORY TESTING [...] Methadone Screen Negative < 300 ng/mL [facility] Platelets bldOrdered By: Crista Boyce on 02-22-2023 Platelets (Bld) [#/Vol] 130 10*3/uL 150-450 [facility] Prothrombin Time w/INRon INR Normal [facility] Comment on above: Result Comment: CANC ELLED BY ORDERS, DUE TO BEING DUPLICATE. Performed By: #### L 505.5000, L501.9100, L500.4050 #### [facility] [address] [place], [address] PROTIME Normal 11.7-14.9 [facility] Comment on above: Result Comment: CANC ELLED BY DR.SINGH BURDICK, DUE TO BEING DUPLICATE. Performed By: #### L 505.5000, L501.9100, L500.4050 #### [facility] [address] [place], [address] INR Coag (PPP) [Relative time] 0.9 {INR} Normal [facility] Comment on above: Performed By: #### L 501.5200, L500.2500 #### [facility] [address] [place], [place], [id number] PT Coag (PPP) [Time] 12.4 s Normal 11.7-14.9 [facility] Comment on above: Performed By: #### L 501.5200, L500.2500 #### [facility] [address] [place], [place], [address] Serum or plasma albumin [place] urement (mass/volume)Ordered By: Gisel Boyce on 02-22-2023 Albumin [Mass/Vol] 3.5 g/dL 3.2-5.0 [facility] Serum or plasma albumin/glob ulin mass ratioOrdered By: Gisel Boyce on 02-22-2023 Albumin/Globulin [Mass ratio] 1.2 {ratio} 0.9-2.4 [facility] Serum or plasma calcium carolina urement (mass/volume)Ordered By: Gisel Boyce on 02-22-2023 Calcium [Mass/Vol] 8.0 mg/dL 8.5-10.1 [facility] Serum or plasma creatinine m easurement (mass/volume)Ordered By: Gisel Boyce on 02-22-2023 Creatinine [Mass/Vol] 0.58 mg/dL 0.70-1.30 [facility] Comment on above: The validity of the calculated GFR & GFRAA in patients over 70 years has not been determined. Clinical correlation is essential. Serum or plasma urea nitroge n measurement (mass/volume)Ordered By: Gisel Boyce on 02-22-2023 Urea nitrogen [Mass/Vol] 7 mg/dL 7-18 [facility] Thin prep Papanicolaou smear with manual screeningOrdered By: Gisel Boyce on 02-22-2023 Thin prep Papanicolaou smear with manual screening 33 U/L 15-37 [facility] Thin prep Papanicolaou smear with manual screening 6 5-15 [facility] Urine Drug Screen (VISTA)on 02-22-2023 AMPHETAMINES Negative Normal <1000 ng/mL [facility] Comment on above: Performed By: #### L 505.5000, L501.9100, L500.4050 #### [facility] [address] [place], [address] BARBITIURATES Negative Normal < 200 ng/mL [facility] Comment on above: Performed By: #### L 505.5000, L501.9100, L500.4050 #### [facility] [address] [place], [address] BENZODIAZIPINE Negative Normal < 200 ng/mL [facility] Comment on above: Performed By: #### L 505.5000, L501.9100, L500.4050 #### [facility] [address] [place], [address] COCAINE Negative Normal < 300 ng/mL [facility] Comment on above: Performed By: #### L 505.5000, L501.9100, L500.4050 #### [facility] [address] [place], [address] ECSTACY Negative Normal < 500 ng/mL [facility] Comment on above: Performed By: #### L 505.5000, L501.9100, L500.4050 #### [facility] [address] [place], [address] METHADONE Negative Normal < 300 ng/mL [facility] Comment on above: Performed By: #### L 505.5000, L501.9100, L500.4050 #### [facility] [address] [place], [address] OPIATES Negative Normal < 300 ng/mL [facility] Comment on above: Performed By: #### L 505.5000, L501.9100, L500.4050 #### [facility] [address] [place], [address] PCP Negative Normal < 25 ng/mL [facility] Comment on above: Performed By: #### L 505.5000, L501.9100, L500.4050 #### [facility] [address] [place], [address] THC Negative Normal < 50 ng/mL [facility] Comment on above: Performed By: #### L 505.5000, L501.9100, L500.4050 #### [facility] [address] [place], [address] VISTA UDS PH 6 Normal [facility] Comment on above: Performed By: #### L 505.5000, L501.9100, L500.4050 #### [facility] [address] [place], [address] Urine phencyclidine (PCP) de tectionOrdered By: Gisel Boyce on 02-22-2023 Phencyclidine Ql (U) Negative < 25 ng/mL [facility] Vital Signs Date Time Vital Sign Value Performing Clinician Faci lity 11-06-2024 19:28-0400 Body mass index (BMI) [Ratio] 22.1 kg/m2 Kj Cervantes SENIOR PHP DEVELOPER.FISH HATCHERY MANAGER Work Phone: [facility] 11-06-2024 19:28-0400 Body temperature 98.2 [degF] Kj Cervantes SENIOR PHP DEVELOPER.FISH HATCHERY MANAGER Work Phone: [facility] 11-06-2024 19:28-0400 Body weight 69.85 kg Kj Cervantes SENIOR PHP DEVELOPER.FISH HATCHERY MANAGER Work Phone: [facility] 11-06-2024 19:28-0400 Diastolic blood pressure 84 mm[Hg] Kj Cervantes SENIOR PHP DEVELOPER.FISH HATCHERY MANAGER Work Phone: [facility] 11-06-2024 19:28-0400 Heart rate 94 /min Kj Cervantes SENIOR PHP DEVELOPER.FISH HATCHERY MANAGER Work Phone: [facility] 11-06-2024 19:28-0400 Respiratory rate 16 /min Kj Cervantes SENIOR PHP DEVELOPER.FISH HATCHERY MANAGER Work Phone: [facility] 11-06-2024 19:28-0400 SaO2% (BldA) [Mass fraction] 99 % Kj Cervantes SENIOR PHP DEVELOPER.FISH HATCHERY MANAGER Work Phone: [facility] 11-06-2024 19:28-0400 Systolic blood pressure 148 mm[Hg] Kjjeanette Cervantes SENIOR PHP DEVELOPER.FISH HATCHERY MANAGER Work Phone: [facility] 08-16-2024 17:46-0400 Body mass index (BMI) [Ratio] 22.17 kg/m2 Idalia Gutierrez SENIOR PHP DEVELOPER.FISH HATCHERY MANAGER Work Phone: [facility] 08-16-2024 17:46-0400 Body temperature 98.6 [degF] Idalia Gutierrez SENIOR PHP DEVELOPER.FISH HATCHERY MANAGER Work Phone: [facility] 08-16-2024 17:46-0400 Body weight 70.1 kg Idalia Gutierrez SENIOR PHP DEVELOPER.FISH HATCHERY MANAGER Work Phone: [facility] 08-16-2024 17:46-0400 Diastolic blood pressure 90 mm[Hg] Idalia Gutierrez SENIOR PHP DEVELOPER.FISH HATCHERY MANAGER Work Phone: [facility] 08-16-2024 17:46-0400 Heart rate 94 /min Idalia Gutierrez SENIOR PHP DEVELOPER.FISH HATCHERY MANAGER Work Phone: [facility] 08-16-2024 17:46-0400 Respiratory rate 18 /min Idalia Gutierrez SENIOR PHP DEVELOPER.FISH HATCHERY MANAGER Work Phone: [facility] 08-16-2024 17:46-0400 SaO2% (BldA) [Mass fraction] 97 % Idalia Gutierrez SENIOR PHP DEVELOPER.FISH HATCHERY MANAGER Work Phone: [facility] 08-16-2024 17:46-0400 Systolic blood pressure 162 mm[Hg] Idalia Gutierrez SENIOR PHP DEVELOPER.FISH HATCHERY MANAGER Work Phone: [facility] 04-12-2023 02:42-0500 Body temperature 97.8 [degF] Dr. Gisel Boyce Work Phone: [facility] 04-12-2023 02:42-0500 Diastolic blood pressure 98 mm[Hg] Dr. Gisel Boyce Work Phone: [facility] 04-12-2023 02:42-0500 Heart rate 69 /min Dr. Gisel Boyce Work Phone: 1(397)282-031149 [address] 04-12-2023 02:42-0500 Respiratory rate 16 /min Dr. Gisel Boyce Work Phone: 6(648)471-727449 [address] 04-12-2023 02:42-0500 SaO2% (BldA) [Mass fraction] 99 % Dr. Gisel Boyce Work Phone: 8(529)832-142649 [address] 04-12-2023 02:42-0500 Systolic blood pressure 136 mm[Hg] Dr. Gisel Boyce Work Phone: 0(700)814-979949 [address] 04-11-2023 13:02-0500 Body height 177.[address] Gisel Boyce Work Phone: 2(794)954-844594 [place] [address] 04-11-2023 13:02-0500 Body weight 69.[address] Gisel Boyce Work Phone: 3(855)053-875449 [address] 04-10-2023 16:14-0500 Body mass index (BMI) [Ratio] 21.9 kg/m2 Dr. Gisel Boyce Work Phone: 2(097)631-894749 [address] 04-07-2023 00:03-0500 Body temperature 97.2 [degF] Dr. Gisel Boyce Work Phone: 7(683)634-355615 [place] [address] 04-07-2023 00:03-0500 Diastolic blood pressure 121 mm[Hg] Dr. Gisel Boyce Work Phone: 3(355)018-246615 [place] [address] 04-07-2023 00:03-0500 Heart rate 93 /min Dr. Gisel Boyce Work Phone: 6(418)839-006815 [place] [address] 04-07-2023 00:03-0500 Respiratory rate 16 /min Dr. Gisel Boyce Work Phone: [facility] 04-07-2023 00:03-0500 SaO2% (BldA) [Mass fraction] 100 % Dr. Gisel Boyce Work Phone: 9(983)845-425115 [place] [address] 04-07-2023 00:03-0500 Systolic blood pressure 168 mm[Hg] Dr. Gisel Boyce Work Phone: 2(268)927-475394 [place] [address] 04-06-2023 22:15-0500 Body height 177.[address] Gisel Boyce Work Phone: 6(220)744-246394 [place] [address] 04-06-2023 22:15-0500 Body mass index (BMI) [Ratio] 22.2 kg/m2 Dr. Gisel Boyce Work Phone: 3(653)776-195194 [place] [address] 04-06-2023 22:15-0500 Body weight 70.[address] Gisel Boyce Work Phone: 3(951)020-996894 [place] [address] 03-31-2023 10:00-0500 Body temperature 98 [degF] Dr. Gisel Boyce Work Phone: 5(739)717-882194 [place] [address] 03-31-2023 10:00-0500 Diastolic blood pressure 93 mm[Hg] Dr. Gisel Boyce Work Phone: 2(064)716-737294 [place] [address] 03-31-2023 10:00-0500 Heart rate 51 /min Dr. Gisel Boyce Work Phone: 4(854)523-850194 [place] [address] 03-31-2023 10:00-0500 Respiratory rate 18 /min Dr. Gisel Boyce Work Phone: 2(959)060-589894 [place] [address] 03-31-2023 10:00-0500 SaO2% (BldA) [Mass fraction] 95 % Dr. Gisel Boyce Work Phone: 6(061)629-011794 [place] [address] 03-31-2023 10:00-0500 Systolic blood pressure 129 mm[Hg] Dr. Gisel Boyce Work Phone: 1(773)576-411515 [place] [address] 03-27-2023 23:32-0500 Body height 177.[address] Gisel Boyce Work Phone: 1(205)359-099249 [address] 03-27-2023 23:32-0500 Body mass index (BMI) [Ratio] 20.5 kg/m2 Dr. Gisel Boyce Work Phone: 9(433)608-540215 [place] [address] 03-27-2023 23:32-0500 Body weight 64.[address] Gisel Boyce Work Phone: 4(483)809-535294 [place] [address] 03-27-2023 22:27-0500 Body temperature 97.6 [degF] Dr. Gisel Boyce Work Phone: 7(563)008-465349 [address] 03-27-2023 22:27-0500 Diastolic blood pressure 108 mm[Hg] Dr. Gisel Boyce Work Phone: 6(846)077-132494 [place] [address] 03-27-2023 22:27-0500 Heart rate 100 /min Dr. Gisel Boyce Work Phone: 4(999)003-092894 [place] [address] 03-27-2023 22:27-0500 Respiratory rate 22 /min Dr. Gisel Boyce Work Phone: 0(605)762-491294 [place] [address] 03-27-2023 22:27-0500 SaO2% (BldA) [Mass fraction] 99 % Dr. Gisel Boyce Work Phone: 1(722)784-984415 [place] [address] 03-27-2023 22:27-0500 Systolic blood pressure 169 mm[Hg] Dr. Gisel Boyce Work Phone: 0(917)838-891015 [place] [address] 03-27-2023 19:39-0500 Body height 177.[address] Gisel Boyce Work Phone: 1(945)880-096715 [place] [address] 03-27-2023 19:39-0500 Body mass index (BMI) [Ratio] 20.5 kg/m2 Dr. Gisel Boyce Work Phone: 8(337)225-080015 [place] [address] 03-27-2023 19:39-0500 Body weight 64.[address] Gisel Boyce Work Phone: 2(995)548-921415 [place] [address] 02-25-2023 10:01-0500 Body temperature 98.1 [degF] Dr. Gisel Boyce Work Phone: [facility] 02-25-2023 10:01-0500 Diastolic blood pressure 100 mm[Hg] Dr. Gisel Boyce Work Phone: [facility] 02-25-2023 10:01-0500 Heart rate 86 /min Dr. Gisel Boyce Work Phone: [facility] 02-25-2023 10:01-0500 Respiratory rate 18 /min Dr. Gisel Boyce Work Phone: [facility] 02-25-2023 10:01-0500 SaO2% (BldA) [Mass fraction] 96 % Dr. Gisel Boyce Work Phone: 9(388)429-485215 [place] [address] 02-25-2023 10:01-0500 Systolic blood pressure 151 mm[Hg] Dr. Gisel Boyce Work Phone: 4(138)603-801515 [place] [address] 02-25-2023 02:14-0500 Body temperature 97.8 [degF] Dr. Gisel Boyce Work Phone: 7(608)057-900315 [place] [address] 02-25-2023 02:14-0500 Diastolic blood pressure 98 mm[Hg] Dr. Gisel Boyce Work Phone: [facility] 02-25-2023 02:14-0500 Heart rate 69 /min Dr. Gisel Boyce Work Phone: [facility] 02-25-2023 02:14-0500 Respiratory rate 16 /min Dr. Gisel Boyce Work Phone: [facility] 02-25-2023 02:14-0500 SaO2% (BldA) [Mass fraction] 100 % Dr. Gisel Boyce Work Phone: [facility] 02-25-2023 02:14-0500 Systolic blood pressure 156 mm[Hg] Dr. Gisel Boyce Work Phone: [facility] 02-23-2023 10:50-0500 Body height 177.[address] Gisel Boyce Work Phone: [facility] 02-23-2023 10:50-0500 Body weight [address] Gisel Boyce Work Phone: [facility] 02-22-2023 20:00-0500 Body mass index (BMI) [Ratio] 21.5 kg/m2 Dr. Gisel Boyce Work Phone: [facility] 02-22-2023 19:46-0500 Body temperature 97.8 [degF] [facility] 02-22-2023 19:46-0500 Diastolic blood pressure 74 mm[Hg] [facility] 02-22-2023 19:46-0500 Heart rate 89 /min [facility] 02-22-2023 19:46-0500 Respiratory rate 15 /min [facility] 02-22-2023 19:46-0500 SaO2% (BldA) [Mass fraction] 98 % [facility] 02-22-2023 19:46-0500 Systolic blood pressure 139 mm[Hg] [facility] 02-22-2023 16:20-0500 Body height 177.8 cm [facility] 02-22-2023 16:20-0500 Body mass index (BMI) [Ratio] 21.4 kg/m2 [facility] 02-22-2023 16:20-0500 Body weight 67.8 kg [facility] Encounters Encounter Date Encounter Type Care Provider Facility Start: 11-06-2024 End: 11-06-2024 Office outpatient visit 25 minutes Kj Cervantes APRN.CNP Work Phone: [facility] [place] Comment on above: Medication refill (P rimary Dx) Start: 11-06-2024 End: 11-06-2024 ambulatory KJ CERVANTES Facility:[facility] Start: 08-16-2024 End: 08-16-2024 Patient encounter procedure Idalia Gutierrez APRN.FISH HATCHERY MANAGER Work Phone: [place] [facility] Comment on above: Mood disorder (Prima ry Dx); Sleeping difficulty Start: 08-16-2024 End: 08-16-2024 ambulatory IDALIA GUTIERREZ Facility:[facility] Start: 06-01-2023 End: 08-31-2023 ambulatory [facility] Comment on above: Alcohol dependence, uncomplicated (HCC) (Primary Dx); Hyperammonemia (HCC) Start: 04-11-2023 Non-patient / Non-visit Dr. Kevin Boyce Work Phone: [facility] Work Phone: Start: 04-10-2023 End: 04-12-2023 Evaluation and management of inpatient Achintya Mendiola Facility:[facility] Start: 04-10-2023 ambulatory Achintya Mendiola Facility :[facility] Start: 04-10-2023 Non-patient / Non-visit Dr. Kevin Boyce Work Phone: [facility] Work Phone: Start: 04-10-2023 End: 04-12-2023 Evaluation and management of inpatient Dr. Gisel Boyce Work Phone: [facility]-Medical Surgical 3 Work Phone: Start: 04-07-2023 End: 04-07-2023 Emergency department patient visit No Primary Care Physician Facility:[facility] Start: 04-06-2023 End: 04-07-2023 Emergency department patient visit Dr. Gisel Boyce Work Phone: [facility]-Emergency Department Work Phone: Start: 03-31-2023 Non-patient / Non-visit Dr. Kevin Boyce Work Phone: [facility] Work Phone: Start: 03-30-2023 Non-patient / Non-visit Dr. Kevin Boyce Work Phone: [facility] Work Phone: Start: 03-29-2023 Non-patient / Non-visit Dr. Kevin Boyce Work Phone: [facility] Work Phone: Start: 03-28-2023 Non-patient / Non-visit Dr. Kevin Boyce Work Phone: [facility] Work Phone: Start: 03-28-2023 End: 03-31-2023 ambulatory No Primary Care Physician Facility:[facility] Start: 03-27-2023 End: 03-31-2023 Evaluation and management of inpatient [facility] Start: 02-25-2023 Non-patient / Non-visit Dr. Kevin Boyce Work Phone: [facility] Work Phone: Start: 02-24-2023 Non-patient / Non-visit Dr. Kevin Boyce Work Phone: [facility] Work Phone: Start: 02-23-2023 Non-patient / Non-visit Dr. Kevin Boyce Work Phone: [facility] Work Phone: Start: 02-22-2023 ambulatory No Primary Car e Physician Facility:[facility] Start: 02-22-2023 End: 02-25-2023 Evaluation and management of inpatient Achintya Mendiola Facility:[facility] Start: 02-22-2023 End: 02-25-2023 [facility] Work [facility]: Procedures Date [...] or older (1 - 1-dose 60+ series) [facility] Start: 01-04-2030 Zoster Vaccines (1 of 2) Zoste r Vaccines (1 of 2) [facility] Start: 11-14-2024 End: 11-14-2024 Patient encounter procedure 11/14/2024 4:00 PM EDT Office Visit Family Medicine [address] [place] [id number] Catina Fournier, SENIOR PHP DEVELOPER.FISH HATCHERY MANAGER [address] [facility] [place] [id number] New Patient/Establish care Family Medicine Comment on above: New Patient/Establis care Start: 10-24-2024 End: 10-24-2024 Patient encounter procedure 10/24/2024 2:00 PM EDT Office Visit Internal Medicine [place] [address] [place], [place] [id number] Jeanette Mosley, SENIOR PHP DEVELOPER.FISH HATCHERY MANAGER [address] [place], [place] [address] est care Internal [facility] [place] Comment on above: est care Start: 10-23-2024 Influenza vaccination [facility] Start: 10-24-2023 Covid-19 Vaccine ( season) Covid-19 Vaccine ( season) [facility] Start: 10-24-2023 Influenza vaccination Influenza Vacc ine (#1) [facility] Start: 04-12-2023 Patient discharge [facility] Start: 04-10-2023 Following clinical p athway protocol [facility] Start: 04-10-2023 Assessment of risk o f venous thromboembolism [facility] Start: 04-10-2023 Insertion of cathete r into peripheral vein [facility] Start: 04-10-2023 Providing care accor ding to standard [facility] Start: 04-10-2023 [facility] Start: 04-10-2023 Admission procedure [facility] Start: 04-10-2023 Hospital admission, emergency, from emergency room, [facility] Start: 04-10-2023 Consultation [facility] Start: 04-10-2023 Patient referral to dietitian [facility] Start: 04-06-2023 [facility] Start: 03-31-2023 Patient discharge [facility] Start: 03-29-2023 Referral to service [facility] Start: 03-27-2023 Application of intermittent pneumatic compression device [facility] Start: 03-27-2023 Following clinical p athway protocol [facility] Start: 03-27-2023 Assessment of risk o f venous thromboembolism [facility] Start: 03-27-2023 Notification of physician [facility] Start: 03-27-2023 Vital signs measurements [facility] Start: 03-27-2023 [facility] Start: 03-27-2023 Admission procedure [facility] Start: 03-27-2023 Hospital admission, emergency, from emergency room, [facility] Start: 03-27-2023 Consultation [facility] Start: 02-25-2023 Patient discharge [facility] Start: 02-23-2023 Blood chemistry [facility] Start: 02-23-2023 Prothrombin time [facility] Start: 02-23-2023 Thyroid stimulating hormone measurement [facility] Start: 02-23-2023 [facility] Start: 02-22-2023 Following clinical p athway protocol [facility] Start: 02-22-2023 End: 02-22-2023 [facility] Start: 02-22-2023 Assessment of risk o f venous thromboembolism [facility] Start: 02-22-2023 Insertion of cathete r into peripheral vein [facility] Start: 02-22-2023 Providing care accor ding to standard [facility] Start: 02-22-2023 Verification routine [facility] Start: 02-22-2023 Admission procedure [facility] Start: 02-22-2023 Hospital admission, emergency, from emergency room, [facility] Start: 02-22-2023 Consultation [facility] Start: 02-22-2023 Patient referral to dietitian [facility] Start: 10-23-2022 COVID-19 Vaccine ( season) COVID-19 Vaccine ( season) [facility] Start: 01-04-2015 Lipid panel Lipid Screening [facility] Start: 01-04-2007 HPV Vaccine (1 - 3-d ose SCDM series) HPV Vaccine (1 - 3-dose SCDM series) [facility] Start: 01-04-1999 DTaP/Tdap/Td Vaccine s (1 - Tdap) DTaP/Tdap/Td Vaccines (1 - Tdap) [facility] Start: 01-04-1999 Hepatitis B Vaccine (1 of 3 - 19+ 3-dose series) Hepatitis B Vaccine (1 of 3 - 19+ 3-dose series) [facility] Start: 01-04-1999 Hepatitis B Vaccines (1 of 3 - 19+ 3-dose series) Hepatitis B Vaccines (1 of 3 - 19+ 3-dose series) [facility] Start: 01-04-1999 Urine microalbumin profile DTa P,Tdap,Td Vaccine (1 - Tdap) [facility] Start: 01-04-1998 Anxiety Screening Anxiety Screening [facility] Start: 01-04-1998 Depression Screening Depression Scre ing [facility] Start: 01-04-1998 Hepatitis C screening Hepatitis C Sc reening [facility] Start: 01-04-1998 HIV screening HIV Screening [facility] Start: 1992 Depression Screening Depression Scre ing [facility] Start: 01-04-1981 MMR Vaccines (1 of 1 - Standard series) MMR Vaccines (1 of 1 - Standard series) [facility] Start: 1980 HIV screening HIV Screening [facility] Start: 1980 Lipid panel Lipid Panel [facility] Alanine aminotransfe rase [Enzymatic activity/volume] in Serum or Plasma [facility] Albumin [Mass/volume ] in Serum or Plasma [facility] Alkaline phosphatase [Enzymatic activity/volume] in Serum or Plasma [facility] Anion gap measurement [facility] Aspartate aminotrans ferase [Enzymatic activity/volume] in Serum or Plasma [facility] Bilirubin, total measurement [facility] Bilirubin.direct [Mass/volume] in Serum or Plasma [facility] BUN/Creatinine ratio [facility] Calcium [Mass/volume ] in Serum or Plasma [facility] Carbon dioxide, tota l [Moles/volume] in Serum or Plasma [facility] Chloride [Moles/volu me] in Serum or Plasma [facility] Creatinine [Moles/vo lume] in Serum or Plasma [facility] Glucose [Mass/volume ] in Serum or Plasma [facility] Hematocrit [Volume Fraction] of Blood [facility] Hemoglobin [Mass/vol ume] in Blood [facility] INR in Blood by Coagulation assay [facility] Leukocytes [#/volume ] in Blood [facility] Magnesium [Mass/volu me] in Serum or Plasma [facility] Mean corpuscular hemoglobin concentration determination [facility] Mean corpuscular hemoglobin determination [facility] Measurement of renal function [facility] Neutrophil count [facility] Neutrophil percent differential count [facility] OUTSIDE PROCEDURE SCAN OUTSIDE P ROCEDURE SCAN Procedures Ordered: 06/01/2023 [facility] Comment on above: Ordered: 06/01/2023 Patient Education Med Refill [facility] Work Phone: Patient referral [facility] Work Phone: Platelets [#/volume] in Blood [facility] Potassium [Moles/vol ume] in Serum or Plasma [facility] Red blood cell count [facility] Red cell distributio n width determination [facility] Sodium [Moles/volume ] in Serum or Plasma [facility] Total protein measurement [facility] Urea nitrogen [Mass/volume] in Serum or Plasma [facility] Payers Date Payer Category Payer Medicaid [id number] 2023 Unknown [id number] 2023 Self-pay Medicaid MEDICAID [id number] Unknown [id number] 2.16.8 [id number] Unknown [id number] 2.16.8 [id number] Unknown [id number] 2.16.8 [id number] Unknown [id number] 2.16.8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
[2025-01-11 19:43] LABS: Anion Gap 10 (5-15); BUN 15 mg/dL (4-19); BUN/Creat Ratio 19.5 RATIO (10-20); Calcium,Total 7.7 mg/dL (7.6-11.0); Carbon Dioxide 23.6 mmol/L (21.0-32.0); Chloride 105 mmol/L (98-108); Estimated Creatinine Clearance 118.41 ml/min (50-250); Glucose 117 mg/dL (70-99); Potassium 3.8 mmol/L (3.3-5.1)
[2025-01-11] MEDS: Nicotine (PBKC) 21 MG Patch TD (21:44)
[2025-01-12] VITALS (19 sets, daily range): BP systolic 102–144; BP diastolic 69–105; PULSE 70–95; RESP 9–24; TEMP 36.2–36.9; O2SAT 96–100; BMI 21.7
[2025-01-12 00:34] LABS: Partial Thromboplast Time 65.6 Seconds (24.1-36.2)
[2025-01-12] MEDS: 0.9% Saline Lock 10 ML Syringe IV (05:05)
[2025-01-12] MEDS: 0.9% Normal Saline (1000mL) 1,000 ML 150 ML IV (05:54)
[2025-01-12] MEDS: hydrOXYzine PAM 25 MG Capsule 50 MG PO (05:56)
[2025-01-12 06:47] LABS: Partial Thromboplast Time 36.4 Seconds (24.1-36.2)
[2025-01-12] MEDS: Heparin Nomogram Adjustment 5,000 UNIT/ML VIAL IV (06:52)
--- NOTE | 2025-01-12 07:09 | PN.SURG_ITS ---
Subjective Subjective I saw Mr. Powell this morning at bedside. He relates to feeling a lot better than yesterday, no chest pain, much improved SOB, no palpitations. However, he admits to feeling very anxious/antsy just being here and not having kratom, he is very eager to be discharged. He has no other complaints. Objective Data Objective Data Vital Signs: Vital Signs Temp Pulse Resp BP Pulse Ox O2 Del Method 97.1 F L 70 18 127/69 H 99 Room Air 01/12/25 05:00 01/12/25 07:00 01/12/25 07:00 01/12/25 07:00 01/12/25 07:00 01/12/25 07:00 Oxygen Delivery Method Room Air Weight: 151 lb 7.321 oz Body Mass Index (BMI) 21.7 Intake & Output: Intake and Output for Last 24 Hours 01/10/25 01/11/25 01/12/25 23:59 23:59 23:59 Intake Total 1300 / 1300 2294.02 / 2294.02 Output Total 1200 / 1200 600 / 600 Balance 100 / 100 1694.02 / 1694.02 Lab / Micro Data 01/11/25 18:35 01/11/25 18:35 Labs: Laboratory Results - last 24 hr 01/11/25 14:03: WBC 11.4 H, RBC 4.93, Hgb 13.9, Hct 42.9, MCV 87.0, MCH 28.2, MCHC 32.4, RDW Std Deviation 39.7, RDW Coeff of Rubens 12.4, Plt Count 193, MPV 9.2, Immature Gran % (Auto) 0.400, Neut % (Auto) 74.9 H, Lymph % (Auto) 13.8 L, [place] % (Auto) 9.0, Eos % (Auto) 1.4, Baso % (Auto) 0.5, Absolute Neuts (auto) 8.5 H, Absolute Lymphs (auto) 1.58, Nucleated RBC % 0, PT 14.7, INR 1.1, APTT 32.1, Sodium 138, Potassium 3.8, Chloride 102, Carbon Dioxide 23.8, Anion Gap 12, BUN 14, Creatinine 1.05, Estim Creat Clear Calc 85.83, Est GFR (MDRD) Non-Af 89, BUN/Creatinine Ratio 13.7, Glucose 147 H, Calcium 8.1, Total Bilirubin 0.16, Direct Bilirubin 0.09, AST 21, ALT 8, Alkaline Phosphatase 137 H, Troponin T High Sens 220 H*, NT pro BNP II 119, Total Protein 6.3, Albumin 3.8, Globulin 2.5 01/11/25 15:45: Troponin T Hi Sens 2 Hr 382 H* 01/11/25 17:01: Activated Clotting Time 271 H 01/11/25 17:33: Activated Clotting Time 230 H 01/11/25 18:35: WBC 9.4, RBC 4.22 L, Hgb 11.8 L, Hct 35.9 L, MCV 85.1, MCH 28.0, MCHC 32.9, RDW Std Deviation 38.4, RDW Coeff of Rubens 12.4, Plt Count 173, MPV 9.6, Sodium 138, Potassium 3.8, Chloride 105, Carbon Dioxide 23.6, Anion Gap 10, BUN 15, Creatinine 0.77, Estim Creat Clear Calc 118.41, Est GFR (MDRD) Non-Af 112, BUN/Creatinine Ratio 19.5, Glucose 117 H, Calcium 7.7 01/12/25 00:13: APTT 65.6 H 01/12/25 06:10: APTT 36.4 H ABG Data ABG results: ABG 01/11/25 16:52 Specimen Type MILLA Sample Site Not entered VBG pH 7.39 VBG pO2 21 L VBG HCO3 25 VBG Total CO2 26 VBG O2 Sat (Calc) 34 L VBG Base Excess -1 POC Mix VBG pCO2 Pt Tmp 41.0 O2 Delivery Device Not entered Radiography Diagnostic Testing: Radiology Impression Chest CTA 01/11/25 14:10 IMPRESSION: Ground-glass densities in the right upper lobe may represent pneumonitis or pneumonia. Extensive bilateral pulmonary embolism with right heart strain. This finding was discussed with Dr. Ray Gómez on 01/11/2025 3:10 p.m.. Reading Location: [facility] Physical Exam Const alert and oriented x3 General Appearance: cooperative and anxious HEENT normocephalic, head/scalp atraumatic, hearing grossly normal bilaterally, external ears normal and external nose normal Eyes General Eye: normal appearance of both eyes Resp normal respiratory effort Effort and Inspection: able to speak in complete sentences; Negative for labored, grunting, stridor or audible wheezes Cardio regular rate and regular rhythm Extremity Extremity Narrative: R groin puncture site with dressing C/D/I, no hematoma, no drainage. Skin no rashes or lesions noted Neuro oriented x3, moves all extremities and no focal motor deficits Speech: speech normal Psych Appearance: grossly normal Activity / Motor Behavior: appropriate eye contact Speech: normal speech Mood & Affect: anxious Assessment & Plan Assessment/Plan (1) Pulmonary embolism: PLAN: Plan He is s/p successful percutaneous mechanical bilateral pulmonary thrombectomy. R femoral vein access site with dressing intact, no drainage/bleeding, no hematoma. He is saturating well on room air, normotensive, sinus rhythm. Will transition to DOAC. Will start Xarelto 15mg BID this morning. Will discontinue heparin 1 hour after he receives his first dose of Xarelto. This was second episode of VTE and unprovoked, indefinite anticoagulation should be considered; minimum 6 months anticoagulation. Discussed with patient that echo and lower extremity venous duplex are still pending and planned for today. OK to advance diet after echo. OK for discharge from vascular perspective when otherwise medically appropriate, planning as per primary team. R groin dressing may be removed tomorrow, then can be open to air, kept clean. Showers are OK, avoid baths/submerging the site for 3 weeks. OK for activity as tolerated, no lifting >20 pounds for 3 weeks. Plan for follow-up in our office as an outpatient in 2-4 weeks. Charges/Coding Visit Charges Inpatient E&M: 84866 Subs Hosp L1
--- NOTE | 2025-01-12 14:11 | CASEMGMT ---
Social Work- collaborated with [employer] on pt self pay status. Kelly, [employer] rep, states that she reapplied for AIDEE for pt. Pt AIDEE lapsed 11/21/24. NICO [place]
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
--- NOTE | 2025-01-12 16:12 | NURSING ---
Pt states that he has fullness/ pressure behind his R knee he noticed while up in chair and walking. Stated that he had the same sensation before coming into the ED. Dr. Desouza notified. Pt had a Doppler this am with results of DVT. Verified with Dr. Boland that he was aware.
--- NOTE | 2025-01-12 16:33 | PCM.DC ---
Discharge Instructions DC O2, CPAP, BIPAP needs Home O2 Discharge instructions: No Dressing / Incision Discharge Activity: Return to Normal Activity and - (Right groin dressing may be removed tomorrow, then can be open to air and the area Clean, showering is okay, avoid baths for 3 weeks, no lifting above 20 pounds for 3 weeks) Weight Bearing Status: Full weight bearing Follow Up Care Test Results: Test results from this visit will be discussed in further detail at your follow-up appointment, if applicable. Discharge Plan Admission Admit Date/Time: 01/11/25 15:05 Primary Reason for Your Visit: Pulmonary embolism, Attending Provider: Lencho Sanches Primary Care Provider: Mayte Rodriguez Consulting Providers: Ankit Quintana Discharge Orders/Prescriptions Prescriptions: New Xarelto 15 mg Tablet 15 mg PO BIDCM Qty: 40 0RF Rx Instructions: 1 twice a day for a total of 40 doses starting on 01/13/2025, following this you will need a prescription for Xarelto 20 mg daily from your primary care physician Continued quetiapine 25 mg Tablet 25 mg PO QHS 30 Days Qty: 30 0RF gabapentin 300 mg capsule 300 mg PO TID 5 Days Qty: 15 0RF lorazepam [Ativan] 0.5 mg tablet 0.5 mg PO TID PRN (Reason: anxiety) 5 Days Qty: 15 0RF Referrals / Follow Up: Mayte Rodriguez, PLATFORM MATERIAL HANDLING SUPERVISOR-C [Primary Care Provider, [facility] [Non-Staff, Medical] - Within 2 Weeks Referral Note: Follow-up within 2 weeks, you will need a new prescription for Xarelto 20 mg daily after you finish your loading dose of 15 mg twice a day. Disposition Disposition (needs filled in before D/C Order can be placed): Home, Self Care
--- NOTE | 2025-01-12 16:44 | PCM.DC.SUM ---
Providers Date of Admission: 01/11/25 Date of Discharge: 01/12/25 Primary Care Physician: Mayte Rodriguez, TAMIKA-C Reason For Visit: SADDLE PE W/ HYPOTENSION Diagnosis Discharge Diagnosis (1) Pulmonary embolism: Status: Acute Code(s): I26.99 - Other pulmonary embolism without acute cor pulmonale Plan 1. Pulmonary embolism #2 deep venous thrombosis right leg #3 chronic anxiety disorder #4 essential hypertension Medications at Discharge Home Medications quetiapine 25 mg tablet 25 mg PO QHS 30 days #30 tabs 03/31/23 gabapentin 300 mg capsule 300 mg PO TID 5 days #15 caps 04/06/23 lorazepam 0.5 mg tablet (Ativan) 0.5 mg PO TID PRN anxiety 5 days #15 tabs 04/06/23 rivaroxaban 15 mg tablet (Xarelto) 15 mg PO BIDCM #40 tabs 01/12/25 Hospital Course Operations None Procedures - (Bilateral selective pulmonary angiogram, bilateral pulmonary thrombectomy, percutaneous ultrasound-guided access with closure device greater than 12 Romanian) Summary of Care Provided Minutes Spent on Discharge: 31 Hospital Course: This 45-year-old white male was seen in the emergency room at [facility] with worsening shortness of breath and syncopal episodes. Patient had a past history of alcohol abuse but stated he was sober for 2 years. Workup in the emergency room included a CT of the chest which showed an extensive bilateral pulmonary embolism with right heart strain, bedside echocardiogram showed an EF of 60% with a dilated RV and moderately severe global RV systolic dysfunction. Vascular surgery and cardiology saw the patient in the emergency room, patient was admitted to ICU and a thrombectomy was carried out without incident. Patient was started on a heparin drip in the emergency room before admission, he underwent an echocardiogram which showed an ejection fraction of 60. Patient underwent a venous duplex of his lower extremity which showed a DVT in the right leg. On 01/12/2025, patient was seen and examined: On examination he appeared in good health and spirits. Vital signs as documented. Skin warm and dry and without overt rashes. Neck without JVD, neck was supple, trachea midline, thyroid was normal. Lungs clear bilaterally, normal air movement was noted. Heart exam notable for regular rhythm, normal sounds and absence of murmurs, rubs or gallops. Abdomen unremarkable and without evidence of organomegaly, masses, or abdominal aortic enlargement. Bowel sounds are present, abdomen is not distended. Extremities nonedematous, no cyanosis was noted, no clubbing was noted. Neuro: Cranial nerves II through XII are grossly intact, no focal motor deficits were noted, sensation to light touch and pinprick intact, motor exam 5/5 throughout. Psych: Patient is alert and oriented x3, he does not appear anxious or depressed, he does not appear agitated. Patient appears to be stable for discharge home on 01/12/2025. Medical Records Data Homelessness:: Sheltered Weight / BMI Weight Weight: 68.7 kg Body Mass Index (BMI) 21.7 ABG / Lab / Microbiology Data 01/11/25 18:35 01/11/25 18:35 Laboratory: Laboratory Results - last 24 hr 01/11/25 17:01: Activated Clotting Time 271 H 01/11/25 17:33: Activated Clotting Time 230 H 01/11/25 18:35: WBC 9.4, RBC 4.22 L, Hgb 11.8 L, Hct 35.9 L, MCV 85.1, MCH 28.0, MCHC 32.9, RDW Std Deviation 38.4, RDW Coeff of Rubens 12.4, Plt Count 173, MPV 9.6, Sodium 138, Potassium 3.8, Chloride 105, Carbon Dioxide 23.6, Anion Gap 10, BUN 15, Creatinine 0.77, Estim Creat Clear Calc 118.41, Est GFR (MDRD) Non-Af 112, BUN/Creatinine Ratio 19.5, Glucose 117 H, Calcium 7.7 01/12/25 00:13: APTT 65.6 H 01/12/25 06:10: APTT 36.4 H ABG: ABG 01/11/25 16:52 Specimen Type MILLA Sample Site Not entered VBG pH 7.39 VBG pO2 21 L VBG HCO3 25 VBG Total CO2 26 VBG O2 Sat (Calc) 34 L VBG Base Excess -1 POC Mix VBG pCO2 Pt Tmp 41.0 O2 Delivery Device Not entered Radiography Diagnostic Testing: Radiology Impression Echocardiogram 01/12/25 17:52 Interpretation Summary Normal left ventricular size and function, the estimated ejection fraction is 60 %. Normal diastolic LV function Mildly dilated RV size with normal systolic function TAPSE 1.9 cm and right-sided pressures within normal limits less than 25 mmHg When compared to previous study, there is significant improvement in RV size and function following thrombectomy of the pulmonary artery Ordering Physician: Misty Lang Referring Physician: Jimenez Norris Performed By: Sofiya Rivas RCS D/C Instructions Weight Bearing Status: Full weight bearing DC O2, CPAP, BIPAP Needs Home O2 Discharge instructions: No Meaningful Use Info Meaningful Use Meaningful Use Diagnoses (Choose all that apply): VTE VTE Anticoag overlap given w/in hospital stay or rx'd at dc?: Yes Pt receive overlap for 5 days?: No Reason overlap not ordered, prescribed, or given for 5 days: Treatment Not Indicated Discharge Plan Admission Admit Date/Time: 01/11/25 15:05 Primary Reason for Your Visit: Pulmonary embolism, Attending Provider: Lencho Sanches Primary Care Provider: Mayte Rodriguez Consulting Providers: Ankit Quintana Discharge Orders/Prescriptions Prescriptions: New Xarelto 15 mg Tablet 15 mg PO BIDCM Qty: 40 0RF Rx Instructions: 1 twice a day for a total of 40 doses starting on 01/13/2025, following this you will need a prescription for Xarelto 20 mg daily from your primary care physician Continued quetiapine 25 mg Tablet 25 mg PO QHS 30 Days Qty: 30 0RF gabapentin 300 mg capsule 300 mg PO TID 5 Days Qty: 15 0RF lorazepam [Ativan] 0.5 mg tablet 0.5 mg PO TID PRN (Reason: anxiety) 5 Days Qty: 15 0RF Referrals / Follow Up: Jimenez Norris MD [Med Staff - Active Staff, Vascular Surgery] - See Referral Note Referral Note: In 3 weeks, call the office to schedule an appointment Mayte Rodriguez, PATRICKC [Primary Care Provider, [facility] [Non-Staff, Medical] - Within 2 Weeks Referral Note: Follow-up within 2 weeks, you will need a new prescription for Xarelto 20 mg daily after you finish your loading dose of 15 mg twice a day. Disposition Disposition (needs filled in before D/C Order can be placed): Home, Self Care Charges/Coding Visit Charges Inpatient E&M: 26868 Disch Hosp >30min
--- NOTE | 2025-01-12 16:56 | CASEMGMT ---
Addendum entered by Elle Ariza 01/12/25 17:22: [facility] returns call and states that the 15mg Xarelto rx is 800$. [facility] states that they can use the daysi program if needed. DARIAN MARI to the pt's room at this time. Pt states that he cannot afford the Rx. [facility] confirms that they can use the savings card on the pt's future rx for the 20mg Xarelto. Rx Daysi Program Intervention completed and tubed to the retail pharmacy. DARIAN MARI to the pt's room. Updated the pt that [facility] will deliver the pt's Xarelto to the room and that the pt was able to use the Daysi program. Encouraged the pt to have his PCP send the 20mg Xarelto Rx to [facility] since they confirmed that they can use the savings card. Physical savings card also provided to the pt at this time. Pt thanks this comic book writer and denies any further DC needs. Pt's RN updated. Original Note: Pt has an order for DC placed with a new Rx for Xarelto. Dr Boland states to this comic book writer that he wants the pt to use the savings card on the 20mg rx that he will get after his loading dose completes. TC to [facility] who states that they will call this DARIAN CM back once they have a mobley for the current Rx written by Dr Boland. KAMALJIT to follow.
--- NOTE | 2025-01-12 17:52 | ECHOD_ITS ---
Reason For Study Reason For Study: PULMONARY EMBOLISM Procedure This was a 2D Doppler, Color Flow transthoracic echocardiogram. Exam performed portable in ICU/CCU. Left Ventricle Normal LV size. Normal left ventricular thickness. The estimated ejection fraction is 60 %. Normal diastology for age. Right Ventricle Mildly dilated right ventricle. Normal systolic function. Atria The left and right atria are normal. Mitral Valve The mitral valve is structurally normal. No prolapse or stenosis seen. Tricuspid Valve Mild (1+) tricuspid valve insufficiency. Right ventricular systolic pressure estimated to be 25 mmHg. Aortic Valve The aortic valve is not well visualized. Great Vessels Normal sized aortic root. Pericardium/Pleural No pericardial effusion. MMode/2D Measurements & Calculations LVIDd: 4.4 cm IVSd: 1.3 cm LVAd ap4: 25.8 cm2 LVIDs: 3.0 cm LVPWd: 1.1 cm LVLd ap4: 8.2 cm RVDd: 4.6 cm FS: 31.5 % EDV(MOD-sp4): 66.6 ml EDV(sp4-el): 68.9 ml LVAs ap4: 16.9 cm2 LVLs ap4: 7.6 cm ESV(MOD-sp4): 32.3 ml ESV(sp4-el): 32.0 ml EF(MOD-sp4): 51.5 % EF(sp4-el): 53.6 % SV(MOD-sp4): 34.3 ml SV(sp4-el): 36.9 ml LA dimension(2D): 3.1 cm SI(MOD-sp4): 18.5 ml/m2 RA A4 area: 18.8 cm2 TAPSE: 1.9 cm Time Measurements MV dec time: 0.16 sec Doppler Measurements & Calculations MV E max richardson: 52.3 cm/sec Lat Peak E' Richardson: 9.8 cm/sec Med Peak E' Richardson: 8.6 cm/sec MV A max richardson: 59.4 cm/sec E/E' lat: 5.3 E/E' med: 6.1 MV E/A: 0.88 MV V2 max: 81.3 cm/sec Ao V2 max: 113.3 cm/sec MV max P.6 mmHg MV dec slope: 330.5 cm/sec2 Ao max P.2 mmHg MV V2 mean: 61.8 cm/sec Ao V2 mean: 81.1 cm/sec MV mean P.7 mmHg Ao mean P.9 mmHg MV V2 VTI: 17.8 cm Ao V2 VTI: 23.7 cm AV (velocity ratio): 0.91 LV V1 max: 95.6 cm/sec PA V2 max: 71.7 cm/sec TR max richardson: 223.1 cm/sec LV V1 max P.7 mmHg PA V2 mean: 57.2 cm/sec TR max P.9 mmHg LV V1 mean P.3 mmHg LV V1 mean: 71.5 cm/sec LV V1 VTI: 21.6 cm ECHO/Echo Complete Interpretation Summary Normal left ventricular size and function, the estimated ejection fraction is 6 0 %. 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
== END 2025-01-12 17:50 | disposition home or self-care (01) | DRG 134 ==
LOC: ED 15:05 → SDC 18:11 → ICU 18:11
PROVIDERS: Admitting Provider Hospitalist; Emergency Provider Emergency Medicine; PCP Nurse Practitioner Family; Referring Provider Surgery Trauma Surgery; Visit Provider Internal Medicine
DX: I26.09 Other pulmonary embolism with acute cor pulmonale (principal); I82.401 Acute embolism and thrombosis of unspecified deep veins of right lower extremity; F19.10 Other psychoactive substance abuse, uncomplicated; F10.10 Alcohol abuse, uncomplicated; I10 Essential (primary) hypertension; F17.210 Nicotine dependence, cigarettes, uncomplicated; F41.9 Anxiety disorder, unspecified; Z79.899 Other long term (current) drug therapy; Z86.711 Personal history of pulmonary embolism; R79.89 Other specified abnormal findings of blood chemistry; Y90.9 Presence of alcohol in blood, level not specified
CPT/HCPCS: 34713; 36014; 37184; 37185; 71275; 76937; 80048; 80076; 82803; 83880; 84484; 85025; 85027; 85347; 85610; 85730; 93005; 93306; 93308; 93970; 94668; 99152; 99153; 99285; C1757; C1769; C1894; Q9967; A4216; C1751; C1760